=== PATIENT | female | born 1945 | race Caucasian/White ===

== ENCOUNTER 2020-04-07 11:33 | Outpatient (REF) | payer MEDICARE, OTHER, SELFPAY ==
[2020-04-07 11:51] VITALS: BMI 20.1
[2020-04-07 11:52] VITALS: BP 154/67; PULSE 56; RESP 16; TEMP 36.4; O2SAT 97
== END 2020-04-07 11:34 | disposition home or self-care (01) ==
LOC: HO.MS 11:33
PROVIDERS: Visit Provider Ophthalmology
PROC: (CPT 66821; principal; 2020-04-07 12:40)
DX: H26.492 Other secondary cataract, left eye (principal); H35.033 Hypertensive retinopathy, bilateral; Z96.1 Presence of intraocular lens; I10 Essential (primary) hypertension; Z91.040 Latex allergy status; Z79.899 Other long term (current) drug therapy; Z87.891 Personal history of nicotine dependence; Z88.2 Allergy status to sulfonamides; Z88.8 Allergy status to other drugs, medicaments and biological substances; E07.9 Disorder of thyroid, unspecified
CPT/HCPCS: 66821

== ENCOUNTER 2020-05-19 08:02 | Day surgery (SDC) | payer MEDICARE, OTHER, SELFPAY ==
--- NOTE | 2020-04-29 13:24 | MHC.SHP ---
Pre-Procedural Eval Section A The patient is an INPATIENT: No The History & Physical has been completed within 30 days and I have reviewed it.: Yes Section B Chief Complaint: Cataract Right Eye Allergies: Allergies Allergy/AdvReac Type Severity Reaction Status Date / Time Beta-Adrenergic Agents Allergy Intermediate RASH TO A Unverified 02/28/20 16:18 [BETA-ADRENERGIC AGENTS] COUCH AND EDEMA latex [LATEX] Allergy Intermediate RASH Unverified 02/28/20 16:18 amlodipine [AMLODIPINE] Allergy Mild UNKNOWN Unverified 02/28/20 16:18 lisinopril [LISINOPRIL] Allergy Unknown UNKNOWN Unverified 02/28/20 16:18 spironolactone Allergy Unknown UNKNOWN Unverified 02/28/20 16:18 [SPIRONOLACTONE] Qoormrf-Ayw-Bff Reductase Allergy Unknown NAUSEA, Unverified 02/28/20 16:18 Inhibitor LOSS OF [[id number] REDUCTASE APPETITE, INHIBITOR] GENERALIZED ILL FEELING Sulfa (Sulfonamide Allergy Unknown YEARS AGO Unverified 02/28/20 16:18 Antibiotics) [SULFA (SULFONAMIDE ANTIBIOTICS)] lactose [LACTOSE] AdvReac Mild STOMACH Unverified 02/28/20 16:18 UPSET beta blockers Allergy Unknown Uncoded 01/02/20 00:00 Sulfacet-R Allergy Unknown Uncoded 01/02/20 00:00 Plan Diagnosis/Plan: Unchanged Patient has been examined and remains a candidate for the planned procedure
[2020-05-05 14:26] VITALS: BMI 20.1
--- NOTE | 2020-05-05 14:35 | P.CONAN_ITS ---
HPI - Anesthesia Eval Consult details Narrative: 74yo F for Cataract Extraction No previous cataract PCP cleared [facility] Past Medical History Medical History (Updated 05/07/20 @ 13:36 by Dodie Cuevas) CAD (coronary artery disease) COPD (chronic obstructive pulmonary disease) History of postoperative nausea Hx of cardiomyopathy Hx of transfusion of whole blood Hyponatremia syndrome Renal failure Thyroid disease Surgical History Surgical History (Updated 05/05/20 @ 14:33 by Umu Worley) H/O colonoscopy History of nephrectomy Hx of cardiac catheterization Hx of hysterectomy with oophorectomy Hx of left cataract extraction Hx of splenectomy Social History Social History (Updated 05/05/20 @ 14:38 by Umu Worley) Alcohol intake: never Smoking Status: Former smoker Tobacco Type: Cigarette Smoking Quit Date: 2016 Use of substances other than those prescribed or required for medical reasons: No Advance Directives: No Meds Allergies Allergy/AdvReac Type Severity Reaction Status Date / Time Beta-Blockers Allergy Intermediate Swelling Verified 05/05/20 14:20 (Beta-Adrenergic Bloc latex [LATEX] Allergy Intermediate RASH Verified 05/05/20 14:18 lisinopril [LISINOPRIL] Allergy Intermediate Cough Verified 05/05/20 14:18 Jlpvhyy-Tnb-Vfi Reductase Allergy Intermediate NAUSEA, Verified 05/05/20 14:18 Inhibitor LOSS OF [[id number] REDUCTASE APPETITE, INHIBITOR] GENERALIZED ILL FEELING Sulfa (Sulfonamide Allergy Intermediate Rash Verified 05/05/20 14:18 Antibiotics) [SULFA (SULFONAMIDE ANTIBIOTICS)] amlodipine [AMLODIPINE] Allergy Mild Rash Verified 05/05/20 14:18 spironolactone Allergy Unknown UNKNOWN Verified 05/05/20 14:18 [SPIRONOLACTONE] lactose [LACTOSE] AdvReac Mild STOMACH Verified 05/05/20 14:18 UPSET Home Medications Medication Instructions Recorded Confirmed Type albuterol sulfate [ProAir HFA] 2 puff INHALATION Q4-6H PRN 05/05/20 05/05/20 History aspirin [Aspirin Low-Strength] 81 mg PO DAILY 05/05/20 05/05/20 History carvedilol 12.5 mg PO BID 05/05/20 05/05/20 History fluticasone furoate-vilanterol 1 inh INHALATION DAILY 05/05/20 05/05/20 History [Breo Ellipta] levothyroxine 100 mcg PO DAILY 05/05/20 05/05/20 History urea [Ure-Na] 1 packet PO DAILY 05/05/20 05/05/20 History Exam Exam Date and Time: May 05, 2020 1435 Height,Weight and Vital Signs: Height 5 ft 2 in Weight 49.895 kg Narrative Narrative: EKG 12/2019: NSR@73, biatrial enlargement Assessment and Plan Assessment Anesthesia Assessment: Chart Reviewed
--- NOTE | 2020-05-16 12:49 | HO.ANESPROP2 ---
Documented by User: Dodie Cuevas 05/16/20 13:38 HPI - Anesthesia Eval Consult details Narrative: 74yo F for Cataract Extraction PCP cleared [facility] Past Medical History Medical History Anxiety CAD (coronary artery disease) COPD (chronic obstructive pulmonary disease) COPD exacerbation History of postoperative nausea Hx of cardiomyopathy Hx of transfusion of whole blood Hyponatremia syndrome Renal failure Thyroid disease Surgical History Surgical History H/O colonoscopy History of nephrectomy Hx of cardiac catheterization Hx of hysterectomy with oophorectomy Hx of left cataract extraction Hx of splenectomy Social History Social History Alcohol intake: never Smoking Status: Former smoker Tobacco Type: Cigarette Smoked in Last 30 Days: No Smoking Quit Date: 2016 Use of substances other than those prescribed or required for medical reasons: No Advance Directives Information Provided: No Recently lost weight without trying: No Meds Allergies Allergy/AdvReac Type Severity Reaction Status Date / Time Beta-Blockers Allergy Intermediate Swelling Verified 05/14/20 14:52 (Beta-Adrenergic Bloc latex [LATEX] Allergy Intermediate RASH Verified 05/14/20 14:52 lisinopril [LISINOPRIL] Allergy Intermediate Cough Verified 05/14/20 14:52 Fvstoxb-Tdz-Zzt Reductase Allergy Intermediate NAUSEA, Verified 05/14/20 14:52 Inhibitor LOSS OF [[id number] REDUCTASE APPETITE, INHIBITOR] GENERALIZED ILL FEELING Sulfa (Sulfonamide Allergy Intermediate Rash Verified 05/14/20 14:52 Antibiotics) [SULFA (SULFONAMIDE ANTIBIOTICS)] amlodipine [AMLODIPINE] Allergy Mild Rash Verified 05/14/20 14:52 spironolactone Allergy Unknown UNKNOWN Verified 05/14/20 14:52 [SPIRONOLACTONE] lactose [LACTOSE] AdvReac Mild STOMACH Verified 05/14/20 14:52 UPSET Home Medications Medication Instructions Recorded Confirmed Type albuterol sulfate [ProAir HFA] 2 puff INHALATION Q4-6H PRN 05/05/20 05/05/20 History aspirin [Aspirin Low-Strength] 81 mg PO DAILY 05/05/20 05/05/20 History carvedilol 12.5 mg PO BID 05/05/20 05/05/20 History fluticasone furoate-vilanterol 1 inh INHALATION DAILY 05/05/20 05/05/20 History [Breo Ellipta] levothyroxine 100 mcg PO DAILY 05/05/20 05/05/20 History urea [Ure-Na] 1 packet PO DAILY 05/05/20 05/05/20 History Exam Exam Date and Time: May 16, 2020 1249 Height,Weight and Vital Signs: Height 5 ft 2 in Weight 49.895 kg Assessment and Plan Assessment Anesthesia Assessment: Chart Reviewed Documented by User: Netta Pritchard 05/19/20 10:25 [facility] Past Medical History Medical History Anxiety CAD (coronary artery disease) COPD (chronic obstructive pulmonary disease) COPD exacerbation History of postoperative nausea Hx of cardiomyopathy Hx of transfusion of whole blood Hyponatremia syndrome Renal failure Thyroid disease Family History Family history of problems with anesthesia: No Surgical History Surgical History H/O colonoscopy History of nephrectomy Hx of cardiac catheterization Hx of hysterectomy with oophorectomy Hx of left cataract extraction Hx of splenectomy History of Problems with Anesthesia: No Social History Social History Alcohol intake: never Smoking Status: Former smoker Tobacco Type: Cigarette Smoked in Last 30 Days: No Smoking Quit Date: 2016 Use of substances other than those prescribed or required for medical reasons: No Advance Directives Information Provided: No Recently lost weight without trying: No Meds Allergies Allergy/AdvReac Type Severity Reaction Status Date / Time Beta-Blockers Allergy Intermediate Swelling Verified 05/14/20 14:52 (Beta-Adrenergic Bloc latex [LATEX] Allergy Intermediate RASH Verified 05/14/20 14:52 lisinopril [LISINOPRIL] Allergy Intermediate Cough Verified 05/14/20 14:52 Bwkroyn-Zqv-Dzl Reductase Allergy Intermediate NAUSEA, Verified 05/14/20 14:52 Inhibitor LOSS OF [[id number]-[id number] REDUCTASE APPETITE, INHIBITOR] GENERALIZED ILL FEELING Sulfa (Sulfonamide Allergy Intermediate Rash Verified 05/14/20 14:52 Antibiotics) [SULFA (SULFONAMIDE ANTIBIOTICS)] amlodipine [AMLODIPINE] Allergy Mild Rash Verified 05/14/20 14:52 spironolactone Allergy Unknown UNKNOWN Verified 05/14/20 14:52 [SPIRONOLACTONE] lactose [LACTOSE] AdvReac Mild STOMACH Verified 05/14/20 14:52 UPSET Home Medications Medication Instructions Recorded Confirmed Type albuterol sulfate [ProAir HFA] 2 puff INHALATION Q4-6H PRN 05/05/20 05/05/20 History aspirin [Aspirin Low-Strength] 81 mg PO DAILY 05/05/20 05/05/20 History carvedilol 12.5 mg PO BID 05/05/20 05/05/20 History fluticasone furoate-vilanterol 1 inh INHALATION DAILY 05/05/20 05/05/20 History [Breo Ellipta] levothyroxine 100 mcg PO DAILY 05/05/20 05/05/20 History urea [Ure-Na] 1 packet PO DAILY 05/05/20 05/05/20 History Exam Height,Weight and Vital Signs: Vital Signs Temp Pulse Resp BP Pulse Ox 05/19/20 09:22 98.2 F 54 16 173/74 H 98 Airway Mallampati Class: II TM Dist: >3cm Neck ROM: Full Denture: Upper Partial: Lower Heart: RRR Lungs: CTAB Assessment and Plan Assessment Anesthesia Assessment: Anesthesia Plan Discussed and Chart Reviewed Final Anesthetic Review NPO: Yes ASA Class: III Final Preanesthetic Review: No Changes in Pt Med Stat, Meds/Allgs Chart Reviewed, Consent Obtained/Reviewed and Anes Risks/Benef Reviewed Patient Risk: Intermediate Procedure Risk: Low Anesthetic Plan Anesthetic Plan: MAC: Disposition: Standard PACU
--- NOTE | 2020-05-19 08:26 | MHC.SHP ---
Pre-Procedural Eval Section A The patient is an INPATIENT: No The History & Physical has been completed within 30 days and I have reviewed it.: Yes Section B Chief Complaint: Cataract Right Eye Allergies: Allergies Allergy/AdvReac Type Severity Reaction Status Date / Time Beta-Blockers Allergy Intermediate Swelling Verified 05/14/20 14:52 (Beta-Adrenergic Bloc latex [LATEX] Allergy Intermediate RASH Verified 05/14/20 14:52 lisinopril [LISINOPRIL] Allergy Intermediate Cough Verified 05/14/20 14:52 Itlgvna-Tym-Llg Reductase Allergy Intermediate NAUSEA, Verified 05/14/20 14:52 Inhibitor LOSS OF [SEXIPZQ-ALH-BZD REDUCTASE APPETITE, INHIBITOR] GENERALIZED ILL FEELING Sulfa (Sulfonamide Allergy Intermediate Rash Verified 05/14/20 14:52 Antibiotics) [SULFA (SULFONAMIDE ANTIBIOTICS)] amlodipine [AMLODIPINE] Allergy Mild Rash Verified 05/14/20 14:52 spironolactone Allergy Unknown UNKNOWN Verified 05/14/20 14:52 [SPIRONOLACTONE] lactose [LACTOSE] AdvReac Mild STOMACH Verified 05/14/20 14:52 UPSET Plan Diagnosis/Plan: Unchanged Patient has been examined and remains a candidate for the planned procedure
[2020-05-19 09:22] VITALS: BP 173/74; PULSE 54; RESP 16; TEMP 36.8; O2SAT 98
[2020-05-19] MEDS: Lactated Ringers 500 ML 50 ML IV (09:34)
[2020-05-19] MEDS: Tetracaine HCl/PF 0.5% Oph Sol 4 ML DROPS 1 DROP EYE-RIGHT (09:35)
[2020-05-19] MEDS: Tropicamide 1 % Ophth Sol 3 ML BTL 1 DROP EYE-RIGHT ×3 (09:37→09:44)
[2020-05-19 10:50] VITALS: BP 143/66; PULSE 60; RESP 13; TEMP 36.1; O2SAT 99
--- NOTE | 2020-05-19 10:51 | HO.PNOPHT ---
Ophthalmology Procedure Procedure Date of Service: 05/19/20 Ophthalmology Viscoelastic: Amarilis Caseyt Dual Pack Pro Ophthalmology Lenses: TECELAINA [id number] (15) Procedure Notes: PREOPERATIVE DIAGNOSIS: Decreased visual acuity right eye secondary to cataract POSTOPERATIVE DIAGNOSIS: Same PROCEDURE: Right cataract extraction with intraocular lens insertion SURGEON: Sammy Thomas M.D. ANESTHESIA: Topical/MAC ESTIMATED BLOOD LOSS: None COMPLICATIONS: None After obtaining informed consent, the patient was brought to the operating room suite and placed in the supine position. After adequate sedation per anesthesia, topical drops of Tetracaine were given to the right eye. The eye was then prepped and draped in the usual sterile fashion. The operating room microscope was then positioned over the operative eye and a lid speculum placed. A paracentesis was created. Viscoelastic was then instilled into the anterior chamber. A three plane incision was then created temporally, utilizing a 2.85 mm keratome. Capsulotomy forceps were then utilized to create a circular tear capsulotomy. Hydrodissection and hydrodelineation were carried out until adequate mobilization of the nucleus occurred. Phacoemulsification was then utilized to remove the dense central nucleus followed by removal of the cortical material utilizing the automated aspiration irrigation unit. Viscoelastic was instilled into the posterior capsular bag followed by placement of a posterior chamber intraocular lens without difficulty. The residual Viscoelastic was then removed utilizing the automated IA machine. The wound was checked and found to be watertight. The patient tolerated the procedure well and the lid speculum was removed. Intracameral injection of Vigamox 0.1 mL followed by a subtenon injection of Kenalog-40 0.2 mL were administered. The patient will be seen in the a.m.
--- NOTE | 2020-05-19 10:53 | HO.POSTANES ---
Post Anesthesia Evaluation Post Anesthesia Evaluation Vital Signs: Vital Signs Temp Pulse Resp BP Pulse Ox 05/19/20 09:22 98.2 F 54 16 173/74 H 98 Anesthesia: Monitored Mental Status: Awake Pain Control: Satisfactory Nausea/Vomiting: None Hydration: Adequate Anesthesia-Related Issues: No Anes. Related Issues
== END 2020-05-19 11:05 | disposition home or self-care (01) ==
PROVIDERS: Visit Provider Ophthalmology
PROC: (CPT 66985; principal; 2020-05-19 10:10)
DX: H25.11 Age-related nuclear cataract, right eye (principal); Z88.2 Allergy status to sulfonamides; Z88.8 Allergy status to other drugs, medicaments and biological substances
CPT/HCPCS: 66984; J2250; J3010; J3300; V2632

== ENCOUNTER 2020-05-22 09:33 | Outpatient (REF) | payer MEDICARE, OTHER, SELFPAY ==
[2020-05-22 11:55] LABS: Anion Gap 12 (12-20); Blood Urea Nitrogen 65 mg/dL (9-16); Calcium 9.5 mg/dL (8.4-10.2); Carbon Dioxide 28 mmol/L (22-29); Chloride 100 mmol/L (96-108); Estimated Glomerular Filt Rate 57; Potassium 4.7 mmol/l (3.3-5.1); Sodium 135 mmol/L (135-145)
[2020-05-22 12:04] LABS: Thyroid Stimulating Hormone 1.44 uIU/mL (0.32-4.0)
== END 2020-05-22 09:34 | disposition home or self-care (01) ==
LOC: HO.HMGCLDS 09:33
PROVIDERS: Visit Provider Internal Medicine Hypertension Specialist
DX: E22.2 Syndrome of inappropriate secretion of antidiuretic hormone (principal); E87.1 Hypo-osmolality and hyponatremia; I10 Essential (primary) hypertension; E03.9 Hypothyroidism, unspecified
CPT/HCPCS: 80051; 82310; 82565; 84443; 84520

== ENCOUNTER 2020-05-30 07:08 | Outpatient (REF) | payer MEDICARE, OTHER, SELFPAY ==
[2020-05-30 11:13] LABS: MANUAL DIFF FLAG NO
[2020-05-30 11:23] LABS: Basophils Absolute Auto 0.1 X10*3/uL (0.0-0.2); Basophils Percent Auto 1.1 % (0-2); Eosinophils Absolute Auto 0.3 X10*3/uL (0.0-0.4); Eosinophils Percent Auto 3.1 % (0-4); Hemoglobin 14.5 g/dl (12.0-16.0); Imm Gran Abs Auto 0.03 X10*3/uL (0.00-0.03); Imm Gran Pct Auto 0.3 % (0.0-0.4); Lymphocytes Absolute Auto 2.5 X10*3/uL (1.2-4.9); Lymphocytes Percent Auto 24.6 % (20-40); Mean Corpuscular HGB Conc 32.2 g/dl (31.0-35.0); Mean Corpuscular Hemoglobin 32.6 pg (27.0-33.0); Mean Corpuscular Volume 101.1 fL (80-98); Mean Platelet Volume 9.6 fL (9.4-12.3); Monocytes Absolute Auto 0.8 X10*3/uL (0.1-1.2); Monocytes Percent Auto 7.4 % (2-11); Neutrophils Absolute Auto 6.5 X10*3/uL (2.0-8.3); Neutrophils Percent Auto 63.5 % (45-73); Platelet Count 302 X10*3/uL (160-400); Red Blood Count 4.45 X10*6/uL (4.20-5.50); Red Cell Distribution Width 12.9 % (11.0-16.0); White Blood Count 10.3 X10*3/uL (4.8-10.8)
[2020-05-30 11:46] LABS: Alanine Aminotransferase 17 U/L (0-31); Alkaline Phosphatase 58 U/L (39-117); Anion Gap 11 (12-20); Aspartate Amino Transferase 22 U/L (5-31); Bilirubin Direct 0.2 mg/dL (0.0-0.5); Bilirubin Total 0.5 mg/dL (0.0-1.0); Blood Urea Nitrogen 34 mg/dL (9-16); Calcium 9.4 mg/dL (8.4-10.2); Carbon Dioxide 31 mmol/L (22-29); Chloride 102 mmol/L (96-108); Cholesterol 215 mg/dL; Estimated Glomerular Filt Rate 50; Glucose Fasting 99 mg/dL (60-99); HDL Cholesterol 77 mg/dL; LDL Cholesterol Calculated 123 mg/dl; Potassium 4.7 mmol/l (3.3-5.1); Sodium 139 mmol/L (135-145); Total Protein 7.8 g/dL (6.5-8.0); Triglycerides 76 mg/dL
[2020-05-30 11:57] LABS: Free T4 (Free Thyroxine) 1.35 ng/dL (0.71-1.85); Thyroid Stimulating Hormone 0.93 uIU/mL (0.32-4.0); Vitamin D 25-OH Total 27.4 ng/mL (>30)
[2020-05-30 12:27] LABS: Folate > 20.0 ng/mL (> or = 4.0); Vitamin B12 554 pg/mL (200-900)
== END 2020-05-30 07:09 | disposition home or self-care (01) ==
LOC: HO.HMGCLDS 07:08
DX: E22.2 Syndrome of inappropriate secretion of antidiuretic hormone (principal); E87.1 Hypo-osmolality and hyponatremia; E03.9 Hypothyroidism, unspecified; I10 Essential (primary) hypertension; J44.9 Chronic obstructive pulmonary disease, unspecified
CPT/HCPCS: 36415; 80053; 80061; 80076; 82306; 82607; 82746; 84439; 84443; 85025

== ENCOUNTER → 2020-06-03 14:44 | Outpatient (BNVA) | payer MEDICARE, OTHER, SELFPAY | PROVIDERS: Visit Provider Internal Medicine | DX: Z76.89 Persons encountering health services in other specified circumstances (principal) | CPT/HCPCS: Q3014 ==

== ENCOUNTER → 2020-09-02 10:18 | Outpatient (BNVA) | payer MEDICARE, OTHER, SELFPAY | PROVIDERS: PCP Internal Medicine Medical Oncology; Visit Provider Internal Medicine | DX: J44.1 Chronic obstructive pulmonary disease with (acute) exacerbation (principal); F41.9 Anxiety disorder, unspecified; Z87.891 Personal history of nicotine dependence; Z79.899 Other long term (current) drug therapy | CPT/HCPCS: 99212 ==

== ENCOUNTER 2020-10-02 10:17 | Outpatient (REF) | payer MEDICARE, OTHER, SELFPAY ==
[2020-10-02 12:15] LABS: Thyroid Stimulating Hormone 0.55 uIU/mL (0.32-4.0)
== END 2020-10-02 10:18 | disposition home or self-care (01) ==
LOC: HO.HMGCLDS 10:17
PROVIDERS: PCP Internal Medicine Medical Oncology; Visit Provider Internal Medicine Hypertension Specialist
DX: E22.2 Syndrome of inappropriate secretion of antidiuretic hormone (principal); E87.1 Hypo-osmolality and hyponatremia; E03.9 Hypothyroidism, unspecified
CPT/HCPCS: 36415; 84443

== ENCOUNTER 2020-10-09 14:05 | Outpatient (REF) | payer MEDICARE, OTHER, SELFPAY ==
[2020-10-09 16:45] LABS: Anion Gap 13 (12-20); Blood Urea Nitrogen 54 mg/dL (9-16); Calcium 9.2 mg/dL (8.4-10.2); Carbon Dioxide 26 mmol/L (22-29); Chloride 103 mmol/L (96-108); Estimated Glomerular Filt Rate 49; Sodium 137 mmol/L (135-145)
== END 2020-10-09 14:06 | disposition home or self-care (01) ==
LOC: HO.HMGCLDS 14:05
PROVIDERS: PCP Internal Medicine Medical Oncology; Visit Provider Internal Medicine Hypertension Specialist
DX: E87.1 Hypo-osmolality and hyponatremia (principal)
CPT/HCPCS: 36415; 80051; 82310; 82565; 84520

== ENCOUNTER 2020-10-24 10:45 | Outpatient (REF) | payer MEDICARE, OTHER, SELFPAY ==
--- NOTE | ~2020-10-24 | MM_ITS ---
EXAMINATION: BONE DENSITOMETRY CLINICAL INDICATION: Osteoporosis. COMPARISON: This is the patient's baseline examination. TECHNIQUE: Using a [employer] DXA System (software version: 13.1) manufactured by [employer], dual-energy x-ray absorptiometry was performed of the lumbar spine and left hip. The images are of good technical quality. Summary results are attached. FINDINGS: AP SPINE L1-L4: There is scoliosis and degenerative spurring and sclerosis seen involving the lumbar spine which will falsely elevate the bone mineral density. BMD 1.046 g/cm2, Z-score 1.1, T-score -1.1, osteopenia. LEFT FEMUR, NECK: BMD 0.609 g/cm2, Z-score -0.8, T-score -3.1, osteoporosis. LEFT FEMUR, TOTAL: BMD 0.621 g/cm2, Z-score -1.0, T-score -3.1, osteoporosis. IDENTIFIED RISK FACTORS: Menopause, height loss, renal, glucocorticoids (chronic), bilateral oophorectomy. HISTORY OF FRACTURE: None listed. MEDICATIONS: Calcium, vitamin D. MM/XR DEXA axial skeleton IMPRESSION: 1. DIAGNOSIS: Osteoporosis based on the lowest T-score value of -3.1 in the femur neck and total femur applying World Health Organization criteria. 2. 10-YEAR FRACTURE RISK PREDICTION, FRAX: Major osteoporotic fracture (clinical spine, forearm, hip or shoulder) 30.4%. Hip fracture 14.4%. 3. Treatment Recommendations: NOF guidelines recommend consideration for treatment in postmenopausal women and men age 50 and older presenting with the following: -A hip or vertebral (clinical or morphometric) fracture. -T-score less than or equal to -2.5 at the femoral neck or spine after appropriate evaluation to exclude secondary causes. -Low bone mass at the hip or spine and a 10-year fracture probability by FRAX of greater than or equal to 3% for hip fracture or greater than or equal to 20% for major osteoporotic fracture based on the [place] adapted WHO algorithm. 4. Other Recommendations: All treatment decisions require clinical judgment and consideration of individual patient factors, including patient preferences, comorbidities, previous drug use, risk factors not captured in the FRAX model (e.g. frailty, falls, vitamin D deficiency, increased bone turnover, interval significant decline in bone density) and possible under or overestimation of fracture risk by FRAX. Additional medical evaluation for secondary cause of low bone mineral density may be appropriate. FUTURE SCAN RECOMMENDATION: People with diagnosed cases of osteoporosis or at high risk for fracture should have regular bone mineral density tests. For patients eligible for Medicare, routine testing is allowed once every 2 years. The testing frequency can be increased to one year for patients who have rapidly progressing disease, those who are receiving or discontinuing medical therapy to restore bone mass, or have additional risk factors.
== END 2020-10-24 10:46 | disposition home or self-care (01) ==
LOC: HO.MAMMO 10:45
PROVIDERS: Visit Provider Internal Medicine Medical Oncology
DX: M81.0 Age-related osteoporosis without current pathological fracture (principal); Z78.0 Asymptomatic menopausal state; Z79.52 Long term (current) use of systemic steroids; Z90.722 Acquired absence of ovaries, bilateral
CPT/HCPCS: 77080

== ENCOUNTER → 2020-11-27 10:00 | Outpatient (BNVA) | payer MEDICARE, OTHER, SELFPAY | PROVIDERS: PCP Internal Medicine Medical Oncology; Visit Provider Internal Medicine | DX: J44.1 Chronic obstructive pulmonary disease with (acute) exacerbation (principal); F41.9 Anxiety disorder, unspecified; T78.40XA Allergy, unspecified, initial encounter; Z79.899 Other long term (current) drug therapy | CPT/HCPCS: 99212 ==

== ENCOUNTER → 2020-12-23 10:16 | Outpatient (BNVA) | payer MEDICARE, OTHER, SELFPAY | PROVIDERS: PCP Internal Medicine Medical Oncology; Visit Provider Internal Medicine | DX: I51.81 Takotsubo syndrome (principal); I25.10 Atherosclerotic heart disease of native coronary artery without angina pectoris | CPT/HCPCS: 93005; 99212 ==

== ENCOUNTER 2021-01-30 07:06 | Outpatient (REF) | payer MEDICARE, OTHER, SELFPAY ==
[2021-01-30 11:18] LABS: MANUAL DIFF FLAG NO
[2021-01-30 11:39] LABS: Basophils Absolute Auto 0.1 X10*3/uL (0.0-0.2); Basophils Percent Auto 0.9 % (0-2); Eosinophils Absolute Auto 0.3 X10*3/uL (0.0-0.4); Eosinophils Percent Auto 3.4 % (0-4); Hematocrit 42.9 % (37-47); Hemoglobin 13.7 g/dl (12.0-16.0); Imm Gran Abs Auto 0.03 X10*3/uL (0.00-0.03); Imm Gran Pct Auto 0.3 % (0.0-0.4); Lymphocytes Absolute Auto 3.2 X10*3/uL (1.2-4.9); Lymphocytes Percent Auto 37.7 % (20-40); Mean Corpuscular HGB Conc 31.9 g/dl (31.0-35.0); Mean Corpuscular Hemoglobin 32.7 pg (27.0-33.0); Mean Corpuscular Volume 102.4 fL (80-98); Mean Platelet Volume 9.9 fL (9.4-12.3); Monocytes Percent Auto 11.8 % (2-11); Neutrophils Absolute Auto 3.9 X10*3/uL (2.0-8.3); Neutrophils Percent Auto 45.9 % (45-73); Platelet Count 256 X10*3/uL (160-400); Red Blood Count 4.19 X10*6/uL (4.20-5.50); Red Cell Distribution Width 13.2 % (11.0-16.0); White Blood Count 8.6 X10*3/uL (4.8-10.8)
[2021-01-30 11:51] LABS: Estimated Average Glucose 123 mg/dL; Hemoglobin A1C 151.9225 umol/L; Hemoglobin A1c % 5.9 %
[2021-01-30 12:00] LABS: Creatinine Urine 125.51 mg/dL; Microalbum/Creatinine Ratio Ur 112.3 ug/mg cr
[2021-01-30 12:18] LABS: Alanine Aminotransferase 18 U/L (0-31); Albumin Level 3.7 g/dL (3.5-5.0); Alkaline Phosphatase 47 U/L (39-117); Anion Gap 11 (12-20); Aspartate Amino Transferase 23 U/L (5-31); Bilirubin Total 0.4 mg/dL (0.0-1.0); Blood Urea Nitrogen 36 mg/dL (9-16); Carbon Dioxide 28 mmol/L (22-29); Chloride 106 mmol/L (96-108); Cholesterol 181 mg/dL; Estimated Glomerular Filt Rate 48; Glucose Random 87 mg/dL (60-115); HDL Cholesterol 65 mg/dL; LDL Cholesterol Calculated 99 mg/dl; Potassium 4.6 mmol/L (3.3-5.1); Sodium 140 mmol/L (135-145); Total Protein 7.1 g/dL (6.5-8.0); Triglycerides 86 mg/dL; Uric Acid 5.7 mg/dL (2.4-5.7)
[2021-01-30 12:20] LABS: Free T4 (Free Thyroxine) 1.38 ng/dL (0.71-1.85); Thyroid Stimulating Hormone 0.67 uIU/mL (0.32-4.0)
== END 2021-01-30 07:07 | disposition home or self-care (01) ==
LOC: HO.HMGCLDS 07:06
PROVIDERS: PCP Internal Medicine Medical Oncology; Visit Provider Internal Medicine Medical Oncology
DX: J44.9 Chronic obstructive pulmonary disease, unspecified (principal); N18.9 Chronic kidney disease, unspecified; E78.5 Hyperlipidemia, unspecified; D69.2 Other nonthrombocytopenic purpura
CPT/HCPCS: 36415; 80053; 80061; 82043; 83036; 84439; 84443; 84550; 85025

== ENCOUNTER → 2021-02-26 09:58 | Outpatient (BNVA) | payer MEDICARE, OTHER, SELFPAY | PROVIDERS: PCP Internal Medicine Medical Oncology; Visit Provider Internal Medicine | DX: J44.9 Chronic obstructive pulmonary disease, unspecified (principal); F41.9 Anxiety disorder, unspecified; T78.40XA Allergy, unspecified, initial encounter | CPT/HCPCS: 99212 ==

== ENCOUNTER 2021-04-03 12:56 | Outpatient (REF) | payer MEDICARE, OTHER, SELFPAY ==
[2021-04-03 14:10] LABS: MANUAL DIFF FLAG NO
[2021-04-03 14:29] LABS: Basophils Absolute Auto 0.1 X10*3/uL (0.0-0.2); Basophils Percent Auto 0.8 % (0-2); Eosinophils Absolute Auto 0.2 X10*3/uL (0.0-0.4); Eosinophils Percent Auto 2.2 % (0-4); Hemoglobin 13.8 g/dl (12.0-16.0); Imm Gran Abs Auto 0.04 X10*3/uL (0.00-0.03); Imm Gran Pct Auto 0.4 % (0.0-0.4); Lymphocytes Absolute Auto 2.9 X10*3/uL (1.2-4.9); Lymphocytes Percent Auto 29.3 % (20-40); Mean Corpuscular HGB Conc 32.1 g/dl (31.0-35.0); Mean Corpuscular Hemoglobin 32.3 pg (27.0-33.0); Mean Corpuscular Volume 100.7 fL (80-98); Mean Platelet Volume 9.7 fL (9.4-12.3); Monocytes Absolute Auto 1.2 X10*3/uL (0.1-1.2); Monocytes Percent Auto 12.2 % (2-11); Neutrophils Absolute Auto 5.4 X10*3/uL (2.0-8.3); Neutrophils Percent Auto 55.1 % (45-73); Platelet Count 268 X10*3/uL (160-400); Red Blood Count 4.27 X10*6/uL (4.20-5.50); Red Cell Distribution Width 13.5 % (11.0-16.0); White Blood Count 9.8 X10*3/uL (4.8-10.8)
[2021-04-03 14:37] LABS: Anion Gap 9 (12-20); Blood Urea Nitrogen 70 mg/dL (9-16); Calcium 9.4 mg/dL (8.4-10.2); Carbon Dioxide 29 mmol/L (22-29); Chloride 101 mmol/L (96-108); Estimated Glomerular Filt Rate 42; Potassium 4.4 mmol/L (3.3-5.1); Sodium 135 mmol/L (135-145)
== END 2021-04-03 12:57 | disposition home or self-care (01) ==
LOC: HO.HMGCLDS 12:56
PROVIDERS: PCP Internal Medicine Medical Oncology; Visit Provider Internal Medicine Hypertension Specialist
DX: E87.1 Hypo-osmolality and hyponatremia (principal)
CPT/HCPCS: 36415; 80051; 82310; 82565; 84520; 85025

== ENCOUNTER 2021-05-11 10:36 | Outpatient (REF) | payer MEDICARE, OTHER, SELFPAY ==
[2021-05-11 14:13] LABS: Anion Gap 12 (12-20); Blood Urea Nitrogen 61 mg/dL (9-16); Calcium 9.4 mg/dL (8.4-10.2); Carbon Dioxide 27 mmol/L (22-29); Chloride 103 mmol/L (96-108); Estimated Glomerular Filt Rate 42; Phosphorus 3.9 mg/dL (2.7-4.5); Potassium 4.3 mmol/L (3.3-5.1); Sodium 138 mmol/L (135-145)
== END 2021-05-11 10:37 | disposition home or self-care (01) ==
LOC: HO.HMGCLDS 10:36
PROVIDERS: Visit Provider Internal Medicine Hypertension Specialist
DX: E87.1 Hypo-osmolality and hyponatremia (principal)
CPT/HCPCS: 36415; 80051; 82310; 82565; 84100; 84520

== ENCOUNTER → 2021-05-26 10:00 | Outpatient (BNVA) | payer MEDICARE, OTHER, SELFPAY | PROVIDERS: PCP Internal Medicine Medical Oncology; Visit Provider Internal Medicine | DX: J44.9 Chronic obstructive pulmonary disease, unspecified (principal); Z79.52 Long term (current) use of systemic steroids | CPT/HCPCS: 99212 ==

== ENCOUNTER 2021-07-01 06:53 | Outpatient (REF) | payer MEDICARE, OTHER, SELFPAY ==
[2021-07-01 11:22] LABS: MANUAL DIFF FLAG NO
[2021-07-01 11:33] LABS: Basophils Absolute Auto 0.1 X10*3/uL (0.0-0.2); Basophils Percent Auto 0.7 % (0-2); Eosinophils Absolute Auto 0.1 X10*3/uL (0.0-0.4); Hemoglobin 13.7 g/dl (12.0-16.0); Imm Gran Abs Auto 0.03 X10*3/uL (0.00-0.03); Imm Gran Pct Auto 0.3 % (0.0-0.4); Lymphocytes Absolute Auto 2.8 X10*3/uL (1.2-4.9); Lymphocytes Percent Auto 30.8 % (20-40); Mean Corpuscular HGB Conc 31.9 g/dl (31.0-35.0); Mean Corpuscular Hemoglobin 32.9 pg (27.0-33.0); Mean Corpuscular Volume 103.4 fL (80.0-98.0); Mean Platelet Volume 9.8 fL (9.4-12.3); Monocytes Absolute Auto 0.9 X10*3/uL (0.1-1.2); Monocytes Percent Auto 10.1 % (2-11); Neutrophils Absolute Auto 5.2 x10*3/uL (2.0-8.3); Neutrophils Percent Auto 57.1 % (45-73); Platelet Count 269 X10*3/uL (160-400); Red Blood Count 4.16 X10*6/uL (4.20-5.50); Red Cell Distribution Width 13.2 % (11.0-16.0); White Blood Count 9.1 X10*3/uL (4.8-10.8)
[2021-07-01 12:16] LABS: Free T4 (Free Thyroxine) 1.07 ng/dL (0.71-1.85); Thyroid Stimulating Hormone 0.95 uIU/mL (0.32-4.0)
[2021-07-01 12:33] LABS: Alanine Aminotransferase 28 U/L (0-31); Albumin Level 3.6 g/dL (3.5-5.0); Alkaline Phosphatase 58 U/L (39-117); Anion Gap 9 (12-20); Aspartate Amino Transferase 21 U/L (5-31); Bilirubin Total 0.4 mg/dL (0.0-1.0); Blood Urea Nitrogen 40 mg/dL (9-16); Calcium 9.2 mg/dL (8.4-10.2); Carbon Dioxide 31 mmol/L (22-29); Chloride 103 mmol/L (96-108); Cholesterol 169 mg/dL; Estimated Glomerular Filt Rate 49; Glucose Fasting 85 mg/dL (60-99); HDL Cholesterol 62 mg/dL; LDL Cholesterol Calculated 92 mg/dl; Potassium 4.7 mmol/L (3.3-5.1); Sodium 138 mmol/L (135-145); Total Protein 7.4 g/dL (6.5-8.0); Triglycerides 76 mg/dL
== END 2021-07-01 06:54 | disposition home or self-care (01) ==
LOC: HO.HMGCLDS 06:53
PROVIDERS: Visit Provider Internal Medicine Medical Oncology
DX: J44.9 Chronic obstructive pulmonary disease, unspecified (principal); I10 Essential (primary) hypertension; E03.9 Hypothyroidism, unspecified
CPT/HCPCS: 36415; 80053; 80061; 84439; 84443; 85025

== ENCOUNTER 2021-07-21 13:27 | Outpatient (REF) | payer MEDICARE, OTHER, SELFPAY ==
[2021-07-21 16:37] LABS: Appearance Urine CLEAR; Color Urine STRAW; Glucose Urine UA NEG (NEG); Leukocyte Esterase Urine 1+ (NEG); Nitrite Urine NEG (NEG); Urine Blood 1+ (NEG); Urine Ketones NEG (NEG); Urine Protein NEG (NEG-TRACE)
[2021-07-21 17:00] LABS: Anion Gap 9 (12-20); Blood Urea Nitrogen 54 mg/dL (9-16); Calcium 9.1 mg/dL (8.4-10.2); Carbon Dioxide 27 mmol/L (22-29); Chloride 102 mmol/L (96-108); Estimated Glomerular Filt Rate 51; Potassium 4.4 mmol/L (3.3-5.1); Sodium 134 mmol/L (135-145)
[2021-07-21 17:01] LABS: RBC Urine 0 /HPF (0); Squamous Epithelial Cell Urine TRACE /LPF; WBC Urine 0-2 /HPF (0-4)
[2021-07-21 17:30] LABS: Total Protein Urine Random < 7 mg/dL (<12)
== END 2021-07-21 13:28 | disposition home or self-care (01) ==
LOC: HO.HMGCLDS 13:27
PROVIDERS: PCP Internal Medicine Medical Oncology; Visit Provider Internal Medicine Hypertension Specialist
DX: I10 Essential (primary) hypertension (principal); E87.1 Hypo-osmolality and hyponatremia
CPT/HCPCS: 36415; 80051; 81001; 82310; 82565; 84156; 84520

== ENCOUNTER 2021-08-05 10:41 | Outpatient (REF) | payer MEDICARE, OTHER, SELFPAY ==
--- NOTE | ~2021-08-05 | XR_ITS ---
EXAMINATION: XR LUMBAR SPINE XR HIP, RIGHT CLINICAL INFORMATION: Low back and right hip pain. COMPARISON: 08/01/2019 TECHNIQUE: Three-view lumbar spine and 2 views of the right hip. FINDINGS: LUMBAR SPINE: There is scoliosis at the thoracolumbar junction convex right. There has been progression in significant disc space narrowing of T12 through L3 and at the L4-L5 level. No acute fracture is identified. There is facet arthropathy seen on the left at L1 through L3 and on the right L4 through S1. No acute fracture is appreciated. No significant sacroiliac joint abnormalities appreciated. Vascular calcifications are present. RIGHT HIP: Two views of the right hip do not demonstrate any evidence of acute fracture or dislocation. The right hip joint space is maintained. No significant spurring is appreciated. No abnormal lytic or sclerotic lesions are seen and no femoral head collapse is identified. XR/XR hip RT min 2V IMPRESSION: RIGHT HIP: Normal-appearing right hip. LUMBAR SPINE: Scoliosis with severe degenerative change of the lumbar spine.
--- NOTE | ~2021-08-05 | XR_ITS ---
EXAMINATION: XR LUMBAR SPINE XR HIP, RIGHT CLINICAL INFORMATION: Low back and right hip pain. COMPARISON: 08/01/2019 TECHNIQUE: Three-view lumbar spine and 2 views of the right hip. FINDINGS: LUMBAR SPINE: There is scoliosis at the thoracolumbar junction convex right. There has been progression in significant disc space narrowing of T12 through L3 and at the L4-L5 level. No acute fracture is identified. There is facet arthropathy seen on the left at L1 through L3 and on the right L4 through S1. No acute fracture is appreciated. No significant sacroiliac joint abnormalities appreciated. Vascular calcifications are present. RIGHT HIP: Two views of the right hip do not demonstrate any evidence of acute fracture or dislocation. The right hip joint space is maintained. No significant spurring is appreciated. No abnormal lytic or sclerotic lesions are seen and no femoral head collapse is identified. XR/XR lumbar spine 2-3V IMPRESSION: RIGHT HIP: Normal-appearing right hip. LUMBAR SPINE: Scoliosis with severe degenerative change of the lumbar spine.
== END 2021-08-05 10:42 | disposition home or self-care (01) ==
LOC: HO.HMGCX 10:41
PROVIDERS: Visit Provider Internal Medicine Medical Oncology
DX: M54.50 Low back pain, unspecified (principal)
CPT/HCPCS: 72100; 73502

== ENCOUNTER → 2021-09-22 10:28 | Outpatient (BNVA) | payer MEDICARE, OTHER, SELFPAY | PROVIDERS: PCP Internal Medicine Medical Oncology; Visit Provider Internal Medicine | DX: J44.9 Chronic obstructive pulmonary disease, unspecified (principal); F41.9 Anxiety disorder, unspecified; T78.40XA Allergy, unspecified, initial encounter; Z79.52 Long term (current) use of systemic steroids | CPT/HCPCS: 99212 ==

== ENCOUNTER 2021-10-15 12:32 | Outpatient (REF) | payer MEDICARE, OTHER, SELFPAY ==
[2021-10-15 14:04] LABS: Anion Gap 13 (12-20); Blood Urea Nitrogen 57 mg/dL (9-16); Calcium 9.6 mg/dL (8.4-10.2); Carbon Dioxide 25 mmol/L (22-29); Chloride 101 mmol/L (96-108); Estimated Glomerular Filt Rate 50; Potassium 4.2 mmol/L (3.3-5.1); Sodium 135 mmol/L (135-145)
== END 2021-10-15 12:33 | disposition home or self-care (01) ==
LOC: HO.HMGCLDS 12:32
PROVIDERS: PCP Internal Medicine Medical Oncology; Visit Provider Internal Medicine Hypertension Specialist
DX: I12.9 Hypertensive chronic kidney disease with stage 1 through stage 4 chronic kidney disease, or unspecified chronic kidney disease (principal); N18.31 Chronic kidney disease, stage 3a
CPT/HCPCS: 36415; 80051; 82310; 82565; 84520

== ENCOUNTER 2021-10-30 06:36 | Outpatient (REF) | payer MEDICARE, OTHER, SELFPAY ==
[2021-10-30 11:06] LABS: MANUAL DIFF FLAG NO
[2021-10-30 11:15] LABS: Basophils Absolute Auto 0.1 X10*3/uL (0.0-0.2); Basophils Percent Auto 1.2 % (0-2); Eosinophils Absolute Auto 0.4 X10*3/uL (0.0-0.4); Eosinophils Percent Auto 4.2 % (0-4); Hematocrit 41.7 % (37.0-47.0); Hemoglobin 13.3 g/dl (12.0-16.0); Imm Gran Abs Auto 0.03 X10*3/uL (0.00-0.03); Imm Gran Pct Auto 0.3 % (0.0-0.4); Lymphocytes Absolute Auto 3.3 X10*3/uL (1.2-4.9); Lymphocytes Percent Auto 32.3 % (20-40); Mean Corpuscular HGB Conc 31.9 g/dl (31.0-35.0); Mean Corpuscular Hemoglobin 32.8 pg (27.0-33.0); Mean Corpuscular Volume 102.7 fL (80.0-98.0); Mean Platelet Volume 9.6 fL (9.4-12.3); Monocytes Absolute Auto 0.9 X10*3/uL (0.1-1.2); Monocytes Percent Auto 8.5 % (2-11); Neutrophils Absolute Auto 5.4 x10*3/uL (2.0-8.3); Neutrophils Percent Auto 53.5 % (45-73); Platelet Count 270 X10*3/uL (160-400); Red Blood Count 4.06 X10*6/uL (4.20-5.50); Red Cell Distribution Width 13.2 % (11.0-16.0); White Blood Count 10.1 X10*3/uL (4.8-10.8)
[2021-10-30 11:33] LABS: Alanine Aminotransferase 13 U/L (0-31); Albumin Level 3.5 g/dL (3.5-5.0); Alkaline Phosphatase 66 U/L (39-117); Anion Gap 7 (12-20); Aspartate Amino Transferase 17 U/L (5-31); Bilirubin Total 0.4 mg/dL (0.0-1.0); Blood Urea Nitrogen 50 mg/dL (9-16); Carbon Dioxide 31 mmol/L (22-29); Chloride 106 mmol/L (96-108); Cholesterol 164 mg/dL; Estimated Glomerular Filt Rate 45; Glucose Fasting 79 mg/dL (60-99); HDL Cholesterol 51 mg/dL; LDL Cholesterol Calculated 90 mg/dl; Potassium 4.4 mmol/L (3.3-5.1); Sodium 140 mmol/L (135-145); Total Protein 7.2 g/dL (6.5-8.0); Triglycerides 117 mg/dL
[2021-10-30 11:57] LABS: Free T4 (Free Thyroxine) 1.15 ng/dL (0.71-1.85); Thyroid Stimulating Hormone 1.17 uIU/mL (0.32-4.0)
== END 2021-10-30 06:37 | disposition home or self-care (01) ==
LOC: HO.HMGCLDS 06:36
PROVIDERS: PCP Internal Medicine Medical Oncology; Visit Provider Internal Medicine Hypertension Specialist
DX: E03.9 Hypothyroidism, unspecified (principal); E78.5 Hyperlipidemia, unspecified; N18.32 Chronic kidney disease, stage 3b
CPT/HCPCS: 36415; 80053; 80061; 84439; 84443; 85025

== ENCOUNTER 2022-01-25 06:05 | Outpatient (REF) | payer MEDICARE, OTHER, SELFPAY ==
[2022-01-25 11:38] LABS: MANUAL DIFF FLAG NO
[2022-01-25 11:48] LABS: Basophils Absolute Auto 0.1 X10*3/uL (0.0-0.2); Eosinophils Absolute Auto 0.2 X10*3/uL (0.0-0.4); Eosinophils Percent Auto 2.2 % (0-4); Hematocrit 43.7 % (37.0-47.0); Hemoglobin 13.8 g/dl (12.0-16.0); Imm Gran Abs Auto 0.03 X10*3/uL (0.00-0.03); Imm Gran Pct Auto 0.3 % (0.0-0.4); Lymphocytes Absolute Auto 2.8 X10*3/uL (1.2-4.9); Lymphocytes Percent Auto 31.3 % (20-40); Mean Corpuscular HGB Conc 31.6 g/dl (31.0-35.0); Mean Corpuscular Hemoglobin 32.6 pg (27.0-33.0); Mean Corpuscular Volume 103.3 fL (80.0-98.0); Mean Platelet Volume 9.5 fL (9.4-12.3); Monocytes Percent Auto 10.6 % (2-11); Neutrophils Absolute Auto 4.9 x10*3/uL (2.0-8.3); Neutrophils Percent Auto 54.6 % (45-73); Platelet Count 271 X10*3/uL (160-400); Red Blood Count 4.23 X10*6/uL (4.20-5.50); Red Cell Distribution Width 13.7 % (11.0-16.0); White Blood Count 9.1 X10*3/uL (4.8-10.8)
[2022-01-25 12:03] LABS: Alanine Aminotransferase 20 U/L (0-31); Albumin Level 3.9 g/dL (3.5-5.0); Alkaline Phosphatase 48 U/L (39-117); Anion Gap 11 (12-20); Aspartate Amino Transferase 22 U/L (5-31); Bilirubin Total 0.5 mg/dL (0.0-1.0); Blood Urea Nitrogen 47 mg/dL (9-16); Calcium 9.1 mg/dL (8.4-10.2); Carbon Dioxide 31 mmol/L (22-29); Chloride 103 mmol/L (96-108); Cholesterol 188 mg/dL; Estimated Glomerular Filt Rate 43; Glucose Fasting 79 mg/dL (60-99); HDL Cholesterol 64 mg/dL; LDL Cholesterol Calculated 113 mg/dl; Potassium 4.4 mmol/L (3.3-5.1); Sodium 141 mmol/L (135-145); Total Protein 7.7 g/dL (6.5-8.0); Triglycerides 58 mg/dL
[2022-01-25 12:05] LABS: Anion Gap 12 (12-20); Blood Urea Nitrogen 47 mg/dL (9-16); Calcium 9.3 mg/dL (8.4-10.2); Carbon Dioxide 30 mmol/L (22-29); Chloride 103 mmol/L (96-108); Estimated Glomerular Filt Rate 43; Glucose Random 79 mg/dL (60-115); Potassium 4.4 mmol/L (3.3-5.1); Sodium 141 mmol/L (135-145)
[2022-01-25 12:17] LABS: Thyroid Stimulating Hormone 1.87 uIU/mL (0.32-4.0)
== END 2022-01-25 06:06 | disposition home or self-care (01) ==
LOC: HO.HMGCLDS 06:05
PROVIDERS: Absent Provider Internal Medicine Hypertension Specialist; PCP Internal Medicine Medical Oncology; Visit Provider Internal Medicine Medical Oncology
DX: E87.1 Hypo-osmolality and hyponatremia (principal); E03.9 Hypothyroidism, unspecified; J44.9 Chronic obstructive pulmonary disease, unspecified; I12.9 Hypertensive chronic kidney disease with stage 1 through stage 4 chronic kidney disease, or unspecified chronic kidney disease; N18.32 Chronic kidney disease, stage 3b
CPT/HCPCS: 36415; 80048; 80053; 80061; 84443; 85025

== ENCOUNTER → 2022-02-02 10:06 | Outpatient (BNVA) | payer MEDICARE, OTHER, SELFPAY | PROVIDERS: PCP Internal Medicine Medical Oncology; Visit Provider Internal Medicine | DX: J44.9 Chronic obstructive pulmonary disease, unspecified (principal); T78.40XA Allergy, unspecified, initial encounter; F41.9 Anxiety disorder, unspecified; K43.9 Ventral hernia without obstruction or gangrene; Z79.899 Other long term (current) drug therapy; Z79.52 Long term (current) use of systemic steroids | CPT/HCPCS: 99212 ==

== ENCOUNTER 2022-02-04 08:57 | Outpatient (REF) | payer MEDICARE, OTHER, SELFPAY ==
--- NOTE | ~2022-02-04 | CT_ITS ---
EXAMINATION: CT ABDOMEN AND PELVIS WITH CONTRAST CLINICAL INFORMATION: Abdominal hernia COMPARISON: Previous renal ultrasound July 2018 TECHNIQUE: Multidetector volumetric images were obtained from the superior aspect of the liver through the pubic symphysis following administration 85 mL of Omnipaque 350 intravenous contrast. Sagittal and coronal reformatted images were obtained on the technologist's workstation. Oral contrast: Yes This CT examination was performed using dose optimization techniques as appropriate, variously including the following: *Automated exposure control *Adjustment of mA and/or kV according to patient size (this includes techniques or standardized protocols for targeted exams where dose is matched to indication/reason for exam; i.e. extremities or head) *Use of iterative reconstruction technique DLP: 219 mGy-cm FINDINGS: LUNG BASES: There is a 3 mm peripheral or subpleural left lower lobe nodule axial 5 series 3. There is segmental atelectasis at the right lung base. LIVER, GALLBLADDER, AND BILIARY TREE: The liver is normal in size, shape, and attenuation. No focal hepatic lesion or biliary ductal dilatation is present. The gallbladder is unremarkable with no evidence of radiopaque gallstones, gallbladder wall thickening, or obvious pericholecystic inflammatory changes. PANCREAS: Unremarkable. SPLEEN: The spleen is small. No focal splenic lesion. ADRENAL GLANDS: Unremarkable. KIDNEYS AND URETERS: There is a solitary right kidney. There are small right renal cysts largest measuring 8 mm in the upper pole. There is mild right proptosis. This is similar to previous ultrasound July 2018. No renal stone, ureteral dilatation or ureteral. BLADDER: Not optimally distended but appears unremarkable. GASTROINTESTINAL TRACT: There is stool throughout the colon suggestive of constipation. Small and large bowel are otherwise normal. The appendix is normal. The stomach is normal. ABDOMINAL WALL: No significant hernia is appreciated. LYMPH NODES: Normal. VASCULAR: There is evidence of atherosclerotic disease. No aneurysm is seen. PELVIC VISCERA: Unremarkable. OSSEOUS STRUCTURES: There is severe scoliosis of the lower thoracic and upper lumbar spine to the right. There are degenerative changes spine. CT/CT abdomen pelvis w con IMPRESSION: Constipation. No hernia is seen. Solitary right kidney. Mild right hydronephrosis similar to previous renal ultrasound from 2019. Small right renal cysts. Fleischner guidelines were followed.
[2022-02-04] MEDS: iohexoL 350 MG/ML 100 ML INFUS..BTL IV (11:53)
== END 2022-02-04 08:58 | disposition home or self-care (01) ==
LOC: HO.CT 08:57
PROVIDERS: PCP Internal Medicine Medical Oncology; Visit Provider Internal Medicine Medical Oncology
DX: R14.0 Abdominal distension (gaseous) (principal); R63.4 Abnormal weight loss; K46.9 Unspecified abdominal hernia without obstruction or gangrene
CPT/HCPCS: 74177; Q9967

== ENCOUNTER → 2022-02-23 09:48 | Outpatient (BNVA) | payer MEDICARE, OTHER, SELFPAY | PROVIDERS: PCP Internal Medicine Medical Oncology; Referring Provider Internal Medicine Medical Oncology; Visit Provider Internal Medicine | DX: I51.81 Takotsubo syndrome (principal); I25.10 Atherosclerotic heart disease of native coronary artery without angina pectoris | CPT/HCPCS: 93005; 99212 ==

== ENCOUNTER 2022-04-15 10:19 | Outpatient (REF) | payer MEDICARE, OTHER, SELFPAY ==
[2022-04-15 11:27] LABS: Basophils Percent Auto 0.5 % (0-2); Eosinophils Percent Auto 0.2 % (0-4); Hematocrit 42.2 % (37.0-47.0); Hemoglobin 13.8 g/dl (12.0-16.0); Imm Gran Abs Auto 0.02 X10*3/uL (0.00-0.03); Imm Gran Pct Auto 0.3 % (0.0-0.4); Lymphocytes Absolute Auto 1.6 X10*3/uL (1.2-4.9); Lymphocytes Percent Auto 26.4 % (20-40); MANUAL DIFF FLAG NO; Mean Corpuscular HGB Conc 32.7 g/dl (31.0-35.0); Mean Corpuscular Hemoglobin 33.4 pg (27.0-33.0); Mean Corpuscular Volume 102.2 fL (80.0-98.0); Mean Platelet Volume 9.9 fL (9.4-12.3); Monocytes Absolute Auto 0.7 X10*3/uL (0.1-1.2); Monocytes Percent Auto 11.2 % (2-11); Neutrophils Absolute Auto 3.6 x10*3/uL (2.0-8.3); Neutrophils Percent Auto 61.4 % (45-73); Platelet Count 177 X10*3/uL (160-400); Red Blood Count 4.13 X10*6/uL (4.20-5.50); Red Cell Distribution Width 13.3 % (11.0-16.0); White Blood Count 5.9 X10*3/uL (4.8-10.8)
[2022-04-15 14:28] LABS: Anion Gap 17 (12-20); Blood Urea Nitrogen 77 mg/dL (9-16); Calcium 8.7 mg/dL (8.4-10.2); Carbon Dioxide 27 mmol/L (22-29); Chloride 98 mmol/L (96-108); Estimated Glomerular Filt Rate 26; Potassium 4.8 mmol/L (3.3-5.1); Sodium 137 mmol/L (135-145)
[2022-04-15 14:34] LABS: Alanine Aminotransferase 21 U/L (0-31); Albumin Level 3.8 g/dL (3.5-5.0); Alkaline Phosphatase 42 U/L (39-117); Anion Gap 17 (12-20); Aspartate Amino Transferase 34 U/L (5-31); Bilirubin Total 0.3 mg/dL (0.0-1.0); Blood Urea Nitrogen 78 mg/dL (9-16); Calcium 8.6 mg/dL (8.4-10.2); Carbon Dioxide 27 mmol/L (22-29); Chloride 98 mmol/L (96-108); Cholesterol 194 mg/dL; Estimated Glomerular Filt Rate 26; Glucose Fasting 88 mg/dL (60-99); HDL Cholesterol 39 mg/dL; LDL Cholesterol Calculated 122 mg/dl; Potassium 4.8 mmol/L (3.3-5.1); Sodium 137 mmol/L (135-145); Total Protein 7.7 g/dL (6.5-8.0); Triglycerides 166 mg/dL
[2022-04-15 14:58] LABS: Free T4 (Free Thyroxine) 1.49 ng/dL (0.71-1.85)
== END 2022-04-15 10:20 | disposition home or self-care (01) ==
LOC: HO.HMGCLDS 10:19
PROVIDERS: Absent Provider Internal Medicine Hypertension Specialist; PCP Internal Medicine Medical Oncology; Visit Provider Internal Medicine Medical Oncology
DX: E03.9 Hypothyroidism, unspecified (principal); I12.9 Hypertensive chronic kidney disease with stage 1 through stage 4 chronic kidney disease, or unspecified chronic kidney disease; N18.9 Chronic kidney disease, unspecified; E78.5 Hyperlipidemia, unspecified; E87.1 Hypo-osmolality and hyponatremia
CPT/HCPCS: 36415; 80051; 80053; 80061; 82310; 82565; 84439; 84443; 84520; 85025

== ENCOUNTER 2022-07-06 08:02 | Outpatient (REF) | payer MEDICARE, OTHER, SELFPAY ==
--- NOTE | ~2022-07-06 | US_ITS ---
EXAMINATION: US ABDOMEN COMPLETE CLINICAL INFORMATION: Abdominal distention. COMPARISON: CT abdomen and pelvis with contrast 02/04/2022. Renal ultrasound 08/03/2018. TECHNIQUE: Real-time imaging of the abdominal viscera. FINDINGS: PANCREAS: Obscured by overlying bowel gas ABDOMINAL AORTA: Aortic atherosclerotic calcifications are noted. INFERIOR VENA CAVA: Visualized portions are normal. LIVER: Normal. The liver is normal in size. The liver contour is normal. Parenchymal echogenicity is normal. No focal hepatic lesion. There is no intrahepatic biliary duct dilatation seen. GALLBLADDER: Normal. The gallbladder is physiologically distended without evidence of stones, sludge, polyps, wall thickening or pericholecystic fluid. COMMON BILE DUCT: Normal in caliber measuring 0.6 cm in diameter. RIGHT KIDNEY: There is mild right hydroureteronephrosis, however no proximal obstructing lesion is visualized. Benign-appearing 7 mm cyst, Followup imaging is not routinely recommended for benign appearing cysts.. No renal calculi. The kidney measures 11.8 cm in maximum dimension. LEFT KIDNEY: Surgically absent. SPLEEN: Surgically absent. FREE FLUID: None. US/US abdomen complete IMPRESSION: 1. Mild right hydroureteronephrosis, however no proximal obstructing lesion is visualized. Consider dedicated CT to exclude a more distal obstructing lesion. 2. Aortic atherosclerotic calcifications are noted.
== END 2022-07-06 08:03 | disposition home or self-care (01) ==
LOC: HO.HMGCX 08:02
PROVIDERS: PCP Internal Medicine Medical Oncology; Visit Provider Internal Medicine Hypertension Specialist
DX: R14.0 Abdominal distension (gaseous) (principal)
CPT/HCPCS: 76700

== ENCOUNTER 2022-07-29 06:30 | Outpatient (REF) | payer MEDICARE, OTHER, SELFPAY ==
[2022-07-29 11:24] LABS: MANUAL DIFF FLAG NO
[2022-07-29 11:32] LABS: Basophils Absolute Auto 0.1 X10*3/uL (0.0-0.2); Basophils Percent Auto 0.7 % (0-2); Eosinophils Percent Auto 0.3 % (0-4); Hematocrit 42.2 % (37.0-47.0); Hemoglobin 13.6 g/dl (12.0-16.0); Imm Gran Abs Auto 0.05 X10*3/uL (0.00-0.03); Imm Gran Pct Auto 0.5 % (0.0-0.4); Lymphocytes Percent Auto 20.5 % (20-40); Mean Corpuscular HGB Conc 32.2 g/dl (31.0-35.0); Mean Corpuscular Hemoglobin 33.9 pg (27.0-33.0); Mean Corpuscular Volume 105.2 fL (80.0-98.0); Mean Platelet Volume 9.9 fL (9.4-12.3); Monocytes Absolute Auto 1.1 X10*3/uL (0.1-1.2); Monocytes Percent Auto 10.7 % (2-11); Neutrophils Absolute Auto 6.7 x10*3/uL (2.0-8.3); Neutrophils Percent Auto 67.3 % (45-73); Platelet Count 265 X10*3/uL (160-400); Red Blood Count 4.01 X10*6/uL (4.20-5.50); Red Cell Distribution Width 13.5 % (11.0-16.0)
[2022-07-29 11:58] LABS: Anion Gap 12 (12-20); Blood Urea Nitrogen 42 mg/dL (9-16); Calcium 8.8 mg/dL (8.4-10.2); Carbon Dioxide 29 mmol/L (22-29); Chloride 104 mmol/L (96-108); Estimated Glomerular Filt Rate 49; Potassium 4.5 mmol/L (3.3-5.1); Sodium 140 mmol/L (135-145)
[2022-07-29 12:05] LABS: Vitamin D 25-OH Total 33.9 ng/mL (>30)
[2022-07-29 12:07] LABS: Alanine Aminotransferase 18 U/L (0-31); Albumin Level 3.4 g/dL (3.5-5.0); Alkaline Phosphatase 47 U/L (39-117); Anion Gap 12 (12-20); Aspartate Amino Transferase 20 U/L (5-31); Bilirubin Total 0.4 mg/dL (0.0-1.0); Blood Urea Nitrogen 42 mg/dL (9-16); Calcium 8.8 mg/dL (8.4-10.2); Carbon Dioxide 28 mmol/L (22-29); Chloride 105 mmol/L (96-108); Cholesterol 206 mg/dL; Estimated Glomerular Filt Rate 53; Glucose Fasting 71 mg/dL (60-99); HDL Cholesterol 76 mg/dL; LDL Cholesterol Calculated 115 mg/dl; Potassium 4.6 mmol/L (3.3-5.1); Sodium 140 mmol/L (135-145); Total Protein 6.9 g/dL (6.5-8.0); Triglycerides 76 mg/dL
[2022-07-29 12:09] LABS: Free T4 (Free Thyroxine) 1.35 ng/dL (0.71-1.85); Thyroid Stimulating Hormone 0.94 uIU/mL (0.32-4.0)
== END 2022-07-29 06:31 | disposition home or self-care (01) ==
LOC: HO.HMGCLDS 06:30
PROVIDERS: Absent Provider Internal Medicine Hypertension Specialist; PCP Internal Medicine Medical Oncology; Visit Provider Internal Medicine Medical Oncology
DX: J44.9 Chronic obstructive pulmonary disease, unspecified (principal); I10 Essential (primary) hypertension; E03.9 Hypothyroidism, unspecified; E78.5 Hyperlipidemia, unspecified; N18.32 Chronic kidney disease, stage 3b
CPT/HCPCS: 36415; 80051; 80053; 80061; 82306; 82310; 82565; 84439; 84443; 84520; 85025; 87086

== ENCOUNTER → 2022-08-03 11:11 | Outpatient (BNVA) | payer MEDICARE, OTHER, SELFPAY | PROVIDERS: PCP Internal Medicine Medical Oncology; Visit Provider Internal Medicine | DX: J44.9 Chronic obstructive pulmonary disease, unspecified (principal); T78.40XA Allergy, unspecified, initial encounter; F41.9 Anxiety disorder, unspecified | CPT/HCPCS: 99212 ==

== ENCOUNTER 2022-08-06 11:24 | Outpatient (REF) | payer MEDICARE, OTHER, SELFPAY ==
[2022-08-06 14:01] LABS: MANUAL DIFF FLAG NO
[2022-08-06 14:09] LABS: Basophils Absolute Auto 0.1 X10*3/uL (0.0-0.2); Basophils Percent Auto 0.6 % (0-2); Eosinophils Absolute Auto 0.1 X10*3/uL (0.0-0.4); Eosinophils Percent Auto 0.8 % (0-4); Hematocrit 42.1 % (37.0-47.0); Hemoglobin 13.7 g/dl (12.0-16.0); Imm Gran Abs Auto 0.03 X10*3/uL (0.00-0.03); Imm Gran Pct Auto 0.4 % (0.0-0.4); Immature Retic Fraction 9.1 % (3.0-15.9); Lymphocytes Absolute Auto 1.5 X10*3/uL (1.2-4.9); Lymphocytes Percent Auto 17.6 % (20-40); Mean Corpuscular HGB Conc 32.5 g/dl (31.0-35.0); Mean Corpuscular Hemoglobin 33.4 pg (27.0-33.0); Mean Corpuscular Volume 102.7 fL (80.0-98.0); Mean Platelet Volume 9.5 fL (9.4-12.3); Monocytes Absolute Auto 1.1 X10*3/uL (0.1-1.2); Monocytes Percent Auto 13.5 % (2-11); Neutrophils Absolute Auto 5.7 x10*3/uL (2.0-8.3); Neutrophils Percent Auto 67.1 % (45-73); Platelet Count 245 X10*3/uL (160-400); Red Cell Distribution Width 13.2 % (11.0-16.0); Retic HGB Equivalent 38.7 pg (30.0-35.0); Reticulocytes Absolute 0.084 X10*6/uL (0.026-0.095); White Blood Count 8.4 X10*3/uL (4.8-10.8)
[2022-08-06 14:57] LABS: Folate > 20.0 ng/mL (> or = 4.0); Vitamin B12 1075 pg/mL (200-900)
== END 2022-08-06 11:25 | disposition home or self-care (01) ==
LOC: HO.HMGCLDS 11:24
PROVIDERS: PCP Internal Medicine Medical Oncology; Visit Provider Internal Medicine Medical Oncology
DX: N18.32 Chronic kidney disease, stage 3b (principal); D75.89 Other specified diseases of blood and blood-forming organs; K52.9 Noninfective gastroenteritis and colitis, unspecified
CPT/HCPCS: 36415; 82607; 82746; 85025; 85045

== ENCOUNTER 2022-08-11 09:50 | Outpatient (REF) | payer MEDICARE, OTHER, SELFPAY ==
[2022-08-11 11:58] LABS: CDiff Gene PCR NEGATIVE (Negative)
== END 2022-08-11 09:51 | disposition home or self-care (01) ==
LOC: HO.HMGCLNP 09:50
PROVIDERS: PCP Internal Medicine Medical Oncology; Visit Provider Internal Medicine Medical Oncology
DX: K52.9 Noninfective gastroenteritis and colitis, unspecified (principal); D75.89 Other specified diseases of blood and blood-forming organs; N18.32 Chronic kidney disease, stage 3b
CPT/HCPCS: 87493

== ENCOUNTER 2022-10-12 10:44 | Outpatient (REF) | payer MEDICARE, OTHER, SELFPAY ==
[2022-10-12 13:58] LABS: MANUAL DIFF FLAG NO
[2022-10-12 14:02] LABS: Appearance Urine Clear; Color Urine Yellow; Glucose Urine UA Negative (Negative); Leukocyte Esterase Urine Small (1+) (Negative); Nitrite Urine Negative (Negative); UMIC TRIGGER UA YES; Urine Blood Negative (Negative); Urine Ketones Trace mg/dL (Negative); Urine Protein 100 (2+) mg/dL (Neg-Trace)
[2022-10-12 14:14] LABS: Basophils Absolute Auto 0.1 X10*3/uL (0.0-0.2); Basophils Percent Auto 0.6 % (0-2); Eosinophils Absolute Auto 0.1 X10*3/uL (0.0-0.4); Eosinophils Percent Auto 0.9 % (0-4); Hematocrit 43.7 % (37.0-47.0); Hemoglobin 14.1 g/dl (12.0-16.0); Imm Gran Abs Auto 0.04 X10*3/uL (0.00-0.03); Imm Gran Pct Auto 0.4 % (0.0-0.4); Lymphocytes Absolute Auto 2.2 X10*3/uL (1.2-4.9); Lymphocytes Percent Auto 21.7 % (20-40); Mean Corpuscular HGB Conc 32.3 g/dl (31.0-35.0); Mean Corpuscular Hemoglobin 33.4 pg (27.0-33.0); Mean Corpuscular Volume 103.6 fL (80.0-98.0); Mean Platelet Volume 9.5 fL (9.4-12.3); Monocytes Absolute Auto 1.2 X10*3/uL (0.1-1.2); Monocytes Percent Auto 11.6 % (2-11); Neutrophils Absolute Auto 6.6 x10*3/uL (2.0-8.3); Neutrophils Percent Auto 64.8 % (45-73); Platelet Count 267 X10*3/uL (160-400); Red Blood Count 4.22 X10*6/uL (4.20-5.50); Red Cell Distribution Width 13.1 % (11.0-16.0); White Blood Count 10.2 X10*3/uL (4.8-10.8)
[2022-10-12 14:31] LABS: Anion Gap 8 (12-20); Blood Urea Nitrogen 67 mg/dL (9-16); Calcium 9.3 mg/dL (8.4-10.2); Carbon Dioxide 31 mmol/L (22-29); Chloride 103 mmol/L (96-108); Estimated Glomerular Filt Rate 51; Potassium 4.3 mmol/L (3.3-5.1); Sodium 138 mmol/L (135-145)
[2022-10-12 14:39] LABS: Bacteria Urine None Seen (None Seen); Hyaline Casts Urine 0-2 /LPF (0-2); RBC Urine 0-2 /HPF (0-2); Squamous Epithelial Cell Urine 0-2 /HPF (0-2); WBC Urine 0-5 /HPF (0-5)
[2022-10-12 14:48] LABS: Vitamin D 25-OH Total 39.2 ng/mL (>30)
== END 2022-10-12 10:45 | disposition home or self-care (01) ==
LOC: HO.HMGCLDS 10:44
PROVIDERS: PCP Internal Medicine Medical Oncology; Visit Provider Internal Medicine Hypertension Specialist
DX: N18.32 Chronic kidney disease, stage 3b (principal); R82.90 Unspecified abnormal findings in urine
CPT/HCPCS: 36415; 80051; 81001; 82306; 82310; 82565; 84520; 85025; 87086

== ENCOUNTER 2022-10-26 06:19 | Outpatient (REF) | payer MEDICARE, OTHER, SELFPAY ==
[2022-10-26 11:10] LABS: MANUAL DIFF FLAG NO
[2022-10-26 11:34] LABS: Basophils Absolute Auto 0.1 X10*3/uL (0.0-0.2); Basophils Percent Auto 0.7 % (0-2); Eosinophils Absolute Auto 0.1 X10*3/uL (0.0-0.4); Eosinophils Percent Auto 0.8 % (0-4); Hematocrit 41.6 % (37.0-47.0); Hemoglobin 13.4 g/dl (12.0-16.0); Imm Gran Abs Auto 0.04 X10*3/uL (0.00-0.03); Imm Gran Pct Auto 0.4 % (0.0-0.4); Lymphocytes Absolute Auto 2.3 X10*3/uL (1.2-4.9); Lymphocytes Percent Auto 22.1 % (20-40); Mean Corpuscular HGB Conc 32.2 g/dl (31.0-35.0); Mean Corpuscular Hemoglobin 33.3 pg (27.0-33.0); Mean Corpuscular Volume 103.5 fL (80.0-98.0); Mean Platelet Volume 9.5 fL (9.4-12.3); Monocytes Absolute Auto 1.1 X10*3/uL (0.1-1.2); Monocytes Percent Auto 10.7 % (2-11); Neutrophils Absolute Auto 6.8 x10*3/uL (2.0-8.3); Neutrophils Percent Auto 65.3 % (45-73); Platelet Count 267 X10*3/uL (160-400); Red Blood Count 4.02 X10*6/uL (4.20-5.50); Red Cell Distribution Width 13.2 % (11.0-16.0); White Blood Count 10.4 X10*3/uL (4.8-10.8)
[2022-10-26 11:46] LABS: Alanine Aminotransferase 14 U/L (0-31); Albumin Level 3.6 g/dL (3.5-5.0); Alkaline Phosphatase 45 U/L (39-117); Anion Gap 9 (12-20); Aspartate Amino Transferase 18 U/L (5-31); Bilirubin Total 0.6 mg/dL (0.0-1.0); Blood Urea Nitrogen 46 mg/dL (9-16); Calcium 9.2 mg/dL (8.4-10.2); Carbon Dioxide 30 mmol/L (22-29); Chloride 104 mmol/L (96-108); Estimated Glomerular Filt Rate 46; Glucose Fasting 81 mg/dL (60-99); Potassium 4.4 mmol/L (3.3-5.1); Sodium 139 mmol/L (135-145); Total Protein 7.2 g/dL (6.5-8.0)
== END 2022-10-26 06:20 | disposition home or self-care (01) ==
LOC: HO.HMGCLDS 06:19
PROVIDERS: PCP Internal Medicine Medical Oncology; Visit Provider Internal Medicine Medical Oncology
DX: I10 Essential (primary) hypertension (principal); E78.5 Hyperlipidemia, unspecified
CPT/HCPCS: 36415; 80053; 85025

== ENCOUNTER → 2022-11-30 11:01 | Outpatient (BNVA) | payer MEDICARE, OTHER, SELFPAY | PROVIDERS: PCP Internal Medicine Medical Oncology; Visit Provider Internal Medicine | DX: J44.9 Chronic obstructive pulmonary disease, unspecified (principal); T78.40XA Allergy, unspecified, initial encounter; F41.9 Anxiety disorder, unspecified | CPT/HCPCS: 99212 ==

== ENCOUNTER 2023-01-26 06:53 | Outpatient (REF) | payer MEDICARE, OTHER, SELFPAY ==
[2023-01-26 11:19] LABS: MANUAL DIFF FLAG NO
[2023-01-26 11:33] LABS: Basophils Absolute Auto 0.1 X10*3/uL (0.0-0.2); Basophils Percent Auto 0.8 % (0-2); Eosinophils Absolute Auto 0.2 X10*3/uL (0.0-0.4); Hematocrit 41.1 % (37.0-47.0); Hemoglobin 13.2 g/dl (12.0-16.0); Imm Gran Abs Auto 0.03 X10*3/uL (0.00-0.03); Imm Gran Pct Auto 0.4 % (0.0-0.4); Lymphocytes Absolute Auto 2.7 X10*3/uL (1.2-4.9); Lymphocytes Percent Auto 31.9 % (20-40); Mean Corpuscular HGB Conc 32.1 g/dl (31.0-35.0); Mean Corpuscular Hemoglobin 33.5 pg (27.0-33.0); Mean Corpuscular Volume 104.3 fL (80.0-98.0); Mean Platelet Volume 9.2 fL (9.4-12.3); Monocytes Percent Auto 11.4 % (2-11); Neutrophils Absolute Auto 4.4 x10*3/uL (2.0-8.3); Neutrophils Percent Auto 53.5 % (45-73); Platelet Count 253 X10*3/uL (160-400); Red Blood Count 3.94 X10*6/uL (4.20-5.50); Red Cell Distribution Width 12.8 % (11.0-16.0); White Blood Count 8.3 X10*3/uL (4.8-10.8)
[2023-01-26 12:24] LABS: Alanine Aminotransferase 21 U/L (0-31); Albumin Level 3.6 g/dL (3.5-5.0); Alkaline Phosphatase 39 U/L (39-117); Anion Gap 6 (12-20); Aspartate Amino Transferase 23 U/L (5-31); Bilirubin Total 0.4 mg/dL (0.0-1.0); Blood Urea Nitrogen 38 mg/dL (9-16); Calcium 9.1 mg/dL (8.4-10.2); Carbon Dioxide 31 mmol/L (22-29); Chloride 105 mmol/L (96-108); Cholesterol 171 mg/dL; Estimated Glomerular Filt Rate 50; Free T4 (Free Thyroxine) 1.16 ng/dL (0.71-1.85); Glucose Fasting 80 mg/dL (60-99); HDL Cholesterol 66 mg/dL; LDL Cholesterol Calculated 91 mg/dl; Potassium 4.2 mmol/L (3.3-5.1); Sodium 138 mmol/L (135-145); Thyroid Stimulating Hormone 1.31 uIU/mL (0.32-4.0); Total Protein 7.6 g/dL (6.5-8.0); Triglycerides 74 mg/dL
== END 2023-01-26 06:54 | disposition home or self-care (01) ==
LOC: HO.HMGCLDS 06:53
PROVIDERS: PCP Internal Medicine Medical Oncology; Visit Provider Internal Medicine Medical Oncology
DX: Z00.00 Encounter for general adult medical examination without abnormal findings (principal); I10 Essential (primary) hypertension; E03.9 Hypothyroidism, unspecified; E78.5 Hyperlipidemia, unspecified
CPT/HCPCS: 36415; 80053; 80061; 84439; 84443; 85025

== ENCOUNTER 2023-02-07 14:15 | Outpatient (AMB) | payer MEDICARE, OTHER, SELFPAY ==
[2023-02-07 14:22] VITALS: BP 120/62; PULSE 62; O2SAT 92; BMI 17.4
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
== END 2023-02-07 15:02 | disposition home or self-care (01) ==
PROVIDERS: PCP Internal Medicine Medical Oncology; Visit Provider Internal Medicine
DX: J44.9 Chronic obstructive pulmonary disease, unspecified (principal); T78.40XA Allergy, unspecified, initial encounter; F41.9 Anxiety disorder, unspecified; J44.1 Chronic obstructive pulmonary disease with (acute) exacerbation
CPT/HCPCS: 99214

== ENCOUNTER → 2023-02-07 14:15 | Outpatient (BNVA) | payer MEDICARE, OTHER, SELFPAY | PROVIDERS: PCP Internal Medicine Medical Oncology; Visit Provider Internal Medicine | DX: J44.1 Chronic obstructive pulmonary disease with (acute) exacerbation (principal); T78.40XA Allergy, unspecified, initial encounter; F41.9 Anxiety disorder, unspecified; Z79.52 Long term (current) use of systemic steroids | CPT/HCPCS: 94640; 99212 ==

== ENCOUNTER 2023-02-17 14:30 | Outpatient (AMB) | payer MEDICARE, OTHER, SELFPAY ==
[2023-02-17 14:37] VITALS: BP 108/64; PULSE 73; O2SAT 92; BMI 18.1
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
== END 2023-02-17 14:59 | disposition home or self-care (01) ==
PROVIDERS: PCP Internal Medicine Medical Oncology; Visit Provider Internal Medicine
DX: J44.1 Chronic obstructive pulmonary disease with (acute) exacerbation (principal)
CPT/HCPCS: 99213

== ENCOUNTER 2023-02-17 14:30 | Outpatient (REF) | payer MEDICARE, OTHER, SELFPAY ==
--- NOTE | ~2023-02-17 | XR_ITS ---
EXAMINATION: XR CHEST 2 VIEWS CLINICAL INFORMATION: COPD. COMPARISON: Chest radiograph dated 02/10/2020; CT chest dated 06/19/2019.. TECHNIQUE: Frontal and lateral views of the chest were obtained. FINDINGS: The heart, great vessels, pulmonary vasculature and mediastinum are normal. The lungs show no focal infiltrate, effusion or pneumothorax. There is hyperinflation, with diaphragmatic flattening and increase in the retrosternal clear space. There is no acute osseous abnormality. There are marked thoracolumbar scoliotic changes. There are multi-focal right carotid atherosclerotic calcifications. XR/XR chest 2V IMPRESSION: 1. No active cardiopulmonary disease. 2. There is hyperinflation, consistent with the provided history of COPD. 3. There are right carotid atherosclerotic calcifications, which can be more fully evaluated with dedicated carotid ultrasound, if clinically indicated.
[2023-02-17 17:38] LABS: Influenza A PCR NEGATIVE (Negative); Influenza B PCR NEGATIVE (Negative); Resp Syncy Virus RNA Qual PCR NEGATIVE (Negative); SARS COV2 PCR INHOUSE NEGATIVE (Negative)
== END 2023-02-17 14:31 | disposition home or self-care (01) ==
LOC: HO.XRAY 14:30
PROVIDERS: PCP Internal Medicine Medical Oncology; Visit Provider Internal Medicine
DX: Z20.822 Contact with and (suspected) exposure to COVID-19 (principal); J44.1 Chronic obstructive pulmonary disease with (acute) exacerbation; J40 Bronchitis, not specified as acute or chronic
CPT/HCPCS: 0241U; 71046; 99212

== ENCOUNTER 2023-03-01 09:57 | Outpatient (AMB) | payer MEDICARE, OTHER, SELFPAY ==
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
[2023-03-01 10:18] VITALS: BP 164/72; PULSE 56; BMI 18.1
== END 2023-03-01 10:47 | disposition home or self-care (01) ==
PROVIDERS: PCP Internal Medicine Medical Oncology; Visit Provider Internal Medicine
DX: I51.81 Takotsubo syndrome (principal); I25.10 Atherosclerotic heart disease of native coronary artery without angina pectoris
CPT/HCPCS: 93010; 99214

== ENCOUNTER → 2023-03-01 09:57 | Outpatient (BNVA) | payer MEDICARE, OTHER, SELFPAY | PROVIDERS: PCP Internal Medicine Medical Oncology; Visit Provider Internal Medicine | DX: I51.81 Takotsubo syndrome (principal); I25.10 Atherosclerotic heart disease of native coronary artery without angina pectoris | CPT/HCPCS: 93005; 99212 ==

== ENCOUNTER 2023-03-29 10:40 | Outpatient (AMB) | payer MEDICARE, OTHER, SELFPAY ==
[2023-03-29 10:43] VITALS: BP 124/66; PULSE 64; O2SAT 95; BMI 18.1
--- NOTE | 2023-03-29 10:43 | MHC.OFFVIS ---
Intake Vital Signs 03/29/23 10:43 Height 5 ft 2 in Weight 99 lb 3.328 oz BMI 18.1 BP 124/66 Blood Pressure Location Lt brachial Position Sitting Pulse 64 Pulse Source Pulse Oximeter Pulse Oximetry (%) 95 Oxygen Delivery Method Room Air Intake Visit Reasons: COPD follow-up Tobacco [place] Measurer Required: No Environmental Resource Specialist: Environmental Resource Specialist offered & declined Accompanied by: Self / Same As Patient Allergies Beta-Blockers (Beta-Adrenergic Bloc Allergy (Intermediate, Verified 03/29/23 11:08) Swelling latex [LATEX] Allergy (Intermediate, Verified 03/29/23 11:08) RASH lisinopril [LISINOPRIL] Allergy (Intermediate, Verified 03/29/23 11:08) Cough Vdionrx-FWR-PsX Reductase Inhibitor [LHVJOEN-YPV-UQA REDUCTASE INHIBITOR] Allergy (Intermediate, Verified 03/29/23 11:08) NAUSEA, LOSS OF APPETITE, GENERALIZED ILL FEELING Sulfa (Sulfonamide Antibiotics) [SULFA (SULFONAMIDE ANTIBIOTICS)] Allergy (Intermediate, Verified 03/29/23 11:08) Rash amlodipine [AMLODIPINE] Allergy (Mild, Verified 03/29/23 11:08) Rash spironolactone [SPIRONOLACTONE] Allergy (Unknown, Verified 03/29/23 11:08) UNKNOWN lactose [LACTOSE] Adverse Reaction (Mild, Verified 03/29/23 11:08) STOMACH UPSET Medication List - Last Reconciled 03/29/23 by Eliecer Garces MD albuterol sulfate 90 mcg/actuation (ProAir HFA) 2 puffs inhalation Q4-6H PRN albuterol sulfate 2.5 mg (3 mL) inhalation Q4H PRN aspirin 81 mg PO DAILY Breo Ellipta 100-25 mcg/dose (fluticasone furoate-vilanterol) INHALE 1 PUFF DAILY NS carvedilol 12.5 mg PO BID levothyroxine 100 mcg PO DAILY prednisone 5 mg PO DIRECTED urea (Ure-Na) 1 packet PO DAILY Do you need a note to return to daycare/school/sports/work: No HPI COPD follow-up HPI Details This 77 years old very pleasant female. Comes with the good news telling me that she feels fine and she has no residual cough or wheezing. The other good news is that she and her are closing their [employer] shop, and she will not be exposed. to any does smoker fumes Her breathing is very stable at this time. She has no cough or wheezing. 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 Mother No problems noted. Social History Alcohol intake: never Patient Tobacco Use Status: Never used Tobacco Review of Systems Const All systems reviewed & are unremarkable except as noted in HPI and below Eyes Reports no additional complaints ENT Reports no additional complaints Card Denies chest pain, Denies irregular heart rhythm and Denies leg edema Resp Reports as per HPI GI Reports no additional complaints Reports no additional complaints Musc Reports no additional complaints Skin/Breast Reports system reviewed and no additional complaints, except as documented Neuro Reports no additional complaints Psych Reports no additional complaints and Denies anxiety (SINCE HER PULMONARY AND RENAL STATUS HAS BEEN STABLE , ANXIETY IS RESOLVED) Physical Exam Vital Signs: Last Vital Signs Pulse 64 03/29/23 10:43 BP 124/66 03/29/23 10:43 Pulse Ox 95 03/29/23 10:43 Oxygen Delivery Method Room Air 03/29/23 10:43 BMI result Body Mass Index 18.1 Const General: healthy appearing, comfortable, no acute distress, alert and awake Orientation/consciousness: patient oriented x3 HEENT Head: Yes normal to inspection General nose exam: No nasal polyps present and No nasal discharge present Face and sinus: Yes sinuses nontender Mouth: oropharynx normal Throat: Yes posterior oropharynx normal Eyes General: appearance normal, both eyes and all related structures Neck Neck: Yes normal visual inspection, Yes no lymphadenopathy, Yes trachea midline and Yes no JVD Thyroid: Thyroid normal Chest Chest palpation & inspection: normal inspection of the chest, normal palpation of entire chest wall and no tenderness Resp Other: PERCUSSION NOTE HYPER-RESONANT SHE HAS GOOD BREATH SOUNDS ON BOTH SIDES WITH SLIGHTLY PROLONGED EXPIRATORY PHASE. SHE DOES NOT HAVE ANY WHEEZES OR CREPITATIONS TODAY . Cardio Palpation: normal PMI Rate: regular rate Rhythm: regular rhythm Heart sounds: no gallops and no murmurs Peripheral pulses: Peripheral pulses 2+ throughout GI Palpation (GI): Soft to palpation, nontender, No hepatosplenomegaly present, no masses and Other GI palpation findings present (She has bulging of the mid abdomen, due to ventral herniation.) Auscultation: normal bowel sounds Back/Spine/Pelvis Thoracic/Lumbar Spine: thoracic and lumbar spine normal to inspection Skin General skin exam: no rashes or lesions noted Neuro General: patient oriented x3 and no focal motor deficits Cranial nerves: Yes CN's II-XII intact bilaterally Extrem General: Yes normal to inspection, Yes no clubbing, cyanosis or edema and Yes no calf tenderness Psych Appearance: grossly normal and well kempt Speech and movement: Normal speech and movement present Assessment & Plan Assessment & Plan (1) COPD exacerbation: Comment: PATIENT HAS ACUTE EXACERBATION OF COPD AFTER THE SMOKE INHALATION AT HER [employer] . PATIENT IS FEELING MUCH BETTER AND BACK TO HER BASELINE. TX : ADVISED TO USE ALBUTEROL 2.5 MG Q 6 HOURS P.R.N.. * PREDNISONE 5 MG ONLY 1 TABLET A DAY. LOCITUSSIN DM . 2 TSP T.I.D. P.R.N. Code(s): J44.1 - Chronic obstructive pulmonary disease with (acute) exacerbation (2) Anxiety: Comment: SHE HAS ANXIOUS PERSONALITY BUT DOING BETTER , REASSURED . DOES HAVE LORAZEPAM 0.5 MG ON HAND AND WILL TAKE IT ONLY IF TOO ANXIOUS . Code(s): F41.9 - Anxiety disorder, unspecified (3) Hypersensitivity disorder: Comment: SHE HAS HYPERSENSITIVE UPPER AIRWAYS, CONTROLLED WITH TAKING PREDNISONE , 5 mg IN AM , 2.5 mg in PM ( May try to eliminate the evening dose as long as symptoms remain controlled ) NOTED IN PREVIOUS NOTES PATIENT IS PSYCHOLOGICALLY DEPENDENT ON PREDNISONE. Pros and cons of long-term use of prednisone have been discussed with the patient. Code(s): T78.40XA - Allergy, unspecified, initial encounter Coding Level of Care Code Est Pt Level 3 (06615) Diagnoses COPD exacerbation J44.1 Anxiety F41.9 Hypersensitivity disorder T78.40XA
== END 2023-03-29 11:17 | disposition home or self-care (01) ==
PROVIDERS: PCP Internal Medicine Medical Oncology; Visit Provider Internal Medicine
DX: J44.1 Chronic obstructive pulmonary disease with (acute) exacerbation (principal); F41.9 Anxiety disorder, unspecified; T78.40XA Allergy, unspecified, initial encounter
CPT/HCPCS: 99213

== ENCOUNTER → 2023-03-29 10:40 | Outpatient (BNVA) | payer MEDICARE, OTHER, SELFPAY | PROVIDERS: PCP Internal Medicine Medical Oncology; Visit Provider Internal Medicine | DX: J44.1 Chronic obstructive pulmonary disease with (acute) exacerbation (principal); F41.9 Anxiety disorder, unspecified; T78.40XA Allergy, unspecified, initial encounter | CPT/HCPCS: 99212 ==

== ENCOUNTER 2023-04-12 10:25 | Outpatient (REF) | payer MEDICARE, OTHER, SELFPAY ==
[2023-04-12 14:06] LABS: Anion Gap 12 (12-20); Blood Urea Nitrogen 32 mg/dL (9-16); Calcium 9.3 mg/dL (8.4-10.2); Carbon Dioxide 29 mmol/L (22-29); Chloride 100 mmol/L (96-108); Estimated Glomerular Filt Rate 51; Glucose Random 94 mg/dL (60-115); Potassium 4.1 mmol/L (3.3-5.1); Sodium 137 mmol/L (135-145)
== END 2023-04-12 10:26 | disposition home or self-care (01) ==
LOC: HO.HMGCLDS 10:25
PROVIDERS: PCP Internal Medicine Medical Oncology; Visit Provider Internal Medicine Hypertension Specialist
DX: E87.1 Hypo-osmolality and hyponatremia (principal)
CPT/HCPCS: 36415; 80048

== ENCOUNTER 2023-04-19 11:33 | Outpatient (AMB) | payer MEDICARE, OTHER, SELFPAY ==
--- NOTE | 2023-04-19 11:51 | HO.NEPHOV ---
HPI HPI Comments History of Present Illness Details Elderly woman with a history of chronic hyponatremia. She is here for regular follow-up. No new issues today. 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 Mother No problems noted. Social History Alcohol intake: never Patient Tobacco Use Status: Never used Tobacco Vital Signs 04/19/23 11:54 Height 5 ft 2 in Weight 98 lb BMI 17.9 BP 130/68 Blood Pressure Location Rt brachial Position Sitting Pulse 61 Pulse Source Pulse Oximeter Pulse Oximetry (%) 97 Oxygen Delivery Method Room Air Physical Exam Vital Signs: Last Vital Signs Pulse 61 04/19/23 11:54 BP 130/68 04/19/23 11:54 Pulse Ox 97 04/19/23 11:54 Oxygen Delivery Method Room Air 04/19/23 11:54 BMI result Body Mass Index 17.9 Const General: comfortable; No acute distress Orientation/consciousness: patient oriented x3 Eyes General: appearance normal, both eyes and all related structures Visual Leach: normal visual leach by confrontation Neck Neck: Yes supple and Yes no JVD Resp Effort & Inspection: normal respiratory effort and respiratory effort not decreased Auscultation: rhonchi Cardio Palpation: no palpable S3 and no palpable S4 Heart sounds: no rubs GI Inspection: Yes normal to inspection Palpation (GI): Soft to palpation Percussion: Yes normal to percussion Auscultation: normal bowel sounds General: Yes no CVA tenderness Back/Spine/Pelvis Back: no CVA tenderness Skin General skin exam: no petechiae and no purpura Neuro General: patient oriented x3 and no focal motor deficits Extrem General: No clubbing and No edema Results Reviewed Results Reviewed: Results reviewed recent sodium 136 millimoles Renal ultrasonogram from June 2022 showed mild right hydroureteronephrosis. Assessment & Plan Assessment & Plan (1) Hyponatremia: Code(s): E87.1 - Hypo-osmolality and hyponatremia Plan: Chronic asymptomatic hyponatremia. Serum sodium is within normal range at present. Continue with oral free water restriction. Continue with the upper once a day. Watch serum sodium periodically. (2) Hydronephrosis: Code(s): N13.30 - Unspecified hydronephrosis Plan: Follow-up ultrasonogram ordered. Renal function stable. If hydronephrosis persists I will refer to Urology. Orders: Orders US renal BI 2 Months N13.30 - Unspecified hydronephrosis Electrolytes 4 Weeks E87.1 - Hypo-osmolality and hyponatremia Medications: New urea (Ure-Na) 1 packet PO DAILY 30 ea 6RF Coding Level of Care Code Est Pt Level 3 (24926) Diagnoses Hyponatremia E87.1 Hydronephrosis N13.30
[2023-04-19 11:54] VITALS: BP 130/68; PULSE 61; O2SAT 97; BMI 17.9
== END 2023-04-19 12:17 | disposition home or self-care (01) ==
PROVIDERS: PCP Internal Medicine Medical Oncology; Visit Provider Internal Medicine Hypertension Specialist
DX: E87.1 Hypo-osmolality and hyponatremia (principal); N13.30 Unspecified hydronephrosis
CPT/HCPCS: 99213

== ENCOUNTER → 2023-04-19 11:33 | Outpatient (BNVA) | payer MEDICARE, OTHER, SELFPAY | PROVIDERS: PCP Internal Medicine Medical Oncology; Visit Provider Internal Medicine Hypertension Specialist | DX: E87.1 Hypo-osmolality and hyponatremia (principal); N13.30 Unspecified hydronephrosis | CPT/HCPCS: 99212 ==

== ENCOUNTER 2023-05-02 13:02 | Outpatient (REF) | payer MEDICARE, OTHER, SELFPAY ==
[2023-05-02 16:18] LABS: Anion Gap 7 (12-20); Carbon Dioxide 31 mmol/L (22-29); Chloride 103 mmol/L (96-108); Potassium 4.2 mmol/L (3.3-5.1); Sodium 137 mmol/L (135-145)
== END 2023-05-02 13:03 | disposition home or self-care (01) ==
LOC: HO.HMGCLDS 13:02
PROVIDERS: PCP Internal Medicine Medical Oncology; Visit Provider Internal Medicine Hypertension Specialist
DX: E87.1 Hypo-osmolality and hyponatremia (principal)
CPT/HCPCS: 36415; 80051

== ENCOUNTER 2023-06-21 09:54 | Outpatient (REF) | payer MEDICARE, OTHER, SELFPAY ==
--- NOTE | ~2023-06-21 | US_ITS ---
EXAMINATION: US RETROPERITONEAL LIMITED (RENAL ONLY) CLINICAL INFORMATION: Unspecified hydronephrosis. COMPARISON: Ultrasound abdomen complete 07/06/2022. CT abdomen and pelvis 02/04/2022. Renal ultrasound 08/03/2018. TECHNIQUE: Real-time imaging of the kidneys. Limited visualization due to bowel gas. FINDINGS: RIGHT KIDNEY: 10.9 x 4.0 x 5.3 cm (SAG x AP x TRV). Mild hydronephrosis. No renal calculi. Limited visualization. A 0.6 cm alp-qv-narlf pole cyst with benign features. There is no indication for follow-up imaging. LEFT KIDNEY: Surgically absent. US/US renal RT IMPRESSION: 1. Mild right hydronephrosis. No renal calculi. 2. Left kidney surgically absent.
== END 2023-06-21 09:55 | disposition home or self-care (01) ==
LOC: HO.HMGCX 09:54
PROVIDERS: PCP Internal Medicine Medical Oncology; Visit Provider Internal Medicine Hypertension Specialist
DX: N13.30 Unspecified hydronephrosis (principal)
CPT/HCPCS: 76775

== ENCOUNTER → 2023-08-02 10:42 | Outpatient (BNVA) | payer MEDICARE, OTHER, SELFPAY | PROVIDERS: PCP Internal Medicine Medical Oncology; Visit Provider Internal Medicine ==

== ENCOUNTER 2023-08-03 10:45 | Outpatient (AMB) | payer MEDICARE, OTHER, SELFPAY ==
[2023-08-03 11:01] VITALS: BP 102/68; PULSE 56; O2SAT 96; BMI 17.7
--- NOTE | 2023-08-03 11:01 | A.OFFVIS_ITS ---
Intake Vital Signs 08/03/23 11:01 Height 5 ft 2 in Weight 97 lb BMI 17.7 BP 102/68 Blood Pressure Location Lt brachial Position Sitting Pulse 56 Pulse Source Pulse Oximeter Pulse Oximetry (%) 96 Oxygen Delivery Method Room Air Intake Visit Reasons: copd Intake Note: pt is here for follow up and states she is okay but just fatigued. using the oxygen at home when needed. Allergies Beta-Blockers (Beta-Adrenergic Bloc Allergy (Intermediate, Verified 08/03/23 11:28) Swelling latex [LATEX] Allergy (Intermediate, Verified 08/03/23 11:28) RASH lisinopril [LISINOPRIL] Allergy (Intermediate, Verified 08/03/23 11:28) Cough Mqnbgst-WTM-XgT Reductase Inhibitor [RSNRPAY-UJG-XUG REDUCTASE INHIBITOR] Allergy (Intermediate, Verified 08/03/23 11:28) NAUSEA, LOSS OF APPETITE, GENERALIZED ILL FEELING Sulfa (Sulfonamide Antibiotics) [SULFA (SULFONAMIDE ANTIBIOTICS)] Allergy (Intermediate, Verified 08/03/23 11:28) Rash amlodipine [AMLODIPINE] Allergy (Mild, Verified 08/03/23 11:28) Rash spironolactone [SPIRONOLACTONE] Allergy (Unknown, Verified 08/03/23 11:28) UNKNOWN lactose [LACTOSE] Adverse Reaction (Mild, Verified 08/03/23 11:28) STOMACH UPSET Medication List - Last Reconciled 08/03/23 by Eliecer Garces MD albuterol sulfate 90 mcg/actuation (ProAir HFA) 2 puffs inhalation Q4-6H PRN albuterol sulfate 2.5 mg (3 mL) inhalation Q4H PRN aspirin 81 mg PO DAILY Breo Ellipta 100-25 mcg/dose (fluticasone furoate-vilanterol) INHALE 1 PUFF DAILY NS carvedilol 12.5 mg PO BID levothyroxine 100 mcg PO DAILY prednisone 5 mg PO DIRECTED urea (Ure-Na) 1 packet PO DAILY Do you need a note to return to daycare/school/sports/work: No HPI copd HPI Details 77 YEARS OLD VERY PLEASANT SOMEWHAT ANXI OUS LADY, COMES FOR FOLLOW-UP OF HER BRONCHIAL ASTHMA. IN THE LAST 4 MONTHS SHE HAS BEEN FREE OF ANY ACUTE ATTACKS. SHE HAS NOT USED ANY ANXIOLYTIC MED IN THE LAST 4 MONTHS. SHE DOES USE OXYGEN 2 L/MINUTE AT NIGHT AND SLEEPS WELL. SHE HAS HAD NO ACUTE INFECTION. NOW SHE IS SOMEWHAT WORRIED AND ANXIOUS BECAUSE SHE GOT A NOTICE FROM THE INSURANCE COMPANY THAT HER GENERIC BREO WILL NOT BE COVERED ANYMORE. 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 Mother No problems noted. Social History Alcohol intake: never Patient Tobacco Use Status: Never used Tobacco Review of Systems Const All systems reviewed & are unremarkable except as noted in HPI and below Eyes Reports no additional complaints ENT Reports no additional complaints Card Denies chest pain, Denies irregular heart rhythm and Denies leg edema Resp Reports as per HPI GI Reports no additional complaints Reports no additional complaints Musc Reports no additional complaints Skin/Breast Reports system reviewed and no additional complaints, except as documented Neuro Reports no additional complaints Psych Reports no additional complaints and Denies anxiety (SINCE HER PULMONARY AND RENAL STATUS HAS BEEN STABLE , ANXIETY IS RESOLVED) Physical Exam Vital Signs: Last Vital Signs Pulse 56 08/03/23 11:01 BP 102/68 08/03/23 11:01 Pulse Ox 96 08/03/23 11:01 Oxygen Delivery Method Room Air 08/03/23 11:01 BMI result Body Mass Index 17.7 Const General: healthy appearing, comfortable, no acute distress, alert and awake Orientation/consciousness: patient oriented x3 HEENT Head: Yes normal to inspection General nose exam: No nasal polyps present and No nasal discharge present Face and sinus: Yes sinuses nontender Mouth: oropharynx normal Throat: Yes posterior oropharynx normal Eyes General: appearance normal, both eyes and all related structures Neck Neck: Yes normal visual inspection, Yes no lymphadenopathy, Yes trachea midline and Yes no JVD Thyroid: Thyroid normal Chest Chest palpation & inspection: normal inspection of the chest, normal palpation of entire chest wall and no tenderness Resp Other: PERCUSSION NOTE HYPER-RESONANT SHE HAS GOOD BREATH SOUNDS ON BOTH SIDES WITH SLIGHTLY PROLONGED EXPIRATORY PHASE. SHE DOES NOT HAVE ANY WHEEZES OR CREPITATIONS TODAY . Cardio Palpation: normal PMI Rate: regular rate Rhythm: regular rhythm Heart sounds: no gallops and no murmurs Peripheral pulses: Peripheral pulses 2+ throughout GI Palpation (GI): Soft to palpation, nontender, No hepatosplenomegaly present, no masses and Other GI palpation findings present (She has bulging of the mid abdomen, due to ventral herniation.) Auscultation: normal bowel sounds Back/Spine/Pelvis Thoracic/Lumbar Spine: thoracic and lumbar spine normal to inspection Skin General skin exam: no rashes or lesions noted Neuro General: patient oriented x3 and no focal motor deficits Cranial nerves: Yes CN's II-XII intact bilaterally Extrem General: Yes normal to inspection, Yes no clubbing, cyanosis or edema and Yes no calf tenderness Psych Appearance: grossly normal and well kempt Speech and movement: Normal speech and movement present Assessment & Plan Assessment & Plan (1) COPD (chronic obstructive pulmonary disease): Comment: PATIENT HAS MILD TO MODERATE DEGREE OF OBSTRUCTIVE AIRWAY DISORDER WITH REACTIVE AIRWAYS. CONTROLLED WITH THE CURRENT REGIMEN WHICH IS FOLLOWS: Code(s): J44.9 - Chronic obstructive pulmonary disease, unspecified Plan: TX : PREDNISONE 5 MG IN A.M. BREO 100-25 1 INHALATION DAILY.( fLUTICASONEFUROATE -VILENTEROL 100-25 ) THIS PREPARATION IS CONVENIENT FOR HER TO USE , IT IS ONLY ONCE A DAY . VENTOLIN HFA 2 PUFFS Q 4-6 HOURS ONLY P.R.N. ( DOES NOT NEED MUCH ) (2) Hypersensitivity disorder: Comment: SHE HAS HYPERSENSITIVE UPPER AIRWAYS, CONTROLLED WITH TAKING PREDNISONE , 5 mg IN AM , * NOTED IN PREVIOUS NOTES PATIENT IS PSYCHOLOGICALLY DEPENDENT ON PREDNISONE. Pros and cons of long-term use of prednisone have been discussed with the patient. Code(s): T78.40XA - Allergy, unspecified, initial encounter Plan: ABOVE (3) Anxiety: Comment: SHE HAS ANXIOUS PERSONALITY BUT DOING BETTER , REASSURED . DOES HAVE LORAZEPAM 0.5 MG ON HAND AND WILL TAKE IT ONLY IF TOO ANXIOUS . Code(s): F41.9 - Anxiety disorder, unspecified Plan: ABOVE Coding Level of Care Code Est Pt Level 3 (42693) Diagnoses COPD (chronic obstructive pulmonary disease) J44.9 Hypersensitivity disorder T78.40XA Anxiety F41.9
== END 2023-08-03 11:32 | disposition home or self-care (01) ==
PROVIDERS: PCP Internal Medicine Medical Oncology; Visit Provider Internal Medicine
DX: J44.9 Chronic obstructive pulmonary disease, unspecified (principal); T78.40XA Allergy, unspecified, initial encounter; F41.9 Anxiety disorder, unspecified
CPT/HCPCS: 99213

== ENCOUNTER → 2023-08-03 10:45 | Outpatient (BNVA) | payer MEDICARE, OTHER, SELFPAY | PROVIDERS: PCP Internal Medicine Medical Oncology; Visit Provider Internal Medicine | DX: J44.9 Chronic obstructive pulmonary disease, unspecified (principal); F41.9 Anxiety disorder, unspecified; T78.40XD Allergy, unspecified, subsequent encounter; Z79.52 Long term (current) use of systemic steroids | CPT/HCPCS: 99212 ==

== ENCOUNTER 2023-10-12 10:47 | Outpatient (REF) | payer MEDICARE, OTHER, SELFPAY ==
[2023-10-12 13:17] LABS: Anion Gap 9 (12-20); Carbon Dioxide 29 mmol/L (22-29); Chloride 103 mmol/L (96-108); Potassium 4.2 mmol/L (3.3-5.1); Sodium 137 mmol/L (135-145)
== END 2023-10-12 10:48 | disposition home or self-care (01) ==
LOC: HO.HMGCLDS 10:47
PROVIDERS: PCP Internal Medicine Medical Oncology; Visit Provider Internal Medicine Hypertension Specialist
DX: E87.1 Hypo-osmolality and hyponatremia (principal)
CPT/HCPCS: 36415; 80051

== ENCOUNTER 2023-10-17 11:05 | Outpatient (AMB) | payer MEDICARE, OTHER, SELFPAY ==
[2023-10-17 11:07] VITALS: BP 172/78; PULSE 55; O2SAT 98; BMI 17.8
--- NOTE | 2023-10-17 11:07 | HO.NEPHOV ---
Vital Signs 10/17/23 11:07 10/17/23 11:29 Height 5 ft 2 in Weight 97 lb 8 oz BMI 17.8 BP 172/78 H 150/70 H Blood Pressure Location Rt brachial Lt brachial Position Sitting Sitting Pulse 55 Pulse Source Pulse Oximeter Pulse Oximetry (%) 98 Oxygen Delivery Method Room Air Intake Visit Reasons: 6M follow up/ LM Accompanied by: Self / Same As Patient Allergies Beta-Blockers (Beta-Adrenergic Bloc Allergy (Intermediate, Verified 10/17/23 11:10) Swelling latex [LATEX] Allergy (Intermediate, Verified 10/17/23 11:10) RASH lisinopril [LISINOPRIL] Allergy (Intermediate, Verified 10/17/23 11:10) Cough Nnqbnbg-GXX-UzO Reductase Inhibitor [IXBONOX-ELG-CTH REDUCTASE INHIBITOR] Allergy (Intermediate, Verified 10/17/23 11:10) NAUSEA, LOSS OF APPETITE, GENERALIZED ILL FEELING Sulfa (Sulfonamide Antibiotics) [SULFA (SULFONAMIDE ANTIBIOTICS)] Allergy (Intermediate, Verified 10/17/23 11:10) Rash amlodipine [AMLODIPINE] Allergy (Mild, Verified 10/17/23 11:10) Rash spironolactone [SPIRONOLACTONE] Allergy (Unknown, Verified 10/17/23 11:10) UNKNOWN lactose [LACTOSE] Adverse Reaction (Mild, Verified 10/17/23 11:10) STOMACH UPSET HPI Comments Details: Elderly woman with a history of chronic hyponatremia. She is here for regular follow-up. No new issues today. 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 Mother No problems noted. Social History Alcohol intake: never Patient Tobacco Use Status: Never used Tobacco Physical Exam Vital Signs: Last Vital Signs Pulse 55 10/17/23 11:07 BP 172/78 H 10/17/23 11:07 Pulse Ox 98 10/17/23 11:07 Oxygen Delivery Method Room Air 10/17/23 11:07 BMI result Body Mass Index 17.8 Const General: comfortable; No acute distress Orientation/consciousness: patient oriented x3 Eyes General: appearance normal, both eyes and all related structures Visual Leach: normal visual leach by confrontation Neck Neck: Yes supple and Yes no JVD Resp Effort & Inspection: normal respiratory effort and respiratory effort not decreased Auscultation: rhonchi Cardio Palpation: no palpable S3 and no palpable S4 Heart sounds: no rubs GI Inspection: Yes normal to inspection Palpation (GI): Soft to palpation Percussion: Yes normal to percussion Auscultation: normal bowel sounds General: Yes no CVA tenderness Back/Spine/Pelvis Back: no CVA tenderness Skin General skin exam: no petechiae and no purpura Neuro General: patient oriented x3 and no focal motor deficits Extrem General: No clubbing and No edema Results Reviewed Results Reviewed: RIGHT KIDNEY: 10.9 x 4.0 x 5.3 cm (SAG x AP x TRV). Mild hydronephrosis. No renal calculi. Limited visualization. A 0.6 cm tjw-am-mnymk pole cyst with benign features. There is no indication for follow-up imaging. LEFT KIDNEY: Surgically absent. Nephrology Results: Sodium 137 mmol/L (135-145) 10/12/23 Potassium 4.2 mmol/L (3.3-5.1) 10/12/23 Chloride 103 mmol/L (96-108) 10/12/23 Carbon Dioxide 29 mmol/L (22-29) 10/12/23 BUN 32 mg/dL (9-16) H 04/12/23 Creatinine 1.05 mg/dL (0.5-1.4) 04/12/23 Calcium 9.3 mg/dL (8.4-10.2) 04/12/23 Renal US 06/21/23 Assessment & Plan Assessment & Plan (1) Hyponatremia: Code(s): E87.1 - Hypo-osmolality and hyponatremia Category: Medical Plan: Chronic asymptomatic hyponatremia. Serum sodium is within normal range at present. Continue with oral free water restriction. Continue with the upper once a day. Watch serum sodium periodically. (2) Hydronephrosis: Code(s): N13.30 - Unspecified hydronephrosis Category: Medical Plan: Follow-up ultrasonogram shows MILD right [place], unchanged since 2019. Renal function stable. Plan Elevated BP Repeat was lower. Encouraged to monitor BP at home. Coding Level of Care Code Est Pt Level 4 (77698) Diagnoses Hyponatremia E87.1 Hydronephrosis N13.30
[2023-10-17 11:29] VITALS: BP 150/70
== END 2023-10-17 11:34 | disposition home or self-care (01) ==
PROVIDERS: PCP Internal Medicine Medical Oncology; Visit Provider Internal Medicine Hypertension Specialist
DX: E87.1 Hypo-osmolality and hyponatremia (principal); N13.30 Unspecified hydronephrosis
CPT/HCPCS: 99214

== ENCOUNTER → 2023-10-17 11:05 | Outpatient (BNVA) | payer MEDICARE, OTHER, SELFPAY | PROVIDERS: PCP Internal Medicine Medical Oncology; Visit Provider Internal Medicine Hypertension Specialist | DX: E87.1 Hypo-osmolality and hyponatremia (principal); N13.30 Unspecified hydronephrosis | CPT/HCPCS: 99212 ==

== ENCOUNTER 2023-11-01 06:12 | Outpatient (REF) | payer MEDICARE, OTHER, SELFPAY ==
[2023-11-01 10:28] LABS: MANUAL DIFF FLAG NO
[2023-11-01 10:38] LABS: Basophils Absolute Auto 0.1 X10*3/uL (0.0-0.2); Basophils Percent Auto 0.7 % (0-2); Eosinophils Absolute Auto 0.1 X10*3/uL (0.0-0.4); Eosinophils Percent Auto 0.7 % (0-4); Hemoglobin 13.5 g/dl (12.0-16.0); Imm Gran Abs Auto 0.04 X10*3/uL (0.00-0.03); Imm Gran Pct Auto 0.4 % (0.0-0.4); Lymphocytes Absolute Auto 2.4 X10*3/uL (1.2-4.9); Lymphocytes Percent Auto 26.2 % (20-40); Mean Corpuscular HGB Conc 32.9 g/dl (31.0-35.0); Mean Corpuscular Hemoglobin 33.7 pg (27.0-33.0); Mean Corpuscular Volume 102.2 fL (80.0-98.0); Mean Platelet Volume 10.2 fL (9.4-12.3); Monocytes Absolute Auto 0.8 X10*3/uL (0.1-1.2); Monocytes Percent Auto 9.1 % (2-11); Neutrophils Absolute Auto 5.7 x10*3/uL (2.0-8.3); Neutrophils Percent Auto 62.9 % (45-73); Platelet Count 198 X10*3/uL (160-400); Red Blood Count 4.01 X10*6/uL (4.20-5.50); Red Cell Distribution Width 13.3 % (11.0-16.0); White Blood Count 9.1 X10*3/uL (4.8-10.8)
[2023-11-01 11:16] LABS: Alanine Aminotransferase 22 U/L (0-31); Albumin Level 3.5 g/dL (3.5-5.0); Alkaline Phosphatase 50 U/L (39-117); Anion Gap 10 (12-20); Aspartate Amino Transferase 22 U/L (5-31); Bilirubin Total 0.5 mg/dL (0.0-1.0); Blood Urea Nitrogen 41 mg/dL (9-16); Carbon Dioxide 28 mmol/L (22-29); Chloride 105 mmol/L (96-108); Cholesterol 175 mg/dL (<200); Estimated Glomerular Filt Rate 56; Glucose Fasting 87 mg/dL (60-99); HDL Cholesterol 67 mg/dL (>40); LDL Cholesterol Calculated 92 mg/dL (<100); Potassium 4.3 mmol/L (3.3-5.1); Sodium 139 mmol/L (135-145); Triglycerides 84 mg/dL (<150)
[2023-11-01 11:19] LABS: Free T4 (Free Thyroxine) 1.32 ng/dL (0.71-1.85); Thyroid Stimulating Hormone 0.74 uIU/mL (0.32-4.0)
== END 2023-11-01 06:13 | disposition home or self-care (01) ==
LOC: HO.HMGCLDS 06:12
PROVIDERS: PCP Internal Medicine Medical Oncology; Visit Provider Internal Medicine Medical Oncology
DX: E03.9 Hypothyroidism, unspecified (principal); E78.5 Hyperlipidemia, unspecified
CPT/HCPCS: 36415; 80053; 80061; 84439; 84443; 85025

== ENCOUNTER 2023-12-06 10:43 | Outpatient (AMB) | payer MEDICARE, OTHER, SELFPAY ==
[2023-12-06 11:06] VITALS: BP 130/80; PULSE 63; O2SAT 97; BMI 17.9
--- NOTE | 2023-12-06 11:06 | MHC.OFFVIS ---
Vital Signs 12/06/23 11:06 Height 5 ft 2 in Weight 98 lb 1.691 oz BMI 17.9 BP 130/80 Blood Pressure Location Lt brachial Position Sitting Pulse 63 Pulse Source Pulse Oximeter Pulse Oximetry (%) 97 Oxygen Delivery Method Room Air Intake Visit Reasons: COPD Intake Note: pt is not here for follow up and states she has not been feeling well, it started November 19,put on augmentin, and does not feel like she is back to her baseline. 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 Hospice Required: No Allergies Beta-Blockers (Beta-Adrenergic Bloc Allergy (Intermediate, Verified 12/06/23 11:31) Swelling latex [LATEX] Allergy (Intermediate, Verified 12/06/23 11:31) RASH lisinopril [LISINOPRIL] Allergy (Intermediate, Verified 12/06/23 11:31) Cough Pwisajy-IXA-RuB Reductase Inhibitor [BKFGIUU-MOU-QUS REDUCTASE INHIBITOR] Allergy (Intermediate, Verified 12/06/23 11:31) NAUSEA, LOSS OF APPETITE, GENERALIZED ILL FEELING Sulfa (Sulfonamide Antibiotics) [SULFA (SULFONAMIDE ANTIBIOTICS)] Allergy (Intermediate, Verified 12/06/23 11:31) Rash amlodipine [AMLODIPINE] Allergy (Mild, Verified 12/06/23 11:31) Rash spironolactone [SPIRONOLACTONE] Allergy (Unknown, Verified 12/06/23 11:31) UNKNOWN lactose [LACTOSE] Adverse Reaction (Mild, Verified 12/06/23 11:31) STOMACH UPSET Medication List - Last Reconciled 12/06/23 by Eliecer Garces MD albuterol sulfate 90 mcg/actuation (ProAir HFA) 2 puffs inhalation Q4-6H PRN albuterol sulfate 2.5 mg (3 mL) inhalation Q4H PRN Breo Ellipta 100-25 mcg/dose (fluticasone furoate-vilanterol) 1 inh inhalation DAILY 30 days NS carvedilol 12.5 mg PO BID cetirizine 5 mg PO DAILY PRN levothyroxine 100 mcg PO DAILY 90 days prednisone 5 mg PO DIRECTED urea (Ure-Na) 1 packet PO DAILY Do you need a note to return to daycare/school/sports/work: No HPI HPI COPD: Details: Charlie is 78 years old very pleasant female who is here for her routine 4 months follow-up. About 3 weeks ago she did come up with upper respiratory infection, and had nasal congestion with coughing up greenish phlegm. She was prescribed Augmentin to take twice a day for 10 days which she has completed. During this time she also increased her prednisone to 5 mg twice a day. . Now she is back to once a day She still remains somewhat weak and still has some residual cough. No fever or chills. And the mucus is clear when it comes out. 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 Mother No problems noted. Social History Alcohol intake: never Patient Tobacco Use Status: Never used Tobacco Review of Systems Const All systems reviewed & are unremarkable except as noted in HPI and below Eyes Reports no additional complaints ENT Reports no additional complaints Card Denies chest pain, Denies irregular heart rhythm and Denies leg edema Resp Reports as per HPI GI Reports no additional complaints Reports no additional complaints Musc Reports no additional complaints Skin/Breast Reports system reviewed and no additional complaints, except as documented Neuro Reports no additional complaints Psych Reports no additional complaints and Denies anxiety (SINCE HER PULMONARY AND RENAL STATUS HAS BEEN STABLE , ANXIETY IS RESOLVED) Physical Exam Vital Signs: Last Vital Signs Pulse 63 12/06/23 11:06 BP 130/80 12/06/23 11:06 Pulse Ox 97 12/06/23 11:06 Oxygen Delivery Method Room Air 12/06/23 11:06 BMI result Body Mass Index 17.9 Const General: healthy appearing, comfortable, no acute distress, alert and awake Orientation/consciousness: patient oriented x3 HEENT Head: Yes normal to inspection General nose exam: No nasal polyps present and No nasal discharge present Face and sinus: Yes sinuses nontender Mouth: oropharynx normal Throat: Yes posterior oropharynx normal Eyes General: appearance normal, both eyes and all related structures Neck Neck: Yes normal visual inspection, Yes no lymphadenopathy, Yes trachea midline and Yes no JVD Thyroid: Thyroid normal Chest Chest palpation & inspection: normal inspection of the chest, normal palpation of entire chest wall and no tenderness Resp Other: PERCUSSION NOTE HYPER-RESONANT SHE HAS GOOD BREATH SOUNDS ON BOTH SIDES WITH SLIGHTLY PROLONGED EXPIRATORY PHASE. SHE DOES NOT HAVE ANY WHEEZES OR CREPITATIONS TODAY . Cardio Palpation: normal PMI Rate: regular rate Rhythm: regular rhythm Heart sounds: no gallops and no murmurs Peripheral pulses: Peripheral pulses 2+ throughout GI Palpation (GI): Soft to palpation, nontender, No hepatosplenomegaly present, no masses and Other GI palpation findings present (She has bulging of the mid abdomen, due to ventral herniation.) Auscultation: normal bowel sounds Back/Spine/Pelvis Thoracic/Lumbar Spine: thoracic and lumbar spine normal to inspection Skin General skin exam: no rashes or lesions noted Neuro General: patient oriented x3 and no focal motor deficits Cranial nerves: Yes CN's II-XII intact bilaterally Extrem General: Yes normal to inspection, Yes no clubbing, cyanosis or edema and Yes no calf tenderness Psych Appearance: grossly normal and well kempt Speech and movement: Normal speech and movement present Assessment & Plan Assessment & Plan (1) COPD (chronic obstructive pulmonary disease): Comment: PATIENT HAS MILD TO MODERATE DEGREE OF OBSTRUCTIVE AIRWAY DISORDER WITH REACTIVE AIRWAYS. CONTROLLED WITH THE CURRENT REGIMEN. She did have mild acute exacerbation probably due to upper respiratory infection, and has been treated with a course of Augmentin. Now she seems to be back to her baseline. Code(s): J44.9 - Chronic obstructive pulmonary disease, unspecified Category: Medical Plan: LOTUS ELLIPTA 100-251 INHALATION DAILY. PREDNISONE 5 MG DAILY VENTOLIN 2 PUFFS. Q 4-6 HOURS P.R.N. WHEN OUTDOORS AT HOME SHE CAN USE THE NEBULIZER WITH ALBUTEROL SOLUTION Q 6 HOURS P.R.N. (2) Hypersensitivity disorder: Comment: SHE HAS HYPERSENSITIVE UPPER AIRWAYS, CONTROLLED WITH TAKING PREDNISONE , 5 mg IN AM , * NOTED IN PREVIOUS NOTES PATIENT IS PSYCHOLOGICALLY DEPENDENT ON PREDNISONE. Pros and cons of long-term use of prednisone have been discussed with the patient. Code(s): T78.40XA - Allergy, unspecified, initial encounter Category: Medical Plan: OK TO CONTINUE PREDNISONE 5 MG DAILY (3) Anxiety: Comment: SHE HAS ANXIOUS PERSONALITY BUT DOING BETTER , REASSURED . DOES HAVE LORAZEPAM 0.5 MG ON HAND AND WILL TAKE IT ONLY IF TOO ANXIOUS . Code(s): F41.9 - Anxiety disorder, unspecified Category: Medical Plan: CONTINUE TO USE LORAZEPAM 0.5 MG ONCE OR TWICE A DAY P.R.N. FOR ANXIETY (4) Bronchitis: Comment: SHE IS PRONE TO HAVE ACUTE RESPIRATORY INFECTIONS IN THE FORM OF BRONCHITIS. RECENT BOUT OF RESPIRATORY INFECTION HAS BEEN TREATED WITH A COURSE OF AUGMENTIN. Code(s): J40 - Bronchitis, not specified as acute or chronic Category: Medical Plan: EXPLAINED THAT HER ACUTE INFECTION HAS BEEN TREATED WELL. DOES NOT NEED TO TAKE ANY MORE ANTIBIOTIC AT THIS TIME Coding Level of Care Code Est Pt Level 3 (95387) Diagnoses COPD (chronic obstructive pulmonary disease) J44.9 Hypersensitivity disorder T78.40XA Anxiety F41.9 Bronchitis J40
== END 2023-12-06 11:32 | disposition home or self-care (01) ==
PROVIDERS: PCP Internal Medicine Medical Oncology; Visit Provider Internal Medicine
DX: J44.9 Chronic obstructive pulmonary disease, unspecified (principal); T78.40XA Allergy, unspecified, initial encounter; F41.9 Anxiety disorder, unspecified; J40 Bronchitis, not specified as acute or chronic
CPT/HCPCS: 99213

== ENCOUNTER → 2023-12-06 10:43 | Outpatient (BNVA) | payer MEDICARE, OTHER, SELFPAY | PROVIDERS: PCP Internal Medicine Medical Oncology; Visit Provider Internal Medicine | DX: J44.9 Chronic obstructive pulmonary disease, unspecified (principal); T78.40XA Allergy, unspecified, initial encounter; F41.9 Anxiety disorder, unspecified; J40 Bronchitis, not specified as acute or chronic | CPT/HCPCS: 99212 ==

== ENCOUNTER 2024-02-28 06:53 | Outpatient (REF) | payer MEDICARE, OTHER, SELFPAY ==
[2024-02-28 10:14] LABS: MANUAL DIFF FLAG NO
[2024-02-28 10:27] LABS: Basophils Absolute Auto 0.1 X10*3/uL (0.0-0.2); Basophils Percent Auto 0.9 % (0-2); Eosinophils Absolute Auto 0.2 X10*3/uL (0.0-0.4); Eosinophils Percent Auto 2.6 % (0-4); Hemoglobin 13.2 g/dl (12.0-16.0); Imm Gran Abs Auto 0.03 X10*3/uL (0.00-0.03); Imm Gran Pct Auto 0.4 % (0.0-0.4); Lymphocytes Absolute Auto 2.1 X10*3/uL (1.2-4.9); Lymphocytes Percent Auto 27.9 % (20-40); Mean Corpuscular HGB Conc 32.2 g/dl (31.0-35.0); Mean Corpuscular Hemoglobin 33.8 pg (27.0-33.0); Mean Corpuscular Volume 104.9 fL (80.0-98.0); Mean Platelet Volume 9.3 fL (9.4-12.3); Monocytes Absolute Auto 0.9 X10*3/uL (0.1-1.2); Monocytes Percent Auto 11.1 % (2-11); Neutrophils Absolute Auto 4.4 x10*3/uL (2.0-8.3); Neutrophils Percent Auto 57.1 % (45-73); Platelet Count 229 X10*3/uL (160-400); Red Blood Count 3.91 X10*6/uL (4.20-5.50); Red Cell Distribution Width 13.6 % (11.0-16.0); White Blood Count 7.6 X10*3/uL (4.8-10.8)
[2024-02-28 11:18] LABS: Alanine Aminotransferase 16 U/L (0-31); Albumin Level 3.5 g/dL (3.5-5.0); Alkaline Phosphatase 44 U/L (39-117); Anion Gap 9 (12-20); Aspartate Amino Transferase 22 U/L (5-31); Bilirubin Total 0.4 mg/dL (0.0-1.0); Blood Urea Nitrogen 48 mg/dL (9-16); Calcium 9.1 mg/dL (8.4-10.2); Carbon Dioxide 29 mmol/L (22-29); Chloride 106 mmol/L (96-108); Cholesterol 171 mg/dL (<200); Estimated Glomerular Filt Rate 45; Glucose Fasting 87 mg/dL (60-99); HDL Cholesterol 61 mg/dL (>40); LDL Cholesterol Calculated 97 mg/dL (<100); Potassium 4.8 mmol/L (3.3-5.1); Sodium 139 mmol/L (135-145); Total Protein 7.8 g/dL (6.5-8.0); Triglycerides 66 mg/dL (<150)
[2024-02-28 11:20] LABS: Free T4 (Free Thyroxine) 1.18 ng/dL (0.71-1.85); Thyroid Stimulating Hormone 1.43 uIU/mL (0.32-4.0)
== END 2024-02-28 06:54 | disposition home or self-care (01) ==
LOC: HO.HMGCLDS 06:53
PROVIDERS: PCP Internal Medicine Medical Oncology; Visit Provider Internal Medicine Medical Oncology
DX: J44.9 Chronic obstructive pulmonary disease, unspecified (principal); I42.2 Other hypertrophic cardiomyopathy; I10 Essential (primary) hypertension; E03.9 Hypothyroidism, unspecified; E78.5 Hyperlipidemia, unspecified
CPT/HCPCS: 36415; 80053; 80061; 84439; 84443; 85025

== ENCOUNTER 2024-03-01 10:05 | Outpatient (AMB) | payer MEDICARE, OTHER, SELFPAY ==
[2024-03-01 10:20] VITALS: BP 160/74; PULSE 59; BMI 17.9
--- NOTE | 2024-03-01 10:20 | A.OFFVIS_ITS ---
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 Required: No Accompanied by: Self / Same As Patient Allergies Beta-Blockers (Beta-Adrenergic Bloc Allergy (Intermediate, Verified 12/06/23 11:31) Swelling latex [LATEX] Allergy (Intermediate, Verified 12/06/23 11:31) RASH lisinopril [LISINOPRIL] Allergy (Intermediate, Verified 12/06/23 11:31) Cough Eryizba-JTB-VpX Reductase Inhibitor [RJGCZDF-BCZ-UDC REDUCTASE INHIBITOR] Allergy (Intermediate, Verified 12/06/23 11:31) NAUSEA, LOSS OF APPETITE, GENERALIZED ILL FEELING Sulfa (Sulfonamide Antibiotics) [SULFA (SULFONAMIDE ANTIBIOTICS)] Allergy (Intermediate, Verified 12/06/23 11:31) Rash amlodipine [AMLODIPINE] Allergy (Mild, Verified 12/06/23 11:31) Rash spironolactone [SPIRONOLACTONE] Allergy (Unknown, Verified 12/06/23 11:31) UNKNOWN lactose [LACTOSE] Adverse Reaction (Mild, Verified 12/06/23 11:31) STOMACH UPSET Medication List - Last Reconciled 03/01/24 by Conner Mcdaniels MD albuterol sulfate 90 mcg/actuation (ProAir HFA) 2 puffs inhalation Q4-6H PRN albuterol sulfate 2.5 mg (3 mL) inhalation Q4H PRN Breo Ellipta 100-25 mcg/dose (fluticasone furoate-vilanterol) 1 ea PO DAILY NS carvedilol 12.5 mg PO BID cetirizine 5 mg PO DAILY PRN levothyroxine 100 mcg PO DAILY 90 days prednisone 5 mg PO DIRECTED urea (Ure-Na) 1 packet PO DAILY HPI Comments Details: Charlie Martinez returns for follow-up regarding stress-induced cardiomyopathy. To recall, she was admitted in 2018 with symptoms of chest tightness and choking sensation when she had an abnormal EKG and elevated troponins. She underwent diagnostic catheterization that showed nonobstructive diagonal disease, but otherwise unremarkable. Thought to have stress-induced cardiomyopathy. Had one further catheterization for concerning symptoms in 2019, again with similar findings. Overall, generally feels well but she is under lot of stress at home as she takes care of for 90-year-old who has got memory issues. 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 Otherwise, no specific cardiac complaints. 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 Mother No problems noted. Social History Alcohol intake: never Patient Tobacco Use Status: Never used Tobacco Review of Systems Const Denies chills, Denies fatigue, Denies fever(s), Denies frequent falls, Denies weakness, Denies weight gain and Denies weight loss ENT Denies dizziness Card Denies chest pain, Denies leg edema, Denies lightheadedness, Denies palpitations, Denies dyspnea and Denies dyspnea on exertion Resp Denies cough, Denies dyspnea and Denies dyspnea on exertion GI Denies hematochezia Musc Denies abnormal gait, Denies muscle weakness, Denies numbness, Denies radiating pain into limb and Denies tingling Neuro Denies abnormal gait, Denies dizziness, Denies frequent falls, Denies numbness, Denies tingling and Denies weakness Endo Denies fatigue and Denies palpitations Physical Exam Vital Signs: Last Vital Signs Pulse 59 03/01/24 10:20 BP 160/74 H 03/01/24 10:20 BMI result Body Mass Index 17.9 Const General: comfortable and no acute distress Orientation/consciousness: patient oriented x3 HEENT Other: Unremarkable Head: Yes normal to inspection Neck Neck: Yes normal visual inspection Chest Chest palpation & inspection: normal inspection of the chest Resp Auscultation: clear to auscultation bilaterally Cardio Palpation: normal PMI Heart sounds: S1 normal heart sound present, S2 normal heart sound present, no gallops, no murmurs and no rubs GI Palpation (GI): Soft to palpation Back/Spine/Pelvis Other: unremarkable Skin General skin exam: no rashes or lesions noted Neuro General: patient oriented x3 Extrem General: Yes normal to inspection Psych Mental Status: mental status grossly normal Office Procedures EKG Details: EKG with underlying sinus bradycardia, 59/Min; no significant ST-T changes and otherwise unremarkable[place] [id number], Complete Assessment & Plan Assessment & Plan (1) Stress-induced cardiomyopathy: Code(s): I51.81 - Takotsubo syndrome Category: Medical (2) Atherosclerotic cardiovascular disease: Code(s): I25.10 - Atherosclerotic heart disease of [place] coronary artery without angina pectoris Category: Medical (3) Essential hypertension: Code(s): I10 - Essential (primary) hypertension Category: Medical Plan Cardiac studies reviewed. In the last cardiac catheterization, she had 60% ostial diagonal disease but otherwise unremarkable coronaries. Echocardiogram at different times had shown wall motion abnormalities. In June 2018, LVEF 40-45% and LAD wall motion abnormality. In August 2018, LVEF 55-60% and no wall motion abnormalities. In November 2018, LVEF 60-65% and apical akinesis. In March 2019, LVEF 60-65% and no wall motion abnormalities. Overall, wall motion abnormalities at different times that later recovered. Hence suspicion is rather stress-induced cardiomyopathy. She does have some coronary disease but not considered the main culprit. May remain on carvedilol without changes. Listed to have cough with lisinopril. Also listed have rash with amlodipine and unknown side effects from spironolactone. Her blood pressure is on the higher side today but not clear what she can tolerate. Possibly ARB. We will check with Nephrology. May consider 24 hour ambulatory blood pressure monitoring as she has also had low blood pressure different times. Also advised her to do home blood pressures and contact us. With regard to statins, intolerant. Due to low body weight, not on anything else an LDL is reasonable. Follow-up in 1 year. Total time spent including review of data, counseling, documentation, coordination of care-31 minutes. Coding Level of Care Code Est Pt Level 4 (67668) Diagnoses Stress-induced cardiomyopathy I51.81 Atherosclerotic cardiovascular disease I25.10 Essential hypertension I10 CPT Codes EKG - CPT: [id number], Complete ([id number])
== END 2024-03-01 10:44 | disposition home or self-care (01) ==
PROVIDERS: PCP Internal Medicine Medical Oncology; Visit Provider Internal Medicine
DX: I51.81 Takotsubo syndrome (principal); I25.10 Atherosclerotic heart disease of native coronary artery without angina pectoris; I10 Essential (primary) hypertension
CPT/HCPCS: 93010; 99214

== ENCOUNTER → 2024-03-01 10:05 | Outpatient (BNVA) | payer MEDICARE, OTHER, SELFPAY | PROVIDERS: PCP Internal Medicine Medical Oncology; Visit Provider Internal Medicine | DX: I51.81 Takotsubo syndrome (principal); I25.10 Atherosclerotic heart disease of native coronary artery without angina pectoris; I10 Essential (primary) hypertension | CPT/HCPCS: 93005; 99212 ==

== ENCOUNTER 2024-03-29 10:14 | Outpatient (REF) | payer MEDICARE, OTHER, SELFPAY ==
[2024-03-29 14:16] LABS: Anion Gap 10 (12-20); Blood Urea Nitrogen 70 mg/dL (9-16); Calcium 9.5 mg/dL (8.4-10.2); Carbon Dioxide 32 mmol/L (22-29); Chloride 97 mmol/L (96-108); Estimated Glomerular Filt Rate 43; Glucose Random 134 mg/dL (60-115); Potassium 4.1 mmol/L (3.3-5.1); Sodium 135 mmol/L (135-145)
== END 2024-03-29 10:15 | disposition home or self-care (01) ==
LOC: HO.HMGCLDS 10:14
PROVIDERS: PCP Internal Medicine Medical Oncology; Visit Provider Internal Medicine Hypertension Specialist
DX: E87.1 Hypo-osmolality and hyponatremia (principal)
CPT/HCPCS: 36415; 80048; 84443

== ENCOUNTER 2024-04-09 10:56 | Outpatient (AMB) | payer MEDICARE, OTHER, SELFPAY ==
--- NOTE | 2024-04-09 11:09 | HO.NEPHOV ---
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: No Accompanied by: Self / Same As Patient Allergies Beta-Blockers (Beta-Adrenergic Bloc Allergy (Intermediate, Verified 04/09/24 11:12) Swelling latex [LATEX] Allergy (Intermediate, Verified 04/09/24 11:12) RASH lisinopril [LISINOPRIL] Allergy (Intermediate, Verified 04/09/24 11:12) Cough Qsotncl-DKE-RcL Reductase Inhibitor [VCYKZMO-UMX-GIU REDUCTASE INHIBITOR] Allergy (Intermediate, Verified 04/09/24 11:12) NAUSEA, LOSS OF APPETITE, GENERALIZED ILL FEELING Sulfa (Sulfonamide Antibiotics) [SULFA (SULFONAMIDE ANTIBIOTICS)] Allergy (Intermediate, Verified 04/09/24 11:12) Rash amlodipine [AMLODIPINE] Allergy (Mild, Verified 04/09/24 11:12) Rash spironolactone [SPIRONOLACTONE] Allergy (Unknown, Verified 04/09/24 11:12) UNKNOWN lactose [LACTOSE] Adverse Reaction (Mild, Verified 04/09/24 11:12) STOMACH UPSET Medication List - Last Reconciled 04/09/24 by Salvatore Mares MD albuterol sulfate 90 mcg/actuation (ProAir HFA) 2 puffs inhalation Q4-6H PRN albuterol sulfate 2.5 mg (3 mL) inhalation Q4H PRN Breo Ellipta 100-25 mcg/dose (fluticasone furoate-vilanterol) 1 ea PO DAILY NS carvedilol 12.5 mg PO BID cetirizine 5 mg PO DAILY PRN levothyroxine 100 mcg PO DAILY 90 days prednisone 5 mg PO DIRECTED urea (Ure-Na) 1 packet PO DAILY HPI Comments Details: Elderly woman with a history of chronic hyponatremia. She is here for regular follow-up. No new issues today. 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 Mother No problems noted. Social History Alcohol intake: never Patient Tobacco Use Status: Never used Tobacco Physical Exam Vital Signs: Last Vital Signs Pulse 67 04/09/24 11:10 BP 170/70 H 04/09/24 11:10 Pulse Ox 93 04/09/24 11:10 Oxygen Delivery Method Room Air 04/09/24 11:10 BMI result Body Mass Index 17.6 Const General: comfortable; No acute distress Orientation/consciousness: patient oriented x3 Eyes General: appearance normal, both eyes and all related structures Visual Dumont: normal visual dumont by confrontation Neck Neck: Yes supple and Yes no JVD Resp Effort & Inspection: normal respiratory effort and respiratory effort not decreased Auscultation: rhonchi Cardio Palpation: no palpable S3 and no palpable S4 Heart sounds: no rubs GI Inspection: Yes normal to inspection Palpation (GI): Soft to palpation Percussion: Yes normal to percussion Auscultation: normal bowel sounds General: Yes no CVA tenderness Back/Spine/Pelvis Back: no CVA tenderness Skin General skin exam: no petechiae and no purpura Neuro General: patient oriented x3 and no focal motor deficits Extrem General: No clubbing and No edema Results Reviewed Nephrology Results: Hgb 13.2 g/dl (12.0-16.0) 02/28/24 WBC 7.6 X10*3/uL (4.8-10.8) 02/28/24 Plt Count 229 X10*3/uL (160-400) 02/28/24 Sodium 135 mmol/L (135-145) 03/29/24 Potassium 4.1 mmol/L (3.3-5.1) 03/29/24 Chloride 97 mmol/L (96-108) 03/29/24 Carbon Dioxide 32 mmol/L (22-29) H 03/29/24 BUN 70 mg/dL (9-16) H 03/29/24 Creatinine 1.21 mg/dL (0.5-1.4) 03/29/24 Calcium 9.5 mg/dL (8.4-10.2) 03/29/24 Assessment & Plan Assessment & Plan (1) Hyponatremia: Code(s): E87.1 - Hypo-osmolality and hyponatremia Category: Medical Plan: Chronic asymptomatic hyponatremia. Serum sodium is within normal range at present. Continue with oral free water restriction. Continue with the upper once a day. Watch serum sodium periodically. BUN elevated due to Veloz Shall watch (2) Hydronephrosis: Code(s): N13.30 - Unspecified hydronephrosis Category: Medical Plan: Follow-up ultrasonogram shows MILD right [place], unchanged since 2019. Renal function stable. Plan Elevated BP Repeat was lower. Encouraged to monitor BP at home. HOme BP is excellent Probably has white coat effect Orders: Orders Basic Metabolic Panel 3 Months E87.1 - Hypo-osmolality and hyponatremia Coding Level of Care Code Est Pt Level 4 (23233) Diagnoses Hyponatremia E87.1 Hydronephrosis N13.30
[2024-04-09 11:10] VITALS: BP 170/70; PULSE 67; O2SAT 93; BMI 17.6
== END 2024-04-09 11:33 | disposition home or self-care (01) ==
PROVIDERS: PCP Internal Medicine Medical Oncology; Visit Provider Internal Medicine Hypertension Specialist
DX: E87.1 Hypo-osmolality and hyponatremia (principal); N13.30 Unspecified hydronephrosis
CPT/HCPCS: 99214

== ENCOUNTER → 2024-04-09 10:56 | Outpatient (BNVA) | payer MEDICARE, OTHER, SELFPAY | PROVIDERS: PCP Internal Medicine Medical Oncology; Visit Provider Internal Medicine Hypertension Specialist | DX: N13.30 Unspecified hydronephrosis (principal); E87.1 Hypo-osmolality and hyponatremia | CPT/HCPCS: 99212 ==

== ENCOUNTER 2024-04-18 10:36 | Outpatient (AMB) | payer MEDICARE, OTHER, SELFPAY ==
[2024-04-18 10:44] VITALS: BP 114/62; PULSE 78; O2SAT 94; BMI 17.7
--- NOTE | 2024-04-18 10:44 | MHC.OFFVIS ---
Vital Signs 04/18/24 10:44 Height 5 ft 2 in Weight 97 lb 0.054 oz BMI 17.7 BP 114/62 Blood Pressure Location Lt brachial Position Sitting Pulse 78 Pulse Source Pulse Oximeter Pulse Oximetry (%) 94 Oxygen Delivery Method Room Air Intake Visit Reasons: copd Nozzle And Sleeve Worker Required: No Geographic Information System Surveyor: Geographic Information System Surveyor offered & declined Accompanied by: Self / Same As Patient Allergies Beta-Blockers (Beta-Adrenergic Bloc Allergy (Intermediate, Verified 04/18/24 11:06) Swelling latex [LATEX] Allergy (Intermediate, Verified 04/18/24 11:06) RASH lisinopril [LISINOPRIL] Allergy (Intermediate, Verified 04/18/24 11:06) Cough Rnnccbn-PMO-NlT Reductase Inhibitor [DWSLVZR-IRB-VTD REDUCTASE INHIBITOR] Allergy (Intermediate, Verified 04/18/24 11:06) NAUSEA, LOSS OF APPETITE, GENERALIZED ILL FEELING Sulfa (Sulfonamide Antibiotics) [SULFA (SULFONAMIDE ANTIBIOTICS)] Allergy (Intermediate, Verified 04/18/24 11:06) Rash amlodipine [AMLODIPINE] Allergy (Mild, Verified 04/18/24 11:06) Rash spironolactone [SPIRONOLACTONE] Allergy (Unknown, Verified 04/18/24 11:06) UNKNOWN lactose [LACTOSE] Adverse Reaction (Mild, Verified 04/18/24 11:06) STOMACH UPSET Medication List - Last Reconciled 04/18/24 by Eliecer Garces MD albuterol sulfate 90 mcg/actuation (ProAir HFA) 2 puffs inhalation Q4-6H PRN albuterol sulfate 2.5 mg (3 mL) inhalation Q4H PRN Breo Ellipta 100-25 mcg/dose (fluticasone furoate-vilanterol) 1 ea PO DAILY NS carvedilol 12.5 mg PO BID cetirizine 5 mg PO DAILY PRN levothyroxine 100 mcg PO DAILY 90 days prednisone 5 mg PO DIRECTED urea (Ure-Na) 1 packet PO DAILY Do you need a note to return to daycare/school/sports/work: No HPI HPI copd: Details: 78 years old very pleasant, somewhat anxious female, comes after 4 months for her routine follow-up. She is being treated for bronchial asthma which can flare up very quickly off and on. But on her current medical regimen she is staying very stable. She has had no recent respiratory infection, Her anxiety level is much low, she is more focused on taking care of her who has dementia. Still does take prednisone 5 mg daily, uses Breo 1 inhalation daily and also albuterol by nebulizer as needed. 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 Mother No problems noted. Social History Alcohol intake: never Patient Tobacco Use Status: Former Tobacco user Tobacco use type: Cigarette Cigarette Packs Per Day: 0.5 Years Smoked: Quit 20 years ago. Review of Systems Const All systems reviewed & are unremarkable except as noted in HPI and below Eyes Reports no additional complaints ENT Reports no additional complaints Card Denies chest pain, Denies irregular heart rhythm and Denies leg edema Resp Reports as per HPI GI Reports no additional complaints Reports no additional complaints Musc Reports no additional complaints Skin/Breast Reports system reviewed and no additional complaints, except as documented Neuro Reports no additional complaints Psych Reports no additional complaints and Denies anxiety (SINCE HER PULMONARY AND RENAL STATUS HAS BEEN STABLE , ANXIETY IS RESOLVED) Physical Exam Vital Signs: Last Vital Signs Pulse 78 04/18/24 10:44 BP 114/62 04/18/24 10:44 Pulse Ox 94 04/18/24 10:44 Oxygen Delivery Method Room Air 04/18/24 10:44 BMI result Body Mass Index 17.7 Const General: healthy appearing, comfortable, no acute distress, alert and awake Orientation/consciousness: patient oriented x3 HEENT Head: Yes normal to inspection General nose exam: No nasal polyps present and No nasal discharge present Face and sinus: Yes sinuses nontender Mouth: oropharynx normal Throat: Yes posterior oropharynx normal Eyes General: appearance normal, both eyes and all related structures Neck Neck: Yes normal visual inspection, Yes no lymphadenopathy, Yes trachea midline and Yes no JVD Thyroid: Thyroid normal Chest Chest palpation & inspection: normal inspection of the chest, normal palpation of entire chest wall and no tenderness Resp Other: PERCUSSION NOTE HYPER-RESONANT SHE HAS GOOD BREATH SOUNDS ON BOTH SIDES WITH SLIGHTLY PROLONGED EXPIRATORY PHASE. SHE DOES NOT HAVE ANY WHEEZES OR CREPITATIONS TODAY . Cardio Palpation: normal PMI Rate: regular rate Rhythm: regular rhythm Heart sounds: no gallops and no murmurs Peripheral pulses: Peripheral pulses 2+ throughout GI Palpation (GI): Soft to palpation, nontender, No hepatosplenomegaly present, no masses and Other GI palpation findings present (She has bulging of the mid abdomen, due to ventral herniation.) Auscultation: normal bowel sounds Back/Spine/Pelvis Thoracic/Lumbar Spine: thoracic and lumbar spine normal to inspection Skin General skin exam: no rashes or lesions noted Neuro General: patient oriented x3 and no focal motor deficits Cranial nerves: Yes CN's II-XII intact bilaterally Extrem General: Yes normal to inspection, Yes no clubbing, cyanosis or edema and Yes no calf tenderness Psych Appearance: grossly normal and well kempt Speech and movement: Normal speech and movement present Assessment & Plan Assessment & Plan (1) COPD (chronic obstructive pulmonary disease): Comment: PATIENT HAS MILD TO MODERATE DEGREE OF OBSTRUCTIVE AIRWAY DISORDER WITH REACTIVE AIRWAYS. CONTROLLED WITH THE CURRENT REGIMEN. Code(s): J44.9 - Chronic obstructive pulmonary disease, unspecified Category: Medical Plan: Continue Breo 100-25 1 inhalation daily. Albuterol solution in the nebulizer Q 4-6 hours p.r.n. when at home and albuterol HFA 2 puffs Q 4-6 hours p.r.n. when outdoors. Prednisone 5 mg daily. (2) Hypersensitivity disorder: Comment: SHE HAS HYPERSENSITIVE UPPER AIRWAYS, CONTROLLED WITH TAKING PREDNISONE , 5 mg IN AM , * NOTED IN PREVIOUS NOTES PATIENT IS PSYCHOLOGICALLY DEPENDENT ON PREDNISONE. Pros and cons of long-term use of prednisone have been discussed with the patient. Code(s): T78.40XA - Allergy, unspecified, initial encounter Category: Medical Plan: Continue prednisone 5 mg daily. May use cetirizine 10 mg half tablet Q daily as needed (3) Anxiety: Comment: SHE HAS ANXIOUS PERSONALITY BUT DOING BETTER , Code(s): F41.9 - Anxiety disorder, unspecified Category: Medical Plan: REASSURED . DOES HAVE LORAZEPAM 0.5 MG ON HAND AND WILL TAKE IT ONLY IF TOO ANXIOUS . Coding Level of Care Code Est Pt Level 3 (67207) Diagnoses COPD (chronic obstructive pulmonary disease) J44.9 Hypersensitivity disorder T78.40XA Anxiety F41.9
== END 2024-04-18 11:07 | disposition home or self-care (01) ==
LOC: HO.HPS 10:37
PROVIDERS: PCP Internal Medicine Medical Oncology; Visit Provider Internal Medicine
DX: J44.9 Chronic obstructive pulmonary disease, unspecified (principal); T78.40XA Allergy, unspecified, initial encounter; F41.9 Anxiety disorder, unspecified
CPT/HCPCS: 99213

== ENCOUNTER → 2024-04-18 10:36 | Outpatient (BNVA) | payer MEDICARE, OTHER, SELFPAY | PROVIDERS: PCP Internal Medicine Medical Oncology; Visit Provider Internal Medicine | DX: J44.9 Chronic obstructive pulmonary disease, unspecified (principal); F41.9 Anxiety disorder, unspecified; T78.40XA Allergy, unspecified, initial encounter; X58.XXXA Exposure to other specified factors, initial encounter; Y93.9 Activity, unspecified; Y92.9 Unspecified place or not applicable; Y99.9 Unspecified external cause status; Z87.891 Personal history of nicotine dependence | CPT/HCPCS: 99212 ==

== ENCOUNTER 2024-07-14 10:23 | Outpatient (REF) | payer MEDICARE, OTHER, SELFPAY ==
[2024-07-14 12:12] LABS: Anion Gap 10 (12-20); Blood Urea Nitrogen 42 mg/dL (9-16); Calcium 9.1 mg/dL (8.4-10.2); Carbon Dioxide 28 mmol/L (22-29); Chloride 102 mmol/L (96-108); Estimated Glomerular Filt Rate 49; Glucose Random 102 mg/dL (60-115); Potassium 4.1 mmol/L (3.3-5.1); Sodium 136 mmol/L (135-145)
== END 2024-07-14 10:24 | disposition home or self-care (01) ==
LOC: HO.HMGCLDS 10:23
PROVIDERS: PCP Internal Medicine Medical Oncology; Visit Provider Internal Medicine Hypertension Specialist
DX: E87.1 Hypo-osmolality and hyponatremia (principal)
CPT/HCPCS: 36415; 80048

== ENCOUNTER 2024-08-16 07:03 | Outpatient (REF) | payer MEDICARE, OTHER, SELFPAY ==
[2024-08-16 10:37] LABS: MANUAL DIFF FLAG NO
[2024-08-16 10:51] LABS: Basophils Absolute Auto 0.1 X10*3/uL (0.0-0.2); Basophils Percent Auto 0.8 % (0-2); Eosinophils Absolute Auto 0.1 X10*3/uL (0.0-0.4); Eosinophils Percent Auto 0.8 % (0-4); Hemoglobin 13.7 g/dl (12.0-16.0); Imm Gran Abs Auto 0.05 X10*3/uL (0.00-0.03); Imm Gran Pct Auto 0.5 % (0.0-0.4); Lymphocytes Percent Auto 19.9 % (20-40); Mean Corpuscular HGB Conc 32.6 g/dl (31.0-35.0); Mean Corpuscular Hemoglobin 33.7 pg (27.0-33.0); Mean Corpuscular Volume 103.4 fL (80.0-98.0); Mean Platelet Volume 9.4 fL (9.4-12.3); Monocytes Absolute Auto 1.1 X10*3/uL (0.1-1.2); Monocytes Percent Auto 10.9 % (2-11); Neutrophils Absolute Auto 6.9 x10*3/uL (2.0-8.3); Neutrophils Percent Auto 67.1 % (45-73); Platelet Count 287 X10*3/uL (160-400); Red Blood Count 4.06 X10*6/uL (4.20-5.50); Red Cell Distribution Width 12.8 % (11.0-16.0); White Blood Count 10.2 X10*3/uL (4.8-10.8)
[2024-08-16 11:27] LABS: Alanine Aminotransferase 22 U/L (0-31); Albumin Level 3.4 g/dL (3.5-5.0); Alkaline Phosphatase 46 U/L (39-117); Anion Gap 6 (12-20); Aspartate Amino Transferase 28 U/L (5-31); Bilirubin Total 0.4 mg/dL (0.0-1.0); Blood Urea Nitrogen 38 mg/dL (9-16); Calcium 9.1 mg/dL (8.4-10.2); Carbon Dioxide 32 mmol/L (22-29); Chloride 103 mmol/L (96-108); Cholesterol 169 mg/dL (<200); Estimated Glomerular Filt Rate 49; Free T4 (Free Thyroxine) 1.33 ng/dL (0.71-1.85); Glucose Fasting 83 mg/dL (60-99); HDL Cholesterol 59 mg/dL (>40); LDL Cholesterol Calculated 88 mg/dL (<100); Potassium 4.1 mmol/L (3.3-5.1); Sodium 137 mmol/L (135-145); Thyroid Stimulating Hormone 1.25 uIU/mL (0.32-4.0); Total Protein 8.1 g/dL (6.5-8.0); Triglycerides 113 mg/dL (<150)
== END 2024-08-16 07:04 | disposition home or self-care (01) ==
LOC: HO.HMGCLDS 07:03
PROVIDERS: PCP Internal Medicine Medical Oncology; Visit Provider Internal Medicine Medical Oncology
DX: J44.9 Chronic obstructive pulmonary disease, unspecified (principal); E03.9 Hypothyroidism, unspecified; I10 Essential (primary) hypertension; E78.5 Hyperlipidemia, unspecified
CPT/HCPCS: 36415; 80053; 80061; 84439; 84443; 85025

== ENCOUNTER 2024-08-22 10:26 | Outpatient (AMB) | payer MEDICARE, OTHER, SELFPAY ==
[2024-08-22 10:40] VITALS: BP 140/74; PULSE 60; O2SAT 94; BMI 17.3
--- NOTE | 2024-08-22 10:40 | A.OFFVIS_ITS ---
Vital Signs 08/22/24 10:40 Height 5 ft 2 in Weight 94 lb 12.78 oz BMI 17.3 BP 140/74 H Blood Pressure Location Lt brachial Position Sitting Pulse 60 Pulse Source Pulse Oximeter Pulse Oximetry (%) 94 Oxygen Delivery Method Room Air Intake Visit Reasons: COPD Intake Note: pt is here for follow up and states she is stable and is doing well. Plant Safety Leader Required: No Allergies Beta-Blockers (Beta-Adrenergic Bloc Allergy (Intermediate, Verified 08/22/24 11:03) Swelling latex [LATEX] Allergy (Intermediate, Verified 08/22/24 11:03) RASH lisinopril [LISINOPRIL] Allergy (Intermediate, Verified 08/22/24 11:03) Cough Orczkbb-SJX-WsY Reductase Inhibitor [IDTHTSG-LXN-ZQQ REDUCTASE INHIBITOR] Allergy (Intermediate, Verified 08/22/24 11:03) NAUSEA, LOSS OF APPETITE, GENERALIZED ILL FEELING Sulfa (Sulfonamide Antibiotics) [SULFA (SULFONAMIDE ANTIBIOTICS)] Allergy (Intermediate, Verified 08/22/24 11:03) Rash amlodipine [AMLODIPINE] Allergy (Mild, Verified 08/22/24 11:03) Rash spironolactone [SPIRONOLACTONE] Allergy (Unknown, Verified 08/22/24 11:03) UNKNOWN lactose [LACTOSE] Adverse Reaction (Mild, Verified 08/22/24 11:03) STOMACH UPSET Medication List - Last Reconciled 08/22/24 by Eliecer Garces MD albuterol sulfate 90 mcg/actuation (ProAir HFA) 2 puffs inhalation Q4-6H PRN albuterol sulfate 2.5 mg (3 mL) inhalation Q4H PRN Breo Ellipta 100-25 mcg/dose (fluticasone furoate-vilanterol) 1 ea PO DAILY NS carvedilol 12.5 mg PO BID cetirizine 5 mg PO DAILY PRN levothyroxine 100 mcg PO DAILY 90 days prednisone 5 mg PO DIRECTED urea (Ure-Na) 1 packet PO DAILY Do you need a note to return to daycare/school/sports/work: No HPI HPI COPD: Details: THIS 79 YEARS OLD VERY PLEASANT SOMEWHAT ANXIOUS LADY. IS HERE. FOR FOLLOW-UP AFTER 4 MONTHS BREATHING PRITCHARD HAS REMAINED VERY STABLE. SHE DOES GET MILD IRRITATION IN THE THROAT EVERY NOW AND THEN. SHE HAS MILD NASAL. CONGESTION ESPECIALLY AT THE CHANGE OF THE WEATHER BREATHING HAS REMAINED STABLE AND UNDER CONTROL BUT SHE DOES USE HER MAINTENANCE REGIMEN VERY REGULARLY, INCLUDING BREO 100-25 ONCE A DAY, ALBUTEROL SOLUTION IN THE NEBULIZER ALMOST EVERY NIGHT BEFORE. SHE GOES TO SLEEP AND SHE REMAINS ON PREDNISONE 5 MG DAILY. THIS PATIENT IS HIGHLY ALLERGIC TO MANY MEDICATIONS AND NOW SHE IS POINTING TO USE AREA TABLET WHICH SHE HAS USED FOR MANY YEARS TO TREAT HYPONATREMIA, THAT THIS MAY BE CAUSING HER SKIN REACTION OVER THE LEGS. I TOLD HER TO DISCUSS WITH THE LIVESTOCK JUDGING COACH THAT SHE FOLLOWS WITH. 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 Mother No problems noted. Social History Alcohol intake: never Patient Tobacco Use Status: Former Tobacco user Tobacco use type: Cigarette Cigarette Packs Per Day: 0.5 Years Smoked: Quit 20 years ago. Review of Systems Const All systems reviewed & are unremarkable except as noted in HPI and below Eyes Reports no additional complaints ENT Reports no additional complaints Card Denies chest pain, Denies irregular heart rhythm and Denies leg edema Resp Reports as per HPI GI Reports no additional complaints Reports no additional complaints Musc Reports no additional complaints Skin/Breast Reports system reviewed and no additional complaints, except as documented Neuro Reports no additional complaints Psych Reports no additional complaints and Denies anxiety (SINCE HER PULMONARY AND RENAL STATUS HAS BEEN STABLE , ANXIETY IS RESOLVED) Physical Exam Vital Signs: Last Vital Signs Pulse 60 08/22/24 10:40 BP 140/74 H 08/22/24 10:40 Pulse Ox 94 08/22/24 10:40 Oxygen Delivery Method Room Air 08/22/24 10:40 BMI result Body Mass Index 17.3 Const General: healthy appearing, comfortable, no acute distress, alert and awake Orientation/consciousness: patient oriented x3 HEENT Head: Yes normal to inspection General nose exam: No nasal polyps present and No nasal discharge present Face and sinus: Yes sinuses nontender Mouth: oropharynx normal Throat: Yes posterior oropharynx normal Eyes General: appearance normal, both eyes and all related structures Neck Neck: Yes normal visual inspection, Yes no lymphadenopathy, Yes trachea midline and Yes no JVD Thyroid: Thyroid normal Chest Chest palpation & inspection: normal inspection of the chest, normal palpation of entire chest wall and no tenderness Resp Other: PERCUSSION NOTE HYPER-RESONANT SHE HAS GOOD BREATH SOUNDS ON BOTH SIDES WITH SLIGHTLY PROLONGED EXPIRATORY PHASE. SHE DOES have a few very fine expiratory wheezes over the lower lobes. Cardio Palpation: normal PMI Rate: regular rate Rhythm: regular rhythm Heart sounds: no gallops and no murmurs Peripheral pulses: Peripheral pulses 2+ throughout GI Palpation (GI): Soft to palpation, nontender, No hepatosplenomegaly present, no masses and Other GI palpation findings present (She has bulging of the mid abdomen, due to ventral herniation.) Auscultation: normal bowel sounds Back/Spine/Pelvis Thoracic/Lumbar Spine: thoracic and lumbar spine normal to inspection Skin General skin exam: no rashes or lesions noted Neuro General: patient oriented x3 and no focal motor deficits Cranial nerves: Yes CN's II-XII intact bilaterally Extrem General: Yes normal to inspection, Yes no clubbing, cyanosis or edema and Yes no calf tenderness Psych Appearance: grossly normal and well kempt Speech and movement: Normal speech and movement present Assessment & Plan Assessment & Plan (1) COPD (chronic obstructive pulmonary disease): Comment: PATIENT HAS MILD TO MODERATE DEGREE OF OBSTRUCTIVE AIRWAY DISORDER WITH REACTIVE AIRWAYS. CONTROLLED WITH THE CURRENT REGIMEN. Code(s): J44.9 - Chronic obstructive pulmonary disease, unspecified Category: Medical Plan: Advised to continue using Breo 100-251 inhalation daily. Albuterol solution 2.5 mg in the nebulizer Q 4-6 hours p.r.n. and she usually use uses at lease once a day at night. (2) Hypersensitivity disorder: Comment: SHE HAS HYPERSENSITIVE UPPER AIRWAYS, CONTROLLED WITH TAKING PREDNISONE , 5 mg IN AM , * NOTED IN PREVIOUS NOTES PATIENT IS PSYCHOLOGICALLY DEPENDENT ON PREDNISONE. Pros and cons of long-term use of prednisone have been discussed with the patient. Code(s): T78.40XA - Allergy, unspecified, initial encounter Category: Medical Plan: CONTINUE PREDNISONE 5 MG DAILY. USE CETIRIZINE 5 MG ONCE A DAY ONLY P.R.N. (3) Anxiety: Comment: SHE HAS ANXIOUS PERSONALITY BUT DOING BETTER , AND IS NOT REQUIRING ANXIOLYTIC MEDS. Code(s): F41.9 - Anxiety disorder, unspecified Category: Medical Plan: NO NEED TO USE ANXIOLYTIC AGENTS AT THIS TIME Coding Level of Care Code Est Pt Level 3 (16035) Diagnoses COPD (chronic obstructive pulmonary disease) J44.9 Hypersensitivity disorder T78.40XA Anxiety F41.9
--- OUTSIDE RECORDS SUMMARY | 2024-08-22 12:00 | XMS_ITS ---
Author Organization Jose Pozo III, MD Address [address] [place] [address] Care Team Providers Care Vending Attendant Name Role Phone Jose Pozo Primary Care Provider Medications Medication SIG (Take, Route, Frequency, Duration) Notes Start Date End Date Status Albuterol Sulfate HFA 108 (90 Base) MCG/ACT 2 puffs Inhalation every 6 hours for dyspnea for 28 days 05/08/2024 Active Social History Sex Assigned At : Social History Observation Description Sex Assigned At Female Encounters Encounter Location Date Provider Diagnosis Jose Pozo III, MD [address] [place] [address] [place] [address] 05/08/2024 Jose Pozo Plan Of Treatment Medication Medication Name Sig Start Date Stop Date Notes Albuterol Sulfate HFA 108 (9 0 Base) MCG/ACT 2 puffs Inhalation every 6 hours for dyspnea for 28 days 05/08/2024 Next Appt Details Provider Name:Jose Pozo, 08/23/2024 10:45:00 AM, [address] [facility] [place], [address], Provider Name:Jose Pozo, 11/09/2024 02:00:00 PM, [address] [place] [address] [place], [address], Progress Notes * Charlie BAGLEYDOB:[birth year] (78 yo F)Acc No.[id number]:05/08/2024 Patient:?Charlei BAGLEY :1945???Age:78 Y???Sex:Female Address:[address] [place] [address] [address] [place], [address] * Refills? Start Albuterol Sulfate HFA Aerosol Solution, 108 (90 Base) MCG/ACT, Inhalation, 1, 2 puffs, every 6 hours for dyspnea, 28 days, Refills=11 * true * Date:? Generated for Luann garcia/Addie/Jeseniasmitting on:?08/22/2024 12:00 PM EDT
--- OUTSIDE RECORDS SUMMARY | 2024-08-22 12:01 | XMS_ITS ---
Author Organization Jose Pozo III, MD Address [address] [place] [address] Care Team Providers Care Bread Room Hand Name Role Phone Jose Pozo Primary Care Provider Allergies Allergen (clinical drug ingredient) Drug/Non Drug Allergy documented on EMR Reaction Allergy Type Onset Date Status spironolactone Spironolactone Unknown Drug Allergy Active Lisinopril Unknown Drug Allergy Active Lactose Unknown Drug Allergy Active amlodipine Amlodipine Besylate Unknown Drug Allergy Active pseudoephedrine 12 Hour Decongestant Unknown Drug Allergy Active Substance with beta adrenergic receptor antagonist mechanism of action (substance) Beta- Sky (uncoded) Unknown Allergy Active sulfacetamide Sulfacetamide Unknown Drug Allergy Active Latex Latex Unknown Allergy Active Statins Support Unknown Drug Allergy A ctive REASON FOR VISIT Acute on chronic low back pain, COPD, Hypertension, Hypothyroidism, Asthma Medications Medication SIG (Take, Route, Frequency, Duration) Notes Start Date End Date Status Ure-Na 15 GM as directed Orally Active Levothyroxine Sodium 100 MCG 1 tablet in the morning on an empty stomach Orally Once a day Active Albuterol Sulfate HFA 108 (90 Base) MCG/ACT INHALE 2 PUFFS EVERY 6 HOURS NEEDED Active Furosemide 20 MG 1 tablet Orally Once a day 12/22/2022 Active Carvedilol 12.5 MG 1 tablet with food Orally Twice a day Active predniSONE 5 MG 1 tablet Orally Twic e a day Active Breo Ellipta 100-25 MCG/INH 1 puff Inhal ation Once a day Active Ventolin HFA 108 (90 Base) MCG/ACT 1 puff as needed Inhalation every 4 hrs Active Social History Tobacco Use: Social History Observation Description Date Details (start date - stop date) Never Smoker NA - NA Sex Assigned At : Social History Observation Description Sex Assigned At Female Tobacco Use/Smoking Question Answer Notes Patient is a nonsmoker Additional Findings: Tobacco Non-User Aggressive non-smoker Vital Signs Height 61 in 03/21/2024 Weight 97 lbs 03/21/2024 BMI 18.33 kg/m2 03/21/2024 Encounters Encounter Location Date Provider Diagnosis Jose Pozo III, MD [address] [place] [address] [place] [address] 03/21/2024 Jose Pooz Chronic obstructive pulmonary disease, unspecified COPD type J44.9 ; Acute right-sided low back pain without sciatica M54.50 and Acquired hypothyroidism E03.9 Assessments Encounter Date Diagnosis (ICD Code) Assessment Notes Treat ment Notes Treatment Clinical Notes 03/21/2024 Chronic obstructive pulmonary disease, unspecified COPD type (ICD-10 - J44.9) She is breathing comfortably today. She has seen her computer support specialist instructor recently. She has oxygen at home which she rarely uses. She has been compliant with her medication. 03/21/2024 Acute right-sided lo w back pain without sciatica (ICD-10 - M54.50) She will continue heat and rest and ibuprofen. She will avoid heavy lifting. She will have imaging done at this does not improve. We will also have physical therapy. 03/21/2024 Acquired hypothyroidism (ICD-10 - E03.9) She is euthyroid at this time and no change in her medication was needed. Plan Of Treatment Medication Medication Name Sig Start Date Stop Date Notes Ure-Na 15 GM as directed Orally Levothyroxine Sodium 100 MCG 1 tablet in the morning on an empty stomach Orally Once a day Albuterol Sulfate HFA 108 (9 0 Base) MCG/ACT INHALE 2 PUFFS EVERY 6 HOURS NEEDED Furosemide 20 MG 1 tablet Orally Once a day 12/22/2022 Carvedilol 12.5 MG 1 tablet with food O rally Twice a day predniSONE 5 MG 1 tablet Orally Twice a day Breo Ellipta 100-25 MCG/INH 1 puff Inhal ation Once a day Ventolin HFA 108 (90 Base) MCG/ACT 1 puff as needed Inhalation every 4 hrs Next Appt Details Follow Up: As Scheduled, Snow son: OV Provider Name:Jose Pozo, 08/23/2024 10:45:00 AM, [address] [place] [address] [address] [place], [place], [id number], Provider Name:Jose Pozo, 11/09/2024 02:00:00 PM, [address] [place] [address] DR, [address], [place], [address], Progress Notes * YUDICharlie MichelleDOB:[birth year] (78 yo F)Acc No.[id number]:03/21/2024 Patient:?GEORGIAJINA Anel Provider:?Jose Pozo MD :1945???Age:78 Y???Sex:Female D ate:03/21/2024 Address:[address] [place], [place] [id number] Subjective: * Chief Complaints: * ???Acute on chronic low back painCOPDHypertensionHypothyroidismAsthma * HPI: ???:?Telehealth?Location of provider rendering services:?{...} [address] [place] [address] Drive [address] [facility] [address] ?Location of patient:?address listed in demographics for today's visit ?Patient identification confirmed using:?Name, ?Telehealth method:?Telephone only. Patient not visible to care provider. ?Consent:?Patient verbally consented to treatment, Patient verbally consented to billing insurance company, Patient informed of any privacy concerns related to method of visit ?Total time spent with patient (mins)?15 ? This telehealth visit took place over 15 minutes the patient at home and me in my office.? She gave consent for billing.? On her last visit she reported increase in her chronic intermittent low back pain was severe.? He has been using heat and rest and ibuprofen.? She has begun to feel much better.? Continue her regimen.? The pain is localized along lumbar spine in the right muscle column.? She has seen her skid strapper recently have not deteriorated.? Her most recent blood was 120/62. * ROS:?General/Constitutional:?pain?Acute and chronic low back pain on the right.?Chills?denies.?Fatigue?admits.?Fever?denies.?ENT:?Decreased hearing?mild.?Respiratory:?Cough?denies.?Cardiovascular:?Chest pain with exertion?denies.?Dyspnea on exertion?denies.?Shortness of breath?denies.?Gastrointestinal:?Constipation?occasional.?Decreased appetite?denies.?Diarrhea?denies.?Heartburn?denies.?Nausea?denies.?Rectal bleeding?denies.?Vomiting?denies.?Hematology:?bruising?denies.?petechiae?denies.?Swollen glands?none have been noted.?Genitourinary:?Frequent urination?denies.?Musculoskeletal:?Muscle aches?denies.?Painful joints?denies.?Sciatica?denies.?Weakness?denies.?Skin:?Itching?denies.?Rash?denies.?Skin lesion(s)?denies.?Neurologic:?Difficulty speaking?denies.?Dizziness?denies.?Headache?denies.?Low back pain?denies.?Psychiatric:?Depressed mood?denies.? * Medical History:? * Surgical History:?H/O Colono scopy Cardiac Cathererization Oophorectomy Left Cataract Splenectomy Hysterectomy with oophorectomy * Hospitalization/Major Diagno stic Procedure:?Kidney Faliure @ [facility] 2018 * Family History:?Father: dece ased 62 yrs, diagnosed with CVD.?Mother: 100 yrs.?1 son(s) - healthy. .? Her father of coronary artery disease. Her mother lived to be 100 and of old age. She has 1 healthy son and no daughters. She has no siblings. She is not aware of any inherited cancer family syndrome. She is not aware of any history of diabetes. She is not aware of any family history of mental illness or substance abuse disorder, or addictions. * Social History:?Tobacco Use:?Tobacco Use/Smoking?Patient is a?nonsmoker ?Additional Findings: Tobacco Non-User?Aggressive non-smoker ???She lives in [facility]. She has been to her , Tucker, for many years who is also a patient in this practice. They have 1 son who is alive and well and healthy. She is retired. * Medications:?TakingCarvedilo l 12.5 MG Tablet 1 tablet with food Orally Twice a day Furosemide 20 MG Tablet 1 tablet Orally Once a day Albuterol Sulfate HFA 108 (90 Base) MCG/ACT Aerosol Solution INHALE 2 PUFFS EVERY 6 HOURS NEEDED Levothyroxine Sodium 100 MCG Tablet 1 tablet in the morning on an empty stomach Orally Once a day Ure-Na 15 GM Packet as directed Orally Ventolin HFA 108 (90 Base) MCG/ACT Aerosol Solution 1 puff as needed Inhalation every 4 hrs Breo Ellipta 100-25 MCG/INH Aerosol Powder Breath Activated 1 puff Inhalation Once a day predniSONE 5 MG Tablet 1 tablet Orally Twice a day Medication List reviewed and reconciled with the patientTaking Carvedilol 12.5 MG Tablet 1 tablet with food Orally Twice a day Taking Furosemide 20 MG Tablet 1 tablet Orally Once a day Taking Albuterol Sulfate HFA 108 (90 Base) MCG/ACT Aerosol Solution INHALE 2 PUFFS EVERY 6 HOURS NEEDED Taking Levothyroxine Sodium 100 MCG Tablet 1 tablet in the morning on an empty stomach Orally Once a day Taking Ure-Na 15 GM Packet as directed Orally Taking Ventolin HFA 108 (90 Base) MCG/ACT Aerosol Solution 1 puff as needed Inhalation every 4 hrs Taking Breo Ellipta 100-25 MCG/INH Aerosol Powder Breath Activated 1 puff Inhalation Once a day Taking predniSONE 5 MG Tablet 1 tablet Orally Twice a day Medication List reviewed and reconciled with the patient * Allergies:?Beta- BlockerLisi noprilStatins SupportAmlodipine VgtqdgmrBjmqmseogxhzauGroqkra80 Hour DecongestantSulfacetamideLatexno[Allergies Verified] Objective: * Vitals:?Ht: 61, Wt:97, BMI:1 8.33, Ht-cm: 154.94, Wt-k. * ???Past Orders: Lab:Complete Blood Count Aut o Diff * Collection Date 02/28/2024 11/01/2023 01/26/2023 Collection Time 07:15 AM 06:22 AM 06:58 AM Order Date 02/28/2024 11/01/2023 01/26/2023 White Blood Count 7.6 (Ref Range: 4.8-10.8 X10*3/uL) 9.1 (Ref Range: 4.8-10.8 X10*3/uL) 8.3 (Ref Range: 4.8-10.8 X10*3/uL) Red Blood Count 3.91?L (Ref Range: 4.20-5.50 X10*6/uL) 4.01?L (Ref Range: 4.20-5.50 X10*6/uL) 3.94?L (Ref Range: 4.20-5.50 X10*6/uL) Hemoglobin 13.2 (Ref Range: 12.0-16.0 g/dl) 13.5 (Ref Range: 12.0-16.0 g/dl) 13.2 (Ref Range: 12.0-16.0 g/dl) Hematocrit 41.0 (Ref Range: 37.0-47.0 %) 41.0 (Ref Range: 37.0-47.0 %) 41.1 (Ref Range: 37.0-47.0 %) Mean Corpuscular Volume 104.9?H (Ref Range: 80.0-98.0 fL) 102.2?H (Ref Range: 80.0-98.0 fL) 104.3?H (Ref Range: 80.0-98.0 fL) Mean Corpuscular Hemoglobin 33.8?H (Ref Range: 27.0-33.0 pg) 33.7?H (Ref Range: 27.0-33.0 pg) 33.5?H (Ref Range: 27.0-33.0 pg) Mean Corpuscular HGB Conc 32.2 (Ref Range: 31.0-35.0 g/dl) 32.9 (Ref Range: 31.0-35.0 g/dl) 32.1 (Ref Range: 31.0-35.0 g/dl) Red Cell Distribution Width 13.6 (Ref Range: 11.0-16.0 %) 13.3 (Ref Range: 11.0-16.0 %) 12.8 (Ref Range: 11.0-16.0 %) Platelet Count 229 (Ref Range: 160-400 X10*3/uL) 198 (Ref Range: 160-400 X10*3/uL) 253 (Ref Range: 160-400 X10*3/uL) Mean Platelet Volume 9.3?L (Ref Range: 9.4-12.3 fL) 10.2 (Ref Range: 9.4-12.3 fL) 9.2?L (Ref Range: 9.4-12.3 fL) Neutrophils Percent Auto 57.1 (Ref Range: 45-73 %) 62.9 (Ref Range: 45-73 %) 53.5 (Ref Range: 45-73 %) Imm Gran Pct Auto 0.4 (Ref Range: 0.0-0.4 %) 0.4 (Ref Range: 0.0-0.4 %) 0.4 (Ref Range: 0.0-0.4 %) Lymphocytes Percent Auto 27.9 (Ref Range: 20-40 %) 26.2 (Ref Range: 20-40 %) 31.9 (Ref Range: 20-40 %) Monocytes Percent Auto 11.1?H (Ref Range: 2-11 %) 9.1 (Ref Range: 2-11 %) 11.4?H (Ref Range: 2-11 %) Eosinophils Percent Auto 2.6 (Ref Range: 0-4 %) 0.7 (Ref Range: 0-4 %) 2.0 (Ref Range: 0-4 %) Basophils Percent Auto 0.9 (Ref Range: 0-2 %) 0.7 (Ref Range: 0-2 %) 0.8 (Ref Range: 0-2 %) NRBC Pct Auto 0.0 (Ref Range: 0.0-0.2 /100WBC) 0.0 (Ref Range: 0.0-0.2 /100WBC) 0.0 (Ref Range: 0.0-0.2 /100WBC) Neutrophils Absolute Auto 4.4 (Ref Range: 2.0-8.3 x10*3/uL) 5.7 (Ref Range: 2.0-8.3 x10*3/uL) 4.4 (Ref Range: 2.0-8.3 x10*3/uL) Imm Gran Abs Auto 0.03 (Ref Range: 0.00-0.03 X10*3/uL) 0.04?H (Ref Range: 0.00-0.03 X10*3/uL) 0.03 (Ref Range: 0.00-0.03 X10*3/uL) Lymphocytes Absolute Auto 2.1 (Ref Range: 1.2-4.9 X10*3/uL) 2.4 (Ref Range: 1.2-4.9 X10*3/uL) 2.7 (Ref Range: 1.2-4.9 X10*3/uL) Monocytes Absolute Auto 0.9 (Ref Range: 0.1-1.2 X10*3/uL) 0.8 (Ref Range: 0.1-1.2 X10*3/uL) 1.0 (Ref Range: 0.1-1.2 X10*3/uL) Eosinophils Absolute Auto 0.2 (Ref Range: 0.0-0.4 X10*3/uL) 0.1 (Ref Range: 0.0-0.4 X10*3/uL) 0.2 (Ref Range: 0.0-0.4 X10*3/uL) Basophils Absolute Auto 0.1 (Ref Range: 0.0-0.2 X10*3/uL) 0.1 (Ref Range: 0.0-0.2 X10*3/uL) 0.1 (Ref Range: 0.0-0.2 X10*3/uL) NRBC Abs Auto 0.000 (Ref Range: 0.0-0.012 X10*3/uL) 0.000 (Ref Range: 0.0-0.012 X10*3/uL) 0.000 (Ref Range: 0.0-0.012 X10*3/uL) * Lab:Thyroid Stimulating Horm one * Collection Date 02/28/2024 11/01/2023 01/26/2023 Collection Time 07:15 AM 06:22 AM 06:58 AM Order Date 02/28/2024 11/01/2023 01/26/2023 Thyroid Stimulating Hormone 1.43 (Ref Range: 0.32-4.0 uIU/mL) 0.74 (Ref Range: 0.32-4.0 uIU/mL) 1.31 (Ref Range: 0.32-4.0 uIU/mL) * Lab:Free T4 (Free Thyroxine) * Collection Date 02/28/2024 11/01/2023 01/26/2023 Collection Time 07:15 AM 06:22 AM 06:58 AM Order Date 02/28/2024 11/01/2023 01/26/2023 Free T4 (Free Thyroxine) 1.18 (Ref Range: 0.71-1.85 ng/dL) 1.32 (Ref Range: 0.71-1.85 ng/dL) 1.16 (Ref Range: 0.71-1.85 ng/dL) * Lab:Lipid Panel * Collection Date 02/28/2024 11/01/2023 01/26/2023 Collection Time 07:15 AM 06:22 AM 06:58 AM Order Date 02/28/2024 11/01/2023 01/26/2023 Triglycerides 66 (Ref Range: <150 mg/dL) 84 (Ref Range: <150 mg/dL) 74 (Ref Range: mg/dL) Cholesterol 171 (Ref Range: <200 mg/dL) 175 (Ref Range: <200 mg/dL) 171 (Ref Range: mg/dL) LDL Cholesterol Calculated 97 (Ref Range: <100 mg/dL) 92 (Ref Range: <100 mg/dL) 91 (Ref Range: mg/dl) HDL Cholesterol 61 (Ref Range: >40 mg/dL) 67 (Ref Range: >40 mg/dL) 66 (Ref Range: mg/dL) * Lab:Comprehensive [place]. Pane l Fast * Collection Date 02/28/2024 11/01/2023 01/26/2023 Collection Time 07:15 AM 06:22 AM 06:58 AM Order Date 02/28/2024 11/01/2023 01/26/2023 Sodium 139 (Ref Range: 135-145 mmol/L) 139 (Ref Range: 135-145 mmol/L) 138 (Ref Range: 135-145 mmol/L) Bilirubin Total 0.4 (Ref Range: 0.0-1.0 mg/dL) 0.5 (Ref Range: 0.0-1.0 mg/dL) 0.4 (Ref Range: 0.0-1.0 mg/dL) Aspartate Amino Transferase 22 (Ref Range: 5-31 U/L) 22 (Ref Range: 5-31 U/L) 23 (Ref Range: 5-31 U/L) Alanine Aminotransferase 16 (Ref Range: 0-31 U/L) 22 (Ref Range: 0-31 U/L) 21 (Ref Range: 0-31 U/L) Total Protein 7.8 (Ref Range: 6.5-8.0 g/dL) 8.0 (Ref Range: 6.5-8.0 g/dL) 7.6 (Ref Range: 6.5-8.0 g/dL) Albumin Level 3.5 (Ref Range: 3.5-5.0 g/dL) 3.5 (Ref Range: 3.5-5.0 g/dL) 3.6 (Ref Range: 3.5-5.0 g/dL) Alkaline Phosphatase 44 (Ref Range: 39-117 U/L) 50 (Ref Range: 39-117 U/L) 39 (Ref Range: 39-117 U/L) Potassium 4.8 (Ref Range: 3.3-5.1 mmol/L) 4.3 (Ref Range: 3.3-5.1 mmol/L) 4.2 (Ref Range: 3.3-5.1 mmol/L) Chloride 106 (Ref Range: 96-108 mmol/L) 105 (Ref Range: 96-108 mmol/L) 105 (Ref Range: 96-108 mmol/L) Carbon Dioxide 29 (Ref Range: 22-29 mmol/L) 28 (Ref Range: 22-29 mmol/L) 31?H (Ref Range: 22-29 mmol/L) Anion Gap 9?L (Ref Range: 12-20) 10?L (Ref Range: 12-20) 6?L (Ref Range: 12-20) Blood Urea Nitrogen 48?H (Ref Range: 9-16 mg/dL) 41?H (Ref Range: 9-16 mg/dL) 38?H (Ref Range: 9-16 mg/dL) Creatinine 1.17 (Ref Range: 0.5-1.4 mg/dL) 0.97 (Ref Range: 0.5-1.4 mg/dL) 1.07 (Ref Range: 0.5-1.4 mg/dL) Estimated Glomerular Filt Rate 45 56 50 Glucose Fasting 87 (Ref Range: 60-99 mg/dL) 87 (Ref Range: 60-99 mg/dL) 80 (Ref Range: 60-99 mg/dL) Calcium 9.1 (Ref Range: 8.4-10.2 mg/dL) 9.0 (Ref Range: 8.4-10.2 mg/dL) 9.1 (Ref Range: 8.4-10.2 mg/dL) Assessment: * Assessment: 1.?Chronic obstructive pulmo nary disease, unspecified COPD type - J44.9 (Primary)???Notes :She is breathing comfortably today. She has seen her computer support specialist instructor recently. She has oxygen at home which she rarely uses. She has been compliant with her medication.???2.?Acute right-sided low back pain without sciatica - M54.50???Notes :She will continue heat and rest and ibuprofen.? She will avoid heavy lifting.? She will have imaging done at this does not improve.? We will also have physical therapy.???3.?Acquired hypothyroidism - E03.9???Notes :She is euthyroid at this time and no change in her medication was needed.??? Plan: * Treatment: 2.?Others? Continue Carvedilol Tablet, 12.5 MG, 1 tablet with food, Orally, Twice a day;?Continue Furosemide Tablet, 20 MG, 1 tablet, Orally, Once a day;?Continue Albuterol Sulfate HFA Aerosol Solution, 108 (90 Base) MCG/ACT, INHALE 2 PUFFS EVERY 6 HOURS NEEDED;?Continue Levothyroxine Sodium Tablet, 100 MCG, 1 tablet in the morning on an empty stomach, Orally, Once a day;?Continue Ure-Na Packet, 15 GM, as directed, Orally;?Continue Ventolin HFA Aerosol Solution, 108 (90 Base) MCG/ACT, 1 puff as needed, Inhalation, every 4 hrs;?Continue Breo Ellipta Aerosol Powder Breath Activated, 100-25 MCG/INH, 1 puff, Inhalation, Once a day.?? * Procedure Codes:?57015 PHONE E/M BY PHYS 11-20 MIN * Preventive Medicine:? ??Counseling:?Care goal follow-up plan:?Counseling for abnormal BMI given?Yes ?Below Normal BMI Follow-up?Dietary education for weight gain, Dietary management education, guidance, and counseling, Feeding regime, Lifestyle education regarding diet, Nutrition / feeding management, Prescribed diet education, Special diet education, Intervention, Order not done: Medical or Other reason not done ??COPD Care Plan:?Patient Lifestyle Goals?Be able to be more active with friends and family, Reduce number of ED and hospitalizations, Relieve symptoms and improve quality of life.?Treatment Goals?Eat a nutritious diet and increase water consumption to 6-8 glasses a day, Eat 4-5 small meals throughout the day.?Barriers?no barriers.?Self-Managment Goals?Get an air purifier for the rooms you are in the most, Eat a healthy diet.? * Follow Up:?As Scheduled ([place] son: OV) * Images: * Sign off status: Completed true * Provider:?Jose Pozo MD Date:?02/2024 Generated for Luann garcia/Addie/Nilay on:?08/22/2024 12:00 PM EDT History and Physical Notes * HPI (History of Present Illness) Category Sub-Category Detail Notes Telehealth [facility] {...} [address] [facility] [address] Location of patient:: address listed in demographics for today's visit Patient identification confirmed using:: Name, Telehealth method:: Telephone only. Victoria ent not visible to care provider. Consent:: Patient verbally c onsented to treatment, Patient verbally consented to billing insurance company, Patient informed of any privacy concerns related to method of visit Total time spent with patient (mins): 15
--- OUTSIDE RECORDS SUMMARY | 2024-08-22 12:01 | XMS_ITS ---
Author Organization Jose Pozo III, MD Address [address] [place] [address] Care Team Providers Care Metallurgist Helper Name Role Phone Jose Pozo [facility] [...] receptor antagonist mechanism of action (substance) Beta- Ksy (uncoded) Unknown Allergy Active sulfacetamide Sulfacetamide Unknown Drug Allergy Active Latex Latex Unknown Allergy Active Statins Support Unknown Drug Allergy A ctive REASON FOR VISIT Dyspnea with exertion, COPD, Cardiomegaly, Hypertension, Hypothyroidism, Asthma, Chronic kidney disease, Ischemic heart disease Medications Medication SIG (Take, Route, Frequency, Duration) Notes Start Date End Date Status Breo Ellipta 100-25 MCG/INH 1 puff Inhal ation Once a day Active predniSONE 5 MG 1 tablet Orally Twic e a day Active Ure-Na 15 GM as directed Orally Active Ventolin HFA 108 (90 Base) MCG/ACT 1 puff as needed Inhalation every 4 hrs Active Levothyroxine Sodium 100 MCG 1 tablet in the morning on an empty stomach Orally Once a day Active Albuterol Sulfate HFA 108 (90 Base) MCG/ACT INHALE 2 PUFFS EVERY 6 HOURS NEEDED Active Carvedilol 12.5 MG TAKE 1 TABLET BY TWICE DAILY WITH FOOD Active Furosemide 20 MG 1 tablet Orally Once a day 12/22/2022 Active Social History Tobacco Use: Social History Observation Description Date Details (start date - stop date) Never Smoker NA - NA Sex Assigned At : Social History Observation Description Sex Assigned At Female Tobacco Use/Smoking Question Answer Notes Patient is a nonsmoker Additional Findings: Tobacco Non-User Aggressive non-smoker Vital Signs Temperature 98.6 degrees Fahrenheit 05/03/20 24 Blood pressure systolic 137 mm Hg 05/03/20 24 Blood pressure diastolic 56 mm Hg 024 Heart Rate 58, 58.0 /min 05/03/2024 Height 61 in 05/03/2024 Weight 97 lbs 05/03/2024 BMI 18.33 kg/m2 05/03/2024 Encounters Encounter Location Date Provider Diagnosis Jose Pozo III, MD [address] [place] [address] [place] [address] 05/03/2024 Jose Pozo Chronic obstructive pulmonary disease, unspecified COPD type J44.9 ; Acquired hypothyroidism E03.9 ; Essential hypertension I10 ; Hyperlipidemia, unspecified hyperlipidemia type E78.5 ; Hypertrophic nonobstructive cardiomyopathy I42.2 ; Macrocytosis D75.89 ; Chronic kidney disease (CKD) stage G3b/A2, moderately decreased glomerular filtration rate (GFR) between 30-44 mL/min/1.73 square meter and albuminuria creatinine ratio between 30-299 mg/g N18.32 and Ischemic heart disease I25.9 Assessments Encounter Date Diagnosis (ICD Code) Assessment Notes Treat ment Notes Treatment Clinical Notes 05/03/2024 Chronic obstructive pulmonary disease, unspecified COPD type (ICD-10 - J44.9) She had RSV several weeks ago and is still coughing and still has some shortness of breath with exertion. She recently saw her pulmonary physician who gave her no new medication. She was comfortable breathing room air today. She had no difficulty speaking. There were no wheezes on her examination. 05/03/2024 Acquired hypothyroidism (ICD-10 - E03.9) She has been compliant with her levothyroxine supplements. There was no sign of hypothyroidism clinically today. 05/03/2024 Essential hypertension (ICD-10 - I10) Her blood pressure today is 137/56. No change in her regimen was necessary. 05/03/2024 Hyperlipidemia, unspecified hyperlipidemia type (ICD-10 - E78.5) Her lipids have been stable. No change in her medication was made today. 05/03/2024 Hypertrophic nonobstructive cardiomyopathy (ICD-10 - I42.2) She is breathing comfortably and her lungs are clear. 05/03/2024 Macrocytosis (ICD-10 - D75.89) Her mean cell volume has increased to 104.9. This value will be followed. No treatment is necessary at this time. 05/03/2024 Chronic kidney disease (CKD) stage G3b/A2, moderately decreased glomerular filtration rate (GFR) between 30-44 mL/min/1.73 square meter and albuminuria creatinine ratio between 30-299 mg/g (ICD-10 - N18.32) Her BUN has increased to 70 and her creatinine is 1.21. Her GFR has dropped from 51 down to 43. She saw her day care center director recently who discontinued the diuretic. These numbers are going to be repeated in the near future. 05/03/2024 Ischemic heart disease (ICD-10 - I25.9) She is able to conduct all of the activities of daily life without ischemic pain. She has had no palpitations or syncope. Her regimen was continued. Plan Of Treatment Medication Medication Name Sig Start Date Stop Date Notes Breo Ellipta 100-25 MCG/INH 1 puff Inhal ation Once a day predniSONE 5 MG 1 tablet Orally Twice a day Ure-Na 15 GM as directed Orally Ventolin HFA 108 (90 Base) MCG/ACT 1 puff as needed Inhalation every 4 hrs Levothyroxine Sodium 100 MCG 1 tablet in the morning on an empty stomach Orally Once a day Albuterol Sulfate HFA 108 (9 0 Base) MCG/ACT INHALE 2 PUFFS EVERY 6 HOURS NEEDED Carvedilol 12.5 MG TAKE 1 TABLET BY TWICE DAILY WITH FOOD Furosemide 20 MG 1 tablet Orally Once a day 12/22/2022 Pending Test Test Name Order Date PROFILE, FASTING (COMPREHENSIVE METABOLI C) 05/03/2024 TSH (THYROID STIMULATING HORMONE) 2023 CBC w DIFF 05/03/2024 Lipid Panel 05/03/2024 Free T4 (Free Thyroxine) 05/03/2024 Next Appt Details Follow Up: 4 Months, Reason: ov review labs Provider Name:Jose Pozo, 08/23/2024 10:45:00 AM, [address] [place] [address] [address], [place], [address], Provider Name:Jose Pozo, 11/09/2024 02:00:00 PM, [address] [place] [address] [address], [place], [address], Progress Notes * Charlie BAGLEYDOB:[birth year] (78 yo F)Acc No.[id number]:05/03/2024 Progress Notes Patient:?Charlie BAGLEY Provider:?Jose Pozo MD :1945???Age:78 Y???Sex:Female D ate:05/03/2024 Address:[address] [place], [place] [id number] Subjective: * Chief Complaints: * ???Dyspnea with exertionCOPD CardiomegalyHypertensionHypothyroidismAsthmaChronic kidney diseaseIschemic heart disease * HPI: ???COVID-19 Screening:?Questions?Have you experienced fever, chills, cough, sore throat, shortness of breath, difficulty breathing, muscle aches, loss of taste or smell??No ?Have you been exposed to the virus within the last 10 days??No ?Have you travelled internationally in the last 10 days??No ?Have you been exposed to COVID-19 in the past??Yes ???:?The patient is a 78-year-old female who has been experiencing mils dyspnessince she had RSV. She reports that she has not had a good day since then, with some days being better than others. She has been advised by [facility] to continue using her nebulizer, even on good days. She also reports some swelling in her legs, which she attributes to the fluid she retained when she had a high fever of 104 degrees during her RSV infection. The patient's breathing is not worsening, and she has no trouble with her heart or eyesight. * ROS:?General/Constitutional:?pain?only normal aches and pains.?Chills?denies.?Fatigue?admits.?Admits?Fever,?denies.?ENT:?Decreased hearing?denies.?Respiratory:?Cough?denies.?Cardiovascular:?Chest pain with exertion?denies.?Dyspnea on exertion?denies.?Shortness of breath?with exertion.?Gastrointestinal:?Constipation?occasional.?Decreased appetite?denies.?Diarrhea?denies.?Heartburn?denies.?Nausea?denies.?Rectal bleeding?denies.?Vomiting?denies.?Hematology:?bruising?denies.?petechiae?denies.?Swollen glands?none have been noted.?Genitourinary:?Frequent urination?denies.?Musculoskeletal:?Muscle aches?denies.?Painful joints?denies.?Sciatica?denies.?Weakness?denies.?Skin:?Itching?denies.?Rash?denies.?Skin lesion(s)?denies.?Neurologic:?Difficulty speaking?denies.?Dizziness?denies.?Headache?denies.?Low back pain?denies.?Psychiatric:?Depressed mood?denies.? * Medical History:? * Surgical History:?H/O Colono scopy Cardiac Cathererization Oophorectomy Left Cataract Splenectomy Hysterectomy with oophorectomy No history * Hospitalization/Major Diagno stic Procedure:?Kidney Faliure @ [facility] 2018No history * Family History:?Father: dece ased 62 yrs, [...] Findings: Tobacco Non-User?Aggressive non-smoker ???She lives in [facility]. She has been to her , Tucker, for many years who is also a patient in this practice. They have 1 son who is alive and well and healthy. She is retired. * Medications:?TakingFurosemid e 20 MG Tablet 1 tablet Orally Once [...] Tablet 1 tablet Orally Twice a day Carvedilol 12.5 MG Tablet TAKE 1 TABLET BY MOUTH TWICE DAILY WITH FOOD Medication List reviewed and reconciled with the patientTaking Furosemide 20 MG Tablet 1 tablet Orally [...] Tablet 1 tablet Orally Twice a day Taking Carvedilol 12.5 MG Tablet TAKE 1 TABLET BY MOUTH TWICE DAILY WITH FOOD Medication List reviewed and reconciled with the patient * Allergies:?Beta- BlockerLisi noprilStatins SupportAmlodipine BihkgdxjSofhempdfeqvvcBrougto48 Hour DecongestantSulfacetamideLatexno[Allergies Verified] Objective: * Vitals:?Ht: 61, Wt:97, BMI:1 8.33, BP:137/56, HR: 58,58.0, Temp:98.6, Ht-cm: 154.94, Wt-k. * ???Past Orders: Lab:Thyroid Stimulating Horm one * Collection Date [...] mg/dL) 66 (Ref Range: mg/dL) * Lab:[facility] [place]. Alberte l Fast * Collection Date 02/28/2024 11/01/2023 [...] 8.4-10.2 mg/dL) 9.1 (Ref Range: 8.4-10.2 mg/dL) * Lab:Complete Blood Count Aut o Diff * [...] 0.0-0.012 X10*3/uL) 0.000 (Ref Range: 0.0-0.012 X10*3/uL) ???Lab:TSH reflex Free T4 (Order Date - 03/29/2024) (Collection Date & Time - 03/29/2024 10:28 AM)?ValueReference Range?TSH reflex Free T40.80 0.32-4.0 - uIU/mL * Lab:Basic Metabolic Panel * Collection Date 03/29/2024 04/12/2023 01/25/2022 Collection Time 10:28 AM 10:31 AM 06:15 AM Order Date 03/29/2024 04/12/2023 01/25/2022 Sodium 135 (Ref Range: 135-145 mmol/L) 137 (Ref Range: 135-145 mmol/L) 141 (Ref Range: 135-145 mmol/L) Blood Urea Nitrogen 70?H (Ref Range: 9-16 mg/dL) 32?H (Ref Range: 9-16 mg/dL) 47?H (Ref Range: 9-16 mg/dL) Creatinine 1.21 (Ref Range: 0.5-1.4 mg/dL) 1.05 (Ref Range: 0.5-1.4 mg/dL) 1.21 (Ref Range: 0.5-1.4 mg/dL) Glucose Random 134?H (Ref Range: 60-115 mg/dL) 94 (Ref Range: 60-115 mg/dL) 79 (Ref Range: 60-115 mg/dL) Calcium 9.5 (Ref Range: 8.4-10.2 mg/dL) 9.3 (Ref Range: 8.4-10.2 mg/dL) 9.3 (Ref Range: 8.4-10.2 mg/dL) Potassium 4.1 (Ref Range: 3.3-5.1 mmol/L) 4.1 (Ref Range: 3.3-5.1 mmol/L) 4.4 (Ref Range: 3.3-5.1 mmol/L) Chloride 97 (Ref Range: 96-108 mmol/L) 100 (Ref Range: 96-108 mmol/L) 103 (Ref Range: 96-108 mmol/L) Carbon Dioxide 32?H (Ref Range: 22-29 mmol/L) 29 (Ref Range: 22-29 mmol/L) 30?H (Ref Range: 22-29 mmol/L) Anion Gap 10?L (Ref Range: 12-20) 12 (Ref Range: 12-20) 12 (Ref Range: 12-20) Estimated Glomerular Filt Rate 43 51 43 * Examination: ???General Examination: ?GENERAL APPEARANCE:?pleasant, well nourished, well developed, in no acute distress, calm and relaxed, underweight, elderly woman.?HEAD:?atraumatic, normocephalic.?EYES:?eomi, perrla, anicteric, conjugate.?EARS:?normal.?NOSE:?septum intact.?ORAL CAVITY:?normal, unremarkable.?NECK/THYROID:?no jugular venous distention, no carotid bruit, thyroid normal.?LYMPH NODES:?no enlarged lymph nodes,spleen normal.?SKIN:?no suspicious lesions, anicteric, No edema.?HEART:?no clicks, gallops, murmurs, or rubs, regular rhythm, S1, S2 normal, no s3, or vascular bruits.?LUNGS:?clear to auscultation, no wheezes, rales, rhonchi, good air movement, diminished breath sounds throughout.?BREASTS:?Not examined.?ABDOMEN:?bowel sounds normal, no ascites, no organomegaly, no mass.?RECTAL EXAM:?not examined.?MUSCULOSKELETAL:?extremities unremarkable, no clubbing, cyanosis or edema.?PERIPHERAL PULSES:?normal.?NEUROLOGIC:?alert and oriented, cranial nerves 2-12 grossly intact, deep tendon reflexes 2+ symmetrical, motor strength normal upper and lower extremities, sensory exam intact.?PSYCH:?alert, oriented.? Assessment: * Assessment: 1.?Chronic obstructive pulmo nary disease, unspecified COPD type - J44.9 (Primary)???Notes :She had RSV several weeks ago and is still coughing and still has some shortness of breath with exertion.? She recently saw her pulmonary physician who gave her no new medication.? She was comfortable breathing room air today.? She had no difficulty speaking.? There were no wheezes on her examination.???2.?Acquired hypothyroidism - E03.9???Notes :She has been compliant with her levothyroxine supplements.? There was no sign of hypothyroidism clinically today.???3.?Essential hypertension - I10???Notes :Her blood pressure today is 137/56.? No change in her regimen was necessary.???4.?Hyperlipidemia, unspecified hyperlipidemia type - E78.5???Notes :Her lipids have been stable.? No change in her medication was made today.???5.?Hypertrophic nonobstructive cardiomyopathy - I42.2???Notes :She is breathing comfortably and her lungs are clear.???6.?Macrocytosis - D75.89???Notes :Her mean cell volume has increased to 104.9. This value will be followed. No treatment is necessary at this time.???7.?Chronic kidney disease (CKD) stage G3b/A2, moderately decreased glomerular filtration rate (GFR) between 30-44 mL/min/1.73 square meter and albuminuria creatinine ratio between 30-299 mg/g - N18.32???Notes :Her BUN has increased to 70 and her creatinine is 1.21.? Her GFR has dropped from 51 down to 43.? She saw her day care center director recently who discontinued the diuretic.? These numbers are going to be repeated in the near future.???8.?Ischemic heart disease - I25.9???Notes :She is able to conduct all of the activities of daily life without ischemic pain. She has had no palpitations or syncope. Her regimen was continued.??? Plan: * Treatment: 2.?Acquired hypothyroidism?LAB: PROFILE, FASTING (COMPREHENSIVE METABOLIC) ?LAB: TSH (THYROID STIMULATING HORMONE) ?LAB: CBC w DIFF ?LAB: Lipid Panel ?LAB: Free T4 (Free Thyroxine) 3.?Essential hypertension?LAB: PROFILE, FASTING (COMPREHENSIVE METABOLIC) ?LAB: TSH (THYROID STIMULATING HORMONE) ?LAB: CBC w DIFF ?LAB: Lipid Panel ?LAB: Free T4 (Free Thyroxine) 4.?Hyperlipidemia, unspecifi ed hyperlipidemia type?LAB: PROFILE, FASTING (COMPREHENSIVE METABOLIC) ?LAB: TSH (THYROID STIMULATING HORMONE) ?LAB: CBC w DIFF ?LAB: Lipid Panel ?LAB: Free T4 (Free Thyroxine) 5.?Others? Continue Carvedilol Tablet, 12.5 MG, TAKE 1 TABLET BY MOUTH TWICE DAILY WITH FOOD;?Continue Furosemide Tablet, 20 MG, 1 tablet, Orally, [...] puff, Inhalation, Once a day.?? * Procedure Codes:? * Preventive Medicine:? ??Counseling:?Care goal follow-up plan:?Counseling [...] Relieve symptoms and improve quality of life.?Treatment Goals?Exercise to help whole body, including lungs, Eat a nutritious diet and increase water consumption to 6-8 glasses a day.?Barriers?no barriers.?Self-Managment Goals?Get an air purifier for the rooms you are in the most, Eat a healthy diet.? * Follow Up:?4 Months (Reason: ov review labs) * Images: * Sign off status: Completed true * Provider:?Jose Pozo MD Date:?04/14 Generated for Eloi ng/Addie/eTransmitting on:?08/22/2024 12:00 PM EDT History and Physical Notes * HPI (History of Present Illness) Category Sub-Category Detail Notes COVID-19 Screening Questions Have you had any new onset fever, chills, cough, congestion, sore throat, shortness of breath, muscle aches?: No Have you been exposed to the virus withi n the last 10 days?: No Have you travelled internationally in [facility] last 10 days?: No Have you been exposed to COVID-19 in the past?: Yes Examination Category Sub-Category Detail Notes General Examination GENERAL APPEARANCE: pleasant , well nourished, well developed, in no acute distress, calm and relaxed, underweight, elderly woman HEAD: atraumatic, normocep halic EYES: eomi, perrla, anicte rafaela, conjugate EARS: normal NOSE: septum intact NECK/THYROID: no jugular venous di stention, no carotid bruit, thyroid normal HEART: no clicks, gallops, murmurs, or rubs, regular rhythm, S1, S2 normal, no s3, or vascular bruits LUNGS: clear to auscultatio n, no wheezes, rales, rhonchi, good air movement, diminished breath sounds throughout ABDOMEN: bowel sounds normal, no ascites, no organomegaly, no mass NEUROLOGIC: alert and oriented, cranial nerves 2-12 grossly intact, deep tendon reflexes 2+ symmetrical, motor strength normal upper and lower extremities, sensory exam intact SKIN: no suspicious lesion s, anicteric, No edema PERIPHERAL PULSES: normal BREASTS: Not examined MUSCULOSKELETAL: extremities unremark able, no clubbing, cyanosis or edema LYMPH NODES: no enlarged lymph no roverto,spleen normal RECTAL EXAM: not examined PSYCH: alert, oriented ORAL CAVITY: normal, unremarkable
--- OUTSIDE RECORDS SUMMARY | 2024-08-22 12:01 | XMS_ITS | Patient Health Record ---
Author Organization Jose Pozo III, MD Address [address] [place] [address] Care Team Providers Care Produce Weigher Name Role Phone Jose Pozo Primary Care [...] Statins Support Unknown Drug Allergy A ctive Results Component Value Reference Range Notes URINE DIP STICK Reviewed date:11/08/2023 03:00:45 PM Interpretation: Performing Lab: Notes/Report: SG 1.010 1.005 - 1.025 pH 5.0 5.0 - 9.0 PEDRO Negative Negative - NIT Negative Negative - PRO 15 Negative - Trace GLU Negative Negative - KET Negative Negative - UBG 0.2 0.1 - 1.8 AILIN Negative 0.2 - 1.3 BLD 5-10 Negative - Electrolytes Reviewed date:11/05/2023 04:46:24 AM Interpretation: Performing Lab:[facility], [address] [place] [phone] Notes/Report: Sodium 137 135-145 mmol/L Potassium 4.2 3.3-5.1 mmol/L Chloride 103 96-108 mmol/L Carbon Dioxide 29 22-29 mmol/L Anion Gap 9 12-20 Complete Blood Count Auto Di ff Reviewed date:11/05/2023 04:46:24 AM Interpretation: Performing Lab:[facility], [address] [place] [phone] Notes/Report: White Blood Count 9.1 4.8-10.8 X10*3/uL Red Blood Count 4.01 4.20-5.50 X10*6/uL Hemoglobin 13.5 12.0-16.0 g/dl Hematocrit 41.0 37.0-47.0 % Mean Corpuscular Volume 102.2 80.0-98.0 fL Mean Corpuscular Hemoglobin 33.7 27.0-33.0 pg Mean Corpuscular HGB Conc 32.9 31.0-35.0 g/dl Red Cell Distribution Width 13.3 11.0-16.0 % Platelet Count 198 160-400 X10*3/uL Mean Platelet Volume 10.2 9.4-12.3 fL Neutrophils Percent Auto 62.9 45-73 % Imm Gran Pct Auto 0.4 0.0-0.4 % Lymphocytes Percent Auto 26.2 20-40 % Monocytes Percent Auto 9.1 2-11 % Eosinophils Percent Auto 0.7 0-4 % Basophils Percent Auto 0.7 0-2 % NRBC Pct Auto 0.0 0.0-0.2 /100WBC Neutrophils Absolute Auto 5.7 2.0-8.3 x10*3/u L Imm Gran Abs Auto 0.04 0.00-0.03 X10*3/uL Lymphocytes Absolute Auto 2.4 1.2-4.9 X10*3/u L Monocytes Absolute Auto 0.8 0.1-1.2 X10*3/uL Eosinophils Absolute Auto 0.1 0.0-0.4 X10*3/u L Basophils Absolute Auto 0.1 0.0-0.2 X10*3/uL NRBC Abs Auto 0.000 0.0-0.012 X10*3/uL Comprehensive [place]. Panel Fa st Reviewed date:11/05/2023 04:46:24 AM Interpretation: Performing Lab:[facility], [address] [place] [phone] Notes/Report: Sodium 139 135-145 mmol/L Potassium 4.3 3.3-5.1 mmol/L Chloride 105 96-108 mmol/L Carbon Dioxide 28 22-29 mmol/L Anion Gap 10 12-20 Blood Urea Nitrogen 41 9-16 mg/dL Creatinine 0.97 0.5-1.4 mg/dL Estimated Glomerular Filt Rate 56 NOTE: For -[place] individuals, multiply the result by 1.210. Chronic Kidney Disease: Estimated GFR < 60 mL/min/1.73m2 Severe Kidney Disease: Estimated GFR < 15 mL/min/1.73m2 Glucose Fasting 87 60-99 mg/dL Calcium 9.0 8.4-10.2 mg/dL Bilirubin Total 0.5 0.0-1.0 mg/dL Aspartate Amino Transferase 22 5-31 U/L Alanine Aminotransferase 22 0-31 U/L Total Protein 8.0 6.5-8.0 g/dL Albumin Level 3.5 3.5-5.0 g/dL Alkaline Phosphatase 50 39-117 U/L Lipid Panel Reviewed date:11/05/2023 04:46:24 AM Interpretation: Performing Lab:[address] [phone] Notes/Report: Triglycerides 84 <150 mg/dL Desirable Triglyceride: less than 150 mg/dL Borderline High Triglyceride 150-199 mg/dL High Triglyceride: 200-499 mg/dL Very High Triglyceride: greater than or equal to 5OO mg/dL Cholesterol 175 <200 mg/dL Desirable Cholesterol: less than 200 mg/dL Borderline High Cholesterol: 200-239 mg/dL High Cholesterol: greater than 239 mg/dL LDL Cholesterol Calculated 92 <100 mg/dL Desirable LDL: less than 100 mg/dL Near Optimal/Above Optimal LDL: 110-129 mg/dL Borderline High LDL: 130-159 mg/dL High LDL: 160-189 mg/dL Very High LDL: greater than or equal to 190 mg/dL HDL Cholesterol 67 >40 mg/dL Desirable HDL: greater than 40 mg/dL Note: This HDL assay may give artificially low results in patients with liver disease. Free T4 (Free Thyroxine) Reviewed date:11/05/2023 04:46:24 AM Interpretation: Performing Lab:[address] [phone] Notes/Report: Free T4 (Free Thyroxine) 1.32 0.71-1.85 ng/dL Thyroid Stimulating Hormone Reviewed date:11/05/2023 04:46:24 AM Interpretation: Performing Lab:[facility], [address] [place] [address] Notes/Report: Thyroid Stimulating Hormone 0.74 0.32-4.0 uIU/ mL TSH 3rd Generation ([facility]) Complete Blood Count Auto Di ff Reviewed date:02/29/2024 06:51:20 AM Interpretation: Performing Lab:[facility], [address] [place] [phone] Notes/Report: White Blood Count 7.6 4.8-10.8 X10*3/uL Red Blood Count 3.91 4.20-5.50 X10*6/uL Hemoglobin 13.2 12.0-16.0 g/dl Hematocrit 41.0 37.0-47.0 % Mean Corpuscular Volume 104.9 80.0-98.0 fL Mean Corpuscular Hemoglobin 33.8 27.0-33.0 pg Mean Corpuscular HGB Conc 32.2 31.0-35.0 g/dl Red Cell Distribution Width 13.6 11.0-16.0 % Platelet Count 229 160-400 X10*3/uL Mean Platelet Volume 9.3 9.4-12.3 fL Neutrophils Percent Auto 57.1 45-73 % Imm Gran Pct Auto 0.4 0.0-0.4 % Lymphocytes Percent Auto 27.9 20-40 % Monocytes Percent Auto 11.1 2-11 % Eosinophils Percent Auto 2.6 0-4 % Basophils Percent Auto 0.9 0-2 % NRBC Pct Auto 0.0 0.0-0.2 /100WBC Neutrophils Absolute Auto 4.4 2.0-8.3 x10*3/u L Imm Gran Abs Auto 0.03 0.00-0.03 X10*3/uL Lymphocytes Absolute Auto 2.1 1.2-4.9 X10*3/u L Monocytes Absolute Auto 0.9 0.1-1.2 X10*3/uL Eosinophils Absolute Auto 0.2 0.0-0.4 X10*3/u L Basophils Absolute Auto 0.1 0.0-0.2 X10*3/uL NRBC Abs Auto 0.000 0.0-0.012 X10*3/uL Comprehensive [place]. Panel Fa st Reviewed date:02/29/2024 06:51:20 AM Interpretation: Performing Lab:[facility], [address] [place] [phone] Notes/Report: Sodium 139 135-145 mmol/L Potassium 4.8 3.3-5.1 mmol/L Chloride 106 96-108 mmol/L Carbon Dioxide 29 22-29 mmol/L Anion Gap 9 12-20 Blood Urea Nitrogen 48 9-16 mg/dL Creatinine 1.17 0.5-1.4 mg/dL Estimated Glomerular Filt Rate 45 NOTE: For -[place] individuals, multiply the result by 1.210. Chronic Kidney Disease: Estimated GFR < 60 mL/min/1.73m2 Severe Kidney Disease: Estimated GFR < 15 mL/min/1.73m2 Glucose Fasting 87 60-99 mg/dL Calcium 9.1 8.4-10.2 mg/dL Bilirubin Total 0.4 0.0-1.0 mg/dL Aspartate Amino Transferase 22 5-31 U/L Alanine Aminotransferase 16 0-31 U/L Total Protein 7.8 6.5-8.0 g/dL Albumin Level 3.5 3.5-5.0 g/dL Alkaline Phosphatase 44 39-117 U/L Lipid Panel Reviewed date:02/29/2024 06:51:20 AM Interpretation: Performing Lab:[facility], [address] [place] [phone] Notes/Report: Triglycerides 66 <150 mg/dL Desirable Triglyceride: less than 150 mg/dL Borderline High Triglyceride 150-199 mg/dL High Triglyceride: 200-499 mg/dL Very High Triglyceride: greater than or equal to 5OO mg/dL Cholesterol 171 <200 mg/dL Desirable Cholesterol: less than 200 mg/dL Borderline High Cholesterol: 200-239 mg/dL High Cholesterol: greater than 239 mg/dL LDL Cholesterol Calculated 97 <100 mg/dL Desirable LDL: less than 100 mg/dL Near Optimal/Above Optimal LDL: 110-129 mg/dL Borderline High LDL: 130-159 mg/dL High LDL: 160-189 mg/dL Very High LDL: greater than or equal to 190 mg/dL HDL Cholesterol 61 >40 mg/dL Desirable HDL: greater than 40 mg/dL Note: This HDL assay may give artificially low results in patients with liver disease. Free T4 (Free Thyroxine) Reviewed date:02/29/2024 06:51:20 AM Interpretation: Performing Lab:[facility], [address] [place] [phone] Notes/Report: Free T4 (Free Thyroxine) 1.18 0.71-1.85 ng/dL Thyroid Stimulating Hormone Reviewed date:02/29/2024 06:51:20 AM Interpretation: Performing Lab:[facility], [address] [place] [phone] Notes/Report: Thyroid Stimulating Hormone 1.43 0.32-4.0 uIU/ mL TSH 3rd Generation ([facility]) Basic Metabolic Panel Reviewed date:04/01/2024 07:27:53 AM Interpretation: Performing Lab:[facility], [address] [place] [phone] Notes/Report: Sodium 135 135-145 mmol/L Potassium 4.1 3.3-5.1 mmol/L Chloride 97 96-108 mmol/L Carbon Dioxide 32 22-29 mmol/L Anion Gap 10 12-20 Blood Urea Nitrogen 70 9-16 mg/dL Creatinine 1.21 0.5-1.4 mg/dL Estimated Glomerular Filt Rate 43 NOTE: For -[place] individuals, multiply the result by 1.210. Chronic Kidney Disease: Estimated GFR < 60 mL/min/1.73m2 Severe Kidney Disease: Estimated GFR < 15 mL/min/1.73m2 Glucose Random 134 60-115 mg/dL Calcium 9.5 8.4-10.2 mg/dL TSH reflex Free T4 Reviewed date:04/01/2024 07:27:53 AM Interpretation: Performing Lab:[facility], [address] [place] [phone] Notes/Report: TSH reflex Free T4 0.80 0.32-4.0 uIU/mL Basic Metabolic Panel Reviewed date:2024 08:45:16 PM Interpretation: Performing Lab:[facility], [address] [place] [phone] Notes/Report: Sodium 136 135-145 mmol/L Potassium 4.1 3.3-5.1 mmol/L Chloride 102 96-108 mmol/L Carbon Dioxide 28 22-29 mmol/L Anion Gap 10 12-20 Blood Urea Nitrogen 42 9-16 mg/dL Creatinine 1.09 0.5-1.4 mg/dL Estimated Glomerular Filt Rate 49 Chronic Kidney Disease: Estimated GFR < 60 mL/min/1.73m2 Severe Kidney Disease: Estimated GFR < 15 mL/min/1.73m2 Glucose Random 102 60-115 mg/dL Calcium 9.1 8.4-10.2 mg/dL Complete Blood Count Auto Di ff Reviewed date:2024 08:45:16 PM Interpretation: Performing Lab:[facility], [address] [place] [phone] Notes/Report: White Blood Count 10.2 4.8-10.8 X10*3/uL Red Blood Count 4.06 4.20-5.50 X10*6/uL Hemoglobin 13.7 12.0-16.0 g/dl Hematocrit 42.0 37.0-47.0 % Mean Corpuscular Volume 103.4 80.0-98.0 fL Mean Corpuscular Hemoglobin 33.7 27.0-33.0 pg Mean Corpuscular HGB Conc 32.6 31.0-35.0 g/dl Red Cell Distribution Width 12.8 11.0-16.0 % Platelet Count 287 160-400 X10*3/uL Mean Platelet Volume 9.4 9.4-12.3 fL Neutrophils Percent Auto 67.1 45-73 % Imm Gran Pct Auto 0.5 0.0-0.4 % Lymphocytes Percent Auto 19.9 20-40 % Monocytes Percent Auto 10.9 2-11 % Eosinophils Percent Auto 0.8 0-4 % Basophils Percent Auto 0.8 0-2 % NRBC Pct Auto 0.0 0.0-0.2 /100WBC Neutrophils Absolute Auto 6.9 2.0-8.3 x10*3/u L Imm Gran Abs Auto 0.05 0.00-0.03 X10*3/uL Lymphocytes Absolute Auto 2.0 1.2-4.9 X10*3/u L Monocytes Absolute Auto 1.1 0.1-1.2 X10*3/uL Eosinophils Absolute Auto 0.1 0.0-0.4 X10*3/u L Basophils Absolute Auto 0.1 0.0-0.2 X10*3/uL NRBC Abs Auto 0.000 0.0-0.012 X10*3/uL Comprehensive [place]. Panel Fa Reviewed date:2024 08:45:16 PM Interpretation: Performing Lab:[facility], [address] [place] [phone] Notes/Report: Sodium 137 135-145 mmol/L Potassium 4.1 3.3-5.1 mmol/L Chloride 103 96-108 mmol/L Carbon Dioxide 32 22-29 mmol/L Anion Gap 6 12-20 Blood Urea Nitrogen 38 9-16 mg/dL Creatinine 1.08 0.5-1.4 mg/dL Estimated Glomerular Filt Rate 49 Chronic Kidney Disease: Estimated GFR < 60 mL/min/1.73m2 Severe Kidney Disease: Estimated GFR < 15 mL/min/1.73m2 Glucose Fasting 83 60-99 mg/dL Calcium 9.1 8.4-10.2 mg/dL Bilirubin Total 0.4 0.0-1.0 mg/dL Aspartate Amino Transferase 28 5-31 U/L Alanine Aminotransferase 22 0-31 U/L Total Protein 8.1 6.5-8.0 g/dL Albumin Level 3.4 3.5-5.0 g/dL Alkaline Phosphatase 46 39-117 U/L Lipid Panel Reviewed date:2024 08:45:16 PM Interpretation: Performing Lab:[facility], [address] [place] [phone] Notes/Report: Triglycerides 113 <150 mg/dL Desirable Triglyceride: less than 150 mg/dL Borderline High Triglyceride 150-199 mg/dL High Triglyceride: 200-499 mg/dL Very High Triglyceride: greater than or equal to 5OO mg/dL Cholesterol 169 <200 mg/dL Desirable Cholesterol: less than 200 mg/dL Borderline High Cholesterol: 200-239 mg/dL High Cholesterol: greater than 239 mg/dL LDL Cholesterol Calculated 88 <100 mg/dL Desirable LDL: less than 100 mg/dL Near Optimal/Above Optimal LDL: 110-129 mg/dL Borderline High LDL: 130-159 mg/dL High LDL: 160-189 mg/dL Very High LDL: greater than or equal to 190 mg/dL HDL Cholesterol 59 >40 mg/dL Desirable HDL: greater than 40 mg/dL Note: This HDL assay may give artificially low results in patients with liver disease. Free T4 (Free Thyroxine) Reviewed date:2024 08:45:16 PM Interpretation: Performing Lab:[facility], [address] [place] [phone] Notes/Report: Free T4 (Free Thyroxine) 1.33 0.71-1.85 ng/dL Thyroid Stimulating Hormone Reviewed date:2024 08:45:16 PM Interpretation: Performing Lab:[facility], [address] [place] [phone] Notes/Report: Thyroid Stimulating Hormone 1.25 0.32-4.0 uIU/ mL TSH 3rd Generation ([facility]) Reason For Referral No Information Medications Medication SIG (Take, Route, Frequency, Duration) Notes Start Date End Date Status Breo Ellipta 100-25 MCG/INH 1 puff Inhal ation Once a day Active predniSONE 5 MG 1 tablet Orally Twic e a day Active Ure-Na 15 GM as directed Orally Active Ventolin HFA 108 (90 Base) MCG/ACT 1 puff as needed Inhalation every 4 hrs Active Albuterol Sulfate HFA 108 (90 Base) MCG/ACT INHALE 2 PUFFS EVERY 6 HOURS NEEDED Active Levothyroxine Sodium 100 MCG 1 tablet in the morning on an empty stomach Orally Once a day Active Albuterol Sulfate HFA 108 (90 Base) MCG/ACT 2 puffs Inhalation every 6 hours for dyspnea for 28 days 05/08/2024 Active Carvedilol 12.5 MG TAKE 1 TABLET BY FIDEL TH TWICE DAILY WITH FOOD Active Furosemide 20 MG 1 tablet Orally Once a day 12/22/2022 Active Immunizations Vaccine Route Administration Date Status Comme nts COVID PFIZER Unknown 10/28/2020 Administered COVID PFIZER Unknown 10/07/2020 Administered FLuzone HD PF Unknown 04/08/2020 Administered Social History Tobacco Use: Social History Observation Description Date Details (start date - stop date) Never Smoker NA - NA Sex Assigned At : Social History Observation Description Sex Assigned At Female Tobacco Use/Smoking Question Answer Notes Patient is a nonsmoker Additional Findings: Tobacco Non-User Aggressive non-smoker Alcohol Screen Question Answer Notes Did you have a drink containing alcohol in the p ast year? No Points 0 Interpretation Negative Problems Problem Type SNOMED Code ICD Code Onset Dates Problem Status W/U Status Risk Notes Problem 88188757 Chronic obstructive pulmonary disease, unspecified COPD type (J44.9) Active confirmed She had RSV several weeks ago and is still coughing and still has some shortness of breath with exertion. She recently saw her pulmonary physician who gave her no new medication. She was comfortable breathing room air today. She had no difficulty speaking. There were no wheezes on her examination. Problem 699899974 Acquired hypothyroidism (E03.9) Active confirmed She has been compliant with her levothyroxine supplements. There was no sign of hypothyroidism clinically today. Problem 26406597 Essential hypertension (I10) Active confirmed Her blood pressure today is 137/56. No change in her regimen was necessary. Problem 391698208 Macrocytosis (D75.89) Active confirmed Her mean cell volume has increased to 104.9. This value will be followed. No treatment is necessary at this time. Problem 23129117 Hyperlipidemia, unspecified hyperlipidemia type (E78.5) Active confirmed Her lipids have been stable. No change in her medication was made today. Problem 905266795 Asthma due to environmental allergies (J45.909) Active confirmed She is using he r inhalers appropriately and has had little difficulty with asthma this summer. No change in her regimen was needed. 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 Problem 270698573 Ischemic heart disease (I25.9) Active confirmed She is able to conduct all of the activities of daily life without ischemic pain. She has had no palpitations or syncope. Her regimen was continued. 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 Problem 0644921 Hypertensive retinopathy of both eyes (H35.033) Active confirmed She has had no vision changes. She is able to drive and read. Her blood pressure is well controlled today. Problem 295733041 Chronic kidney disease (CKD) stage G3b/A2, moderately decreased glomerular filtration rate (GFR) between 30-44 mL/min/1.73 square meter and albuminuria creatinine ratio between 30-299 mg/g (N18.32) Active confirmed Her BUN has increased to 70 and her creatinine is 1.21. Her GFR has dropped from 51 down to 43. She saw her operations mgr recently who discontinued the diuretic. These numbers are going to be repeated in the near future. Vital Signs Heart Rate 58, 58.0 /min 05/03/2024 Temperature 98.6 degrees Fahrenheit 05/03/2024 Blood pressure diastolic 56 mm Hg 05/03/2024 Height 61 in 05/03/2024 Blood pressure systolic 137 mm Hg 05/03/2024 Weight 97 lbs 05/03/2024 BMI 18.33 kg/m2 05/03/2024 Encounters Encounter Location Date Provider Diagnosis Jose Pozo III, MD [address] [place] [address] [place] [phone] 11/08/2023 Jose Pozo Chronic obstructive pulmonary disease, unspecified COPD type J44.9 ; Hypertrophic nonobstructive cardiomyopathy I42.2 ; Essential hypertension I10 ; Acquired hypothyroidism E03.9 ; Hyperlipidemia, unspecified hyperlipidemia type E78.5 ; History of myocardial infarct at age less than 60 years I25.2 ; Chronic kidney disease (CKD) stage G3b/A2, moderately decreased glomerular filtration rate (GFR) between 30-44 mL/min/1.73 square meter and albuminuria creatinine ratio between 30-299 mg/g N18.32 ; Asthma due to environmental allergies J45.909 ; Macrocytosis D75.89 and Chronic kidney disease, unspecified CKD stage N18.9 Jose Pozo III, MD [address] [place] [address] [place] [phone] 03/07/2024 Jose Pozo Chronic obstructive pulmonary disease, unspecified COPD type J44.9 ; Hypertrophic nonobstructive cardiomyopathy I42.2 ; Essential hypertension I10 ; Acquired hypothyroidism E03.9 ; Asthma due to environmental allergies J45.909 ; Chronic kidney disease (CKD) stage G3b/A2, moderately decreased glomerular filtration rate (GFR) between 30-44 mL/min/1.73 square meter and albuminuria creatinine ratio between 30-299 mg/g N18.32 ; Hyperlipidemia, unspecified hyperlipidemia type E78.5 and Macrocytosis D75.89 Jose Pozo III, MD [address] [place] [address] [place] [address] 03/21/2024 Jose Pozo Chronic obstructive pulmonary disease, unspecified COPD type J44.9 ; Acute right-sided low back pain without sciatica M54.50 and Acquired hypothyroidism E03.9 Jose Pozo III, MD [address] [place] [address] [place] [address] 05/03/2024 Jose Pozo Chronic obstructive pulmonary disease, [...] mg/g N18.32 and Ischemic heart disease I25.9 Jose Pozo III, MD [address] [place] [address] [place] [address] 10/17/2023 Jose Pozo Acquired hypothyroid ism E03.9 and Hyperlipidemia, unspecified hyperlipidemia type E78.5 Jose Pozo III, MD [address] [place] [address] [place] [address] 11/08/2023 Jose Pozo III, MD [address] [place] [address] [place] [address] 11/24/2023 Jose Pozo III, MD [address] [place] [address] [place] [address] 11/24/2023 Jose Pozo III, MD [address] [place] [address] [place] [address] 11/25/2023 Jose Pozo III, MD [address] [place] [address] [place] [address] 05/08/2024 Jose Pozo Assessments Encounter Date Diagnosis (ICD Code) Assessment Notes Treat ment Notes Treatment Clinical Notes 11/08/2023 Chronic obstructive pulmonary disease, unspecified COPD type (ICD-10 - J44.9) She is breathing comfortably today. She has seen her search engine marketing specialist recently. She has oxygen at home which she rarely uses. She has been compliant with her medication. 11/08/2023 Hypertrophic nonobstructive cardiomyopathy (ICD-10 - I42.2) She is breathing comfortably and her lungs are clear. 03/07/2024 Chronic obstructive pulmonary disease, unspecified COPD type (ICD-10 - J44.9) She is breathing comfortably today. She has seen her search engine marketing specialist recently. She has oxygen at home which she rarely uses. She has been compliant with her medication. 03/07/2024 Hypertrophic nonobstructive cardiomyopathy (ICD-10 - I42.2) She is breathing comfortably and her lungs are clear. 03/21/2024 Chronic obstructive pulmonary disease, unspecified COPD type (ICD-10 - J44.9) She is breathing comfortably today. She has seen her search engine marketing specialist recently. She has oxygen at home which she rarely uses. She has been compliant with her medication. 03/21/2024 Acute right-sided low back pain without sciatica (ICD-10 - M54.50) She will continue heat and rest and ibuprofen. She will avoid heavy lifting. She will have imaging done at this does not improve. We will also have physical therapy. 05/03/2024 Chronic obstructive pulmonary disease, unspecified COPD [...] was no sign of hypothyroidism clinically today. 11/08/2023 Essential hypertension (ICD-10 - I10) Her blood pressure is in the normal range. No change in her regimen was needed. 03/07/2024 Essential hypertension (ICD-10 - I10) Her blood pressure is in the normal range. No change in her regimen was needed. 03/21/2024 Acquired hypothyroidism (ICD-10 - E03.9) She is euthyroid at this time and no change in her medication was needed. 05/03/2024 Essential hypertension (ICD-10 - I10) Her blood pressure today is 137/56. No change in her regimen was necessary. 10/17/2023 Acquired hypothyroidism (ICD-10 - E03.9) 11/08/2023 Acquired hypothyroidism (ICD-10 - E03.9) She is euthyroid at this time and no change in her medication was needed. 03/07/2024 Acquired hypothyroidism (ICD-10 - E03.9) She is euthyroid at this time and no change in her medication was needed. 05/03/2024 Hyperlipidemia, unspecified hyperlipidemia type (ICD-10 - E78.5) Her lipids have been stable. No change in her medication was made today. 10/17/2023 Hyperlipidemia, unspecified hyperlipidemia type (ICD-10 - E78.5) 11/08/2023 Hyperlipidemia, unspecified hyperlipidemia type (ICD-10 - E78.5) Her lipids are currently stable. No change in her medication was made. We reviewed her diet. 03/07/2024 Asthma due to environmental allergies (ICD-10 - J45.909) She is using her inhalers appropriately and has had little difficulty with asthma this summer. No change in her regimen was needed. 05/03/2024 Hypertrophic nonobstructive cardiomyopathy (ICD-10 - I42.2) She is breathing comfortably and her lungs are clear. 11/08/2023 History of myocardial infarct at age less than 60 years (ICD-10 - I25.2) Her signal system testing maintainer was satisfied with her level of control. No change in her regimen as needed. 03/07/2024 Chronic kidney disease (CKD) stage G3b/A2, moderately decreased glomerular filtration rate (GFR) between 30-44 mL/min/1.73 square meter and albuminuria creatinine ratio between 30-299 mg/g (ICD-10 - N18.32) Her BUN has improved further. She'll continue on current therapy. She will remain well hydrated. 05/03/2024 Macrocytosis (ICD-10 - D75.89) Her mean cell volume has increased to 104.9. This value will be followed. No treatment is necessary at this time. 11/08/2023 Chronic kidney disease (CKD) stage G3b/A2, moderately decreased glomerular filtration rate (GFR) between 30-44 mL/min/1.73 square meter and albuminuria creatinine ratio between 30-299 mg/g (ICD-10 - N18.32) Her BUN has improved further. She'll continue on current therapy. She will remain well hydrated. 03/07/2024 Hyperlipidemia, unspecified hyperlipidemia type (ICD-10 - E78.5) Her lipids are currently stable. No change in her medication was made. We reviewed her diet. 05/03/2024 Chronic kidney disease (CKD) stage G3b/A2, moderately decreased glomerular filtration rate (GFR) between 30-44 mL/min/1.73 square meter and albuminuria creatinine ratio between 30-299 mg/g (ICD-10 - N18.32) Her BUN has increased to 70 and her creatinine is 1.21. Her GFR has dropped from 51 down to 43. She saw her operations mgr recently who discontinued the diuretic. These numbers are going to be repeated in the near future. 11/08/2023 Asthma due to environmental allergies (ICD-10 - J45.909) She is using her inhalers appropriately and has had little difficulty with asthma this summer. No change in her regimen was needed. 03/07/2024 Macrocytosis (ICD-10 - D75.89) Her mean cell volume has been steadily improving. His is now 102. This value will be followed. No treatment is necessary at this time. 05/03/2024 Ischemic heart disease (ICD-10 - I25.9) She is able to conduct all of the activities of daily life without ischemic pain. She has had no palpitations or syncope. Her regimen was continued. 11/08/2023 Macrocytosis (ICD-10 - D75.89) Her mean cell volume has been steadily improving. His is now 102. This value will be followed. No treatment is necessary at this time. 11/08/2023 Chronic kidney disease, unspecified CKD stage (ICD-10 - N18.9) Her renal function is stable with a BUN of 41. 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
--- OUTSIDE RECORDS SUMMARY | 2024-08-22 12:01 | XMS_ITS | Clinical Summary ---
Author Organization [facility] Address [address] [place] [address] Phone Care Team Providers Care Dental Office Coordinator Name Role Phone Jose Pozo MD Primary Care Provider [phone] Allergies Active Allergy Reactions Criticality Noted Date Comments Amlodipine Other (see comments) 10/09/2020 Beta Adrenergic Blockers Other (see comments) 0 09/08/2021 Carvedilol Other (see comments) 10/09/2020 Lactose Other (see comments) 10/09/2020 Latex Other (see comments) 09/08/2021 Lisinopril Other (see comments) 10/09/2020 Spironolactone Other (see comments) 10/09/2020 Statins Other (see comments) 09/08/2021 Sulfa Antibiotics Other (see comments) 10/10/19 Sulfadiazine Other (see comments) 10/09/2020 Medications carvedilol (COREG) 12.5 MG tablet Take 12.5 mg by mouth in the morning and 12.5 mg in the evening. Take with meals. 1 Active Breo Ellipta 100-25 MCG/INH aerosol powder INHALE 1 PUFF ONCE A DAY 1 Active predniSONE (DELTASONE) 5 MG tablet Take 5 mg by mouth 1 (one) time each day 2.5 mg at night 1 Active albuterol (2.5 MG/3ML) 0.083% nebulizer solution INHALE 1 VIAL VIA NEBULIZER EVERY 4 HOURS NEEDED FOR WHEEZING/SHORT NESS OF BREATH 1 Active Ure-Na 15 g pack DISSOLVE ONE PACKET IN WATER AND DRINK ONCE DAILY 3 Active levothyroxine (SYNTHROID, LEVOTHROID) 100 MCG tablet TAKE 1 TABLET BY MOUTH EVERY DAY 30 tablet 5 3 Active Active Problems Problem Noted Date Diagnosed Date Chronic renal failure 10/14/2022 Chronic obstructive pulmonary disease 10/22/2021 Hyperlipidemia 10/22/2021 Hypertensive retinopathy 10/22/2021 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 10/22/2021 Incipient senile cataract 10/22/2021 Ischemic heart disease 10/22/2021 Old myocardial infarction 10/22/2021 Stage 3b chronic kidney disease 10/22/2021 Asthma 10/02/2020 Essential hypertension 10/02/2020 Hyponatremia 10/02/2020 Hypothyroidism 10/02/2020 Syndrome of inappropriate vasopressin secretion 10/02/2020 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 Family History Medical History Relation Comments Heart disease Father Relation Status Comments Father Social History Tobacco Use Types Packs/Day Years Used Date Smoking Tobacco: Former Cigarettes Q uit: 10/11/2017 Smokeless Tobacco: Never Comments:Smoking History Inf o:Every day Alcohol Use Standard Drinks/Week Comments No 0 (1 standard drink = 0.6 oz pure alcohol) Alcoholic Drinks/day: Occasional social drink Comments Unknown Sex and Gender Information Value Date Recorded Sex Assigned at Not on file Legal Sex Female 4:53 PM EST Gender Identity Not on file Sexual Orientation Not on file Last Filed Vital Signs Vital Sign Reading Time Taken Comments Blood Pressure 130/70 10/14/2022 4:11 PM EDT Pulse 61 10/14/2022 4:11 PM EDT Temperature - - Respiratory Rate - - Oxygen Saturation 97% 10/14/2022 4:11 PM EDT Inhaled Oxygen Concentration - - Weight 45.3 kg (99 lb 12.8 oz) 10/14/2022 4:11 P M EDT Height 157.5 cm (5' 2 ) 10/14/2022 4:11 PM EDT Body Mass Index 18.25 10/14/2022 4:11 PM EDT Plan of Treatment Health Maintenance Due Date Last Done Comments Pneumococcal Vaccine: 65+ Ye ars (1 of 2 - PCV) 08/17/1951 Influenza Vaccine (#1) 2024 Hepatitis B Vaccine Aged Out No longe r eligible based on patient's age to complete this topic Insurance [employer] Care Teams Dental Office Coordinator Relationship Specialty Start Date End Date Jose Pozo MD [address] [place] [address] [phone] [place] PCP - General Medical Oncology 10/09/20
== END 2024-08-22 11:03 | disposition home or self-care (01) ==
LOC: HO.HPS 10:27
PROVIDERS: PCP Internal Medicine Medical Oncology; Visit Provider Internal Medicine
DX: J44.9 Chronic obstructive pulmonary disease, unspecified (principal); T78.40XA Allergy, unspecified, initial encounter; F41.9 Anxiety disorder, unspecified
CPT/HCPCS: 99213

== ENCOUNTER → 2024-08-22 10:26 | Outpatient (BNVA) | payer MEDICARE, OTHER, SELFPAY | PROVIDERS: PCP Internal Medicine Medical Oncology; Visit Provider Internal Medicine | DX: J44.9 Chronic obstructive pulmonary disease, unspecified (principal); F41.9 Anxiety disorder, unspecified; T78.49XD Other allergy, subsequent encounter; Z79.52 Long term (current) use of systemic steroids | CPT/HCPCS: 99212 ==

== ENCOUNTER 2024-09-27 14:39 | Outpatient (REF) | payer MEDICARE, OTHER, SELFPAY ==
--- OUTSIDE RECORDS SUMMARY | 2024-09-27 17:35 | XMS_ITS ---
Author Organization Jose Pozo III, MD Address [address] [place] [address] Care Team Providers Care Clinical Mental Health Counselor Name Role Phone Jose Pozo Primary Care [...] Date Provider Diagnosis Jose Pozo III, MD [address] [place] [address] [place] [address] 05/08/2024 Jose Pozo Plan Of Treatment Medication Medication Name Sig Start Date Stop Date Notes Albuterol Sulfate HFA 108 (9 0 Base) MCG/ACT 2 puffs Inhalation every 6 hours for dyspnea for 28 days 05/08/2024 Next Appt Details Provider Name:Jose Pozo, 12/27/2024 11:15:00 AM, [address] [facility] [place], [address], Provider Name:Jose oPzo, 03/12/2025 11:00:00 AM, [address] [place] [address] [place], [address], Progress Notes * Charlie BAGLEYDOB:[birth year] (78 yo F)Acc No.[id number]:05/08/2024 Patient:?Charlie BAGLEY :1945???Age:78 Y???Sex:Female Address:[address] [place] [address] [address] [place], [address] * Refills? Start Albuterol Sulfate HFA Aerosol Solution, 108 (90 Base) MCG/ACT, Inhalation, 1, 2 puffs, every 6 hours for dyspnea, 28 days, Refills=11 * true * Date:? Generated for Luann garcia/Addie/Ignacioitting on:?09/27/2024 05:35 PM EDT
--- OUTSIDE RECORDS SUMMARY | 2024-09-27 17:35 | XMS_ITS ---
Author Organization Jose Pozo III, MD Address [address] [place] [address] Care Team Providers Care Pie Dough Roller Name Role Phone Jose Pozo Primary Care [...] Date Provider Diagnosis Jose Pozo III, MD [address] [place] [address] [place] [address] 05/03/2024 Jose Pozo Chronic obstructive pulmonary disease, [...] 51 down to 43. She saw her sales ledger clerk recently who discontinued the diuretic. These numbers [...] Reason: ov review labs Provider Name:Jose Pozo, 12/27/2024 11:15:00 AM, [address] [place] [address] [address], [place], [address], Provider Name:Jose Pozo, 03/12/2025 11:00:00 AM, [address] [place] [address] [address], [place], [address], Progress Notes * Charlie BAGLEYDOB:[birth year] (78 yo F)Acc No.[id number]:05/03/2024 Progress Notes Patient:?Charlie BAGLEY Provider:?Jose Pozo MD :1945???Age:78 Y???Sex:Female D ate:05/03/2024 Address:[address] [place], [place] [id number] Subjective: * Chief Complaints: * ???Dyspnea with [...] * Hospitalization/Major Diagno stic Procedure:?Kidney Faliure @ [facility] 2018No history * Family History:?Father: dece ased [...] Findings: Tobacco Non-User?Aggressive non-smoker ???She lives in [facility]. She has been to her , [...] the patient * Allergies:?Beta- BlockerLisi noprilStatins SupportAmlodipine SkfksjmeKcnvxvqroxwjohIyjqxjq86 Hour DecongestantSulfacetamideLatexno[Allergies Verified] Objective: * Vitals:?Ht: 61, [...] mg/dL) 66 (Ref Range: mg/dL) * Lab:[facility] * Collection Date 02/28/2024 [...] 51 down to 43.? She saw her sales ledger clerk recently who discontinued the diuretic.? These numbers [...] Pozo MD Date:?04/14 Generated for Eloi ng/Addie/eTransmitting on:?09/27/2024 05:35 PM EDT History and Physical Notes * HPI (History of Present Illness) Category Sub-Category Detail Notes COVID-19 Screening Questions Have you had any new onset fever, chills, cough, congestion, sore throat, shortness of breath, muscle aches?: No Have you been exposed to the virus withi n the last 10 days?: No Have you travelled internationally in [facility] last 10 days?: No Have you been [...]
--- OUTSIDE RECORDS SUMMARY | 2024-09-27 17:36 | XMS_ITS ---
Author Organization Jose Pozo III, MD Address [address] [address] Care Team Providers Care Wire Harness Assembler Name Role Phone Jose Pozo Primary Care Provider [phone] Allergies Allergen (clinical drug ingredient) Drug/Non Drug [...] Date Provider Diagnosis Jose Pozo III, MD [address] [place] [address] [place] [address] 08/23/2024 Jose Pozo Chronic obstructive pulmonary disease, [...] labs Provider Name:Jose Pozo, 12/27/2024 11:15:00 AM, [address] [place] [address] [address], [place], [address], Provider Name:Jose Pozo, 03/12/2025 11:00:00 AM, [address] [facility] [address], [place], [address], Progress Notes * Charlie BAGLEY MichelleDOB:[birth year] (79 yo F)Acc No.[id number]:08/23/2024 Progress Notes Patient:?Charlie BAGLEY Provider:?Jose Pozo MD :1945???Age:79 Y???Sex:Female D ate:08/23/2024 Address:[address] [place] [address] [place] [id number] Subjective: * Chief Complaints: * ???COPDCardiomyopathyHyperte nsionHypothyroidChronic kidney diseaseAsthmaIschemic heart diseaseMacrocytosis * HPI: ???COVID-19 Screening:? She comes to the office for routine scheduled visit to manage her numerous medical issues.? She says that her breathing has not been a problem lately.? She is taking oral uremia from her facsimile operator which causes some side effects of nausea.? Her blood work is available and was reviewed with her in detail today.? No changes in her medications were needed today.? She is living at home with her with dementia and caring for him.? She reports this causes great fatigue.? She denies any chest pain or vomiting or skin lesions.? Her examination today showed no new findings. ?Questions?Have you had any new onset fever, chills, cough, congestion, sore throat, shortness of breath, muscle aches??No * ROS:?General/Constitutional:?pain?only normal aches and pains.?Chills?denies.?Fatigue?admits.?Fever?denies.?ENT:?Decreased hearing?mild.?Respiratory:?Cough?denies.?Cardiovascular:?Chest pain with exertion?denies.?Dyspnea on exertion?denies.?Shortness of breath?with exertion.?Gastrointestinal:?Constipation?denies.?Decreased appetite?denies.?Diarrhea?denies.?Heartburn?occasional.?Nausea?infrequent.?Recta l bleeding?denies.?Vomiting?denies.?Hematology:?bruising?denies.?petechiae?denies.?Swollen glands?none have been noted.?Genitourinary:?Frequent urination?denies.?Musculoskeletal:?Muscle aches?denies.?Painful joints?denies.?Sciatica?denies.?Weakness?denies.?Skin:?Itching?denies.?Rash?denies.?Skin lesion(s)?denies.?Neurologic:?Difficulty speaking?denies.?Dizziness?denies.?Headache?denies.?Low back pain?denies.?Psychiatric:?Depressed mood?denies.? * Medical History:? * Surgical History:?H/O Colono scopy Cardiac Cathererization Oophorectomy Left Cataract Splenectomy Hysterectomy with oophorectomy No history * Hospitalization/Major Diagno stic Procedure:?Kidney Faliure @ [facility] 2018No history * Family History:?Father: dece [...] Findings: Tobacco Non-User?Aggressive non-smoker ???She lives in [facility]. She has been to her , Tucker, for many years who is also a patient in this practice. They have 1 son who is alive and well and healthy. She is retired. * Medications:?TakingCarvedilo l 12.5 MG Tablet TAKE 1 TABLET BY [...] the patient * Allergies:?Beta- BlockerLisi noprilStatins SupportAmlodipine FwmtutqkNjiouqfrlblfxtGgmxlel23 Hour DecongestantSulfacetamideLatexno[Allergies Verified] Objective: * Vitals:?Ht: 61, Wt:95, BMI:1 7.95, BP:134/77, HR:54, Temp:98.2, Ht-cm: 154.94, Wt-k.09. * ???Past Orders: Lab:Thyroid Stimulating Horm one [...] (Ref Range: 4.8-10.8 X10*3/uL) Red Blood Count 4.06?L (Ref Range: 4.20-5.50 X10*6/uL) 3.91?L (Ref Range: 4.20-5.50 X10*6/uL) 4.01?L (Ref Range: 4.20-5.50 X10*6/uL) Hemoglobin 13.7 (Ref Range: 12.0-16.0 g/dl) 13.2 (Ref Range: 12.0-16.0 g/dl) 13.5 (Ref Range: 12.0-16.0 g/dl) Hematocrit 42.0 (Ref Range: 37.0-47.0 %) 41.0 (Ref Range: 37.0-47.0 %) 41.0 (Ref Range: 37.0-47.0 %) Mean Corpuscular Volume 103.4?H (Ref Range: 80.0-98.0 fL) 104.9?H (Ref Range: 80.0-98.0 fL) 102.2?H (Ref Range: 80.0-98.0 fL) Mean Corpuscular Hemoglobin 33.7?H (Ref Range: 27.0-33.0 pg) 33.8?H (Ref Range: 27.0-33.0 pg) 33.7?H (Ref Range: 27.0-33.0 pg) Mean Corpuscular HGB [...] Platelet Volume 9.4 (Ref Range: 9.4-12.3 fL) 9.3?L (Ref Range: 9.4-12.3 fL) 10.2 (Ref Range: 9.4-12.3 fL) Neutrophils Percent Auto 67.1 (Ref Range: 45-73 %) 57.1 (Ref Range: 45-73 %) 62.9 (Ref Range: 45-73 %) Imm Gran Pct Auto 0.5?H (Ref Range: 0.0-0.4 %) 0.4 (Ref Range: 0.0-0.4 %) 0.4 (Ref Range: 0.0-0.4 %) Lymphocytes Percent Auto 19.9?L (Ref Range: 20-40 %) 27.9 (Ref Range: 20-40 %) 26.2 (Ref Range: 20-40 %) Monocytes Percent Auto 10.9 (Ref Range: 2-11 %) 11.1?H (Ref Range: 2-11 %) 9.1 (Ref [...] Range: 2.0-8.3 x10*3/uL) Imm Gran Abs Auto 0.05?H (Ref Range: 0.00-0.03 X10*3/uL) 0.03 (Ref Range: 0.00-0.03 X10*3/uL) 0.04?H (Ref Range: 0.00-0.03 X10*3/uL) Lymphocytes Absolute Auto [...] 0.000 (Ref Range: 0.0-0.012 X10*3/uL) * Lab:[facility] * Collection Date 2024 02/28/2024 11/01/2023 [...] 22 (Ref Range: 0-31 U/L) Total Protein 8.1?H (Ref Range: 6.5-8.0 g/dL) 7.8 (Ref Range: 6.5-8.0 g/dL) 8.0 (Ref Range: 6.5-8.0 g/dL) Albumin Level 3.4?L (Ref Range: 3.5-5.0 g/dL) 3.5 (Ref Range: [...] 105 (Ref Range: 96-108 mmol/L) Carbon Dioxide 32?H (Ref Range: 22-29 mmol/L) 29 (Ref Range: 22-29 mmol/L) 28 (Ref Range: 22-29 mmol/L) Anion Gap 6?L (Ref Range: 12-20) 9?L (Ref Range: 12-20) 10?L (Ref Range: 12-20) Blood Urea Nitrogen 38?H (Ref Range: 9-16 mg/dL) 48?H (Ref Range: 9-16 mg/dL) 41?H (Ref Range: 9-16 mg/dL) Creatinine 1.08 (Ref [...] (Ref Range: 135-145 mmol/L) Blood Urea Nitrogen 42?H (Ref Range: 9-16 mg/dL) 70?H (Ref Range: 9-16 mg/dL) 32?H (Ref Range: 9-16 mg/dL) Creatinine 1.09 (Ref Range: 0.5-1.4 mg/dL) 1.21 (Ref Range: 0.5-1.4 mg/dL) 1.05 (Ref Range: 0.5-1.4 mg/dL) Glucose Random 102 (Ref Range: 60-115 mg/dL) 134?H (Ref Range: 60-115 mg/dL) 94 (Ref [...] Carbon Dioxide 28 (Ref Range: 22-29 mmol/L) 32?H (Ref Range: 22-29 mmol/L) 29 (Ref Range: 22-29 mmol/L) Anion Gap 10?L (Ref Range: 12-20) 10?L (Ref Range: 12-20) 12 (Ref Range: 12-20) Estimated Glomerular Filt Rate 49 43 51 * Examination: ???General Examination: ?GENERAL APPEARANCE:?pleasant, well nourished, well developed, in no acute distress, calm and relaxed, underweight, elderly woman.?HEAD:?atraumatic, normocephalic.?EYES:?eomi, perrla, anicteric, conjugate.?EARS:?normal.?NOSE:?septum intact.?ORAL CAVITY:?normal, unremarkable.?NECK/THYROID:?no jugular venous distention, no carotid bruit, thyroid normal.?LYMPH NODES:?no enlarged lymph nodes,spleen normal.?SKIN:?no suspicious lesions, anicteric.?HEART:?no clicks, gallops, murmurs, or rubs, regular rhythm, S1, S2 normal, no s3, or vascular bruits.?LUNGS:?clear to auscultation .?BREASTS:?Not examined.?ABDOMEN:?bowel sounds normal, no ascites, no organomegaly, no mass, Underweight.?RECTAL EXAM:?not examined.?MUSCULOSKELETAL:?extremities unremarkable, no clubbing, cyanosis or edema.?PERIPHERAL PULSES:?normal.?NEUROLOGIC:?alert and oriented, cranial nerves 2-12 grossly intact, deep tendon reflexes 2+ symmetrical, motor strength normal upper and lower extremities, sensory exam intact.?PSYCH:?alert, oriented.? Assessment: * Assessment: 1.?Acquired hypothyroidism - E03.9 (Primary)???Notes :The recent thyroid function tests are in range.? No change in her therapy was necessary.???2.?Chronic obstructive pulmonary disease, unspecified COPD type - J44.9???Notes :She had RSV several weeks ago and is still coughing and still has some shortness of breath with exertion. She recently saw her pulmonary physician who gave her no new medication. She was comfortable breathing room air today. She had no difficulty speaking. There were no wheezes on her examination.???3.?Essential hypertension - I10???Notes :Her blood pressure and vital signs are stable today.? No change in her regimen was necessary.???4.?Hyperlipidemia, unspecified hyperlipidemia type - E78.5???Notes :Her lipids are stable.? 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 The creatinine is normal at 1.08.? Her GFR has improved to 49.? She will continue with nephrology.? She is taking Urea.???7.?Ischemic heart disease - I25.9???Notes :She is able to conduct all of the activities of daily life without ischemic pain. She has had no palpitations or syncope. Her regimen was continued.???8.?Macrocytosis - D75.89???Notes :Her mean cell volume is stable at 103.4.This value will be followed. No treatment is necessary at this time.??? Plan: * Treatment: 2.?Chronic obstructive pulmo nary disease, unspecified COPD type? Continue predniSONE Tablet, 5 MG, 1 tablet, Orally, Twice a day.?LAB: PROFILE, FASTING (COMPREHENSIVE METABOLIC) ?LAB: TSH (THYROID [...] ?LAB: Free T4 (Free Thyroxine) 5.?Others? Continue Albuterol Sulfate HFA Aerosol Solution, 108 (90 Base) MCG/ACT, 2 puffs, Inhalation, every 6 hours for dyspnea;?Continue Carvedilol Tablet, 12.5 MG, TAKE 1 TABLET [...] reason not done ??COPD Care Plan:?Patient Lifestyle Goals?Relieve symptoms and improve quality of life, Reduce number of ED and hospitalizations, Be able to be more active with friends and family.?Treatment Goals?Eat a nutritious diet and increase water consumption to 6-8 glasses a day, Exercise to help whole body, including lungs.?Barriers?no barriers.?Self-Managment Goals?Eat a healthy diet, Get an air purifier for the rooms you are in the most.? * Follow Up:?4 Months (Reason: ov review labs) * Images: * Sign off status: Completed true * Provider:?Jose Pozo MD Date:?08/11 Generated for Luann garcia/Addie/eTransmitting on:?09/27/2024 05:35 PM EDT History and Physical [...]
--- OUTSIDE RECORDS SUMMARY | 2024-09-27 17:36 | XMS_ITS | Clinical Summary ---
Author Organization [facility] Address [address] [place] [address] Phone Care Team Providers Care Flight Attendant Name Role Phone Jose Pozo MD Primary Care Provider [phone] Allergies Active Allergy Reactions Criticality Noted Date [...] Due Date Last Done Comments Pneumococcal Vaccine: 50+ Ye ars (1 of 2 - PCV) 1964 Influenza Vaccine (Season Ended) 2025 Hepatitis B Vaccine Aged Out No longe r eligible based on patient's age to complete this topic Insurance [place] [employer] Care Teams Flight Attendant Relationship Specialty Start Date End Date Jose Pozo MD [address] [place] [address] [id number] [place], [place] PCP - General Medical Oncology 10/09/20
--- OUTSIDE RECORDS SUMMARY | 2024-09-27 17:36 | XMS_ITS | Patient Health Record ---
Author Organization Jose Pozo III, MD Address [address] [place] [address] Care Team Providers Care Calender Operator Helper Name Role Phone Jose Pozo Primary [...] Electrolytes Reviewed date:11/05/2023 04:46:24 AM Interpretation: Performing Lab:[facility], [address] [place] [phone] Notes/Report: Sodium 137 135-145 mmol/L Potassium 4.2 3.3-5.1 mmol/L Chloride 103 96-108 mmol/L Carbon Dioxide 29 22-29 mmol/L Anion Gap 9 12-20 Complete Blood Count Auto Di ff Reviewed date:11/05/2023 04:46:24 AM Interpretation: Performing Lab:[facility], [address] [place] [phone] Notes/Report: White Blood Count 9.1 4.8-10.8 X10*3/uL [...] NRBC Abs Auto 0.000 0.0-0.012 X10*3/uL Comprehensive [place]. Panel Fa st Reviewed date:11/05/2023 04:46:24 AM Interpretation: Performing Lab:[facility], [address] [place] [phone] Notes/Report: Sodium 139 135-145 mmol/L Potassium 4.3 3.3-5.1 mmol/L Chloride 105 96-108 mmol/L Carbon Dioxide 28 22-29 mmol/L Anion Gap 10 12-20 Blood Urea Nitrogen 41 9-16 mg/dL Creatinine 0.97 0.5-1.4 mg/dL Estimated Glomerular Filt Rate 56 NOTE: For -Spanish individuals, multiply the result by 1.210. Chronic [...] Panel Reviewed date:11/05/2023 04:46:24 AM Interpretation: Performing Lab:[address] [address] Notes/Report: Triglycerides 84 <150 mg/dL Desirable Triglyceride: [...] Thyroxine) Reviewed date:11/05/2023 04:46:24 AM Interpretation: Performing Lab:[address] [phone] Notes/Report: Free T4 (Free Thyroxine) 1.32 0.71-1.85 ng/dL Thyroid Stimulating Hormone Reviewed date:11/05/2023 04:46:24 AM Interpretation: Performing Lab:[facility], [address] [place] [address] Notes/Report: Thyroid Stimulating Hormone 0.74 0.32-4.0 uIU/ mL TSH 3rd Generation ([facility]) Complete Blood Count Auto Di ff Reviewed date:02/29/2024 06:51:20 AM Interpretation: Performing Lab:[facility], [address] [place] [phone] Notes/Report: White Blood Count 7.6 4.8-10.8 X10*3/uL [...] NRBC Abs Auto 0.000 0.0-0.012 X10*3/uL Comprehensive [place]. Panel Fa st Reviewed date:02/29/2024 06:51:20 AM Interpretation: Performing Lab:[facility], [address] [place] [phone] Notes/Report: Sodium 139 135-145 mmol/L Potassium 4.8 3.3-5.1 mmol/L Chloride 106 96-108 mmol/L Carbon Dioxide 29 22-29 mmol/L Anion Gap 9 12-20 Blood Urea Nitrogen 48 9-16 mg/dL Creatinine 1.17 0.5-1.4 mg/dL Estimated Glomerular Filt Rate 45 NOTE: For -Spanish individuals, multiply the result by 1.210. Chronic [...] Panel Reviewed date:02/29/2024 06:51:20 AM Interpretation: Performing Lab:[facility], [address] [place] [phone] Notes/Report: Triglycerides 66 <150 mg/dL Desirable Triglyceride: [...] Thyroxine) Reviewed date:02/29/2024 06:51:20 AM Interpretation: Performing Lab:[facility], [address] [place] [phone] Notes/Report: Free T4 (Free Thyroxine) 1.18 0.71-1.85 ng/dL Thyroid Stimulating Hormone Reviewed date:02/29/2024 06:51:20 AM Interpretation: Performing Lab:[facility], [address] [place] [phone] Notes/Report: Thyroid Stimulating Hormone 1.43 0.32-4.0 uIU/ mL TSH 3rd Generation ([facility]) Basic Metabolic Panel Reviewed date:04/01/2024 07:27:53 AM Interpretation: Performing Lab:[facility], [address] [place] [phone] Notes/Report: Sodium 135 135-145 mmol/L Potassium 4.1 3.3-5.1 mmol/L Chloride 97 96-108 mmol/L Carbon Dioxide 32 22-29 mmol/L Anion Gap 10 12-20 Blood Urea Nitrogen 70 9-16 mg/dL Creatinine 1.21 0.5-1.4 mg/dL Estimated Glomerular Filt Rate 43 NOTE: For -Spanish individuals, multiply the result by 1.210. Chronic Kidney Disease: Estimated GFR < 60 mL/min/1.73m2 Severe Kidney Disease: Estimated GFR < 15 mL/min/1.73m2 Glucose Random 134 60-115 mg/dL Calcium 9.5 8.4-10.2 mg/dL TSH reflex Free T4 Reviewed date:04/01/2024 07:27:53 AM Interpretation: Performing Lab:[facility], [address] [place] [phone] Notes/Report: TSH reflex Free T4 0.80 0.32-4.0 uIU/mL Basic Metabolic Panel Reviewed date:2024 08:45:16 PM Interpretation: Performing Lab:[facility], [address] [place] [phone] Notes/Report: Sodium 136 135-145 mmol/L Potassium 4.1 [...] ff Reviewed date:2024 08:45:16 PM Interpretation: Performing Lab:[facility], [address] [place] [phone] Notes/Report: White Blood Count 10.2 4.8-10.8 X10*3/uL [...] NRBC Abs Auto 0.000 0.0-0.012 X10*3/uL Comprehensive [place]. Panel Fa Reviewed date:2024 08:45:16 PM Interpretation: Performing Lab:[facility], [address] [place] [phone] Notes/Report: Sodium 137 135-145 mmol/L Potassium 4.1 [...] Panel Reviewed date:2024 08:45:16 PM Interpretation: Performing Lab:[facility], [address] [place] [phone] Notes/Report: Triglycerides 113 <150 mg/dL Desirable Triglyceride: [...] Thyroxine) Reviewed date:2024 08:45:16 PM Interpretation: Performing Lab:[facility], [address] [place] [phone] Notes/Report: Free T4 (Free Thyroxine) 1.33 0.71-1.85 ng/dL Thyroid Stimulating Hormone Reviewed date:2024 08:45:16 PM Interpretation: Performing Lab:[facility], [address] [place] [phone] Notes/Report: Thyroid Stimulating Hormone 1.25 0.32-4.0 uIU/ [...] every 6 hours for dyspnea 05/08/2024 Active predniSONE 5 MG 1 tablet Orally [...] Ure-Na 15 GM as directed Orally Active Immunizations Vaccine Route Administration Date Status [...] Problem Status W/U Status Risk Notes Problem 93687979 Chronic obstructive pulmonary disease, unspecified COPD type (J44.9) Active confirmed She had RSV several weeks ago and is still coughing and still has some shortness of breath with exertion. She recently saw her pulmonary physician who gave her no new medication. She was comfortable breathing room air today. She had no difficulty speaking. There were no wheezes on her examination. Problem 823875895 Acquired hypothyroidism (E03.9) Active confirmed The recent thyroid function tests are in range. No change in her therapy was necessary. Problem 59872783 Essential hypertension (I10) Active confirmed Her blood pressure and vital signs are stable today. No change in her regimen was necessary. Problem 165318161 Macrocytosis (D75.89) Active confirmed Her mean cell volume is stable at 103.4.This value will be followed. No treatment is necessary at this time. Problem 94504776 Hyperlipidemia, unspecified hyperlipidemia type (E78.5) Active confirmed Her lipids are stable. No change in her regimen was necessary. Problem 273186876 Asthma due to environmental allergies (J45.909) Active confirmed She is using he r inhalers appropriately and has had little difficulty with asthma this summer. No change in her regimen was needed. 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 Problem 210768297 Ischemic heart disease (I25.9) Active confirmed She is able to conduct all of the activities of daily life without ischemic pain. She has had no palpitations or syncope. Her regimen was continued. 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 Problem 1788991 Hypertensive retinopathy of both eyes (H35.033) Active confirmed She has had no vision changes. She is able to drive and read. Her blood pressure is well controlled today. Problem 077941766 Chronic kidney disease (CKD) stage G3b/A2, moderately decreased glomerular filtration rate (GFR) between 30-44 mL/min/1.73 square meter and albuminuria creatinine ratio between 30-299 mg/g (N18.32) Active confirmed The BUN has improved to 38. The creatinine is normal at 1.08. Her GFR has improved to 49. She will continue with nephrology. She is taking Urea. Vital Signs Heart Rate 54 /min 08/23/2024 Temperature 98.2 degrees Fahrenheit 08/23/2024 Blood pressure diastolic 77 mm Hg 08/23/2024 Height 61 in 08/23/2024 Blood pressure systolic 134 mm Hg 08/23/2024 Weight 95 lbs 08/23/2024 BMI 17.95 kg/m2 08/23/2024 Encounters Encounter Location Date Provider Diagnosis Jose Pozo III, MD [address] [place] [address] [place] [address] 11/08/2023 Jose Pozo Chronic obstructive pulmonary disease, [...] CKD stage N18.9 Jose Pozo III, MD [address] [place] [address] [place] [address] 03/07/2024 Jose oPzo Chronic obstructive pulmonary disease, unspecified COPD type [...] and Macrocytosis D75.89 Jose Pozo III, MD [address] [place] [address] [place] [address] 03/21/2024 Jose Pozo Chronic obstructive pulmonary disease, unspecified COPD type J44.9 ; Acute right-sided low back pain without sciatica M54.50 and Acquired hypothyroidism E03.9 Jose Pozo III, MD [address] [place] [address] [place] [address] 05/03/2024 Jose Pozo Chronic obstructive pulmonary disease, [...] heart disease I25.9 Jose Pozo III, MD [address] [place] [address] [place] [address] 08/23/2024 Jose Pozo Chronic obstructive pulmonary disease, [...] Ischemic heart disease I25.9 and Macrocytosis D75.89 Jose Pozo III, MD [address] [place] [address] [place] [address] 10/17/2023 Jose Pozo Acquired hypothyroid ism E03.9 and Hyperlipidemia, unspecified hyperlipidemia type E78.5 Jose Pozo III, MD [address] [place] [address] [place] [address] 11/08/2023 Jose Pozo III, MD [address] [place] [address] [place] [address] 11/24/2023 Jose Pozo III, MD [address] [place] [address] [place] [address] 11/24/2023 Jose Pozo III, MD [address] [place] [address] [place] [address] 11/25/2023 Jose Pozo III, MD [address] [place] [address] [place] [address] 05/08/2024 Jose Pozo Assessments Encounter Date Diagnosis (ICD Code) Assessment Notes Treat ment Notes Treatment Clinical Notes 11/08/2023 Chronic obstructive pulmonary disease, unspecified COPD type (ICD-10 - J44.9) She is breathing comfortably today. She has seen her health and safety specialist recently. She has oxygen at home which she rarely uses. She has been compliant with her medication. 11/08/2023 Hypertrophic nonobstructive cardiomyopathy (ICD-10 - I42.2) She is breathing comfortably and her lungs are clear. 03/07/2024 Chronic obstructive pulmonary disease, unspecified COPD type (ICD-10 - J44.9) She is breathing comfortably today. She has seen her health and safety specialist recently. She has oxygen at home which she rarely uses. She has been compliant with her medication. 03/07/2024 Hypertrophic nonobstructive cardiomyopathy (ICD-10 - I42.2) She is breathing comfortably and her lungs are clear. 03/21/2024 Chronic obstructive pulmonary disease, unspecified COPD type (ICD-10 - J44.9) She is breathing comfortably today. She has seen her health and safety specialist recently. She has oxygen at home [...] was no sign of hypothyroidism clinically today. 08/23/2024 Chronic obstructive pulmonary disease, unspecified COPD [...] No change in her therapy was necessary. 11/08/2023 Essential hypertension (ICD-10 - I10) Her [...] change in her regimen was necessary. 08/23/2024 Essential hypertension (ICD-10 - [...] change in her medication was made today. 08/23/2024 Hyperlipidemia, unspecified hyperlipidemia type (ICD-10 - E78.5) Her lipids are stable. No change in her regimen was necessary. 10/17/2023 Hyperlipidemia, unspecified hyperlipidemia type (ICD-10 - [...] comfortably and her lungs are clear. 08/23/2024 Hypertrophic nonobstructive cardiomyopathy (ICD-10 - I42.2) She is breathing comfortably and her lungs are clear. 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 [...] No treatment is necessary at this time. 08/23/2024 Chronic kidney disease (CKD) stage G3b/A2, moderately decreased glomerular filtration rate (GFR) between 30-44 mL/min/1.73 square meter and albuminuria creatinine ratio between 30-299 mg/g (ICD-10 - N18.32) The BUN has improved to 38. The creatinine is normal at 1.08. Her GFR has improved to 49. She will continue with nephrology. She is taking Urea. 11/08/2023 Chronic kidney disease (CKD) stage G3b/A2, [...] 51 down to 43. She saw her aircraft machinist helper recently who discontinued the diuretic. These numbers are going to be repeated in the near future. 08/23/2024 Ischemic heart disease (ICD-10 - I25.9) She is able to conduct all of the activities of daily life without ischemic pain. She has had no palpitations or syncope. Her regimen was continued. 11/08/2023 Asthma due to environmental allergies (ICD-10 [...] treatment is necessary at this time. 11/08/2023 Macrocytosis (ICD-10 - D75.89) Her mean [...] C) 04/28/2022 PROFILE, FASTING (COMPREHENSIVE METABOLI C) 08/23/2024 PROFILE, FASTING (COMPREHENSIVE METABOLI C) 05/03/2024 PROFILE, [...] T4 (FT4) 01/29/2021 TSH (THYROID STIMULATING HORMONE) 2024 TSH (THYROID STIMULATING HORMONE) 2023 TSH (THYROID STIMULATING HORMONE) 2020 TSH (THYROID STIMULATING HORMONE) 2023 TSH (THYROID STIMULATING HORMONE) 2020 TSH (THYROID STIMULATING HORMONE) 2021 TSH (THYROID STIMULATING HORMONE) 2023 TSH (THYROID STIMULATING HORMONE) 2022 TSH (THYROID STIMULATING HORMONE) 2021 TSH (THYROID STIMULATING HORMONE) 2021 B12 08/04/2022 FOLATE 08/04/2022 MICROALBUMIN, RANDOM 01/29/2021 CBC w DIFF 04/08/2022 CBC w DIFF 08/23/2024 CBC w DIFF 08/04/2022 CBC w DIFF 05/03/2024 CBC w DIFF 11/08/2023 CBC w DIFF 03/03/2021 CBC w DIFF 01/29/2021 CBC w DIFF 04/28/2022 CBC w DIFF 11/04/2021 CBC w DIFF 11/01/2022 CBC w DIFF 07/07/2021 CBC w DIFF 08/13/2022 CLOSTRIDIUM DIFF TOXIN A&B (C DIFF) 07/15 MRI LUMBAR SPINE NO CONTRAST 10/22/2021 CBC WITH AUTO DIFF 10/17/2023 Lipid Panel 07/07/2021 Lipid Panel 08/23/2024 Lipid Panel 05/03/2024 Lipid Panel 11/08/2023 Lipid Panel 10/17/2023 Free T4 (Free Thyroxine) 10/17/2023 Free T4 (Free Thyroxine) 08/23/2024 Free T4 (Free Thyroxine) 05/03/2024 Free T4 (Free Thyroxine) 11/08/2023 Free T4 (Free Thyroxine) 10/22/2021 Next Appt Details Provider Name:Jose Pozo, 12/27/2024 11:15:00 AM, [address] [facility] [place], [place], [address], Provider Name:Jose Pozo, 03/12/2025 11:00:00 AM, [address] [facility] [place], [place], [address], Insurance Providers Payer Name Payer Address Payer Phone Subscriber Number Group Number Insured Name Patient Relationship to Insured Coverage Start Date Coverage End Date MEDICARE NGS [address] [place] [phone] [id number] Charlie Rey Self - patient is the insured [facility] [address] [address] [place] [phone] [id number] Charlie Rey Self - patient is the [...] Reason Date(Month/Year) No history Kidney Jeanna @ [facility] 2018
[2024-09-27 17:42] LABS: Alanine Aminotransferase 23 U/L (0-31); Albumin Level 3.7 g/dL (3.5-5.0); Anion Gap 11 (12-20); Aspartate Amino Transferase 29 U/L (5-31); Bilirubin Total 0.4 mg/dL (0.0-1.0); Blood Urea Nitrogen 69 mg/dL (9-16); Calcium 9.4 mg/dL (8.4-10.2); Carbon Dioxide 29 mmol/L (22-29); Chloride 100 mmol/L (96-108); Estimated Glomerular Filt Rate 49; Potassium 4.9 mmol/L (3.3-5.1); Sodium 135 mmol/L (135-145); Total Protein 8.3 g/dL (6.5-8.0)
[2024-09-27 17:52] LABS: Alkaline Phosphatase 47 U/L (39-117); Glucose Random 80 mg/dL (60-115)
[2024-09-27 17:55] LABS: TSH reflex Free T4 0.44 uIU/mL (0.32-4.0)
== END 2024-09-27 14:40 | disposition home or self-care (01) ==
LOC: HO.HMGCLDS 14:39
PROVIDERS: PCP Internal Medicine Medical Oncology; Visit Provider Internal Medicine Hypertension Specialist
DX: E87.1 Hypo-osmolality and hyponatremia (principal)
CPT/HCPCS: 36415; 80053; 84443

== ENCOUNTER 2024-10-04 09:49 | Outpatient (AMB) | payer MEDICARE, OTHER, SELFPAY ==
--- NOTE | 2024-10-04 09:48 | HO.NEPHOV ---
Intake Visit Reasons: Proteinuria/ Conf Allergies Beta-Blockers (Beta-Adrenergic Bloc Allergy (Intermediate, Verified 10/04/24 09:48) Swelling latex [LATEX] Allergy (Intermediate, Verified 10/04/24 09:48) RASH lisinopril [LISINOPRIL] Allergy (Intermediate, Verified 10/04/24 09:48) Cough Pttbexk-WSQ-GxN Reductase Inhibitor [LZVMOLM-PRN-ORR REDUCTASE INHIBITOR] Allergy (Intermediate, Verified 10/04/24 09:48) NAUSEA, LOSS OF APPETITE, GENERALIZED ILL FEELING Sulfa (Sulfonamide Antibiotics) [SULFA (SULFONAMIDE ANTIBIOTICS)] Allergy (Intermediate, Verified 10/04/24 09:48) Rash amlodipine [AMLODIPINE] Allergy (Mild, Verified 10/04/24 09:48) Rash spironolactone [SPIRONOLACTONE] Allergy (Unknown, Verified 10/04/24 09:48) UNKNOWN lactose [LACTOSE] Adverse Reaction (Mild, Verified 10/04/24 09:48) STOMACH UPSET Medication List - Last Reconciled 10/04/24 by Salvatore Mares MD albuterol sulfate 90 mcg/actuation (ProAir HFA) 2 puffs inhalation Q4-6H PRN albuterol sulfate 2.5 mg (3 mL) inhalation Q4H PRN Breo Ellipta 100-25 mcg/dose (fluticasone furoate-vilanterol) 1 ea PO DAILY NS carvedilol 12.5 mg PO BID cetirizine 5 mg PO DAILY PRN levothyroxine 100 mcg PO DAILY 90 days prednisone 5 mg PO DIRECTED urea (Ure-Na) 1 packet PO DAILY HPI Comments Details: Elderly woman with a history of chronic hyponatremia. She is here for regular follow-up. This is a [employer]. She has been having diarrhea. Feels weak today. Blood pressure at home was 90/60. She is on carvedilol 12.5 mg b.i.d.. 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 Mother No problems noted. Social History Alcohol intake: never Patient Tobacco Use Status: Former Tobacco user Tobacco use type: Cigarette Cigarette Packs Per Day: 0.5 Years Smoked: Quit 20 years ago. Telehealth Telehealth Telehealth Platform: Telephone Location of provider rendering services: practice address Location of patient: address on file Patient Identification confirmed using: Name, : Yes Telehealth method: voice only Patient verbally consented to treatment: Yes Patient verbally consented to billing insurance company: Yes Patient informed of any privacy concerns related to visit: Yes Minutes spent on Phone/Video with Pt.: 12 Results Reviewed Nephrology Results: Hgb 13.7 g/dl (12.0-16.0) 08/16/24 WBC 10.2 X10*3/uL (4.8-10.8) 08/16/24 Plt Count 287 X10*3/uL (160-400) 08/16/24 Sodium 135 mmol/L (135-145) 09/27/24 Potassium 4.9 mmol/L (3.3-5.1) 09/27/24 Chloride 100 mmol/L (96-108) 09/27/24 Carbon Dioxide 29 mmol/L (22-29) 09/27/24 BUN 69 mg/dL (9-16) H 09/27/24 Creatinine 1.08 mg/dL (0.5-1.4) 09/27/24 Calcium 9.4 mg/dL (8.4-10.2) 09/27/24 Assessment & Plan Assessment & Plan (1) Hyponatremia: Code(s): E87.1 - Hypo-osmolality and hyponatremia Category: Medical Plan: Chronic asymptomatic hyponatremia. Serum sodium is within normal range at present. Continue with oral free water restriction. Continue with the upper once a day. Watch serum sodium periodically. BUN elevated due to Veloz Shall watch (2) Hydronephrosis: Code(s): N13.30 - Unspecified hydronephrosis Category: Medical Plan: Follow-up ultrasonogram shows MILD right [place], unchanged since 2019. Renal function stable. Plan Encouraged to monitor BP at home. Home BP is excellent Probably has white coat effect Diarrhea for the last day or so. Mild hypotension due to volume depletion. Encouraged her to hold carvedilol until diarrhea resolves. Recheck blood pressure and asked her not to take carvedilol if blood pressure less than 120 mm Hg. She will call back later today to inform us about her blood pressure. If she has persistent diarrhea or low blood pressure she might have to come in to the hospital. Orders: Orders Basic Metabolic Panel 6 Months E87.1 - Hypo-osmolality and hyponatremia Coding Level of Care Code Tele Est Pt Level 2 (37023) Diagnoses Hyponatremia E87.1 Hydronephrosis N13.30
--- OUTSIDE RECORDS SUMMARY | 2024-10-04 10:59 | XMS_ITS ---
Author Organization Jose Pozo III, MD Address [address] [place] [address] Care Team Providers Care Green Chain Puller Name Role Phone Jose Pozo Primary Care [...] Provider Diagnosis Jose Pozo III, MD [address] [place] [address] [place] [address] 05/08/2024 Jose Pozo Plan Of Treatment Medication Medication Name Sig Start Date Stop Date Notes Albuterol Sulfate HFA 108 (9 0 Base) MCG/ACT 2 puffs Inhalation every 6 hours for dyspnea for 28 days 05/08/2024 Next Appt Details Provider Name:Jose Pozo, 12/27/2024 11:15:00 AM, [address] [facility] [place], [address], Provider Name:Jose Pozo, 03/12/2025 11:00:00 AM, [address] [place] [address] [place], [address], Progress Notes * Charlie BAGLEYDOB:[birth year] (78 yo F)Acc No.[id number]:05/08/2024 Patient:?Charlie BAGLEY :1945???Age:78 Y???Sex:Female Address:[address] [place] [address] [address] [place], [address] * Refills? Start Albuterol Sulfate HFA Aerosol Solution, 108 (90 Base) MCG/ACT, Inhalation, 1, 2 puffs, every 6 hours for dyspnea, 28 days, Refills=11 * true * Date:? Generated for Luann garcia/Addie/Jeseniasmitting on:?10/04/2024 10:59 AM EDT
--- OUTSIDE RECORDS SUMMARY | 2024-10-04 10:59 | XMS_ITS ---
Author Organization Jose Pozo III, MD Address [address] [facility] [place] [address] Care Team Providers Care Wood Router Name Role Phone Jose Pozo Primary Care Provider [phone] Allergies Allergen (clinical drug ingredient) Drug/Non Drug [...] Date Provider Diagnosis Jose Pozo III, MD [address] [place] [address] [place] [address] 05/03/2024 Jose Pozo Chronic obstructive pulmonary disease, [...] 51 down to 43. She saw her dairy nutrition consultant recently who discontinued the diuretic. These numbers [...] labs Provider Name:Jose Pozo, 12/27/2024 11:15:00 AM, [address] [place] [address] [place], [place], [address], Provider Name:Jose Pozo, 03/12/2025 11:00:00 AM, [address] [place] [address] [place] [place], [place], [address], Progress Notes * Charlie BAGLEYDOB:[birth year] (78 yo F)Acc No.[id number]:05/03/2024 Progress Notes Patient:?Charlie BAGLEY Provider:?Jose Pozo MD :1945???Age:78 Y???Sex:Female D ate:05/03/2024 Address:[address] [place], [place] [phone] Subjective: * Chief Complaints: * ???Dyspnea with [...] * Hospitalization/Major Diagno stic Procedure:?Kidney Faliure @ [facility] 2018No history * Family History:?Father: dece [...] Findings: Tobacco Non-User?Aggressive non-smoker ???She lives in [facility]. She has been to her , Tucker, [...] the patient * Allergies:?Beta- BlockerLisi noprilStatins SupportAmlodipine FiaiqtaySrnujgmfihpwtvMktbavp04 Hour DecongestantSulfacetamideLatexno[Allergies Verified] Objective: * Vitals:?Ht: 61, [...] mg/dL) 66 (Ref Range: mg/dL) * Lab:Comprehensive [facility] * Collection Date 02/28/2024 [...] 51 down to 43.? She saw her dairy nutrition consultant recently who discontinued the diuretic.? These numbers [...] Pozo MD Date:?04/14 Generated for Eloi ng/Addie/eTransmitting on:?10/04/2024 10:59 AM EDT History and Physical Notes * HPI (History of Present Illness) Category Sub-Category Detail Notes COVID-19 Screening Questions Have you had any new onset fever, chills, cough, congestion, sore throat, shortness of breath, muscle aches?: No Have you been exposed to the virus withi n the last 10 days?: No Have you travelled internationally in [facility] last 10 days?: No Have you [...]
--- OUTSIDE RECORDS SUMMARY | 2024-10-04 11:00 | XMS_ITS | Clinical Summary ---
Author Organization [facility] Address [address] [place] [address] Phone Care Team Providers Care Product Safety Technical Assistant Name Role Phone Jose Pozo MD Primary Care Provider [phone] Allergies Active Allergy Reactions Criticality Noted Date [...] patient's age to complete this topic Insurance [place] [employer] [place] [employer] Care Teams Product Safety Technical Assistant Relationship Specialty Start Date End Date Jose Pozo MD [address] [place] [address] [address] [place], [place] PCP - General Medical Oncology 10/09/20
--- OUTSIDE RECORDS SUMMARY | 2024-10-04 11:00 | XMS_ITS | Patient Health Record ---
Author Organization Jose Pozo III, MD Address [address] [address] Care Team Providers Care Dressing Room Attendant Name Role Phone Jose Pozo Primary [...] Electrolytes Reviewed date:11/05/2023 04:46:24 AM Interpretation: Performing Lab:[facility], [address] [place] [address] Notes/Report: Sodium 137 135-145 mmol/L Potassium 4.2 3.3-5.1 mmol/L Chloride 103 96-108 mmol/L Carbon Dioxide 29 22-29 mmol/L Anion Gap 9 12-20 Complete Blood Count Auto Di ff Reviewed date:11/05/2023 04:46:24 AM Interpretation: Performing Lab:[facility], [address] [place] [phone] Notes/Report: White Blood Count 9.1 4.8-10.8 X10*3/uL [...] NRBC Abs Auto 0.000 0.0-0.012 X10*3/uL Comprehensive [place]. Panel Fa st Reviewed date:11/05/2023 04:46:24 AM Interpretation: Performing Lab:[facility], [address] [place] [address] Notes/Report: Sodium 139 135-145 mmol/L Potassium 4.3 3.3-5.1 mmol/L Chloride 105 96-108 mmol/L Carbon Dioxide 28 22-29 mmol/L Anion Gap 10 12-20 Blood Urea Nitrogen 41 9-16 mg/dL Creatinine 0.97 0.5-1.4 mg/dL Estimated Glomerular Filt Rate 56 NOTE: For -Cambodian individuals, multiply the result by 1.210. Chronic [...] Panel Reviewed date:11/05/2023 04:46:24 AM Interpretation: Performing Lab:[address] [address] Notes/Report: Triglycerides 84 <150 mg/dL Desirable Triglyceride: [...] Thyroxine) Reviewed date:11/05/2023 04:46:24 AM Interpretation: Performing Lab:[address] [address] Notes/Report: Free T4 (Free Thyroxine) 1.32 0.71-1.85 ng/dL Thyroid Stimulating Hormone Reviewed date:11/05/2023 04:46:24 AM Interpretation: Performing Lab:[facility], [address] [place] [address] Notes/Report: Thyroid Stimulating Hormone 0.74 0.32-4.0 uIU/ mL TSH 3rd Generation ([facility]) Complete Blood Count Auto Di ff Reviewed date:02/29/2024 06:51:20 AM Interpretation: Performing Lab:[facility], [address] [place] [phone] Notes/Report: White Blood Count 7.6 4.8-10.8 X10*3/uL [...] NRBC Abs Auto 0.000 0.0-0.012 X10*3/uL Comprehensive [place]. Panel Fa st Reviewed date:02/29/2024 06:51:20 AM Interpretation: Performing Lab:[facility], [address] [place] [phone] Notes/Report: Sodium 139 135-145 mmol/L Potassium 4.8 3.3-5.1 mmol/L Chloride 106 96-108 mmol/L Carbon Dioxide 29 22-29 mmol/L Anion Gap 9 12-20 Blood Urea Nitrogen 48 9-16 mg/dL Creatinine 1.17 0.5-1.4 mg/dL Estimated Glomerular Filt Rate 45 NOTE: For -Cambodian individuals, multiply the result by 1.210. Chronic [...] Panel Reviewed date:02/29/2024 06:51:20 AM Interpretation: Performing Lab:[facility], [address] [place] [phone] Notes/Report: Triglycerides 66 <150 mg/dL Desirable Triglyceride: [...] Thyroxine) Reviewed date:02/29/2024 06:51:20 AM Interpretation: Performing Lab:[facility], [address] [place] [phone] Notes/Report: Free T4 (Free Thyroxine) 1.18 0.71-1.85 ng/dL Thyroid Stimulating Hormone Reviewed date:02/29/2024 06:51:20 AM Interpretation: Performing Lab:[facility], [address] [place] [phone] Notes/Report: Thyroid Stimulating Hormone 1.43 0.32-4.0 uIU/ mL TSH 3rd Generation ([facility]) Basic Metabolic Panel Reviewed date:04/01/2024 07:27:53 AM Interpretation: Performing Lab:[facility], [address] [place] [address] Notes/Report: Sodium 135 135-145 mmol/L Potassium 4.1 3.3-5.1 mmol/L Chloride 97 96-108 mmol/L Carbon Dioxide 32 22-29 mmol/L Anion Gap 10 12-20 Blood Urea Nitrogen 70 9-16 mg/dL Creatinine 1.21 0.5-1.4 mg/dL Estimated Glomerular Filt Rate 43 NOTE: For -Cambodian individuals, multiply the result by 1.210. Chronic Kidney Disease: Estimated GFR < 60 mL/min/1.73m2 Severe Kidney Disease: Estimated GFR < 15 mL/min/1.73m2 Glucose Random 134 60-115 mg/dL Calcium 9.5 8.4-10.2 mg/dL TSH reflex Free T4 Reviewed date:04/01/2024 07:27:53 AM Interpretation: Performing Lab:[facility], [address] [place] [phone] Notes/Report: TSH reflex Free T4 0.80 0.32-4.0 uIU/mL Basic Metabolic Panel Reviewed date:2024 08:45:16 PM Interpretation: Performing Lab:[facility], [address] [place] [phone] Notes/Report: Sodium 136 135-145 mmol/L Potassium 4.1 [...] ff Reviewed date:2024 08:45:16 PM Interpretation: Performing Lab:[facility], [address] [place] [phone] Notes/Report: White Blood Count 10.2 4.8-10.8 X10*3/uL [...] NRBC Abs Auto 0.000 0.0-0.012 X10*3/uL Comprehensive [place]. Panel Fa Reviewed date:2024 08:45:16 PM Interpretation: Performing Lab:[facility], [address] [place] [address] Notes/Report: Sodium 137 135-145 mmol/L Potassium 4.1 [...] Panel Reviewed date:2024 08:45:16 PM Interpretation: Performing Lab:[facility], [address] [place] [address] Notes/Report: Triglycerides 113 <150 mg/dL Desirable Triglyceride: [...] Thyroxine) Reviewed date:2024 08:45:16 PM Interpretation: Performing Lab:[facility], [address] [place] [phone] Notes/Report: Free T4 (Free Thyroxine) 1.33 0.71-1.85 ng/dL Thyroid Stimulating Hormone Reviewed date:2024 08:45:16 PM Interpretation: Performing Lab:[facility], [address] [place] [phone] Notes/Report: Thyroid Stimulating Hormone 1.25 0.32-4.0 uIU/ [...] Problem Status W/U Status Risk Notes Problem 91904943 Chronic obstructive pulmonary disease, unspecified COPD type (J44.9) Active confirmed She had RSV several weeks ago and is still coughing and still has some shortness of breath with exertion. She recently saw her pulmonary physician who gave her no new medication. She was comfortable breathing room air today. She had no difficulty speaking. There were no wheezes on her examination. Problem 940775673 Acquired hypothyroidism (E03.9) Active confirmed The recent thyroid function tests are in range. No change in her therapy was necessary. Problem 06736003 Essential hypertension (I10) Active confirmed Her blood pressure and vital signs are stable today. No change in her regimen was necessary. Problem 490574400 Macrocytosis (D75.89) Active confirmed Her mean cell volume is stable at 103.4.This value will be followed. No treatment is necessary at this time. Problem 91302521 Hyperlipidemia, unspecified hyperlipidemia type (E78.5) Active confirmed Her lipids are stable. No change in her regimen was necessary. Problem 867724382 Asthma due to environmental allergies (J45.909) Active confirmed She is using he r inhalers appropriately and has had little difficulty with asthma this summer. No change in her regimen was needed. 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 Problem 394801705 Ischemic heart disease (I25.9) Active confirmed She is able to conduct all of the activities of daily life without ischemic pain. She has had no palpitations or syncope. Her regimen was continued. 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 Problem 0168978 Hypertensive retinopathy of both eyes (H35.033) Active confirmed She has had no vision changes. She is able to drive and read. Her blood pressure is well controlled today. Problem 499398236 Chronic kidney disease (CKD) stage G3b/A2, moderately [...] Date Provider Diagnosis Jose Pozo III, MD [address] [place] [address] [place] [address] 11/08/2023 Jose Pozo Chronic obstructive pulmonary disease, [...] CKD stage N18.9 Jose Pozo III, MD [address] [place] [address] [place] [address] 03/07/2024 Jose Pozo Chronic obstructive pulmonary disease, [...] and Macrocytosis D75.89 Jose Pozo III, MD [address] [place] [address] [place] [address] 03/21/2024 Jose Pozo Chronic obstructive pulmonary disease, unspecified COPD type J44.9 ; Acute right-sided low back pain without sciatica M54.50 and Acquired hypothyroidism E03.9 Jose Pozo III, MD [address] [place] [address] [place] [address] 05/03/2024 Jose Pozo Chronic obstructive pulmonary disease, [...] heart disease I25.9 Jose Pozo III, MD [address] [place] [address] [place] [address] 08/23/2024 Jose Pozo Chronic obstructive pulmonary disease, [...] and Macrocytosis D75.89 Jose Pozo III, MD [address] [place] [address] [place] [address] 10/17/2023 Jose Pozo Acquired hypothyroid ism E03.9 and Hyperlipidemia, unspecified hyperlipidemia type E78.5 Jose Pozo III, MD [address] [place] [address] [place] [address] 11/08/2023 Jose Pozo III, MD [address] [place] [address] [place] [address] 11/24/2023 Jose Pozo III, MD [address] [place] [address] [place] [address] 11/24/2023 Jose Pozo III, MD [address] [place] [address] [place] [address] 11/25/2023 Jose Pozo III, MD [address] [place] [address] [place] [address] 05/08/2024 Jose Pozo Assessments Encounter Date Diagnosis (ICD Code) Assessment Notes Treat ment Notes Treatment Clinical Notes 11/08/2023 Chronic obstructive pulmonary disease, unspecified COPD type (ICD-10 - J44.9) She is breathing comfortably today. She has seen her beverage specialist recently. She has oxygen at home which she rarely uses. She has been compliant with her medication. 11/08/2023 Hypertrophic nonobstructive cardiomyopathy (ICD-10 - I42.2) She is breathing comfortably and her lungs are clear. 03/07/2024 Chronic obstructive pulmonary disease, unspecified COPD type (ICD-10 - J44.9) She is breathing comfortably today. She has seen her beverage specialist recently. She has oxygen at home which she rarely uses. She has been compliant with her medication. 03/07/2024 Hypertrophic nonobstructive cardiomyopathy (ICD-10 - I42.2) She is breathing comfortably and her lungs are clear. 03/21/2024 Chronic obstructive pulmonary disease, unspecified COPD type (ICD-10 - J44.9) She is breathing comfortably today. She has seen her beverage specialist recently. She has oxygen at home [...] than 60 years (ICD-10 - I25.2) Her delivery analyst was satisfied with her level of control. [...] 51 down to 43. She saw her banquet houseperson recently who discontinued the diuretic. These numbers [...] STIMULATING HORMONE) 2023 TSH (THYROID STIMULATING HORMONE) 2023 TSH (THYROID STIMULATING HORMONE) 2020 TSH (THYROID STIMULATING HORMONE) 2020 TSH (THYROID STIMULATING HORMONE) 2021 TSH (THYROID STIMULATING HORMONE) 2023 TSH (THYROID STIMULATING HORMONE) 2022 TSH (THYROID STIMULATING HORMONE) 2021 TSH (THYROID STIMULATING HORMONE) 2021 B12 08/04/2022 FOLATE 08/04/2022 MICROALBUMIN, RANDOM 01/29/2021 CBC w DIFF 04/08/2022 CBC w DIFF 08/23/2024 CBC w DIFF 05/03/2024 CBC w DIFF 08/04/2022 CBC w DIFF 11/08/2023 CBC w DIFF [...] Provider Name:Jose Pozo, 12/27/2024 11:15:00 AM, [address] [facility] [place], [place], [address], Provider Name:Jose Pozo, 03/12/2025 11:00:00 AM, [address] [facility] [place], [place], [address], Insurance Providers Payer Name Payer Address Payer Phone Subscriber Number Group Number Insured Name Patient Relationship to Insured Coverage Start Date Coverage End Date MEDICARE NGS [address] [place] [phone] [id number] Charlie Rey Self - patient is the insured [facility] [address] [address] [place] [phone] [id number] Charlie Rey Self - patient is the [...] Reason Date(Month/Year) No history Kidney Jeanna @ [facility] 2018
--- OUTSIDE RECORDS SUMMARY | 2024-10-04 11:00 | XMS_ITS ---
Author Organization Jose Pozo III, MD Address [address] [place] [address] Care Team Providers Care Mining Speculator Name Role Phone Jose Pozo Primary Care [...] Date Provider Diagnosis Jose Pozo III, MD [address] [place] [address] [place] [address] 08/23/2024 Jose Pozo Chronic obstructive pulmonary disease, [...] labs Provider Name:Jose Pozo, 12/27/2024 11:15:00 AM, [address] [place] [address] [place] [place], [place], [address], Provider Name:Jose Pozo, 03/12/2025 11:00:00 AM, [address] [facility] [place], [place], [address], Progress Notes * Charlie BAGLEY MichelleDOB:[birth year] (79 yo F)Acc No.[id number]:08/23/2024 Progress Notes Patient:?Charlie BAGLEY Provider:?Jose Pozo MD :1945???Age:79 Y???Sex:Female D ate:08/23/2024 Address:[address] [place] [address] [id number] Subjective: * Chief Complaints: * ???COPDCardiomyopathyHyperte nsionHypothyroidChronic kidney diseaseAsthmaIschemic heart diseaseMacrocytosis * HPI: ???COVID-19 Screening:? She comes to the office for routine scheduled visit to manage her numerous medical issues.? She says that her breathing has not been a problem lately.? She is taking oral uremia from her line haul owner operator which causes some side effects of [...] * Hospitalization/Major Diagno stic Procedure:?Kidney Faliure @ [facility] 2018No history * Family History:?Father: dece [...] Findings: Tobacco Non-User?Aggressive non-smoker ???She lives in [facility]. She has been to her , [...] the patient * Allergies:?Beta- BlockerLisi noprilStatins SupportAmlodipine DamujtswGhfncsvzsqjnptJktzdwn50 Hour DecongestantSulfacetamideLatexno[Allergies Verified] Objective: * Vitals:?Ht: 61, [...] Pozo MD Date:?08/11 Generated for Luann garcia/Addie/eTransmitting on:?10/04/2024 10:59 AM EDT History and Physical [...]
== END 2024-10-04 10:26 | disposition home or self-care (01) ==
PROVIDERS: PCP Internal Medicine Medical Oncology; Visit Provider Internal Medicine Hypertension Specialist
DX: E87.1 Hypo-osmolality and hyponatremia (principal); N13.30 Unspecified hydronephrosis
CPT/HCPCS: 99212

== ENCOUNTER → 2024-10-04 09:49 | Outpatient (BNVA) | payer MEDICARE, OTHER, SELFPAY | PROVIDERS: PCP Internal Medicine Medical Oncology; Visit Provider Internal Medicine Hypertension Specialist | DX: Z13.89 Encounter for screening for other disorder (principal) ==

== ENCOUNTER 2024-12-19 06:23 | Outpatient (REF) | payer MEDICARE, OTHER, SELFPAY ==
--- OUTSIDE RECORDS SUMMARY | 2024-10-26 09:38 | XMS_ITS ---
Author Organization Jose Pozo III, MD Address [address] [place] [address] Care Team Providers Care Recruiter Name Role Phone Jose Pozo Primary Care Provider [phone] Medications Medication SIG (Take, Route, Frequency, Duration) Notes Start Date End Date Status Albuterol Sulfate HFA 108 (90 Base) MCG/ACT 1 puff as needed Inhalation every 4 hrs for 28 days 10/26/2024 Active Social History Sex Assigned At : Social History Observation Description Sex Assigned At Female Encounters Encounter Location Date Provider Diagnosis Jose Pozo III, MD [address] [place] [address] [place] [address] 10/26/2024 Jose Pozo Plan Of Treatment Medication Medication Name Sig Start Date Stop Date Notes Albuterol Sulfate HFA 108 (9 0 Base) MCG/ACT 1 puff as needed Inhalation every 4 hrs for 28 days 10/26/2024 Next Appt Details Provider Name:Jose Pozo, 12/27/2024 11:15:00 AM, [address] [place] [address] [place], [address], Provider Name:Jose Pozo, 03/12/2025 11:00:00 AM, [address] [place] [address] [place], [address], Progress Notes * Charlie BAGLEYDOB:[birth year] (79 yo F)Acc No.[id number]:10/26/2024 Patient: Ozzy ALEXAVALERIA Charlie Martinez :1945 A ge:79 Y S ex:Female Address:[address] [place] [address] [place], [address] * Refills Start Albuterol Sulfate HFA Aerosol Solution, 108 (90 Base) MCG/ACT, Inhalation, 1, 1 puff as needed, every 4 hrs, 28 days, Refills=11 * true * Date: Generated for Luann garcia/Addie/Ignacioitting on: 0 12/19/2024 06:24 AM EDT
--- OUTSIDE RECORDS SUMMARY | 2024-12-19 06:25 | XMS_ITS | Clinical Summary ---
Author Organization [facility] Address [address] [place] [address] Phone Care Team Providers Care Mechanical Spreader Operator Name Role Phone Jose Pozo MD Primary Care Provider [phone] Allergies Active Allergy Reactions Criticality Noted Date [...] of 2 - PCV) 1964 Influenza Vaccine (#1) 2025 Hepatitis B Vaccine Aged Out No longe r eligible based on patient's age to complete this topic Insurance [employer] Care Teams Mechanical Spreader Operator Relationship Specialty Start Date End Date Jose Pozo MD [address] [place] [address] [address] [place], [place] PCP - General Medical Oncology 10/09/20
[2024-12-19 10:26] LABS: MANUAL DIFF FLAG NO
[2024-12-19 10:38] LABS: Hematocrit 41.9 % (37.0-47.0); Hemoglobin 13.4 g/dl (12.0-16.0); Imm Gran Abs Auto 0.02 X10*3/uL (0.00-0.03); Imm Gran Pct Auto 0.2 % (0.0-0.4); Lymphocytes Absolute Auto 1.9 X10*3/uL (1.2-4.9); Mean Corpuscular HGB Conc 32.0 g/dl (31.0-35.0); Mean Corpuscular Hemoglobin 33.0 pg (27.0-33.0); Mean Corpuscular Volume 103.2 fL (80.0-98.0); NRBC Abs Auto 0.000 X10*3/uL (0.0-0.012); NRBC Pct Auto 0.0 /100WBC (0.0-0.2); Platelet Count 244 X10*3/uL (160-400); Red Blood Count 4.06 X10*6/uL (4.20-5.50); White Blood Count 8.1 X10*3/uL (4.8-10.8)
[2024-12-19 11:04] LABS: Alanine Aminotransferase 22 U/L (0-31); Albumin Level 3.6 g/dL (3.5-5.0); Alkaline Phosphatase 50 U/L (39-117); Anion Gap 8 (12-20); Aspartate Amino Transferase 28 U/L (5-31); Blood Urea Nitrogen 45 mg/dL (9-16); Calcium 9.1 mg/dL (8.4-10.2); Carbon Dioxide 31 mmol/L (22-29); Chloride 105 mmol/L (96-108); Cholesterol 169 mg/dL (<200); Estimated Glomerular Filt Rate 47; HDL Cholesterol 65 mg/dL (>40); Potassium 4.6 mmol/L (3.3-5.1); Sodium 139 mmol/L (135-145); Total Protein 7.7 g/dL (6.5-8.0); Triglycerides 73 mg/dL (<150)
[2024-12-19 11:22] LABS: Thyroid Stimulating Hormone 0.81 uIU/mL (0.32-4.0)
[2024-12-19 11:46] LABS: Free T4 (Free Thyroxine) 1.38 ng/dL (0.71-1.85)
== END 2024-12-19 06:24 | disposition home or self-care (01) ==
LOC: HO.HMGCLDS 06:23
PROVIDERS: PCP Internal Medicine Medical Oncology; Visit Provider Internal Medicine Medical Oncology
DX: J44.9 Chronic obstructive pulmonary disease, unspecified (principal); E03.9 Hypothyroidism, unspecified; E78.5 Hyperlipidemia, unspecified; I10 Essential (primary) hypertension
CPT/HCPCS: 36415; 80053; 80061; 84439; 84443; 85025

== ENCOUNTER 2024-12-27 11:09 | Outpatient (REF) | payer MEDICARE, OTHER, SELFPAY ==
--- OUTSIDE RECORDS SUMMARY | 2024-10-26 09:38 | XMS_ITS ---
Author Organization Jose Pozo III, MD Address [address] [facility] [facility] [place] [address] Care Team Providers Care Director Biology Name Role Phone Jose Pozo Primary Care [...] Date Provider Diagnosis Jose Pozo III, MD [address] [place] [address] [place] [address] 10/26/2024 Jose Pozo Plan Of Treatment Medication Medication Name Sig Start Date Stop Date Notes Albuterol Sulfate HFA 108 (9 0 Base) MCG/ACT 1 puff as needed Inhalation every 4 hrs for 28 days 10/26/2024 Next Appt Details Provider Name:Jose Pozo, 03/12/2025 11:00:00 AM, [address] [place] [address] KET[address] [place], [place], [address], Progress Notes * Charlie BAGLEYDOB:[birth year] (79 yo F)Acc No.[id number]:10/26/2024 Patient: Ozzy LAU Charlie Martinez :1945 A ge:79 Y S ex:Female Address:[address] [place] [address], [address] * Refills Start Albuterol Sulfate HFA Aerosol Solution, 108 (90 Base) MCG/ACT, Inhalation, 1, 1 puff as needed, every 4 hrs, 28 days, Refills=11 * true * Date: Generated for Luann garcia/Addie/Ignacioitting on: 0 12/27/2024 11:59 AM EDT
--- NOTE | ~2024-12-27 | US_ITS ---
EXAMINATION: US TRIPLEX LOWER EXTREMITY, RIGHT CLINICAL INFORMATION: Right leg pain and swelling. COMPARISON: No prior. TECHNIQUE: Color-flow triplex imaging with spectral analysis and compression Doppler were performed on the right lower extremity. FINDINGS: Respiratory variation, normal compression and augmented flow are noted throughout the right lower extremity. The visualized common femoral vein, superficial femoral vein, profunda femoral vein, popliteal vein and midcalf peroneal and posterior tibial venous segments show no evidence of deep venous thrombosis. There is no Peña's cyst. US/US venous duplex LE RT IMPRESSION: No evidence of deep venous thrombosis involving the right lower extremity. Electronically signed by: Anirudh Diaz MD 12/27/2024 12:06 PM EDT
--- OUTSIDE RECORDS SUMMARY | 2024-12-27 11:59 | XMS_ITS | Clinical Summary ---
Author Organization [facility] Address [address] [facility] [address] [address] [place] [address] Phone Care Team Providers Care Thread Cutter Tender Name Role Phone Jose Pozo MD Primary Care Provider [phone] Allergies Active Allergy Reactions Criticality Noted Date [...] patient's age to complete this topic Insurance [place] Medicare [place] Medicare Care Teams Thread Cutter Tender Relationship Specialty Start Date End Date Jose Pozo MD [address] [place] [address] [address] [place], [place] PCP - General Medical Oncology 10/09/20
== END 2024-12-27 11:10 | disposition home or self-care (01) ==
LOC: HO.US 11:09
PROVIDERS: PCP Internal Medicine Medical Oncology; Visit Provider Internal Medicine Medical Oncology
DX: M79.604 Pain in right leg (principal); R60.0 Localized edema
CPT/HCPCS: 93971

== ENCOUNTER → 2024-12-27 11:18 | Outpatient (BNV) | payer MEDICARE, OTHER, SELFPAY | PROVIDERS: PCP Internal Medicine Medical Oncology; Visit Provider Radiology Diagnostic Radiology | DX: M79.661 Pain in right lower leg (principal); R22.42 Localized swelling, mass and lump, left lower limb | CPT/HCPCS: 93971 ==

== ENCOUNTER 2025-02-20 09:47 | Outpatient (AMB) | payer MEDICARE, OTHER, SELFPAY ==
--- OUTSIDE RECORDS SUMMARY | 2024-08-23 06:45 | XMS_ITS ---
Author Organization Jose Pozo III, MD Address [address] [place] [address] Care Team Providers Care Ager Tender Name Role Phone Jose Pozo Primary Care [...] Date Provider Diagnosis Jose Pozo III, MD [address] [place] [address] [place] [address] 08/23/2024 Jose Pozo Chronic obstructive pulmonary disease, [...] 12.5 MG TAKE 1 TABLET BY FIDEL TWICE DAILY WITH FOOD Furosemide 20 MG [...] Reason: ov review labs Provider Name:Jose Pozo, 03/12/2025 11:00:00 AM, [address] [place] [address] [address], [place], [address], Progress Notes * Charlie BAGLEYDOB:[birth year] (79 yo F)Acc No.[id number]:08/23/2024 Progress Notes Patient: Charlie MEEKS Provider: Arabella Pozo MD :1945 A ge:79 Y S ex:Female Date:08/23/2024 Address:[address] [place], [place] [address]Yarely CRUZ, [id number] Subjective: * Chief Complaints: * C OPDCardiomyopathyHypertensionHypothyroidChronic kidney diseaseAsthmaIschemic heart diseaseMacrocytosis * HPI: C OVID-19 Screening: She comes to the office for routine scheduled visit to manage her numerous medical issues. She says that her breathing has not been a problem lately. She is taking oral uremia from her spout positioner which causes some side effects of nausea. [...] Hospitalization/Major Diagno stic Procedure: Drake Meeks @ [facility] 2018No history * Family History: F [...] ggressive non-smoker S he lives in [facility]. She has been to her , [...] patient * Allergies: B eta- BlockerLisinoprilStatins SupportAmlodipine OlxpxzewOjrtgaiteisyhiQhogxzg92 Hour DecongestantSulfacetamideLatexno[Allergies Verified] Objective: * Vitals: H [...] 08/23/2024 Generated for Luann garcia/Addie/Ignacioitting on: 0 02/20/2025 11:46 AM EDT History and Physical Notes * [...]
--- OUTSIDE RECORDS SUMMARY | 2024-10-15 06:28 | XMS_ITS ---
Author Organization Jose Pozo III, MD Address [address] [place] [address] Care Team Providers Care 8Th Grade Mathematics Teacher Name Role Phone Jose Pozo Primary Care Provider [phone] REASON FOR VISIT Regarding Vaccine Social History Sex Assigned At : Social History Observation Description Sex Assigned At Female Encounters Encounter Location Date Provider Diagnosis Jose Pozo III, MD [address] [place] [address] [place] [address] 10/15/2024 Jose Pozo Plan Of Treatment Next Appt Details Provider Name:Jose Pozo, 03/12/2025 11:00:00 AM, [address] [place] [address] [place], [place], [address], Progress Notes * Charlie BAGLEYDOB:[birth year] (79 yo F)Acc No.[id number]:10/15/2024 Patient: Charlie MEEKS Ann :1945 A ge:79 Y S ex:Female Address:[address] [place] [address] [place], [address] * true * Date: Generated for Printi ng/Faxing/eTransmitting on: 0 02/20/2025 11:46 AM EDT
--- OUTSIDE RECORDS SUMMARY | 2024-10-26 07:41 | XMS_ITS ---
Author Organization Jose Pozo III, MD Address [address] [facility] [place] [address] Care Team Providers Care Condenser Operator Name Role Phone Jose Pozo Primary Care Provider REASON FOR VISIT Rx Request Social History Sex Assigned At : Social History Observation Description Sex Assigned At Female Encounters Encounter Location Date Provider Diagnosis Jose Pozo III, MD [address] [place] [address] [place] [address] 10/26/2024 Jose Pozo Plan Of Treatment Next Appt Details Provider Name:Jose Pozo, 03/12/2025 11:00:00 AM, [address] [place] [address] [place], [place], [address], Progress Notes * Charlie BAGLEYDOB:[birth year] (79 yo F)Acc No.[id number]:10/26/2024 Patient: Ozzy LAU Charlie Martinez :1945 A ge:79 Y S ex:Female Address:[address] [place] [address] [place], [address] * true * Date: Generated for Printi ng/Faxing/eTransmitting on: 0 02/20/2025 11:47 AM EDT
--- OUTSIDE RECORDS SUMMARY | 2024-10-26 09:38 | XMS_ITS ---
Author Organization Jose Pozo III, MD Address [address] [facility] [facility] [address] Care Team Providers Care Contract Officer Name Role Phone Jose Pozo Primary Care Provider [phone] Medications Medication SIG (Take, Route, Frequency, Duration) Notes Start Date End Date Status Albuterol Sulfate HFA 108 (90 Base) MCG/ACT 1 puff as needed Inhalation every 4 hrs for 28 days 10/26/2024 Active Social History Sex Assigned At : Social History Observation Description Sex Assigned At Female Encounters Encounter Location Date Provider Diagnosis Jose Pozo III, MD [address] [place] [address] [place] [address] 10/26/2024 Jose Pozo Plan Of Treatment Medication Medication Name Sig Start Date Stop Date Notes Albuterol Sulfate HFA 108 (9 0 Base) MCG/ACT 1 puff as needed Inhalation every 4 hrs for 28 days 10/26/2024 Next Appt Details Provider Name:Jose Pozo, 03/12/2025 11:00:00 AM, [address] [place] [address] KET[address] [place], [place], [address], Progress Notes * Charlie BAGLEYDOB:[birth year] (79 yo F)Acc No.[id number]:10/26/2024 Patient: Ozzy LAU Charlie Martinez :1945 A ge:79 Y S ex:Female Address:[address] [place] [address], [address] * Refills Start Albuterol Sulfate HFA Aerosol Solution, 108 (90 Base) MCG/ACT, Inhalation, 1, 1 puff as needed, every 4 hrs, 28 days, Refills=11 * true * Date: Generated for Luann garcia/Adide/Ignacioitting on: 0 02/20/2025 11:46 AM EDT
--- OUTSIDE RECORDS SUMMARY | 2024-12-27 07:15 | XMS_ITS ---
Author Organization Jose Pozo III, MD Address [address] [place] [address] Care Team Providers Care Linseed Oil Refiner Name Role Phone Jose Pozo Primary Care [...] Date Provider Diagnosis Jose Pozo III, MD [address] [place] [address] [place] [address] 12/27/2024 Jose Pozo Chronic obstructive pulmonary disease, [...] eyes (ICD-10 - H25.093) She has an hide buyer and she sees regularly. 12/27/2024 Essential hypertension [...] Scheduled, Snow son: Annual Exam Provider Name:Jose Pozo, 03/12/2025 11:00:00 AM, [address] [place] [address] DR, [address] [address], [place], [address], Progress Notes * Charlie BAGLEY AnnDOB:[birth year] (79 yo F)Acc No.[id number]:12/27/2024 Progress Notes Patient: Charlie MEEKS Provider: Arabella Pozo MD :1945 A ge:79 Y S ex:Female Date:12/27/2024 Address:[address] [place], [place] [id number] Subjective: * Chief Complaints: * C OPDCardiomyopathyHypertensionHypothyroidismRetinopathyAsthmaChronic kidney diseaseHyperlipidemiaPain and swelling right calf * HPI: C OVID-19 Screening: . She returns for a routine scheduled visit for medical management. Her COPD has been in active. She is breathing comfortably on room air today. She saw her hide buyer recently and was given a one-year follow-up [...] Hospitalization/Major Diagno stic Procedure: Drake Meeks @ [facility] 2018No history * Family History: F [...] A ggressive non-smoker S he lives in [facility]. She has been to her , [...] patient * Allergies: B eta- BlockerLisinoprilStatins SupportAmlodipine NmcaispuKwcgipnodbgewfZyprutp43 Hour DecongestantSulfacetamideLatexno[Allergies Verified] Objective: * Vitals: H [...] * Lab:Vince haley Fast * Collection Date 12/19/2024 2024 02/28/2024 [...] cyanosis or edema, Mild edema right leg mcc up to the knee with pain to [...] - H25.093 N otes :She has an hide buyer and she sees regularly. 4 . E [...] 12/27/2024 Generated for Luann garcia/Addie/eTransmitting on: 0 02/20/2025 11:47 AM EDT History and Physical Notes * [...] cyanosis or edema, Mild edema right leg mcc up to the knee with pain to compression of the gastrocnemius muscle. LYMPH NODES: no enlarged lymph no roverto,spleen normal RECTAL EXAM: not examined PSYCH: alert, oriented ORAL CAVITY: normal, unremarkable
[2025-02-20 10:08] VITALS: BP 132/64; PULSE 65; O2SAT 91; BMI 18.1
--- NOTE | 2025-02-20 10:08 | A.OFFVIS_ITS ---
Vital Signs 02/20/25 10:08 Height 5 ft 2 in Weight 99 lb BMI 18.1 BP 132/64 Blood Pressure Location Lt brachial Position Sitting Pulse 65 Pulse Source Pulse Oximeter Pulse Oximetry (%) 91 L Oxygen Delivery Method Room Air Intake Visit Reasons: copd Intake Note: Patient is here for a follow up on COPD, no new symptoms Allergies Beta-Blockers (Beta-Adrenergic Bloc Allergy (Intermediate, Verified 02/20/25 10:27) Swelling latex (LATEX) Allergy (Intermediate, Verified 02/20/25 10:27) RASH lisinopril (LISINOPRIL) Allergy (Intermediate, Verified 02/20/25 10:27) Cough Jxxzrus-AWZ-WyA Reductase Inhibitor (IDXHGGZ-KFF-QXP REDUCTASE INHIBITOR) Allergy (Intermediate, Verified 02/20/25 10:27) NAUSEA, LOSS OF APPETITE, GENERALIZED ILL FEELING Sulfa (Sulfonamide Antibiotics) (SULFA (SULFONAMIDE ANTIBIOTICS)) Allergy (Intermediate, Verified 02/20/25 10:27) Rash amlodipine (AMLODIPINE) Allergy (Mild, Verified 02/20/25 10:27) Rash spironolactone (SPIRONOLACTONE) Allergy (Unknown, Verified 02/20/25 10:27) UNKNOWN lactose (LACTOSE) Adverse Reaction (Mild, Verified 02/20/25 10:27) STOMACH UPSET Medication List - Last Reconciled 02/20/25 by Eliecer Garces MD albuterol sulfate 90 mcg/actuation (ProAir HFA) 2 puffs inhalation Q4-6H PRN albuterol sulfate 2.5 mg (3 mL) inhalation Q4H PRN Breo Ellipta 100-25 mcg/dose (fluticasone furoate-vilanterol) 1 ea PO DAILY NS carvedilol 12.5 mg PO BID cetirizine 5 mg PO DAILY PRN levothyroxine 100 mcg PO DAILY prednisone 5 mg PO DIRECTED urea (Ure-Na) 1 packet PO DAILY Do you need a note to return to daycare/school/sports/work: No HPI HPI copd: Details: Dasha is a very pleasant 79 years old female, with somewhat anxious personality. Has mild to moderate chronic obstructive pulmonary disease, which is now remaining well controlled. Luckily she has had no acute exacerbation in the last 6 months. She attributes this to staying home most of the time and avoiding exposure to smoke dust or fumes. Life at home is somewhat stressful because she has to take care of her who has developed dementia. She continues to use Breo 1 inhalation daily and stays on prednisone 5 mg daily( as has been noted before she insists on taking prednisone ) She is fully aware of side effects from continued use of prednisone. 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 Mother No problems noted. Social History Alcohol intake: never Patient Tobacco Use Status: Former Tobacco user Tobacco use type: Cigarette Cigarette Packs Per Day: 0.5 Years Smoked: Quit 20 years ago. Review of Systems Const All systems reviewed & are unremarkable except as noted in HPI and below Eyes Reports no additional complaints ENT Reports no additional complaints Card Denies chest pain, Denies irregular heart rhythm and Denies leg edema Resp Reports as per HPI GI Reports no additional complaints Reports no additional complaints Musc Reports no additional complaints Skin/Breast Reports system reviewed and no additional complaints, except as documented Neuro Reports no additional complaints Psych Reports no additional complaints and Denies anxiety (SINCE HER PULMONARY AND RENAL STATUS HAS BEEN STABLE , ANXIETY IS RESOLVED) Physical Exam Vital Signs: Last Vital Signs Pulse 65 02/20/25 10:08 BP 132/64 02/20/25 10:08 Pulse Ox 91 L 02/20/25 10:08 Oxygen Delivery Method Room Air 02/20/25 10:08 BMI result Body Mass Index 18.1 Const General: healthy appearing, comfortable, no acute distress, alert and awake Orientation/consciousness: patient oriented x3 HEENT Head: Yes normal to inspection General nose exam: No nasal polyps present and No nasal discharge present Face and sinus: Yes sinuses nontender Mouth: oropharynx normal Throat: Yes posterior oropharynx normal Eyes General: appearance normal, both eyes and all related structures Neck Neck: Yes normal visual inspection, Yes no lymphadenopathy, Yes trachea midline and Yes no JVD Thyroid: Thyroid normal Chest Chest palpation & inspection: normal inspection of the chest, normal palpation of entire chest wall and no tenderness Resp Other: PERCUSSION NOTE HYPER-RESONANT SHE HAS GOOD BREATH SOUNDS ON BOTH SIDES WITH SLIGHTLY PROLONGED EXPIRATORY PHASE. SHE DOES have a few very fine expiratory wheezes over the lower lobes. Cardio Palpation: normal PMI Rate: regular rate Rhythm: regular rhythm Heart sounds: no gallops and no murmurs Peripheral pulses: Peripheral pulses 2+ throughout GI Palpation (GI): Soft to palpation, nontender, No hepatosplenomegaly present, no masses and Other GI palpation findings present (She has bulging of the mid abdomen, due to ventral herniation.) Auscultation: normal bowel sounds Back/Spine/Pelvis Thoracic/Lumbar Spine: thoracic and lumbar spine normal to inspection Skin General skin exam: no rashes or lesions noted Neuro General: patient oriented x3 and no focal motor deficits Cranial nerves: Yes CN's II-XII intact bilaterally Extrem General: Yes normal to inspection, Yes no clubbing, cyanosis or edema and Yes no calf tenderness Psych Appearance: grossly normal and well kempt Speech and movement: Normal speech and movement present Assessment & Plan Assessment & Plan (1) COPD (chronic obstructive pulmonary disease): Comment: PATIENT HAS MILD TO MODERATE DEGREE OF OBSTRUCTIVE AIRWAY DISORDER WITH REACTIVE AIRWAYS. CONTROLLED WITH THE CURRENT REGIMEN. Code(s): J44.9 - Chronic obstructive pulmonary disease, unspecified Category: Medical Plan: Prednisone 5 mg daily Breo 100-251 inhalation daily Albuterol HFA 2 puffs Q 4-6 hours p.r.n. (2) Hypersensitivity disorder: Comment: SHE HAS HYPERSENSITIVE UPPER AIRWAYS, CONTROLLED WITH TAKING PREDNISONE , 5 mg IN AM , * NOTED IN PREVIOUS NOTES PATIENT IS PSYCHOLOGICALLY DEPENDENT ON PREDNISONE. Pros and cons of long-term use of prednisone have been discussed with the patient. Code(s): T78.40XA - Allergy, unspecified, initial encounter Category: Medical Plan: Continue same medications (3) Anxiety: Comment: SHE HAS ANXIOUS PERSONALITY BUT DOING BETTER , AND IS NOT REQUIRING ANXIOLYTIC MEDS. Code(s): F41.9 - Anxiety disorder, unspecified Category: Medical Plan: Had a good positive talk and she is in good spirit . Coding Level of Care Code Est Pt Level 3 (65755) Diagnoses COPD (chronic obstructive pulmonary disease) J44.9 Hypersensitivity disorder T78.40XA Anxiety F41.9
--- OUTSIDE RECORDS SUMMARY | 2025-02-20 11:46 | XMS_ITS | Clinical Summary ---
Author Organization [facility] Address [address] [facility] [address] [facility] [address] [place] [address] Phone Care Team Providers Care High School Social Studies Teacher Name Role Phone Jose Pozo MD Primary Care Provider [phone] Allergies Active Allergy Reactions Criticality Noted Date [...] patient's age to complete this topic Insurance [place] Medicare [place] Medicare Care Teams High School Social Studies Teacher Relationship Specialty Start Date End Date Jose Pozo MD [address] [place] [address] [address] [place], [place] PCP - General Medical Oncology 10/09/20
--- OUTSIDE RECORDS SUMMARY | 2025-02-20 11:47 | XMS_ITS | Patient Health Record ---
Author Organization Jose Pozo III, MD Address [address] [place] [address] Care Team Providers Care Parts Department Supervisor Name Role Phone Jose Pozo Primary Care Provider [phone] Allergies Allergen (clinical drug ingredient) Drug/Non Drug [...] ctive Results Component Value Reference Range Notes Complete Blood Count Auto Di ff Reviewed date:02/29/2024 06:51:20 AM Interpretation: Performing Lab:[facility], [address] [place] [phone] Notes/Report: White Blood Count 7.6 4.8-10.8 X10*3/uL [...] NRBC Abs Auto 0.000 0.0-0.012 X10*3/uL Comprehensive [place]. Panel Fa st Reviewed date:02/29/2024 06:51:20 AM Interpretation: Performing Lab:[facility], [address] [place] [phone] Notes/Report: Sodium 139 135-145 mmol/L Potassium 4.8 3.3-5.1 mmol/L Chloride 106 96-108 mmol/L Carbon Dioxide 29 22-29 mmol/L Anion Gap 9 12-20 Blood Urea Nitrogen 48 9-16 mg/dL Creatinine 1.17 0.5-1.4 mg/dL Estimated Glomerular Filt Rate 45 NOTE: For -Mosotho individuals, multiply the result by 1.210. Chronic [...] Panel Reviewed date:02/29/2024 06:51:20 AM Interpretation: Performing Lab:[facility], [address] [place] [phone] Notes/Report: Triglycerides 66 <150 mg/dL Desirable Triglyceride: [...] Thyroxine) Reviewed date:02/29/2024 06:51:20 AM Interpretation: Performing Lab:[facility], [address] [place] [phone] Notes/Report: Free T4 (Free Thyroxine) 1.18 0.71-1.85 ng/dL Thyroid Stimulating Hormone Reviewed date:02/29/2024 06:51:20 AM Interpretation: Performing Lab:[facility], [address] [place] [phone] Notes/Report: Thyroid Stimulating Hormone 1.43 0.32-4.0 uIU/mL TSH 3rd Generation ([facility]) Basic Metabolic Panel Reviewed date:04/01/2024 07:27:53 AM Interpretation: Performing Lab:[facility], [address] [place] [phone] Notes/Report: Sodium 135 135-145 mmol/L Potassium 4.1 3.3-5.1 mmol/L Chloride 97 96-108 mmol/L Carbon Dioxide 32 22-29 mmol/L Anion Gap 10 12-20 Blood Urea Nitrogen 70 9-16 mg/dL Creatinine 1.21 0.5-1.4 mg/dL Estimated Glomerular Filt Rate 43 NOTE: For -Mosotho individuals, multiply the result by 1.210. Chronic Kidney Disease: Estimated GFR < 60 mL/min/1.73m2 Severe Kidney Disease: Estimated GFR < 15 mL/min/1.73m2 Glucose Random 134 60-115 mg/dL Calcium 9.5 8.4-10.2 mg/dL TSH reflex Free T4 Reviewed date:04/01/2024 07:27:53 AM Interpretation: Performing Lab:[facility], [address] [place] [phone] Notes/Report: TSH reflex Free T4 0.80 0.32-4.0 uIU/mL Basic Metabolic Panel Reviewed date:2024 08:45:16 PM Interpretation: Performing Lab:[facility], [address] [place] [phone] Notes/Report: Sodium 136 135-145 mmol/L Potassium 4.1 [...] ff Reviewed date:2024 08:45:16 PM Interpretation: Performing Lab:[facility], [address] [place] [phone] Notes/Report: White Blood Count 10.2 4.8-10.8 X10*3/uL [...] NRBC Abs Auto 0.000 0.0-0.012 X10*3/uL Comprehensive [place]. Panel Fa st Reviewed date:2024 08:45:16 PM Interpretation: Performing Lab:[facility], [address] [place] [phone] Notes/Report: Sodium 137 135-145 mmol/L Potassium 4.1 [...] Panel Reviewed date:2024 08:45:16 PM Interpretation: Performing Lab:[facility], [address] [place] [phone] Notes/Report: Triglycerides 113 <150 mg/dL Desirable Triglyceride: [...] Thyroxine) Reviewed date:2024 08:45:16 PM Interpretation: Performing Lab:[facility], [address] [place] [phone] Notes/Report: Free T4 (Free Thyroxine) 1.33 0.71-1.85 ng/dL Thyroid Stimulating Hormone Reviewed date:2024 08:45:16 PM Interpretation: Performing Lab:[facility], [address] [place] [phone] Notes/Report: Thyroid Stimulating Hormone 1.25 0.32-4.0 uIU/mL TSH 3rd Generation ([facility]) Comprehensive Met. Panel Reviewed date:12/23/2024 09:40:25 AM Interpretation: Performing Lab:[facility], [address] [place] [phone] Notes/Report: Sodium 135 135-145 mmol/L Potassium 4.9 3.3-5.1 mmol/L Chloride 100 96-108 mmol/L Carbon Dioxide 29 22-29 mmol/L Anion Gap 11 12-20 Blood Urea Nitrogen 69 9-16 mg/dL Creatinine 1.08 0.5-1.4 mg/dL Estimated Glomerular Filt Rate 49 Chronic Kidney Disease: Estimated GFR < 60 mL/min/1.73m2 Severe Kidney Disease: Estimated GFR < 15 mL/min/1.73m2 Glucose Random 80 60-115 mg/dL Calcium 9.4 8.4-10.2 mg/dL Bilirubin Total 0.4 0.0-1.0 mg/dL Aspartate Amino Transferase 29 5-31 U/L Alanine Aminotransferase 23 0-31 U/L Total Protein 8.3 6.5-8.0 g/dL Albumin Level 3.7 3.5-5.0 g/dL Alkaline Phosphatase 47 39-117 U/L TSH reflex Free T4 Reviewed date:12/23/2024 09:40:25 AM Interpretation: Performing Lab:[facility], [address] [place] [phone] Notes/Report: TSH reflex Free T4 0.44 0.32-4.0 uIU/mL Complete Blood Count Auto Di ff Reviewed date:12/23/2024 09:40:24 AM Interpretation: Performing Lab:[facility], [address] [place] [phone] Notes/Report: White Blood Count 8.1 4.8-10.8 X10*3/uL Red Blood Count 4.06 4.20-5.50 X10*6/uL Hemoglobin 13.4 12.0-16.0 g/dl Hematocrit 41.9 37.0-47.0 % Mean Corpuscular Volume 103.2 80.0-98.0 fL Mean Corpuscular Hemoglobin 33.0 27.0-33.0 pg Mean Corpuscular HGB Conc 32.0 31.0-35.0 g/dl Red Cell Distribution Width 13.3 11.0-16.0 % Platelet Count 244 160-400 X10*3/uL Mean Platelet Volume 9.5 9.4-12.3 fL Neutrophils Percent Auto 64.0 45-73 % Imm Gran Pct Auto 0.2 0.0-0.4 % Lymphocytes Percent Auto 23.5 20-40 % Monocytes Percent Auto 11.0 2-11 % Eosinophils Percent Auto 0.4 0-4 % Basophils Percent Auto 0.9 0-2 % NRBC Pct Auto 0.0 0.0-0.2 /100WBC Neutrophils Absolute Auto 5.2 2.0-8.3 x10*3/u L Imm Gran Abs Auto 0.02 0.00-0.03 X10*3/uL Lymphocytes Absolute Auto 1.9 1.2-4.9 X10*3/u L Monocytes Absolute Auto 0.9 0.1-1.2 X10*3/uL Eosinophils Absolute Auto 0.0 0.0-0.4 X10*3/u L Basophils Absolute Auto 0.1 0.0-0.2 X10*3/uL NRBC Abs Auto 0.000 0.0-0.012 X10*3/uL Comprehensive [place]. Panel Fa st Reviewed date:12/23/2024 09:40:24 AM Interpretation: Performing Lab:[facility], [address] [place] [phone] Notes/Report: Sodium 139 135-145 mmol/L Potassium 4.6 3.3-5.1 mmol/L Chloride 105 96-108 mmol/L Carbon Dioxide 31 22-29 mmol/L Anion Gap 8 12-20 Blood Urea Nitrogen 45 9-16 mg/dL Creatinine 1.12 0.5-1.4 mg/dL Estimated Glomerular Filt Rate 47 Chronic Kidney Disease: Estimated GFR < 60 mL/min/1.73m2 Severe Kidney Disease: Estimated GFR < 15 mL/min/1.73m2 Glucose Fasting 84 60-99 mg/dL Calcium 9.1 8.4-10.2 mg/dL Bilirubin Total 0.4 0.0-1.0 mg/dL Aspartate Amino Transferase 28 5-31 U/L Alanine Aminotransferase 22 0-31 U/L Total Protein 7.7 6.5-8.0 g/dL Albumin Level 3.6 3.5-5.0 g/dL Alkaline Phosphatase 50 39-117 U/L Lipid Panel Reviewed date:12/23/2024 09:40:24 AM Interpretation: Performing Lab:[facility], [address] [place] [phone] Notes/Report: Triglycerides 73 <150 mg/dL Desirable Triglyceride: less than 150 mg/dL Borderline High Triglyceride 150-199 mg/dL High Triglyceride: 200-499 mg/dL Very High Triglyceride: greater than or equal to 5OO mg/dL Cholesterol 169 <200 mg/dL Desirable Cholesterol: less than 200 mg/dL Borderline High Cholesterol: 200-239 mg/dL High Cholesterol: greater than 239 mg/dL LDL Cholesterol Calculated 90 <100 mg/dL Desirable LDL: less than 100 mg/dL Near Optimal/Above Optimal LDL: 110-129 mg/dL Borderline High LDL: 130-159 mg/dL High LDL: 160-189 mg/dL Very High LDL: greater than or equal to 190 mg/dL HDL Cholesterol 65 >40 mg/dL Desirable HDL: greater than 40 mg/dL Note: This HDL assay may give artificially low results in patients with liver disease. Free T4 (Free Thyroxine) Reviewed date:12/23/2024 09:40:24 AM Interpretation: Performing Lab:[facility], [address] [place] [phone] Notes/Report: Free T4 (Free Thyroxine) 1.38 0.71-1.85 ng/dL Thyroid Stimulating Hormone Reviewed date:12/23/2024 09:40:24 AM Interpretation: Performing Lab:[facility], [address] [place] [phone] Notes/Report: Thyroid Stimulating Hormone 0.81 0.32-4.0 uIU/mL TSH 3rd Generation ([facility]) US venous duplex LE RT Reviewed date:12/28/2024 11:57:58 AM Interpretation: Performing Lab: Notes/Report: [address] [place] [address] Ultrasound Report Signed Patient: Dasha Rey MR#: [id number] [birth year] : 1945 Acct:[id number] Age/Sex: 79 / F ADM Date: 12/27/24 Loc: .US Attending Dr: Jose Pozo MD Ordering Physician: Jose Pooz MD Date of Service: 12/27/24 Procedure(s): US venous duplex LE RT Accession Number(s): [id number] cc: Jose Pozo MD EXAMINATION: US TRIPLEX LOWER EXTREMITY, RIGHT CLINICAL INFORMATION: Right leg pain and swelling. COMPARISON: No prior. TECHNIQUE: Color-flow triplex imaging with spectral analysis and compression Doppler were performed on the right lower extremity. FINDINGS: Respiratory variation, normal compression and augmented flow are noted throughout the right lower extremity. The visualized common femoral vein, superficial femoral vein, profunda femoral vein, popliteal vein and midcalf peroneal and posterior tibial venous segments show no evidence of deep venous thrombosis. There is no Peña's cyst. US/US venous duplex LE RT IMPRESSION: No evidence of deep venous thrombosis involving the right lower extremity. 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 COMPARISON: No prior. TECHNIQUE: Color-flow triplex imaging with spectral analysis and compression Doppler were perform ed on the right lower extremity. FINDINGS: Respiratory variatio n, normal compression and augmented flow are noted throughout the right lower extremity. The visualized common femoral vein, superficial femoral vein, profunda femoral vein, popliteal vein and midcalf peroneal and posterior tibial venous segments show no evidence of deep francine ous thrombosis. There is no Peña's cyst. US/US venous duplex LE RT IMPRESSION: No evidence of deep venous thrombosis involving the right lower extremity. 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 No Information Medications Medication SIG (Take, Route, Frequency, Duration) Notes Start Date End Date Status Levothyroxine Sodium 100 MCG 1 tablet in the morning on an empty stomach Orally Once a day Active Ventolin HFA 108 (90 Base) MCG/ACT one puff every 4 hours for wheezing Inhalation every 4 hrs for 30 days Active Ure-Na 15 GM as directed Orally Active predniSONE 5 MG 1 tablet Orally Twic e a day Active Breo Ellipta 100-25 MCG/INH 1 puff Inhal ation Once a day Active Albuterol Sulfate HFA 108 (90 Base) MCG/ACT 1 puff as needed Inhalation every 4 hrs 10/26/2024 Active Furosemide 20 MG 1 tablet Orally Once a day 12/22/2022 Active Carvedilol 12.5 MG TAKE 1 TABLET BY TWICE DAILY WITH FOOD Active Immunizations Vaccine Route Administration Date Status [...] Problem Status W/U Status Risk Notes Problem 76075395 Chronic obstructive pulmonary disease, unspecified COPD type (J44.9) Active confirmed Her chronic cou gh from the RSV has resolved and she is breathing comfortably today. Problem 123789466 Acquired hypothyroidism (E03.9) Active confirmed The recent thyroid function tests are in range. No change in her therapy was necessary. Problem 82180904 Essential hypertension (I10) Active confirmed Her blood pressure and vital signs are stable today. No change in her regimen was necessary. Problem 001281037 Macrocytosis (D75.89) Active confirmed Her mean cell volume is stable at 103.4.This value will be followed. No treatment is necessary at this time. Problem 13202289 Hyperlipidemia, unspecified hyperlipidemia type (E78.5) Active confirmed Her lipids are stable. No change in her regimen was necessary. Problem 597573337 Asthma due to environmental allergies (J45.909) Active confirmed She is using he r inhalers appropriately and has had little difficulty with asthma this summer. No change in her regimen was needed. 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 Problem 583904760 Ischemic heart disease (I25.9) Active confirmed She is able to conduct all of the activities of daily life without ischemic pain. She has had no palpitations or syncope. Her regimen was continued. 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 Problem 9061433 Hypertensive retinopathy of both eyes (H35.033) Active confirmed She has had no vision changes. She is able to drive and read. Her blood pressure is well controlled today. Problem 429454869 Chronic kidney disease (CKD) stage G3b/A2, moderately decreased glomerular filtration rate (GFR) between 30-44 mL/min/1.73 square meter and albuminuria creatinine ratio between 30-299 mg/g (N18.32) Active confirmed The BUN is now 69. The creatinine is normal at 1.08. Her GFR has improved to 49. She will continue with nephrology. She is taking Urea. Vital Signs Heart Rate 72 /min 12/27/2024 Temperature 96 degrees Fahrenheit 12/27/2024 Blood pressure diastolic 71 mm Hg 12/27/2024 Height 61 in 12/27/2024 Blood pressure systolic 139 mm Hg 12/27/2024 Weight 96 lbs 12/27/2024 BMI 18.14 kg/m2 12/27/2024 Encounters Encounter Location Date Provider Diagnosis Jose Pozo III, MD [address] [place] [address] [place], [place] [phone] 03/07/2024 Jose Pozo Chronic obstructive pulmonary disease, [...] and Macrocytosis D75.89 Jose Pozo III, MD [address] [place] [address] [place] [address] 03/21/2024 Jose Pozo Chronic obstructive pulmonary disease, unspecified COPD type J44.9 ; Acute right-sided low back pain without sciatica M54.50 and Acquired hypothyroidism E03.9 Jose Pozo III, MD [address] [place] [address] [place] [address] 05/03/2024 Jose Pozo Chronic obstructive pulmonary disease, [...] heart disease I25.9 Jose Pozo III, MD [address] [place] [address] [place] [address] 08/23/2024 Jose Pozo Chronic obstructive pulmonary disease, [...] and Macrocytosis D75.89 Jose Pozo III, MD [address] [place] [address] [place] [phone] 12/27/2024 Jose Pozo Chronic obstructive pulmonary disease, [...] and Macrocytosis D75.89 Jose Pozo III, MD [address] [place] [address] [place] [address] 05/08/2024 Jose Pozo III, MD [address] [place] [address] [place] [address] 10/15/2024 Jose Pozo III, MD [address] [place] [address] [place] [address] 10/26/2024 Jose Pozo III, MD [address] [place] [address] [place] [address] 10/26/2024 Jose Pozo Assessments Encounter Date Diagnosis (ICD Code) Assessment Notes Treat ment Notes Treatment Clinical Notes 03/07/2024 Chronic obstructive pulmonary disease, unspecified COPD type (ICD-10 - J44.9) She is breathing comfortably today. She has seen her child specialist recently. She has oxygen at home which she rarely uses. She has been compliant with her medication. 03/07/2024 Hypertrophic nonobstructive cardiomyopathy (ICD-10 - I42.2) She is breathing comfortably and her lungs are clear. 03/21/2024 Chronic obstructive pulmonary disease, unspecified COPD type (ICD-10 - J44.9) She is breathing comfortably today. She has seen her child specialist recently. She has oxygen at home [...] change in her therapy was necessary. 12/27/2024 Chronic obstructive pulmonary disease, unspecified COPD type (ICD-10 - J44.9) Her chronic cough from the RSV has resolved and she is breathing comfortably today. 12/27/2024 Hypertrophic nonobstructive cardiomyopathy (ICD-10 - I42.2) She is breathing comfortably and her lungs are clear. 03/07/2024 Essential hypertension (ICD-10 - I10) Her [...] change in her regimen was necessary. 12/27/2024 Age-related incipient cataract of both eyes (ICD-10 - H25.093) She has an concrete buster operator and she sees regularly. 03/07/2024 Acquired hypothyroidism (ICD-10 - E03.9) She is euthyroid at this time and no change in her medication was needed. 05/03/2024 Hyperlipidemia, unspecified hyperlipidemia type (ICD-10 - E78.5) Her lipids have been stable. No change in her medication was made today. 08/23/2024 Hyperlipidemia, unspecified hyperlipidemia type (ICD-10 - E78.5) Her lipids are stable. No change in her regimen was necessary. 12/27/2024 Essential hypertension (ICD-10 - I10) Her blood pressure and vital signs are stable today. No change in her regimen was necessary. 03/07/2024 Asthma due to environmental allergies (ICD-10 [...] comfortably and her lungs are clear. 12/27/2024 Acquired hypothyroidism (ICD-10 - E03.9) The recent thyroid function tests are in range. No change in her therapy was necessary. 03/07/2024 Chronic kidney disease (CKD) stage G3b/A2, [...] with nephrology. She is taking Urea. 12/27/2024 Hypertensive retinopathy of both eyes (ICD-10 - H35.033) She has had no vision changes. She is able to drive and read. Her blood pressure is well controlled today. 03/07/2024 Hyperlipidemia, unspecified hyperlipidemia type (ICD-10 - [...] 51 down to 43. She saw her jewelry mechanic recently who discontinued the diuretic. These numbers are going to be repeated in the near future. 08/23/2024 Ischemic heart disease (ICD-10 - I25.9) She is able to conduct all of the activities of daily life without ischemic pain. She has had no palpitations or syncope. Her regimen was continued. 12/27/2024 Asthma due to environmental allergies (ICD-10 [...] No treatment is necessary at this time. 12/27/2024 Chronic kidney disease (CKD) stage G3b/A2, [...] necessary at this time. Plan Of Treatment Pending Test Test Name Order Date PROFILE, FASTING (COMPREHENSIVE METABOLI C) 05/03/2024 PROFILE, FASTING (COMPREHENSIVE METABOLI C) 11/08/2023 PROFILE, FASTING (COMPREHENSIVE METABOLI C) 11/01/2022 PROFILE, FASTING (COMPREHENSIVE METABOLI C) 01/29/2021 PROFILE, FASTING (COMPREHENSIVE METABOLI C) 11/04/2021 PROFILE, FASTING (COMPREHENSIVE METABOLI C) 10/17/2023 PROFILE, FASTING (COMPREHENSIVE METABOLI C) 04/08/2022 PROFILE, FASTING (COMPREHENSIVE METABOLI C) 07/07/2021 PROFILE, FASTING (COMPREHENSIVE METABOLI C) 08/13/2022 PROFILE, FASTING (COMPREHENSIVE METABOLI C) 03/03/2021 PROFILE, FASTING (COMPREHENSIVE METABOLI C) 12/27/2024 PROFILE, FASTING (COMPREHENSIVE METABOLI C) 04/28/2022 PROFILE, FASTING (COMPREHENSIVE METABOLI C) 08/23/2024 PROFILE, RANDOM (COMPREHENSIVE METABOLIC ) 08/04/2022 HEMOGLOBIN A1C (GLYCOHEMOGLOBIN) 021 URIC ACID 01/29/2021 LIPID PANEL 03/03/2021 LIPID PANEL 04/28/2022 LIPID PANEL 11/01/2022 LIPID PANEL 11/04/2021 LIPID PANEL 04/08/2022 LIPID PANEL 01/29/2021 FREE T4 (FT4) 01/29/2021 FREE T4 (FT4) 03/03/2021 FREE T4 (FT4) 04/28/2022 FREE T4 (FT4) 11/01/2022 FREE T4 (FT4) 04/08/2022 TSH (THYROID STIMULATING HORMONE) 2021 TSH (THYROID STIMULATING HORMONE) 2024 TSH (THYROID STIMULATING HORMONE) 2024 TSH (THYROID STIMULATING HORMONE) 2021 TSH (THYROID STIMULATING HORMONE) 2023 TSH (THYROID STIMULATING HORMONE) 2023 TSH (THYROID STIMULATING HORMONE) 2020 TSH (THYROID STIMULATING HORMONE) 2020 TSH (THYROID STIMULATING HORMONE) 2021 TSH (THYROID STIMULATING HORMONE) 2022 TSH (THYROID STIMULATING HORMONE) 2023 B12 08/04/2022 FOLATE 08/04/2022 MICROALBUMIN, RANDOM 01/29/2021 CBC w DIFF 12/27/2024 CBC w DIFF 08/23/2024 CBC w DIFF 04/08/2022 CBC w DIFF 05/03/2024 CBC w DIFF 08/04/2022 CBC w DIFF 11/08/2023 CBC w DIFF 03/03/2021 CBC w DIFF 01/29/2021 CBC w DIFF 04/28/2022 CBC w DIFF 11/04/2021 CBC w DIFF 11/01/2022 CBC w DIFF 07/07/2021 CBC w DIFF 08/13/2022 CLOSTRIDIUM DIFF TOXIN A&B (C DIFF) 07/15 MRI LUMBAR SPINE NO CONTRAST 10/22/2021 US LEG RT VENOUS DOPPLER 12/27/2024 CBC WITH AUTO DIFF 10/17/2023 Lipid Panel 10/17/2023 Lipid Panel 07/07/2021 Lipid Panel 12/27/2024 Lipid Panel 08/23/2024 Lipid Panel 05/03/2024 Lipid Panel 11/08/2023 Free T4 (Free Thyroxine) 10/22/2021 Free T4 (Free Thyroxine) 10/17/2023 Free T4 (Free Thyroxine) 12/27/2024 Free T4 (Free Thyroxine) 08/23/2024 Free T4 (Free Thyroxine) 05/03/2024 Free T4 (Free Thyroxine) 11/08/2023 Next Appt Details Provider Name:Jose Pozo, 03/12/2025 11:00:00 AM, [address] [facility] [address], [place], [address], Insurance Providers Payer Name Payer Address Payer Phone Subscriber Number Group Number Insured Name Patient Relationship to Insured Coverage Start Date Coverage End Date MEDICARE NGS [address] [place] [phone] [id number] Charlie Rey Self - patient is the insured [employer] [address] [address] [place] [address] [id number] Charlie Rey Self - patient is the [...] Reason Date(Month/Year) No history Kidney Jeanna @ [facility] 2018
== END 2025-02-20 10:30 | disposition home or self-care (01) ==
PROVIDERS: PCP Internal Medicine Medical Oncology; Visit Provider Internal Medicine
DX: J44.9 Chronic obstructive pulmonary disease, unspecified (principal); T78.40XA Allergy, unspecified, initial encounter; F41.9 Anxiety disorder, unspecified
CPT/HCPCS: 99213

== ENCOUNTER → 2025-02-20 09:47 | Outpatient (BNVA) | payer MEDICARE, OTHER, SELFPAY | PROVIDERS: PCP Internal Medicine Medical Oncology; Visit Provider Internal Medicine | DX: J44.9 Chronic obstructive pulmonary disease, unspecified (principal); T78.40XA Allergy, unspecified, initial encounter; F41.9 Anxiety disorder, unspecified; Z79.52 Long term (current) use of systemic steroids; Z87.891 Personal history of nicotine dependence | CPT/HCPCS: 99212 ==

== ENCOUNTER 2025-03-06 06:51 | Outpatient (REF) | payer MEDICARE, OTHER, SELFPAY ==
--- OUTSIDE RECORDS SUMMARY | 2024-08-23 06:45 | XMS_ITS ---
Author Organization Jose Pozo III, MD Address [address] [place] [address] Care Team Providers Care Fruit Peeler Name Role Phone Dr. Jose Pozo III [...] Date Provider Diagnosis Jose Pozo III, MD [address] [place] [address] [place] [address] 08/23/2024 Jose Pozo Chronic obstructive pulmonary disease, [...] ov review labs Provider Name:Jose Pozo , 03/12/2025 11:00:00 AM, [address] [place] [address] [address], [place], [address], Progress Notes * Charlie BAGLEYDOB:[birth year] (79 yo F)Acc No.[id number]:08/23/2024 Progress Notes Patient: Charlie MEEKS Provider: Arabella Pozo MD :1945 A ge:79 Y S ex:Female Date:08/23/2024 Address:[address] [place] [address] BERNARDO CRUZ, [id number] Subjective: * Chief Complaints: * C OPDCardiomyopathyHypertensionHypothyroidChronic kidney diseaseAsthmaIschemic heart diseaseMacrocytosis * HPI: C -19 Screening: She comes to the office for routine scheduled visit to manage her numerous medical issues. She says that her breathing has not been a problem lately. She is taking oral uremia from her oven builder which causes some side effects of nausea. [...] history * Hospitalization/Major Diagno stic Procedure: Drake nogueirajen Jeanna @ [facility] 2018No history * Family History: F [...] A ggressive non-smoker S he lives in [facility]. She has been to her , Tucker, [...] patient * Allergies: B eta- BlockerLisinoprilStatins SupportAmlodipine HvsvbuyrMkzhyjpeqjecwmTqpneoy79 Hour DecongestantSulfacetamideLatexno[Allergies Verified] Objective: * Vitals: H [...] 0.000 (Ref Range: 0.0-0.012 X10*3/uL) * Lab:[facility] * Collection Date 2024 02/28/2024 11/01/2023 Collection [...] MD Date: 0 08/23/2024 Generated for Luann garcia/Addie/Ignacioitting on: 0 03/06/2025 06:53 AM EDT History and Physical Notes * HPI [...]
--- OUTSIDE RECORDS SUMMARY | 2024-10-15 06:28 | XMS_ITS ---
Author Organization Jose Pozo III, MD Address [address] [place] [address] [place] [address] Care Team Providers Care Guide Name Role Phone Dr. Jose Pozo III Primary Care Provider REASON FOR VISIT Regarding Vaccine Social History Sex Assigned At : Social History Observation Description Sex Assigned At Female Encounters Encounter Location Date Provider Diagnosis Jose Pozo III, MD [address] [place] [address] [place] [address] 10/15/2024 Jose Pozo Plan Of Treatment Next Appt Details Provider Name:Jose Pozo , 03/12/2025 11:00:00 AM, [address] [place] [address] [place], [place], [address], Progress Notes * Charlie BAGLEYDOB:[birth year] (79 yo F)Acc No.[id number]:10/15/2024 Patient: Ozzy LAU Charlie Martinez :1945 A ge:79 Y S ex:Female Address:[address] [place] [address] [place], [address] * true * Date: Generated for Printi ng/Faxing/eTransmitting on: 0 03/06/2025 06:53 AM EDT
--- OUTSIDE RECORDS SUMMARY | 2024-10-26 07:41 | XMS_ITS ---
Author Organization Jose Pozo III, MD Address [address] [place] [address] [place] [address] Care Team Providers Care Draw Bench Operator Helper Name Role Phone Dr. Jose Pozo III Primary Care Provider REASON FOR VISIT Rx Request Social History Sex Assigned At : Social History Observation Description Sex Assigned At Female Encounters Encounter Location Date Provider Diagnosis Jose Pozo III, MD [address] [place] [address] [place] [address] 10/26/2024 Jose Pozo Plan Of Treatment Next Appt Details Provider Name:Jose Pozo , 03/12/2025 11:00:00 AM, [address] [place] [address] KETUR[address] [place], [place], [address], Progress Notes * Charlie BAGLEYDOB:[birth year] (79 yo F)Acc No.[id number]:10/26/2024 Patient: Ozzy ALEXAVALERIA Charlie Martinez :1945 A ge:79 Y S ex:Female Address:[address] [place] [address] [place], [address] * true * Date: Generated for Printi ng/Faxing/eTransmitting on: 0 03/06/2025 06:54 AM EDT
--- OUTSIDE RECORDS SUMMARY | 2024-10-26 09:38 | XMS_ITS ---
Author Organization Jose Pozo III, MD Address [address] [place] [address] [place] [address] Care Team Providers Care Ballet Master/Mistress Name Role Phone Dr. Jose Pozo III Primary Care Provider [phone] Medications Medication SIG (Take, Route, Frequency, Duration) Notes Start Date End Date Status Albuterol Sulfate HFA 108 (90 Base) MCG/ACT 1 puff as needed Inhalation every 4 hrs for 28 days 10/26/2024 Active Social History Sex Assigned At : Social History Observation Description Sex Assigned At Female Encounters Encounter Location Date Provider Diagnosis Jose Pozo III, MD [address] [place] [address] [place] [address] 10/26/2024 Jose Pozo Plan Of Treatment Medication Medication Name Sig Start Date Stop Date Notes Albuterol Sulfate HFA 108 (9 0 Base) MCG/ACT 1 puff as needed Inhalation every 4 hrs for 28 days 10/26/2024 Next Appt Details Provider Name:Jose Pozo , 03/12/2025 11:00:00 AM, [address] [place] [address] [address]ET[address] [place], [place], [address], Progress Notes * Charlie BAGLEY AnnDOB:[birth year] (79 yo F)Acc No.[id number]:10/26/2024 Patient: Ozzy LAU Charlie Martinez :1945 A ge:79 Y S ex:Female Address:[address] [place] [address], [address] * Refills Start Albuterol Sulfate HFA Aerosol Solution, 108 (90 Base) MCG/ACT, Inhalation, 1, 1 puff as needed, every 4 hrs, 28 days, Refills=11 * true * Date: Generated for Luann garcia/Addie/Ignacioitting on: 0 03/06/2025 06:53 AM EDT
--- OUTSIDE RECORDS SUMMARY | 2024-12-27 07:15 | XMS_ITS ---
Author Organization Jose Pozo III, MD Address [address] [address] Care Team Providers Care Elevator Constructor Helper Name Role Phone Dr. Jose Pozo [...] Provider Diagnosis Jose Pozo III, MD [address] [place] [address] [address], [place] [address] 12/27/2024 Jose Pozo Chronic obstructive pulmonary disease, [...] eyes (ICD-10 - H25.093) She has an panama hat smearer and she sees regularly. 12/27/2024 Essential hypertension [...] Provider Name:Jose Pozo , 03/12/2025 11:00:00 AM, [address] [place] [address] [address] [address], [place], [address], Progress Notes * Charlie BAGLEY AnnDOB:[birth year] (79 yo F)Acc No.[id number]:12/27/2024 Progress Notes Patient: Charlie MEEKS Provider: Arabella Pozo MD :1945 A ge:79 Y S ex:Female Date:12/27/2024 Address:[address] [place] [phone] Subjective: * Chief Complaints: * C OPDCardiomyopathyHypertensionHypothyroidismRetinopathyAsthmaChronic kidney diseaseHyperlipidemiaPain and swelling right calf * HPI: C OVID-19 Screening: . She returns for a routine scheduled visit for medical management. Her COPD has been in active. She is breathing comfortably on room air today. She saw her panama hat smearer recently and was given a one-year follow-up [...] Hospitalization/Major Diagno stic Procedure: Drake Meeks @ [facility] 2018No history * Family History: F [...] A ggressive non-smoker S he lives in [facility]. She has been to her [...] patient * Allergies: B eta- BlockerLisinoprilStatins SupportAmlodipine MghkoceyQmrsnrfvmytynxXpnqwet16 Hour DecongestantSulfacetamideLatexno[Allergies Verified] Objective: * Vitals: H [...] cyanosis or edema, Mild edema right leg chcf up to the knee with pain to [...] - H25.093 N otes :She has an panama hat smearer and she sees regularly. 4 . E [...] 12/27/2024 Generated for Luann garcia/Addie/eTransmitting on: 0 03/06/2025 06:54 AM EDT History and Physical Notes * [...] cyanosis or edema, Mild edema right leg chcf up to the knee with pain to compression of the gastrocnemius muscle. LYMPH NODES: no enlarged lymph no roverto,spleen normal RECTAL EXAM: not examined PSYCH: alert, oriented ORAL CAVITY: normal, unremarkable
--- OUTSIDE RECORDS SUMMARY | 2025-03-06 06:54 | XMS_ITS | Patient Health Record ---
Author Organization Jose Pozo III, MD Address [address] [place] [address] Care Team Providers Care Aircraft Engine Cylinder Mechanic Name Role Phone Dr. Jose Pozo III Primary Care Provider [phone] Allergies Allergen (clinical drug ingredient) Drug/Non Drug [...] ctive Results Component Value Reference Range Notes Basic Metabolic Panel Reviewed date:04/01/2024 07:27:53 AM Interpretation: Performing Lab:[facility], [address] [place] [phone] Notes/Report: Sodium 135 135-145 mmol/L Potassium 4.1 3.3-5.1 mmol/L Chloride 97 96-108 mmol/L Carbon Dioxide 32 22-29 mmol/L Anion Gap 10 12-20 Blood Urea Nitrogen 70 9-16 mg/dL Creatinine 1.21 0.5-1.4 mg/dL Estimated Glomerular Filt Rate 43 NOTE: For -[place] individuals, multiply the result by 1.210. Chronic Kidney Disease: Estimated GFR < 60 mL/min/1.73m2 Severe Kidney Disease: Estimated GFR < 15 mL/min/1.73m2 Glucose Random 134 60-115 mg/dL Calcium 9.5 8.4-10.2 mg/dL TSH reflex Free T4 Reviewed date:04/01/2024 07:27:53 AM Interpretation: Performing Lab:[facility], [address] [place] [phone] Notes/Report: TSH reflex Free T4 0.80 0.32-4.0 uIU/mL Basic Metabolic Panel Reviewed date:2024 08:45:16 PM Interpretation: Performing Lab:[facility], [address] [place] [phone] Notes/Report: Sodium 136 135-145 mmol/L Potassium 4.1 [...] ff Reviewed date:2024 08:45:16 PM Interpretation: Performing Lab:[facility], [address] [place] [phone] Notes/Report: White Blood Count 10.2 4.8-10.8 X10*3/uL [...] NRBC Abs Auto 0.000 0.0-0.012 X10*3/uL Comprehensive [place]. Panel Fa st Reviewed date:2024 08:45:16 PM Interpretation: Performing Lab:[facility], [address] [place] [phone] Notes/Report: Sodium 137 135-145 mmol/L Potassium 4.1 [...] Panel Reviewed date:2024 08:45:16 PM Interpretation: Performing Lab:[facility], [address] [place] [phone] Notes/Report: Triglycerides 113 <150 mg/dL Desirable Triglyceride: [...] Thyroxine) Reviewed date:2024 08:45:16 PM Interpretation: Performing Lab:[facility], [address] [place] [phone] Notes/Report: Free T4 (Free Thyroxine) 1.33 0.71-1.85 ng/dL Thyroid Stimulating Hormone Reviewed date:2024 08:45:16 PM Interpretation: Performing Lab:[facility], [address] [place] [phone] Notes/Report: Thyroid Stimulating Hormone 1.25 0.32-4.0 uIU/mL TSH 3rd Generation ([facility]) Comprehensive Met. Panel Reviewed date:12/23/2024 09:40:25 AM Interpretation: Performing Lab:[facility], [address] [place] [phone] Notes/Report: Sodium 135 135-145 mmol/L Potassium 4.9 [...] T4 Reviewed date:12/23/2024 09:40:25 AM Interpretation: Performing Lab:[facility], [address] [place] [phone] Notes/Report: TSH reflex Free T4 0.44 0.32-4.0 uIU/mL Complete Blood Count Auto Di ff Reviewed date:12/23/2024 09:40:24 AM Interpretation: Performing Lab:[facility], [address] [place] [phone] Notes/Report: White Blood Count 8.1 4.8-10.8 X10*3/uL [...] NRBC Abs Auto 0.000 0.0-0.012 X10*3/uL Comprehensive [place]. Panel Fa st Reviewed date:12/23/2024 09:40:24 AM Interpretation: Performing Lab:[facility], [address] [place] [phone] Notes/Report: Sodium 139 135-145 mmol/L Potassium 4.6 [...] Panel Reviewed date:12/23/2024 09:40:24 AM Interpretation: Performing Lab:[facility], [address] [place] [phone] Notes/Report: Triglycerides 73 <150 mg/dL Desirable Triglyceride: [...] Thyroxine) Reviewed date:12/23/2024 09:40:24 AM Interpretation: Performing Lab:[facility], [address] [place] [phone] Notes/Report: Free T4 (Free Thyroxine) 1.38 0.71-1.85 ng/dL Thyroid Stimulating Hormone Reviewed date:12/23/2024 09:40:24 AM Interpretation: Performing Lab:[facility], [address] [place] [phone] Notes/Report: Thyroid Stimulating Hormone 0.81 0.32-4.0 uIU/mL TSH 3rd Generation ([facility]) US venous duplex LE RT Reviewed date:12/28/2024 11:57:58 AM Interpretation: Performing Lab: Notes/Report: [address] [address] Ultrasound Report Signed Patient: Dasha Rey MR#: [id number] 49 : 1945 Acct:[id number] Age/Sex: 79 / F ADM Date: 12/27/24 Loc: .US Attending Dr: Jose Pozo MD Ordering Physician: Jose Pozo MD Date of Service: 12/27/24 Procedure(s): US venous duplex LE RT Accession Number(s): [id number] cc: Jose Pozo MD EXAMINATION: US TRIPLEX [...] 12/27/24 1206 DD/ 1140 TD/TT: 12/27/24 1150 Boiler/Chiller Technician: [address] [address] Ultrasound Report Signed Patient: Charlie Rey MR#: [id number] [birth year] : 1945 Acct:[id number] Age/Sex: 79 / F ADM Date: 12/27/24 Loc: .US Attending Dr: Jose Pozo MD Ordering Physician: Jose Pozo MD Date of Service: 12/27/24 Procedure(s): US francine ous duplex LE RT Accession Number(s): [id number] cc: Jose Pozo MD EXAMINATION: US TRIPLEX [...] 12/27/24 1206 DD/ 1140 TD/TT: 12/27/24 1150 Boiler/Chiller Technician: Reason For Referral No Information Medications Medication [...] TABLET BY FIDEL TWICE DAILY WITH FOOD Active Immunizations Vaccine [...] Problem Status W/U Status Risk Notes Problem 21857161 Chronic obstructive pulmonary disease, unspecified COPD type (J44.9) Active confirmed Her chronic cou gh from the RSV has resolved and she is breathing comfortably today. Problem 743213986 Acquired hypothyroidism (E03.9) Active confirmed The recent thyroid function tests are in range. No change in her therapy was necessary. Problem 23119821 Essential hypertension (I10) Active confirmed Her blood pressure and vital signs are stable today. No change in her regimen was necessary. Problem 635773849 Macrocytosis (D75.89) Active confirmed Her mean cell volume is stable at 103.4.This value will be followed. No treatment is necessary at this time. Problem 60891331 Hyperlipidemia, unspecified hyperlipidemia type (E78.5) Active confirmed Her lipids are stable. No change in her regimen was necessary. Problem 840562040 Asthma due to environmental allergies (J45.909) Active confirmed She is using he r inhalers appropriately and has had little difficulty with asthma this summer. No change in her regimen was needed. Problem 857671500 Age-related incipient cataract of both eyes (H25.093) Active confirmed She has an electronic component processor and she sees regularly. Problem 011467812 Ischemic heart disease (I25.9) Active confirmed She is able to conduct all of the activities of daily life without ischemic pain. She has had no palpitations or syncope. Her regimen was continued. 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 Problem 2175736 Hypertensive retinopathy of both eyes (H35.033) Active confirmed She has had no vision changes. She is able to drive and read. Her blood pressure is well controlled today. Problem 321576186 Chronic kidney disease (CKD) stage G3b/A2, moderately [...] Encounters Encounter Location Date Provider Diagnosis Jose oPzo III, MD [address] [place] [address] [place] [address] 03/07/2024 Jose Pozo Chronic obstructive pulmonary disease, [...] and Macrocytosis D75.89 Jose Pozo III, MD [address] [place] [address] [place] [address] 03/21/2024 Jose Pozo Chronic obstructive pulmonary disease, unspecified COPD type J44.9 ; Acute right-sided low back pain without sciatica M54.50 and Acquired hypothyroidism E03.9 Jose Pozo III, MD [address] [place] [address] [place] [address] 05/03/2024 Jose Pozo Chronic obstructive pulmonary disease, [...] heart disease I25.9 Jose Pozo III, MD [address] [place] [address] [place] [address] 08/23/2024 Jose Pozo Chronic obstructive pulmonary disease, [...] and Macrocytosis D75.89 Jose Pozo III, MD [address] [place] [address] [place] [address] 12/27/2024 Jose Pozo Chronic obstructive pulmonary disease, [...] and Macrocytosis D75.89 Jose Pozo III, MD [address] [place] [address] [place] [address] 05/08/2024 Jose Pozo III, MD [address] [place] [address] [place] [address] 10/15/2024 Jose Pozo III, MD [address] [place] [address] [place] [address] 10/26/2024 Jose Pozo III, MD [address] [place] [address] [place] [address] 10/26/2024 Jose Pozo Assessments Encounter Date Diagnosis (ICD Code) Assessment Notes Treat ment Notes Treatment Clinical Notes 03/07/2024 Chronic obstructive pulmonary disease, unspecified COPD type (ICD-10 - J44.9) She is breathing comfortably today. She has seen her web content specialist recently. She has oxygen at home which she rarely uses. She has been compliant with her medication. 03/07/2024 Hypertrophic nonobstructive cardiomyopathy (ICD-10 - I42.2) She is breathing comfortably and her lungs are clear. 03/21/2024 Chronic obstructive pulmonary disease, unspecified COPD type (ICD-10 - J44.9) She is breathing comfortably today. She has seen her web content specialist recently. She has oxygen at home [...] eyes (ICD-10 - H25.093) She has an electronic component processor and she sees regularly. 03/07/2024 Acquired hypothyroidism [...] 51 down to 43. She saw her per assessment nurse recently who discontinued the diuretic. These numbers [...] Order Date PROFILE, FASTING (COMPREHENSIVE METABOLI C) 11/08/2023 PROFILE, FASTING (COMPREHENSIVE METABOLI C) 11/01/2022 PROFILE, FASTING (COMPREHENSIVE METABOLI C) 01/29/2021 PROFILE, FASTING (COMPREHENSIVE METABOLI C) 11/04/2021 PROFILE, FASTING (COMPREHENSIVE METABOLI C) 10/17/2023 PROFILE, FASTING (COMPREHENSIVE METABOLI C) 04/08/2022 PROFILE, FASTING (COMPREHENSIVE METABOLI C) 08/13/2022 PROFILE, FASTING (COMPREHENSIVE METABOLI C) 07/07/2021 PROFILE, FASTING (COMPREHENSIVE METABOLI C) 03/03/2021 PROFILE, FASTING (COMPREHENSIVE METABOLI C) 12/27/2024 PROFILE, FASTING (COMPREHENSIVE METABOLI C) 04/28/2022 PROFILE, FASTING (COMPREHENSIVE METABOLI C) 08/23/2024 PROFILE, FASTING (COMPREHENSIVE METABOLI C) 05/03/2024 PROFILE, RANDOM (COMPREHENSIVE METABOLIC ) 08/04/2022 HEMOGLOBIN A1C (GLYCOHEMOGLOBIN) 021 URIC ACID 01/29/2021 LIPID PANEL 04/28/2022 LIPID PANEL 11/01/2022 LIPID PANEL 11/04/2021 LIPID PANEL 04/08/2022 LIPID PANEL 01/29/2021 LIPID PANEL 03/03/2021 FREE T4 (FT4) 01/29/2021 FREE T4 (FT4) 03/03/2021 FREE T4 (FT4) 04/28/2022 FREE T4 (FT4) 11/01/2022 FREE T4 (FT4) 04/08/2022 TSH (THYROID STIMULATING HORMONE) 2024 TSH (THYROID STIMULATING HORMONE) 2024 TSH (THYROID STIMULATING HORMONE) 2021 TSH (THYROID STIMULATING HORMONE) 2023 TSH (THYROID STIMULATING HORMONE) 2023 TSH (THYROID STIMULATING HORMONE) 2020 TSH (THYROID STIMULATING HORMONE) 2020 TSH (THYROID STIMULATING HORMONE) 2021 TSH (THYROID STIMULATING HORMONE) 2022 TSH (THYROID STIMULATING HORMONE) 2023 TSH (THYROID STIMULATING HORMONE) 2021 B12 08/04/2022 FOLATE 08/04/2022 MICROALBUMIN, RANDOM 01/29/2021 CBC w DIFF 12/27/2024 CBC w DIFF 08/23/2024 CBC w DIFF 04/08/2022 CBC w DIFF 08/04/2022 CBC w DIFF 05/03/2024 CBC w DIFF 11/08/2023 CBC w DIFF 03/03/2021 CBC w DIFF 04/28/2022 CBC w DIFF 01/29/2021 CBC w DIFF 11/04/2021 CBC w DIFF 11/01/2022 CBC w DIFF 08/13/2022 CBC w DIFF 07/07/2021 CLOSTRIDIUM DIFF TOXIN A&B (C DIFF) 07/15 [...] Thyroxine) 11/08/2023 Next Appt Details Provider Name:Jose Kcne , 03/12/2025 11:00:00 AM, [address] [place] [address] [address] [place] [address], [place], [address], Insurance Providers Payer Name Payer Address Payer Phone Subscriber Number Group Number Insured Name Patient Relationship to Insured Coverage Start Date Coverage End Date MEDICARE NGS [address] [place] [phone] [id number] Charlie Rey Self - patient is the insured [facility] [address] [address] [place] [phone] [id number] Charlie Rey Self - patient is the [...] Reason Date(Month/Year) No history Kidney Jeanna @ [place] [address]
--- OUTSIDE RECORDS SUMMARY | 2025-03-06 06:54 | XMS_ITS | Clinical Summary ---
Author Organization [facility] Address [address] [place] [address] Phone Care Team Providers Care Wet Washer Machine Name Role Phone Jose Pozo MD Primary Care Provider [phone] Allergies Active Allergy Reactions Criticality Noted Date [...] patient's age to complete this topic Insurance [employer] Care Teams Wet Washer Machine Relationship Specialty Start Date End Date Jose Pozo MD [address] [place] [address] [id number] [place], [place] PCP - General Medical Oncology 10/09/20
[2025-03-06 10:34] LABS: MANUAL DIFF FLAG NO
[2025-03-06 10:39] LABS: Hematocrit 40.4 % (37.0-47.0); Hemoglobin 13.2 g/dl (12.0-16.0); Imm Gran Abs Auto 0.04 X10*3/uL (0.00-0.03); Imm Gran Pct Auto 0.4 % (0.0-0.4); Lymphocytes Absolute Auto 1.8 X10*3/uL (1.2-4.9); Mean Corpuscular HGB Conc 32.7 g/dl (31.0-35.0); Mean Corpuscular Hemoglobin 33.8 pg (27.0-33.0); Mean Corpuscular Volume 103.3 fL (80.0-98.0); NRBC Abs Auto 0.000 X10*3/uL (0.0-0.012); NRBC Pct Auto 0.0 /100WBC (0.0-0.2); Platelet Count 215 X10*3/uL (160-400); Red Blood Count 3.91 X10*6/uL (4.20-5.50); White Blood Count 9.1 X10*3/uL (4.8-10.8)
[2025-03-06 11:33] LABS: Alanine Aminotransferase 22 U/L (0-31); Albumin Level 3.5 g/dL (3.5-5.0); Alkaline Phosphatase 41 U/L (39-117); Anion Gap 8 (12-20); Aspartate Amino Transferase 29 U/L (5-31); Blood Urea Nitrogen 48 mg/dL (9-16); Calcium 9.3 mg/dL (8.4-10.2); Carbon Dioxide 31 mmol/L (22-29); Chloride 105 mmol/L (96-108); Cholesterol 180 mg/dL (<200); Estimated Glomerular Filt Rate 44; HDL Cholesterol 62 mg/dL (>40); Potassium 4.8 mmol/L (3.3-5.1); Sodium 139 mmol/L (135-145); Total Protein 7.7 g/dL (6.5-8.0); Triglycerides 64 mg/dL (<150)
[2025-03-06 11:37] LABS: Free T4 (Free Thyroxine) 1.20 ng/dL (0.71-1.85); Thyroid Stimulating Hormone 1.20 uIU/mL (0.32-4.0)
== END 2025-03-06 06:52 | disposition home or self-care (01) ==
LOC: HO.HMGCLDS 06:51
PROVIDERS: PCP Internal Medicine Medical Oncology; Referring Provider Internal Medicine Hypertension Specialist; Visit Provider Internal Medicine Medical Oncology
DX: E87.1 Hypo-osmolality and hyponatremia (principal); I10 Essential (primary) hypertension; E78.5 Hyperlipidemia, unspecified; E03.9 Hypothyroidism, unspecified
CPT/HCPCS: 36415; 80053; 80061; 84439; 84443; 85025

== ENCOUNTER 2025-03-07 10:25 | Outpatient (AMB) | payer MEDICARE, OTHER, SELFPAY ==
--- OUTSIDE RECORDS SUMMARY | 2024-08-23 06:45 | XMS_ITS ---
Author Organization Jose Pozo III, MD Address [address] [place] [address] Care Team Providers Care Band Straightener Name Role Phone Dr. Jose Pozo III [...] Date Provider Diagnosis Jose Pozo III, MD [address] [place] [address] [place] [address] 08/23/2024 Jose Pozo Chronic obstructive pulmonary disease, [...] Provider Name:Jose Pozo , 03/12/2025 11:00:00 AM, [address] [place] [address] [address], [place], [address], Progress Notes * Charlie BAGLEYDOB:[birth year] (79 yo F)Acc No.[id number]:08/23/2024 Progress Notes Patient: Charlie MEEKS Provider: Arabella Pozo MD :1945 A ge:79 Y S ex:Female Date:08/23/2024 Address:[address] [place] [address] BERNARDO CRUZ, [id number] Subjective: * Chief Complaints: * C OPDCardiomyopathyHypertensionHypothyroidChronic kidney diseaseAsthmaIschemic heart diseaseMacrocytosis * HPI: C -19 Screening: She comes to the office for routine scheduled visit to manage her numerous medical issues. She says that her breathing has not been a problem lately. She is taking oral uremia from her coin machine servicer repairer which causes some side effects of nausea. [...] Diagno stic Procedure: Drake nogueirajen Jeanna @ [facility] 2018No history * Family History: F [...] ggressive non-smoker S he lives in [facility]. She has been to her , [...] patient * Allergies: B eta- BlockerLisinoprilStatins SupportAmlodipine LwwgrixrRoqpyumoxvfkjeFmyfrqt57 Hour DecongestantSulfacetamideLatexno[Allergies Verified] Objective: * Vitals: H [...] 08/23/2024 Generated for Luann garcia/Addie/Ignacioitting on: 0 03/07/2025 01:06 PM EDT History and Physical Notes * [...]
--- OUTSIDE RECORDS SUMMARY | 2024-10-15 06:28 | XMS_ITS ---
Author Organization Jose Pozo III, MD Address [address] [place] [address] [place] [address] Care Team Providers Care Pollution Control Technician Name Role Phone Dr. Jose Pozo III Primary Care Provider REASON FOR VISIT Regarding Vaccine Social History Sex Assigned At : Social History Observation Description Sex Assigned At Female Encounters Encounter Location Date Provider Diagnosis Jose Pozo III, MD [address] [place] [address] [place] [address] 10/15/2024 Jose Pozo Plan Of Treatment Next Appt Details Provider Name:Jose Pozo , 03/12/2025 11:00:00 AM, [address] [place] [address] [place], [place], [address], Progress Notes * Charlie BAGLEYDOB:[birth year] (79 yo F)Acc No.[id number]:10/15/2024 Patient: zOzy LAU Charlie Martinez :1945 A ge:79 Y S ex:Female Address:[address] [place] [address] [place], [address] * true * Date: Generated for Printi ng/Faxing/eTransmitting on: 0 03/07/2025 01:06 PM EDT
--- OUTSIDE RECORDS SUMMARY | 2024-10-26 07:41 | XMS_ITS ---
Author Organization Jose Pozo III, MD Address [address] [place] [address] [place] [address] Care Team Providers Care Global Lead Name Role Phone Dr. Jose Pozo III Primary Care Provider REASON FOR VISIT Rx Request Social History Sex Assigned At : Social History Observation Description Sex Assigned At Female Encounters Encounter Location Date Provider Diagnosis Jose Pozo III, MD [address] [place] [address] [place] [address] 10/26/2024 Jose Pozo Plan Of Treatment Next Appt Details Provider Name:Jose Pozo , 03/12/2025 11:00:00 AM, [address] [place] [address] [address] [place], [place], [address], Progress Notes * Charlie BAGLEYDOB:[birth year] (79 yo F)Acc No.[id number]:10/26/2024 Patient: Ozzy ALEXAVALERIA Charlie Martinez :1945 A ge:79 Y S ex:Female Address:[address] [place] [address] [place], [address] * true * Date: Generated for Printi ng/Faxing/eTransmitting on: 0 03/07/2025 01:07 PM EDT
--- OUTSIDE RECORDS SUMMARY | 2024-10-26 09:38 | XMS_ITS ---
Author Organization Jose Pozo III, MD Address [address] [place] [address] [place] [address] Care Team Providers Care Funeral Home Makeup Artist Name Role Phone Dr. Jose Pozo III [...] Date Provider Diagnosis Jose Pozo III, MD [address] [place] [address] [place] [address] 10/26/2024 Jose Pozo Plan Of Treatment Medication Medication Name Sig Start Date Stop Date Notes Albuterol Sulfate HFA 108 (9 0 Base) MCG/ACT 1 puff as needed Inhalation every 4 hrs for 28 days 10/26/2024 Next Appt Details Provider Name:Jose Pozo , 03/12/2025 11:00:00 AM, [address] [place] [address] KET[address] [place], [place], [address], Progress Notes * Charlie BAGLEY AnnDOB:[birth year] (79 yo F)Acc No.[id number]:10/26/2024 Patient: Ozzy LAU Charlie Martinez :1945 A ge:79 Y S ex:Female Address:[address] [place] [address], [address] * Refills Start Albuterol Sulfate HFA Aerosol Solution, 108 (90 Base) MCG/ACT, Inhalation, 1, 1 puff as needed, every 4 hrs, 28 days, Refills=11 * true * Date: Generated for Luann garcia/Addie/Ignacioitting on: 0 03/07/2025 01:06 PM EDT
--- OUTSIDE RECORDS SUMMARY | 2024-12-27 07:15 | XMS_ITS ---
Author Organization Jose Pozo III, MD Address [address] [address] Care Team Providers Care Mud Jack Nozzle Worker Name Role Phone Dr. 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 12/27/2024 Essential hypertension [...] son: Annual Exam Provider Name:Jose Pozo , 03/12/2025 11:00:00 AM, [address] [place] [address] [address] [address], [place], [address], Progress Notes * Charlie BAGLEY AnnDOB:[birth year] (79 yo F)Acc No.[id number]:12/27/2024 Progress Notes Patient: Charlie MEEKS Provider: Arabella Pozo MD :1945 A ge:79 Y S ex:Female Date:12/27/2024 Address:[address] [place] [id number] Subjective: * Chief Complaints: * C OPDCardiomyopathyHypertensionHypothyroidismRetinopathyAsthmaChronic kidney diseaseHyperlipidemiaPain and swelling right calf * HPI: C OVID-19 Screening: . She returns for a routine scheduled visit for medical management. Her COPD has been in active. She is breathing comfortably on room air today. She saw her fiberglass boat parts finisher recently and was given a one-year follow-up [...] Hospitalization/Major Diagno stic Procedure: Drake Meeks @ [facility] 2018No history * Family History: F ather: [...] A ggressive non-smoker S he lives in [facility]. She has been to her , [...] patient * Allergies: B eta- BlockerLisinoprilStatins SupportAmlodipine IkxhxjghAmgopkjtjhtypjBftfstn70 Hour DecongestantSulfacetamideLatexno[Allergies Verified] Objective: * Vitals: H [...] Cabrera. Cale l Fast * Collection Date 12/19/2024 2024 02/28/2024 Collection [...] cyanosis or edema, Mild edema right leg care home up to the knee with pain to [...] - H25.093 N otes :She has an fiberglass boat parts finisher and she sees regularly. 4 . E [...] MD Date: 0 12/27/2024 Generated for Luann garcia/Addie/eTransmitting on: 0 03/07/2025 01:07 PM EDT History and Physical Notes * [...] cyanosis or edema, Mild edema right leg care home up to the knee with pain to compression of the gastrocnemius muscle. LYMPH NODES: no enlarged lymph no roverto,spleen normal RECTAL EXAM: not examined PSYCH: alert, oriented ORAL CAVITY: normal, unremarkable
[2025-03-07 10:29] VITALS: BP 130/68; PULSE 67; BMI 17.7
--- NOTE | 2025-03-07 10:29 | MHC.OFFVIS ---
Vital Signs 03/07/25 10:29 Height 5 ft 2 in Weight 97 lb 0.054 oz BMI 17.7 BP 130/68 Blood Pressure Location Lt brachial Position Sitting Pulse 67 Pulse Source Monitor Intake Visit Reasons: 1 yr follow up Allergies Beta-Blockers (Beta-Adrenergic Bloc Allergy (Intermediate, Verified 02/20/25 10:27) Swelling latex (LATEX) Allergy (Intermediate, Verified 02/20/25 10:27) RASH lisinopril (LISINOPRIL) Allergy (Intermediate, Verified 02/20/25 10:27) Cough Qdqugsk-JEX-IcZ Reductase Inhibitor (GVCWVQZ-JXD-SDL REDUCTASE INHIBITOR) Allergy (Intermediate, Verified 02/20/25 10:27) NAUSEA, LOSS OF APPETITE, GENERALIZED ILL FEELING Sulfa (Sulfonamide Antibiotics) (SULFA (SULFONAMIDE ANTIBIOTICS)) Allergy (Intermediate, Verified 02/20/25 10:27) Rash amlodipine (AMLODIPINE) Allergy (Mild, Verified 02/20/25 10:27) Rash spironolactone (SPIRONOLACTONE) Allergy (Unknown, Verified 02/20/25 10:) UNKNOWN lactose (LACTOSE) Adverse Reaction (Mild, Verified 02/20/25 10:27) STOMACH UPSET Medication List - Last Reconciled 03/07/25 by Conner Mcdaniels MD albuterol sulfate 90 mcg/actuation (ProAir HFA) 2 puffs inhalation Q4-6H PRN albuterol sulfate 2.5 mg (3 mL) inhalation Q4H PRN Breo Ellipta 100-25 mcg/dose (fluticasone furoate-vilanterol) 1 ea PO DAILY NS carvedilol 12.5 mg PO BID cetirizine 5 mg PO DAILY PRN levothyroxine 100 mcg PO DAILY prednisone 5 mg PO DIRECTED urea (Ure-Na) 1 packet PO DAILY HPI Comments Details: Karlo returns for follow-up regarding stress-induced cardiomyopathy. To recall, she was admitted in 2018 with symptoms of chest tightness and choking sensation when she had an abnormal EKG and elevated troponins. She underwent diagnostic catheterization that showed nonobstructive diagonal disease, but otherwise unremarkable. Thought to have stress-induced cardiomyopathy. Had one further catheterization for concerning symptoms in 2019, again with similar findings. Overall, she states that she actually feels quite well. She does not have any symptoms like exertional angina or in fact any cardiac symptoms. Over the last year, she states she has been stable. 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 Mother No problems noted. Social History Alcohol intake: never Patient Tobacco Use Status: Former Tobacco user Tobacco use type: Cigarette Cigarette Packs Per Day: 0.5 Years Smoked: Quit 20 years ago. Review of Systems Const Denies weakness ENT Denies dizziness Card Denies chest pain, Denies chest pain with activity, Denies syncope, Denies rapid heart rate, Denies pedal edema, Denies edema, Denies leg edema, Denies lightheadedness, Denies palpitations, Denies dyspnea, Denies dyspnea on exertion and Denies orthopnea Resp Denies cough, Denies dyspnea and Denies dyspnea on exertion GI Denies hematochezia and Denies change in stool character Musc Denies abnormal gait, Denies muscle cramps, Denies muscle weakness, Denies numbness, Denies radiating pain into limb and Denies tingling Neuro Denies abnormal gait, Denies dizziness, Denies syncope, Denies numbness, Denies tingling and Denies weakness Endo Denies palpitations Physical Exam Vital Signs: Last Vital Signs Pulse 67 03/07/25 10:29 BP 130/68 03/07/25 10:29 BMI result Body Mass Index 17.7 Const General: comfortable and no acute distress Orientation/consciousness: patient oriented x3 HEENT Other: Unremarkable Head: Yes normal to inspection Neck Neck: Yes normal visual inspection Chest Chest palpation & inspection: normal inspection of the chest Resp Auscultation: clear to auscultation bilaterally Cardio Palpation: normal PMI Heart sounds: S1 normal heart sound present, S2 normal heart sound present, no gallops, no murmurs and no rubs GI Palpation (GI): Soft to palpation Back/Spine/Pelvis Other: unremarkable Skin General skin exam: no rashes or lesions noted Neuro General: patient oriented x3 Extrem General: Yes normal to inspection Psych Mental Status: mental status grossly normal Office Procedures EKG Details: EKG with underlying sinus rhythm at 67/Min; rightward axis; cannot exclude old anterior infarct but could also be from body habitus; downsloping STs in V5/V6; [place] [address]-Fsvtwjijwhtcretit, Complete Assessment & Plan Assessment & Plan (1) Stress-induced cardiomyopathy: Code(s): I51.81 - Takotsubo syndrome Category: Medical (2) Atherosclerotic cardiovascular disease: Code(s): I25.10 - Atherosclerotic heart disease of ho-chunk coronary artery without angina pectoris Category: Medical (3) Essential hypertension: Code(s): I10 - Essential (primary) hypertension Category: Medical Plan Cardiac studies reviewed. In the last cardiac catheterization, she had 60% ostial diagonal disease but otherwise unremarkable coronaries. Echocardiogram at different times had shown wall motion abnormalities. In June 2018, LVEF 40-45% and LAD wall motion abnormality. In August 2018, LVEF 55-60% and no wall motion abnormalities. In November 2018, LVEF 60-65% and apical akinesis. In March 2019, LVEF 60-65% and no wall motion abnormalities. Overall, wall motion abnormalities at different times that later recovered. Hence suspicion is rather stress-induced cardiomyopathy. She does have some coronary disease but not considered the main culprit. EKG findings in the lateral leads could be related to hypertension versus coronary disease but she has got absolutely no angina. With regard to medications, continue carvedilol. Has side effects with various medications in the past including lisinopril, amlodipine, spironolactone. Hence no further changes. Also statin intolerant. Due to very low body weight, no need for any other cholesterol medications. Doubt she will take it either. If any concerning symptoms, she will contact us. Otherwise, she will follow up in one year. Coding Level of Care Code Est Pt Level 4 (30032) Complex EM visit Add On G2211 Diagnoses Stress-induced cardiomyopathy I51.81 Atherosclerotic cardiovascular disease I25.10 Essential hypertension I10 CPT Codes EKG - CPT: 57842-[id number], Complete ([id number])
--- OUTSIDE RECORDS SUMMARY | 2025-03-07 13:06 | XMS_ITS | Clinical Summary ---
Author Organization [facility] Address [address] [place] [address] Phone Care Team Providers Care Chemistry Instructor Name Role Phone Jose Pozo MD Primary Care Provider [phone] Allergies Active Allergy Reactions Criticality Noted Date [...] patient's age to complete this topic Insurance [place] Care Teams Chemistry Instructor Relationship Specialty Start Date End Date Jose Pozo MD [address] [place] [address] [id number] [place], [place] PCP - General Medical Oncology 10/09/20
--- OUTSIDE RECORDS SUMMARY | 2025-03-07 13:07 | XMS_ITS | Patient Health Record ---
Author Organization Jose Pozo III, MD Address [address] [place] [address] [place] [address] Care Team Providers Care Structural Steel Erection Supervisor Name Role Phone Dr. Jose Pozo III [...] Panel Reviewed date:04/01/2024 07:27:53 AM Interpretation: Performing Lab:[facility], [address] [place] [phone] Notes/Report: Sodium 135 135-145 mmol/L Potassium 4.1 3.3-5.1 mmol/L Chloride 97 96-108 mmol/L Carbon Dioxide 32 22-29 mmol/L Anion Gap 10 12-20 Blood Urea Nitrogen 70 9-16 mg/dL Creatinine 1.21 0.5-1.4 mg/dL Estimated Glomerular Filt Rate 43 NOTE: For -[place] individuals, multiply the result by 1.210. Chronic Kidney Disease: Estimated GFR < 60 mL/min/1.73m2 Severe Kidney Disease: Estimated GFR < 15 mL/min/1.73m2 Glucose Random 134 60-115 mg/dL Calcium 9.5 8.4-10.2 mg/dL TSH reflex Free T4 Reviewed date:04/01/2024 07:27:53 AM Interpretation: Performing Lab:[facility], [address] [place] [phone] Notes/Report: TSH reflex Free T4 0.80 0.32-4.0 uIU/mL Basic Metabolic Panel Reviewed date:2024 08:45:16 PM Interpretation: Performing Lab:[facility], [address] [place] [address] Notes/Report: Sodium 136 135-145 mmol/L Potassium 4.1 [...] ff Reviewed date:2024 08:45:16 PM Interpretation: Performing Lab:[facility], [address] [place] [address] Notes/Report: White Blood Count 10.2 4.8-10.8 X10*3/uL [...] NRBC Abs Auto 0.000 0.0-0.012 X10*3/uL Comprehensive [place]. Panel Fa st Reviewed date:2024 08:45:16 PM Interpretation: Performing Lab:[facility], [address] [place] [phone] Notes/Report: Sodium 137 135-145 mmol/L Potassium 4.1 [...] Panel Reviewed date:2024 08:45:16 PM Interpretation: Performing Lab:[facility], [address] [place] [phone] Notes/Report: Triglycerides 113 <150 mg/dL Desirable Triglyceride: [...] Thyroxine) Reviewed date:2024 08:45:16 PM Interpretation: Performing Lab:[facility], [address] [place] [address] Notes/Report: Free T4 (Free Thyroxine) 1.33 0.71-1.85 ng/dL Thyroid Stimulating Hormone Reviewed date:2024 08:45:16 PM Interpretation: Performing Lab:[facility], [address] [place] [phone] Notes/Report: Thyroid Stimulating Hormone 1.25 0.32-4.0 uIU/mL TSH 3rd Generation ([facility]) Comprehensive Met. Panel Reviewed date:12/23/2024 09:40:25 AM Interpretation: Performing Lab:[facility], [address] [place] [phone] Notes/Report: Sodium 135 135-145 mmol/L Potassium 4.9 [...] T4 Reviewed date:12/23/2024 09:40:25 AM Interpretation: Performing Lab:[facility], [address] [place] [phone] Notes/Report: TSH reflex Free T4 0.44 0.32-4.0 uIU/mL Complete Blood Count Auto Di ff Reviewed date:12/23/2024 09:40:24 AM Interpretation: Performing Lab:[facility], [address] [place] [phone] Notes/Report: White Blood Count 8.1 4.8-10.8 X10*3/uL [...] NRBC Abs Auto 0.000 0.0-0.012 X10*3/uL Comprehensive [place]. Panel Fa st Reviewed date:12/23/2024 09:40:24 AM Interpretation: Performing Lab:[facility], [address] [place] [phone] Notes/Report: Sodium 139 135-145 mmol/L Potassium 4.6 [...] Panel Reviewed date:12/23/2024 09:40:24 AM Interpretation: Performing Lab:[facility], [address] [place] [phone] Notes/Report: Triglycerides 73 <150 mg/dL Desirable Triglyceride: [...] Thyroxine) Reviewed date:12/23/2024 09:40:24 AM Interpretation: Performing Lab:[facility], [address] [place] [phone] Notes/Report: Free T4 (Free Thyroxine) 1.38 0.71-1.85 ng/dL Thyroid Stimulating Hormone Reviewed date:12/23/2024 09:40:24 AM Interpretation: Performing Lab:[facility], [address] [place] [phone] Notes/Report: Thyroid Stimulating Hormone 0.81 0.32-4.0 uIU/mL TSH 3rd Generation ([facility]) US venous duplex LE RT Reviewed date:12/28/2024 11:57:58 AM Interpretation: Performing Lab: Notes/Report: [address] [address] Ultrasound Report Signed Patient: Dasha Rey MR#: [id number] [birth year] : 1945 Acct:[id number] Age/Sex: 79 / F ADM Date: 12/27/24 Loc: .US Attending Dr: Jose Pozo MD Ordering Physician: Jose Pozo MD Date of Service: 12/27/24 Procedure(s): US venous duplex LE RT Accession Number(s): [id number] cc: Jose Pozo MD EXAMINATION: US TRIPLEX [...] 12/27/24 1206 DD/ 1140 TD/TT: 12/27/24 1150 Aircraft Design Engineer: [address] [address] Ultrasound Report Signed Patient: Charlie Rey MR#: [id number] [birth year] : 1945 Acct:[id number] Age/Sex: 79 / F ADM Date: 12/27/24 Loc: .[place] Attending Dr: Jose Pozo MD Ordering Physician: Jose Pozo MD Date of Service: 12/27/24 Procedure(s): US francine ous duplex LE RT Accession Number(s): [id number] cc: Jose Pozo MD EXAMINATION: US TRIPLEX [...] 12/27/24 1206 DD/ 1140 TD/TT: 12/27/24 1150 Aircraft Design Engineer: Complete Blood Count Auto Di ff (Not yet reviewed by provider) Interpretation: Performing Lab:[facility], [address] [place] [phone] Notes/Report: White Blood Count 9.1 4.8-10.8 X10*3/uL Red Blood Count 3.91 4.20-5.50 X10*6/uL Hemoglobin 13.2 12.0-16.0 g/dl Hematocrit 40.4 37.0-47.0 % Mean Corpuscular Volume 103.3 80.0-98.0 fL Mean Corpuscular Hemoglobin 33.8 27.0-33.0 pg Mean Corpuscular HGB Conc 32.7 31.0-35.0 g/dl Red Cell Distribution Width 13.3 11.0-16.0 % Platelet Count 215 160-400 X10*3/uL Mean Platelet Volume 9.7 9.4-12.3 fL Neutrophils Percent Auto 67.6 45-73 % Imm Gran Pct Auto 0.4 0.0-0.4 % Lymphocytes Percent Auto 19.7 20-40 % Monocytes Percent Auto 11.3 2-11 % Eosinophils Percent Auto 0.6 0-4 % Basophils Percent Auto 0.4 0-2 % NRBC Pct Auto 0.0 0.0-0.2 /100WBC Neutrophils Absolute Auto 6.1 2.0-8.3 x10*3/u L Imm Gran Abs Auto 0.04 0.00-0.03 X10*3/uL Lymphocytes Absolute Auto 1.8 1.2-4.9 X10*3/u L Monocytes Absolute Auto 1.0 0.1-1.2 X10*3/uL Eosinophils Absolute Auto 0.1 0.0-0.4 X10*3/u L Basophils Absolute Auto 0.0 0.0-0.2 X10*3/uL NRBC Abs Auto 0.000 0.0-0.012 X10*3/uL Comprehensive [place]. Panel Fa st (Not yet reviewed by provider) Interpretation: Performing Lab:[facility], [address] [place] [phone] Notes/Report: Sodium 139 135-145 mmol/L Potassium 4.8 3.3-5.1 mmol/L Chloride 105 96-108 mmol/L Carbon Dioxide 31 22-29 mmol/L Anion Gap 8 12-20 Blood Urea Nitrogen 48 9-16 mg/dL Creatinine 1.18 0.5-1.4 mg/dL Estimated Glomerular Filt Rate 44 Chronic Kidney Disease: Estimated GFR < 60 mL/min/1.73m2 Severe Kidney Disease: Estimated GFR < 15 mL/min/1.73m2 Glucose Fasting 84 60-99 mg/dL Calcium 9.3 8.4-10.2 mg/dL Bilirubin Total 0.4 0.0-1.0 mg/dL Aspartate Amino Transferase 29 5-31 U/L Alanine Aminotransferase 22 0-31 U/L Total Protein 7.7 6.5-8.0 g/dL Albumin Level 3.5 3.5-5.0 g/dL Alkaline Phosphatase 41 39-117 U/L Lipid Panel (Not yet reviewe d by provider) Interpretation: Performing Lab:[address] [address] Notes/Report: Triglycerides 64 <150 mg/dL Desirable Triglyceride: less than 150 mg/dL Borderline High Triglyceride 150-199 mg/dL High Triglyceride: 200-499 mg/dL Very High Triglyceride: greater than or equal to 5OO mg/dL Cholesterol 180 <200 mg/dL Desirable Cholesterol: less than 200 mg/dL Borderline High Cholesterol: 200-239 mg/dL High Cholesterol: greater than 239 mg/dL LDL Cholesterol Calculated 106 <100 mg/dL Desirable LDL: less than 100 mg/dL Near Optimal/Above Optimal LDL: 110-129 mg/dL Borderline High LDL: 130-159 mg/dL High LDL: 160-189 mg/dL Very High LDL: greater than or equal to 190 mg/dL HDL Cholesterol 62 >40 mg/dL Desirable HDL: greater than 40 mg/dL Note: This HDL assay may give artificially low results in patients with liver disease. Free T4 (Free Thyroxine) (No t yet reviewed by provider) Interpretation: Performing Lab:[address] [address] Notes/Report: Free T4 (Free Thyroxine) 1.20 0.71-1.85 ng/dL Thyroid Stimulating Hormone (Not yet reviewed by provider) Interpretation: Performing Lab:[address] [address] Notes/Report: Thyroid Stimulating Hormone 1.20 0.32-4.0 uIU/mL TSH 3rd Generation ([facility]) Reason For [...] Problem Status W/U Status Risk Notes Problem 08477249 Chronic obstructive pulmonary disease, unspecified COPD type (J44.9) Active confirmed Her chronic cou gh from the RSV has resolved and she is breathing comfortably today. Problem 042009246 Acquired hypothyroidism (E03.9) Active confirmed The recent thyroid function tests are in range. No change in her therapy was necessary. Problem 09596359 Essential hypertension (I10) Active confirmed Her blood pressure and vital signs are stable today. No change in her regimen was necessary. Problem 118765489 Macrocytosis (D75.89) Active confirmed Her mean cell volume is stable at 103.4.This value will be followed. No treatment is necessary at this time. Problem 24966213 Hyperlipidemia, unspecified hyperlipidemia type (E78.5) Active confirmed Her lipids are stable. No change in her regimen was necessary. Problem 799851708 Asthma due to environmental allergies (J45.909) Active confirmed She is using he r inhalers appropriately and has had little difficulty with asthma this summer. No change in her regimen was needed. 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 Problem 111618752 Ischemic heart disease (I25.9) Active confirmed She is able to conduct all of the activities of daily life without ischemic pain. She has had no palpitations or syncope. Her regimen was continued. 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 Problem 7570613 Hypertensive retinopathy of both eyes (H35.033) Active confirmed She has had no vision changes. She is able to drive and read. Her blood pressure is well controlled today. Problem 272198295 Chronic kidney disease (CKD) stage G3b/A2, moderately [...] Date Provider Diagnosis Jose Pozo III, MD [address] [place] [address] [place] [address] 03/07/2024 Jose Pozo Chronic obstructive pulmonary disease, [...] and Macrocytosis D75.89 Jose Pozo III, MD [address] [place] [address] [place] [address] 03/21/2024 Jose Pozo Chronic obstructive pulmonary disease, unspecified COPD type J44.9 ; Acute right-sided low back pain without sciatica M54.50 and Acquired hypothyroidism E03.9 Jose Pozo III, MD [address] [place] [address] [place] [address] 05/03/2024 Jose Pozo Chronic obstructive pulmonary disease, [...] heart disease I25.9 Jose Pozo III, MD [address] [place] [address] [place] [address] 08/23/2024 Jose Pozo Chronic obstructive pulmonary disease, [...] and Macrocytosis D75.89 Jose Pozo III, MD [address] [place] [address] [place] [address] 12/27/2024 Jose Pozo Chronic obstructive pulmonary disease, [...] and Macrocytosis D75.89 Jose Pozo III, MD [address] [place] [address] [address] [place] [address] 05/08/2024 Jose Pozo III, MD [address] [place] [address] [address] [place] [address] 10/15/2024 Jose Pozo III, MD [address] [place] [address] [place] [address] 10/26/2024 Jose Pozo III, MD [address] [place] [address] [address] [place] [address] 10/26/2024 Jose Pozo Assessments Encounter Date Diagnosis (ICD Code) Assessment Notes Treat ment Notes Treatment Clinical Notes 03/07/2024 Chronic obstructive pulmonary disease, unspecified COPD type (ICD-10 - J44.9) She is breathing comfortably today. She has seen her medicaid specialist recently. She has oxygen at home which she rarely uses. She has been compliant with her medication. 03/07/2024 Hypertrophic nonobstructive cardiomyopathy (ICD-10 - I42.2) She is breathing comfortably and her lungs are clear. 03/21/2024 Chronic obstructive pulmonary disease, unspecified COPD type (ICD-10 - J44.9) She is breathing comfortably today. She has seen her medicaid specialist recently. She has oxygen at home [...] eyes (ICD-10 - H25.093) She has an aerospace mechanic and she sees regularly. 03/07/2024 Acquired hypothyroidism [...] 51 down to 43. She saw her electrical installer recently who discontinued the diuretic. These numbers [...] HORMONE) 2023 TSH (THYROID STIMULATING HORMONE) 2021 TSH (THYROID STIMULATING HORMONE) 2024 B12 08/04/2022 FOLATE 08/04/2022 MICROALBUMIN, RANDOM 01/29/2021 [...] DOPPLER 12/27/2024 CBC WITH AUTO DIFF 10/17/2023 Complete Blood Count Auto Diff Comprehensive [place]. Panel Fast Lipid Panel 07/07/2021 Lipid Panel 12/27/2024 Lipid Panel 08/23/2024 Lipid Panel 05/03/2024 Lipid Panel 11/08/2023 Lipid Panel 03/06/2025 Lipid Panel 10/17/2023 Free T4 (Free Thyroxine) 10/22/2021 Free T4 (Free Thyroxine) 10/17/2023 Free T4 (Free Thyroxine) 12/27/2024 Free T4 (Free Thyroxine) 08/23/2024 Free T4 (Free Thyroxine) 05/03/2024 Free T4 (Free Thyroxine) 11/08/2023 Free T4 (Free Thyroxine) 03/06/2025 Thyroid Stimulating Hormone 03/06/2025 Next Appt Details Provider Name:Jose Pozo , 03/12/2025 11:00:00 AM, [address]ETUR[address] Carlos, [place], [address], Insurance Providers Payer Name Payer Address Payer Phone Subscriber Number Group Number Insured Name Patient Relationship to Insured Coverage Start Date Coverage End Date MEDICARE NGS [address] [place] [phone] [id number] Charlie Rey Self - patient is the insured [employer] [address] [address] [place] [address] [id number] Charlie Rey Self - patient is the [...] Reason Date(Month/Year) No history Kidney Jeanna @ [facility] 2018
== END 2025-03-07 10:59 | disposition home or self-care (01) ==
LOC: HO.HCS 10:26
PROVIDERS: PCP Internal Medicine Medical Oncology; Visit Provider Internal Medicine
DX: I51.81 Takotsubo syndrome (principal); I25.10 Atherosclerotic heart disease of native coronary artery without angina pectoris; I10 Essential (primary) hypertension
CPT/HCPCS: 93010; 99214; G2211

== ENCOUNTER → 2025-03-07 10:25 | Outpatient (BNVA) | payer MEDICARE, OTHER, SELFPAY | PROVIDERS: PCP Internal Medicine Medical Oncology; Visit Provider Internal Medicine | DX: I51.81 Takotsubo syndrome (principal); I25.10 Atherosclerotic heart disease of native coronary artery without angina pectoris; I10 Essential (primary) hypertension; Z87.891 Personal history of nicotine dependence | CPT/HCPCS: 93005; 99212 ==

== ENCOUNTER 2025-03-14 09:46 | Outpatient (AMB) | payer MEDICARE, OTHER, SELFPAY ==
--- OUTSIDE RECORDS SUMMARY | 2024-10-15 06:28 | XMS_ITS ---
Author Organization Jose Pozo III, MD Address [address] [facility] [address] Care Team Providers Care Presser Automatic Name Role Phone Dr. Jose Pozo III Primary Care Provider REASON FOR VISIT Regarding Vaccine Social History Sex Assigned At : Social History Observation Description Sex Assigned At Female Encounters Encounter Location Date Provider Diagnosis Jose Pozo III, MD [address] [place] [address] [place] [address] 10/15/2024 Jose Pozo Plan Of Treatment Next Appt Details Provider Name:Jose Pozo , 06/14/2025 11:00:00 AM, [address] [place] [address] [place], [address], Provider Name:Jose Pozo , 03/14/2026 11:00:00 AM, [address] [place] [address] [place], [address], Progress Notes * Charlie BAGLEYDOB:[birth year] (79 yo F)Acc No.[id number]:10/15/2024 Patient: Ozzy ALEXAVALERIA Charlie Martinez :1945 A ge:79 Y S ex:Female Address:[address] [place] [address] [place], [address] * true * Date: Generated for Printi ng/Fatelmag/eTransmitting on: 10:56 AM EDT
--- OUTSIDE RECORDS SUMMARY | 2024-10-26 07:41 | XMS_ITS ---
Author Organization Jose Pozo III, MD Address [address] [place] [address] Care Team Providers Care Rn Ent Name Role Phone Dr. Jose Pozo III Primary Care Provider REASON FOR VISIT Rx Request Social History Sex Assigned At : Social History Observation Description Sex Assigned At Female Encounters Encounter Location Date Provider Diagnosis Jose Pozo III, MD [address] [place] [address] [place] [address] 10/26/2024 Jose Pozo Plan Of Treatment Next Appt Details Provider Name:Jose Pozo , 06/14/2025 11:00:00 AM, [address] [place] [address] [place], [address], Provider Name:Jose Pozo , 03/14/2026 11:00:00 AM, [address] [place] [address] [place], [address], Progress Notes * hCarlie BAGLEYDOB:[birth year] (79 yo F)Acc No.[id number]:10/26/2024 Patient: Ozzy ALEXAVALERIACharlie :1945 A ge:79 Y S ex:Female Address:[address] [place] [address] [place], [address] * true * Date: Generated for Printi ng/Faxing/eTransmitting on: 10:57 AM EDT
--- OUTSIDE RECORDS SUMMARY | 2024-10-26 09:38 | XMS_ITS ---
Author Organization Jose Pozo III, MD Address [address] [place] [address] Care Team Providers Care University Registrar Name Role Phone Dr. Jose Pozo III [...] Date Provider Diagnosis Jose Pozo III, MD [address] [place] [address] [place] [address] 10/26/2024 Jose Pozo Plan Of Treatment Medication Medication Name Sig Start Date Stop Date Notes Albuterol Sulfate HFA 108 (9 0 Base) MCG/ACT 1 puff as needed Inhalation every 4 hrs for 28 days 10/26/2024 Next Appt Details Provider Name:Jose Pozo , 06/14/2025 11:00:00 AM, [address] [place] [address] [place], [address], Provider Name:Jose Pozo , 03/14/2026 11:00:00 AM, [address] [place] [address] [place], [address], Progress Notes * Charlie BAGLEYDOB:[birth year] (79 yo F)Acc No.[id number]:10/26/2024 Patient: Ozzy ALEXAVALERIACharlie :1945 A ge:79 Y S ex:Female Address:[address] [place] [address] [place], [address] * Refills Start Albuterol Sulfate HFA Aerosol Solution, 108 (90 Base) MCG/ACT, Inhalation, 1, 1 puff as needed, every 4 hrs, 28 days, Refills=11 * true * Date: Generated for Luann garcia/Addie/Ignacioitting on: 10:56 AM EDT
--- OUTSIDE RECORDS SUMMARY | 2024-12-27 07:15 | XMS_ITS ---
Author Organization Jose Pozo III, MD Address [address] [address] Care Team Providers Care Pantry Goods Worker Name Role Phone Dr. Jose Pozo [...] Provider Diagnosis Jose Pozo III, MD [address] [place] [address] [address], [place] [address] 12/27/2024 Jose Pozo Chronic obstructive pulmonary disease, [...] eyes (ICD-10 - H25.093) She has an hydraulic lift driver and she sees regularly. 12/27/2024 Essential hypertension [...] Provider Name:Jose Pozo , 06/14/2025 11:00:00 AM, [address] [place] [address] [address], [place], [address], Provider Name:Jose Omer Nohelia , 03/14/2026 11:00:00 AM, [address] [place] [address] [address], [place], [address], Progress Notes * YUDI Charlie MartinezDOB:[birth year] (79 yo F)Acc No.[id number]:12/27/2024 Progress Notes Patient: Charlie MEEKS Ann Provider: Arabella Pozo MD :1945 A ge:79 Y S ex:Female Date:12/27/2024 Address:[address] [place] [address] [id number] Subjective: * Chief Complaints: * C OPDCardiomyopathyHypertensionHypothyroidismRetinopathyAsthmaChronic kidney diseaseHyperlipidemiaPain and swelling right calf * HPI: C OVID-19 Screening: . She returns for a routine scheduled visit for medical management. Her COPD has been in active. She is breathing comfortably on room air today. She saw her hydraulic lift driver recently and was given a one-year follow-up [...] Hospitalization/Major Diagno stic Procedure: Drake Meeks @ [facility] 2018No history * Family History: [...] A ggressive non-smoker S he lives in [facility]. She has been to her , [...] patient * Allergies: B eta- BlockerLisinoprilStatins SupportAmlodipine KxkpzxnfXsoxjxzciobiszOystptt40 Hour DecongestantSulfacetamideLatexno[Allergies Verified] Objective: * Vitals: H [...] cyanosis or edema, Mild edema right leg skilled nursing up to the knee with pain to [...] - H25.093 N otes :She has an hydraulic lift driver and she sees regularly. 4 . E [...] 12/27/2024 Generated for Luann garcia/Addie/Jeseniasmitting on: 1 10:56 AM EDT History and Physical Notes * [...] cyanosis or edema, Mild edema right leg skilled nursing up to the knee with pain to compression of the gastrocnemius muscle. LYMPH NODES: no enlarged lymph no roverto,spleen normal RECTAL EXAM: not examined PSYCH: alert, oriented ORAL CAVITY: normal, unremarkable
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
--- NOTE | 2025-03-14 09:57 | HO.NEPHOV ---
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: No Accompanied by: Self / Same As Patient Allergies Beta-Blockers (Beta-Adrenergic Bloc Allergy (Intermediate, Verified 03/14/25 10:01) Swelling latex (LATEX) Allergy (Intermediate, Verified 03/14/25 10:01) RASH lisinopril (LISINOPRIL) Allergy (Intermediate, Verified 03/14/25 10:01) Cough Nfvjeer-FCW-CvQ Reductase Inhibitor (SKRDBQS-GYW-WHF REDUCTASE INHIBITOR) Allergy (Intermediate, Verified 03/14/25 10:01) NAUSEA, LOSS OF APPETITE, GENERALIZED ILL FEELING Sulfa (Sulfonamide Antibiotics) (SULFA (SULFONAMIDE ANTIBIOTICS)) Allergy (Intermediate, Verified 03/14/25 10:01) Rash amlodipine (AMLODIPINE) Allergy (Mild, Verified 03/14/25 10:01) Rash spironolactone (SPIRONOLACTONE) Allergy (Unknown, Verified 03/14/25 10:01) UNKNOWN lactose (LACTOSE) Adverse Reaction (Mild, Verified 03/14/25 10:01) STOMACH UPSET Medication List - Last Reconciled 03/14/25 by Salvatore Mares MD albuterol sulfate 90 mcg/actuation (ProAir HFA) 2 puffs inhalation Q4-6H PRN albuterol sulfate 2.5 mg (3 mL) inhalation Q4H PRN Breo Ellipta 100-25 mcg/dose (fluticasone furoate-vilanterol) 1 ea PO DAILY NS carvedilol 12.5 mg PO BID cetirizine 5 mg PO DAILY PRN levothyroxine 100 mcg PO DAILY prednisone 5 mg PO DIRECTED urea (Ure-Na) 1 packet PO DAILY HPI Comments Details: Elderly woman with a history of chronic hyponatremia. She is here for regular follow-up. This is a [facility]. She has been having diarrhea. Feels weak today. Blood pressure at home was 90/60. She is on carvedilol 12.5 mg b.i.d.. 03/14/25 - The patient is a 79-year-old female presenting with hyponatremia. - Hyponatremia managed with daily urea powder; sodium stable at 139 mmol/L. - Skin tear on leg treated by Dr. Pozo. [facility] Medical History Bronchitis Ventral hernia COPD (chronic obstructive pulmonary disease) 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 Mother No problems noted. Social History Alcohol intake: never Patient Tobacco Use Status: Former Tobacco user Tobacco use type: Cigarette Cigarette Packs Per Day: 0.5 Years Smoked: Quit 20 years ago. Physical Exam Vital Signs: Last Vital Signs Pulse 57 03/14/25 09:59 BP 136/60 03/14/25 09:59 Pulse Ox 98 03/14/25 09:59 Oxygen Delivery Method Room Air 03/14/25 09:59 BMI result Body Mass Index 17.9 Comfortable Neck supple no JVD. Lungs entry equal no rales. Heart S1-S2 heard no gallop or rub. Abdomen soft nontender. Neuro alert awake oriented. No asterixis. Extremities no edema. Results Reviewed Results Reviewed: Jun 2023 USG RIGHT KIDNEY: 10.9 x 4.0 x 5.3 cm (SAG x AP x TRV). Mild hydronephrosis. No renal calculi. Limited visualization. A 0.6 cm lkv-if-trrnl pole cyst with benign features. There is no indication for follow-up imaging. LEFT KIDNEY: Surgically absent. US/US renal RT IMPRESSION: 1. Mild right hydronephrosis. No renal calculi. 2. Left kidney surgically absent. Nephrology Results: Hgb, (12.0-16.0) 13.2 g/dl 03/06/25 WBC, (4.8-10.8) 9.1 X10*3/uL 03/06/25 Plt Count, (160-400) 215 X10*3/uL 03/06/25 Sodium, (135-145) 139 mmol/L 03/06/25 Potassium, (3.3-5.1) 4.8 mmol/L 03/06/25 Chloride, (96-108) 105 mmol/L 03/06/25 Carbon Dioxide, (22-29) 31 mmol/L H 03/06/25 BUN, (9-16) 48 mg/dL H 03/06/25 Creatinine, (0.5-1.4) 1.18 mg/dL 03/06/25 Calcium, (8.4-10.2) 9.3 mg/dL 03/06/25 Renal US 06/21/23 Assessment & Plan Assessment & Plan (1) Hyponatremia: Code(s): E87.1 - Hypo-osmolality and hyponatremia Category: Medical Plan: Chronic asymptomatic hyponatremia. Serum sodium is within normal range at present. Continue with oral free water restriction. DECREASE UREA Powder to QOD Watch serum sodium periodically. (2) Hydronephrosis: Code(s): N13.30 - Unspecified hydronephrosis Category: Medical Plan: Follow-up ultrasonogram shows MILD right Turner, unchanged since 2019. Solitary right kidney Renal function stable. Plan Encouraged to monitor BP at home. Orders: Orders Electrolytes 2 Months E87.1 - Hypo-osmolality and hyponatremia Basic Metabolic Panel 1 Month E87.1 - Hypo-osmolality and hyponatremia Coding Level of Care Code Est Pt Level 4 (31777) Diagnoses Hyponatremia E87.1 Hydronephrosis N13.30
[2025-03-14 09:59] VITALS: BP 136/60; PULSE 57; O2SAT 98; BMI 17.9
--- OUTSIDE RECORDS SUMMARY | 2025-03-14 10:56 | XMS_ITS | Patient Health Record ---
Author Organization Jose Pozo III, MD Address [address] [place] [address] [place] [address] Care Team Providers Care Table Machine Operator Name Role Phone Dr. Jose Pozo III Primary Care Provider [phone] Allergies Allergen (clinical drug ingredient) Drug/Non Drug [...] Panel Reviewed date:04/01/2024 07:27:53 AM Interpretation: Performing Lab:[facility], [address] [place] [phone] Notes/Report: Sodium 135 135-145 mmol/L Potassium 4.1 3.3-5.1 mmol/L Chloride 97 96-108 mmol/L Carbon Dioxide 32 22-29 mmol/L Anion Gap 10 12-20 Blood Urea Nitrogen 70 9-16 mg/dL Creatinine 1.21 0.5-1.4 mg/dL Estimated Glomerular Filt Rate 43 NOTE: For -Ivorian individuals, multiply the result by 1.210. Chronic Kidney Disease: Estimated GFR < 60 mL/min/1.73m2 Severe Kidney Disease: Estimated GFR < 15 mL/min/1.73m2 Glucose Random 134 60-115 mg/dL Calcium 9.5 8.4-10.2 mg/dL TSH reflex Free T4 Reviewed date:04/01/2024 07:27:53 AM Interpretation: Performing Lab:[facility], [address] [place] [phone] Notes/Report: TSH reflex Free T4 0.80 0.32-4.0 uIU/mL Basic Metabolic Panel Reviewed date:2024 08:45:16 PM Interpretation: Performing Lab:[facility], [address] [place] [phone] Notes/Report: Sodium 136 135-145 mmol/L Potassium 4.1 [...] ff Reviewed date:2024 08:45:16 PM Interpretation: Performing Lab:[facility], [address] [place] [phone] Notes/Report: White Blood Count 10.2 4.8-10.8 X10*3/uL [...] NRBC Abs Auto 0.000 0.0-0.012 X10*3/uL Comprehensive Wall. Panel Fa st Reviewed date:2024 08:45:16 PM Interpretation: Performing Lab:[facility], [address] [place] [phone] Notes/Report: Sodium 137 135-145 mmol/L Potassium 4.1 [...] Panel Reviewed date:2024 08:45:16 PM Interpretation: Performing Lab:[facility], [address] [place] [phone] Notes/Report: Triglycerides 113 <150 mg/dL Desirable Triglyceride: [...] Thyroxine) Reviewed date:2024 08:45:16 PM Interpretation: Performing Lab:[facility], [address] [place] [phone] Notes/Report: Free T4 (Free Thyroxine) 1.33 0.71-1.85 ng/dL Thyroid Stimulating Hormone Reviewed date:2024 08:45:16 PM Interpretation: Performing Lab:[facility], [address] [place] [phone] Notes/Report: Thyroid Stimulating Hormone 1.25 0.32-4.0 uIU/mL TSH 3rd Generation ([facility]) Comprehensive Met. Panel Reviewed date:12/23/2024 09:40:25 AM Interpretation: Performing Lab:[facility], [address] [place] [phone] Notes/Report: Sodium 135 135-145 mmol/L Potassium 4.9 [...] T4 Reviewed date:12/23/2024 09:40:25 AM Interpretation: Performing Lab:[facility], [address] [place] [phone] Notes/Report: TSH reflex Free T4 0.44 0.32-4.0 uIU/mL Complete Blood Count Auto Di ff Reviewed date:12/23/2024 09:40:24 AM Interpretation: Performing Lab:[facility], [address] [place] [phone] Notes/Report: White Blood Count 8.1 4.8-10.8 X10*3/uL [...] NRBC Abs Auto 0.000 0.0-0.012 X10*3/uL Comprehensive Wall. Panel Fa Reviewed date:12/23/2024 09:40:24 AM Interpretation: Performing Lab:[facility], [address] [place] [phone] Notes/Report: Sodium 139 135-145 mmol/L Potassium 4.6 [...] Panel Reviewed date:12/23/2024 09:40:24 AM Interpretation: Performing Lab:[facility], [address] [place] [phone] Notes/Report: Triglycerides 73 <150 mg/dL Desirable Triglyceride: [...] Thyroxine) Reviewed date:12/23/2024 09:40:24 AM Interpretation: Performing Lab:[facility], [address] [place] [phone] Notes/Report: Free T4 (Free Thyroxine) 1.38 0.71-1.85 ng/dL Thyroid Stimulating Hormone Reviewed date:12/23/2024 09:40:24 AM Interpretation: Performing Lab:[facility], [address] [place] [phone] Notes/Report: Thyroid Stimulating Hormone 0.81 0.32-4.0 uIU/mL TSH 3rd Generation ([facility]) US venous duplex LE RT Reviewed date:12/28/2024 11:57:58 AM Interpretation: Performing Lab: Notes/Report: [address] [address] Ultrasound Report Signed Patient: Dasha Rey MR#: [id number] 49 : 1945 Acct:[id number] Age/Sex: 79 / F ADM Date: 12/27/24 Loc: .US Attending Dr: Jose Pozo MD Ordering Physician: Jose Pozo MD Date of Service: 12/27/24 Procedure(s): US venous duplex LE RT Accession Number(s): [id number] cc: Jose Pozo MD EXAMINATION: US TRIPLEX [...] OV> 12/27/24 1206 DD/ 1140 TD/TT: 12/27/24 115 White Washer: [address] [address] Ultrasound Report Signed Patient: Charlie Rey MR#: [id number] [birth year] : 1945 Acct:[id number] Age/Sex: 79 / F ADM Date: 12/27/24 Loc: HO.US Attending Dr: Jose Pozo MD Ordering Physician: Jose Pzoo MD Date of Service: 12/27/24 Procedure(s): US francine ous duplex LE RT Accession Number(s): [id number] cc: Jose Pozo MD EXAMINATION: US TRIPLEX [...] 12/27/24 1206 DD/ 1140 TD/TT: 12/27/24 1150 White Washer: Complete Blood Count Auto Di ff Reviewed date:03/09/2025 08:31:30 PM Interpretation: Performing Lab:[facility], [address] [place] [phone] Notes/Report: White Blood Count 9.1 4.8-10.8 X10*3/uL [...] NRBC Abs Auto 0.000 0.0-0.012 X10*3/uL Comprehensive Wall. Panel Fa st Reviewed date:03/09/2025 08:31:30 PM Interpretation: Performing Lab:[facility], [address] [place] [address], [place] [address] Notes/Report: Sodium 139 135-145 mmol/L Potassium 4.8 [...] Alkaline Phosphatase 41 39-117 U/L Lipid Panel Reviewed date:03/09/2025 08:31:30 PM Interpretation: Performing Lab:[address] [address] Notes/Report: Triglycerides 64 <150 mg/dL Desirable Triglyceride: [...] liver disease. Free T4 (Free Thyroxine) Reviewed date:03/09/2025 08:31:30 PM Interpretation: Performing Lab:[facility], [address] [place] [phone] Notes/Report: Free T4 (Free Thyroxine) 1.20 0.71-1.85 ng/dL Thyroid Stimulating Hormone Reviewed date:03/09/2025 08:31:30 PM Interpretation: Performing Lab:[facility], [address] [place] [phone] Notes/Report: Thyroid Stimulating Hormone 1.20 0.32-4.0 uIU/mL [...] empty stomach Orally Once a day Active Carvedilol 12.5 MG TAKE 1 TABLET BY FIDEL TH TWICE DAILY WITH FOOD Active Ventolin HFA 108 (90 Base) MCG/ACT one puff every 4 hours for wheezing Inhalation every 4 hrs Active Breo Ellipta 100-25 MCG/INH 1 puff Inhal ation Once a day Active predniSONE 5 MG 1 tablet Orally Twic e a day Active Albuterol Sulfate HFA 108 (90 Base) MCG/ACT 1 puff as needed Inhalation every 4 hrs 10/26/2024 Active Immunizations Vaccine Route Administration Date Status Comme nts COVID PFIZER Unknown 10/28/2020 Administered COVID PFIZER Unknown 10/07/2020 Administered FLuzone HD PF Unknown 04/08/2020 Administered RSV vaccine, bivalent, prote in subunit RSV prefusion F Unknown 10/16/2024 Administered PCV20 Unknown 05/04/2023 Administered SHINGRIX Unknown 01/20/2023 Administered PCV 21 Unknown 10/16/2024 Administered Social History Tobacco Use: Social History [...] Problem Status W/U Status Risk Notes Problem 99137200 Chronic obstructive pulmonary disease, unspecified COPD type (J44.9) Active confirmed Her chronic cou gh from the RSV has resolved and she is breathing comfortably today. Problem 115892693 Acquired hypothyroidism (E03.9) Active confirmed The recent thyroid function tests are in range. No change in her therapy was necessary. Problem 57377900 Essential hypertension (I10) Active confirmed Her blood pressure and vital signs are stable today. No change in her regimen was necessary. Problem 774250156 Macrocytosis (D75.89) Active confirmed Her mean cell volume is stable at 103.4.This value will be followed. No treatment is necessary at this time. Problem 90448028 Hyperlipidemia, unspecified hyperlipidemia type (E78.5) Active confirmed Her lipids are stable. No change in her regimen was necessary. Problem 621825835 Asthma due to environmental allergies (J45.909) Active confirmed She is using he r inhalers appropriately and has had little difficulty with asthma this summer. No change in her regimen was needed. 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 Problem 250137298 Ischemic heart disease (I25.9) Active confirmed She is able to conduct all of the activities of daily life without ischemic pain. She has had no palpitations or syncope. Her regimen was continued. 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 Problem 3937313 Hypertensive retinopathy of both eyes (H35.033) Active confirmed She has had no vision changes. She is able to drive and read. Her blood pressure is well controlled today. Problem 931554003 Chronic kidney disease (CKD) stage G3b/A2, moderately decreased glomerular filtration rate (GFR) between 30-44 mL/min/1.73 square meter and albuminuria creatinine ratio between 30-299 mg/g (N18.32) Active confirmed The BUN is now 69. The creatinine is normal at 1.08. Her GFR has improved to 49. She will continue with nephrology. She is taking Urea. Vital Signs Heart Rate 51 /min 03/12/2025 Temperature 97.7 degrees Fahrenheit 03/12/2025 Blood pressure diastolic 60 mm Hg 03/12/2025 Height 61 in 03/12/2025 Blood pressure systolic 126 mm Hg 03/12/2025 Weight 98 lbs 03/12/2025 BMI 18.51 kg/m2 03/12/2025 Encounters Encounter Location Date Provider Diagnosis Jose Pozo III, MD [address] [place] [address] DR [place], [place] [phone] 03/12/2025 Jose Pozo Chronic obstructive pulmonary disease, unspecified COPD type J44.9 ; Essential hypertension I10 and Hyperlipidemia, unspecified hyperlipidemia type E78.5 Jose Pozo III, MD [address] [place] [address] [place] [address] 03/21/2024 Jose Rivasrne Chronic obstructive pulmonary disease, unspecified COPD type J44.9 ; Acute right-sided low back pain without sciatica M54.50 and Acquired hypothyroidism E03.9 Jose Pozo III, MD [address] [place] [address] [place] [address] 05/03/2024 Jose Pozo Chronic obstructive pulmonary disease, [...] heart disease I25.9 Jose Pozo III, MD [address] [place] [address] [place] [address] 08/23/2024 Jose Pozo Chronic obstructive pulmonary disease, [...] and Macrocytosis D75.89 Jose Pozo III, MD [address] [place] [address] [place] [address] 12/27/2024 Jose Pozo Chronic obstructive pulmonary disease, [...] and Macrocytosis D75.89 Jose Pozo III, MD [address] [place] [address] [place] [address] 05/08/2024 Jose Pozo III, MD [address] [place] [address] [place] [address] 10/15/2024 Jose Pozo III, MD [address] [place] [address] [place] [address] 10/26/2024 Jose Pozo III, MD [address] [place] [address] [place] [address] 10/26/2024 Jose Pozo Assessments Encounter Date Diagnosis (ICD Code) Assessment Notes Treat ment Notes Treatment Clinical Notes 03/12/2025 Chronic obstructive pulmonary disease, unspecified COPD type (ICD-10 - J44.9) Her chronic cough from the RSV has resolved and she is breathing comfortably today. 03/21/2024 Chronic obstructive pulmonary disease, unspecified COPD type (ICD-10 - J44.9) She is breathing comfortably today. She has seen her agriculture extension specialist recently. She has oxygen at home [...] comfortably and her lungs are clear. 03/12/2025 Essential hypertension (ICD-10 - I10) 03/21/2024 Acquired hypothyroidism (ICD-10 - E03.9) She [...] eyes (ICD-10 - H25.093) She has an manufacturing technician and she sees regularly. 03/12/2025 Hyperlipidemia, unspecified hyperlipidemia type (ICD-10 - E78.5) 05/03/2024 Hyperlipidemia, unspecified hyperlipidemia type (ICD-10 - E78.5) Her lipids have been stable. No change in her medication was made today. 08/23/2024 Hyperlipidemia, unspecified hyperlipidemia type (ICD-10 - E78.5) Her lipids are stable. No change in her regimen was necessary. 12/27/2024 Essential hypertension (ICD-10 - I10) Her blood pressure and vital signs are stable today. No change in her regimen was necessary. 05/03/2024 Hypertrophic nonobstructive cardiomyopathy (ICD-10 - I42.2) She is breathing comfortably and her lungs are clear. 08/23/2024 Hypertrophic nonobstructive cardiomyopathy (ICD-10 - I42.2) She is breathing comfortably and her lungs are clear. 12/27/2024 Acquired hypothyroidism (ICD-10 - E03.9) The recent thyroid function tests are in range. No change in her therapy was necessary. 05/03/2024 Macrocytosis (ICD-10 - D75.89) Her mean [...] Her blood pressure is well controlled today. 05/03/2024 Chronic kidney disease (CKD) stage G3b/A2, moderately decreased glomerular filtration rate (GFR) between 30-44 mL/min/1.73 square meter and albuminuria creatinine ratio between 30-299 mg/g (ICD-10 - N18.32) Her BUN has increased to 70 and her creatinine is 1.21. Her GFR has dropped from 51 down to 43. She saw her machine try out setter recently who discontinued the diuretic. These numbers [...] change in her regimen was needed. 05/03/2024 Ischemic heart disease (ICD-10 - I25.9) [...] Order Date PROFILE, FASTING (COMPREHENSIVE METABOLI C) 10/17/2023 PROFILE, FASTING (COMPREHENSIVE METABOLI C) 04/08/2022 PROFILE, FASTING (COMPREHENSIVE METABOLI C) 08/13/2022 PROFILE, FASTING (COMPREHENSIVE METABOLI C) 03/12/2025 PROFILE, FASTING (COMPREHENSIVE METABOLI C) 07/07/2021 PROFILE, FASTING (COMPREHENSIVE METABOLI C) 03/03/2021 PROFILE, FASTING (COMPREHENSIVE METABOLI C) 04/28/2022 PROFILE, FASTING (COMPREHENSIVE METABOLI C) 12/27/2024 PROFILE, FASTING (COMPREHENSIVE METABOLI C) 08/23/2024 PROFILE, FASTING (COMPREHENSIVE METABOLI C) 05/03/2024 PROFILE, FASTING (COMPREHENSIVE METABOLI C) 11/08/2023 PROFILE, FASTING (COMPREHENSIVE METABOLI C) 11/01/2022 PROFILE, FASTING (COMPREHENSIVE METABOLI C) 01/29/2021 PROFILE, FASTING (COMPREHENSIVE METABOLI C) 11/04/2021 PROFILE, RANDOM (COMPREHENSIVE METABOLIC ) 08/04/2022 HEMOGLOBIN A1C (GLYCOHEMOGLOBIN) 021 URIC ACID 01/29/2021 LIPID PANEL 11/04/2021 LIPID PANEL 04/08/2022 LIPID PANEL 01/29/2021 LIPID PANEL 03/03/2021 LIPID PANEL 04/28/2022 LIPID PANEL 11/01/2022 FREE T4 (FT4) 11/01/2022 FREE T4 (FT4) 04/08/2022 FREE T4 (FT4) 01/29/2021 FREE T4 (FT4) 03/03/2021 FREE T4 (FT4) 04/28/2022 TSH (THYROID STIMULATING HORMONE) 2022 TSH (THYROID STIMULATING HORMONE) 2023 TSH (THYROID STIMULATING HORMONE) 2021 TSH (THYROID STIMULATING HORMONE) 2024 TSH (THYROID STIMULATING HORMONE) 2024 TSH (THYROID STIMULATING HORMONE) 2021 TSH (THYROID STIMULATING HORMONE) 2023 TSH (THYROID STIMULATING HORMONE) 2023 TSH (THYROID STIMULATING HORMONE) 2020 TSH (THYROID STIMULATING HORMONE) 2020 TSH (THYROID STIMULATING HORMONE) 2021 B12 08/04/2022 FOLATE 08/04/2022 MICROALBUMIN, RANDOM 01/29/2021 CBC w DIFF 03/03/2021 CBC w DIFF 04/28/2022 CBC w DIFF 01/29/2021 CBC w DIFF 11/04/2021 CBC w DIFF 11/01/2022 CBC w DIFF 08/13/2022 CBC w DIFF 03/12/2025 CBC w DIFF 07/07/2021 CBC w DIFF 12/27/2024 CBC w DIFF 08/23/2024 CBC w DIFF 04/08/2022 CBC w DIFF 08/04/2022 CBC w DIFF 05/03/2024 CBC w DIFF 11/08/2023 CLOSTRIDIUM DIFF TOXIN A&B (C DIFF) 07/15 MRI LUMBAR SPINE NO CONTRAST 10/22/2021 US LEG RT VENOUS DOPPLER 12/27/2024 CBC WITH AUTO DIFF 10/17/2023 Lipid Panel 08/23/2024 Lipid Panel 05/03/2024 Lipid Panel 11/08/2023 Lipid Panel 10/17/2023 Lipid Panel 03/12/2025 Lipid Panel 07/07/2021 Lipid Panel 12/27/2024 Free T4 (Free Thyroxine) 12/27/2024 Free T4 (Free Thyroxine) 08/23/2024 Free T4 (Free Thyroxine) 05/03/2024 Free T4 (Free Thyroxine) 11/08/2023 Free T4 (Free Thyroxine) 10/22/2021 Free T4 (Free Thyroxine) 10/17/2023 Next Appt Details Provider Name:Jose Pozo , 06/14/2025 11:00:00 AM, [address] [facility] [address], [place], [address], Provider Name:Jose Pozo , 03/14/2026 11:00:00 AM, [address] [place] [address] [address], [place], [address], Insurance Providers Payer Name Payer Address Payer Phone Subscriber Number Group Number Insured Name Patient Relationship to Insured Coverage Start Date Coverage End Date MEDICARE NGS [address] [place] [phone] [id number] Charlie Rey Self - patient is the insured [facility] [address] [address] [place] [phone] [id number] Charlie Rey Self - patient is the [...] Hospitalization History Reason Date(Month/Year) No history [facility] [place] @ [facility] 2018
--- OUTSIDE RECORDS SUMMARY | 2025-03-14 10:56 | XMS_ITS | Clinical Summary ---
Author Organization [facility] Address [address] [place] [address] Phone Care Team Providers Care Inspector Mechanical Name Role Phone Jose Pozo MD Primary Care Provider [phone] Allergies Active Allergy Reactions Criticality Noted Date [...] patient's age to complete this topic Insurance Mc[employer]ky Medicare Mc[employer]ky Medicare Care Teams Inspector Mechanical Relationship Specialty Start Date End Date Jose Pozo MD [address] [place] [address] [address] [place], [place] PCP - General Medical Oncology 10/09/20
== END 2025-03-14 10:15 | disposition home or self-care (01) ==
LOC: HO.HKA 09:47
PROVIDERS: PCP Internal Medicine Medical Oncology; Visit Provider Internal Medicine Hypertension Specialist
DX: E87.1 Hypo-osmolality and hyponatremia (principal); N13.30 Unspecified hydronephrosis
CPT/HCPCS: 99214

== ENCOUNTER → 2025-03-14 09:46 | Outpatient (BNVA) | payer MEDICARE, OTHER, SELFPAY | PROVIDERS: PCP Internal Medicine Medical Oncology; Visit Provider Internal Medicine Hypertension Specialist | DX: E87.1 Hypo-osmolality and hyponatremia (principal); N13.30 Unspecified hydronephrosis | CPT/HCPCS: 99212 ==

== ENCOUNTER 2025-05-14 13:39 | Outpatient (AMB) | payer MEDICARE, OTHER, SELFPAY ==
--- NOTE | 2025-05-14 13:40 | A.OFFVIS_ITS ---
Vital Signs 3 05/14/25 14:10 Height 5 ft Weight 102 lb BMI 19.9 Intake Visit Reasons: varrucous of left forearm Intake Note: Patient is seen in office for evaluation and treatment of verrucous left forearm. Pt c/o: has a lump on the left arm for about 2 months, has been getting bigger, hard to the touch, has other lump that would like to have evaluated, one in the rt thumb, left under eye, and forehead Head Still Operator Required: No Accompanied by: Spouse Allergies Beta-Blockers (Beta-Adrenergic Bloc Allergy (Intermediate, Verified 05/14/25 14:08) Swelling latex (LATEX) Allergy (Intermediate, Verified 05/14/25 14:08) RASH lisinopril (LISINOPRIL) Allergy (Intermediate, Verified 05/14/25 14:08) Cough Gwedvbu-BSG-BvC Reductase Inhibitor (DBYZAXR-TXY-PVX REDUCTASE INHIBITOR) Allergy (Intermediate, Verified 05/14/25 14:08) NAUSEA, LOSS OF APPETITE, GENERALIZED ILL FEELING Sulfa (Sulfonamide Antibiotics) (SULFA (SULFONAMIDE ANTIBIOTICS)) Allergy (Intermediate, Verified 05/14/25 14:08) Rash amlodipine (AMLODIPINE) Allergy (Mild, Verified 05/14/25 14:08) Rash spironolactone (SPIRONOLACTONE) Allergy (Unknown, Verified 05/14/25 14:08) UNKNOWN lactose (LACTOSE) Adverse Reaction (Mild, Verified 05/14/25 14:08) STOMACH UPSET Medication List - Last Reconciled 05/14/25 by Aaron Simon MD albuterol sulfate 90 mcg/actuation (ProAir HFA) 2 puffs inhalation Q4-6H PRN albuterol sulfate 2.5 mg (3 mL) inhalation Q4H PRN Breo Ellipta 100-25 mcg/dose (fluticasone furoate-vilanterol) 1 ea PO DAILY NS carvedilol 12.5 mg PO BID cetirizine 5 mg PO DAILY PRN levothyroxine 100 mcg PO DAILY prednisone 5 mg PO DIRECTED urea (Ure-Na) 1 packet PO DAILY HPI Comments Details: 79-year-old female patient presenting for evaluation of several skin lesions including a hard raised lesion located on her left forearm which developed over the last 6-12 months and has become quite hard. She reports some bleeding from the site and then kept the bandage in place. She denies any injury to the site or any previous surgery. She also reports a hard tiny lesion located on her right forehead which is gradually increasing in size as well. There has been no bleeding or discharge from the site. She is requesting excision of both lesions. 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 Mother No problems noted. Social History Alcohol intake: never Patient Tobacco Use Status: Former Tobacco user Tobacco use type: Cigarette Cigarette Packs Per Day: 0.5 Years Smoked: Quit 20 years ago. Review of Systems Const All systems reviewed & are unremarkable except as noted in HPI and below Physical Exam Vital Signs: BMI result Body Mass Index 19.9 Const General: cooperative and no acute distress Nutritional Appearance: well nourished Orientation/consciousness: patient oriented x3 Limitations: no limitations HEENT Head: Yes normocephalic and Yes atraumatic Head images: 2 1. 3 mm raised hard dermal lesion right forehead just below hairline. Ears: hearing grossly normal bilaterally Resp Effort & Inspection: normal respiratory effort, no audible wheezes, no cough and no respiratory distress Cardio Jugular venous distension: no JVD GI Inspection: Yes normal to inspection Skin Other: Warm, dry, no rash Neuro General: patient oriented x3 Extrem Other: Left forearm with a 1 cm raised hard lesion with a central area of ulceration, nontender to palpation. Non fluctuant to palpation. General: Yes no clubbing, cyanosis or edema Elbow/forearm/wrist images: 2 1. Site of lesion left forearm Assessment & Plan Assessment & Plan (1) Skin lesion of face: Code(s): L98.9 - Disorder of the skin and subcutaneous tissue, unspecified Category: Medical (2) Skin lesion of left arm: Code(s): L98.9 - Disorder of the skin and subcutaneous tissue, unspecified Category: Medical Plan 79-year-old female patient presenting with a enlarging skin lesion of the left forearm and right forehead. The patient has requested excision of both lesions. I recommended an excision as an office based procedure under local anesthesia. After review of the procedure, risks, and alternatives, she consents to the surgery. Coding Level of Care Code New Pt Level 4 (68637) Diagnoses Skin lesion of face L98.9 Skin lesion of left arm L98.9
[2025-05-14 14:10] VITALS: BMI 19.9
--- OUTSIDE RECORDS SUMMARY | 2025-05-14 15:38 | XMS_ITS | Clinical Summary ---
Author Organization [facility] Address [address] [place] [address] Phone Care Team Providers Care Pharmacy Manager Name Role Phone Jose Pozo MD Primary Care Provider [phone] Allergies Active Allergy Reactions Criticality Noted Date [...] Years Used Date Smoking Tobacco: Former Cigarettes 0.3 Q uit: 10/11/2017 Smokeless Tobacco: Never Comments:Smoking [...] patient's age to complete this topic Insurance [place] Care Teams Pharmacy Manager Relationship Specialty Start Date End Date Jose Pozo MD [address] [place] [address] [id number] [place] PCP - General Medical Oncology 10/09/20
== END 2025-05-14 14:30 | disposition home or self-care (01) ==
LOC: HO.HGS 13:40
PROVIDERS: PCP Internal Medicine Medical Oncology; Visit Provider Surgery
DX: L98.9 Disorder of the skin and subcutaneous tissue, unspecified (principal)
CPT/HCPCS: 99204

== ENCOUNTER → 2025-05-14 13:39 | Outpatient (BNVA) | payer MEDICARE, OTHER, SELFPAY | PROVIDERS: PCP Internal Medicine Medical Oncology; Visit Provider Surgery | DX: L98.9 Disorder of the skin and subcutaneous tissue, unspecified (principal) | CPT/HCPCS: 99202 ==

== ENCOUNTER 2025-06-10 12:38 | Outpatient (REF) | payer MEDICARE, OTHER, SELFPAY | END 2025-06-10 12:39 | disposition home or self-care (01) | LOC: HO.LNP 12:38 | PROVIDERS: PCP Internal Medicine Medical Oncology; Visit Provider Surgery | DX: L98.9 Disorder of the skin and subcutaneous tissue, unspecified (principal) | CPT/HCPCS: 11440; 11601; 88305 ==

== ENCOUNTER 2025-06-10 12:38 | Outpatient (AMB) | payer MEDICARE, OTHER, SELFPAY ==
--- OUTSIDE RECORDS SUMMARY | 2024-05-08 14:45 | XMS_ITS ---
Author Organization Jose Pozo III, MD Address [address] [place] [address] Care Team Providers Care Army Senior Officer Name Role Phone Dr. Jose Pozo III Primary Care Provider [phone] Medications Medication SIG (Take, Route, Frequency, Duration) Notes Start Date End Date Status Albuterol Sulfate HFA 108 (90 Base) MCG/ACT 2 puffs Inhalation every 6 hours for dyspnea for 28 days 05/08/2024 Active Social History Sex Assigned At : Social History Observation Description Sex Assigned At Female Encounters Encounter Location Date Provider Diagnosis Jose Pozo III, MD [address] [place] [address] [place] [address] 05/08/2024 Jose Pozo Plan Of Treatment Medication Medication Name Sig Start Date Stop Date Notes Albuterol Sulfate HFA 108 (9 0 Base) MCG/ACT 2 puffs Inhalation every 6 hours for dyspnea for 28 days 05/08/2024 Next Appt Details Provider Name:Jose Pozo , 06/14/2025 11:00:00 AM, [address] [place] [address] [place], [address], Provider Name:Jose Pozo , 03/14/2026 11:00:00 AM, [address] [place] [address] [place], [address], Progress Notes * Charlie BAGLEYDOB:[birth year] (78 yo F)Acc No.[id number]:05/08/2024 Patient: Ozzy ALEXAVALERIA Charlie Martinez :1945 A ge:78 Y S ex:Female Address:[address] [place] [address] [address] [facility] [place], [address] * Refills Start Albuterol Sulfate HFA Aerosol Solution, 108 (90 Base) MCG/ACT, Inhalation, 1, 2 puffs, every 6 hours for dyspnea, 28 days, Refills=11 * true * Date: Generated for Luann garcia/Addie/Ignacioitting on: 02:31 PM EST
--- OUTSIDE RECORDS SUMMARY | 2024-08-23 05:45 | XMS_ITS ---
Author Organization Jose Pozo III, MD Address [address] [place] [address] Care Team Providers Care Mission Commander Name Role Phone Dr. Jose Pozo III [...] Date Provider Diagnosis Jose Pozo III, MD [address] [place] [address] [place] [address] 08/23/2024 Jose Pozo Chronic obstructive pulmonary disease, [...] Provider Name:Jose Pozo , 06/14/2025 11:00:00 AM, [address] [place] [address] [address], [place], [address], Provider Name:Jose Pozo , 03/14/2026 11:00:00 AM, [address] [place] [address] [address], [place], [address], Progress Notes * Charlie BAGLEY MichelleDOB:[birth year] (79 yo F)Acc No.[id number]:08/23/2024 Progress Notes Patient: Charlie MEEKS Provider: Arabella Pozo MD :1945 A ge:79 Y S ex:Female Date:08/23/2024 Address:[address] [place] [address] BERNARDO CRUZ [id number] Subjective: * Chief Complaints: * C OPDCardiomyopathyHypertensionHypothyroidChronic kidney diseaseAsthmaIschemic heart diseaseMacrocytosis * HPI: C - Screening: She comes to the office for routine scheduled visit to manage her numerous medical issues. She says that her breathing has not been a problem lately. She is taking oral uremia from her mud boss which causes some side effects of nausea. [...] Hospitalization/Major Diagno stic Procedure: Drake Meeks @ [facility] 2018No history * Family History: F [...] A ggressive non-smoker S he lives in [facility]. She has been to her , Tucker, [...] patient * Allergies: B eta- BlockerLisinoprilStatins SupportAmlodipine VvopcqvzEkwmzsyzfsxuvwLncjtup62 Hour DecongestantSulfacetamideLatexno[Allergies Verified] Objective: * Vitals: H [...] Sign off status: Completed true * Provider: Arabella Pozo MD Date: 0 08/23/2024 Generated for Luann garcia/Addie/Jeseniasmitting on: 1 02:31 PM EST History and Physical Notes * HPI [...]
--- OUTSIDE RECORDS SUMMARY | 2024-10-15 05:28 | XMS_ITS ---
Author Organization Jose Pozo III, MD Address [address] [facility] [place] [address] Care Team Providers Care Rn Clinician Name Role Phone Dr. Jose Pozo III Primary Care Provider REASON FOR VISIT Regarding Vaccine Social History Sex Assigned At : Social History Observation Description Sex Assigned At Female Encounters Encounter Location Date Provider Diagnosis Jose Pozo III, MD [address] [place] [address] [place] [address] 10/15/2024 Jose Pozo Plan Of Treatment Next Appt Details Provider Name:Jose Pozo , 06/14/2025 11:00:00 AM, [address] [place] [address] [place], [address], Provider Name:Jose Pozo , 03/14/2026 11:00:00 AM, [address] [place] [address] [place], [address], Progress Notes * Charlie BAGLEYDOB:[birth year] (79 yo F)Acc No.[id number]:10/15/2024 Patient: Ozzy ALEXAVALERIA Charlie Martinez :1945 A ge:79 Y S ex:Female Address:[address] [place] [address] [place], [address] * true * Date: Generated for Eloi jose/Fatelmag/eTransmitting on: 02:31 PM EST
--- OUTSIDE RECORDS SUMMARY | 2024-10-26 06:41 | XMS_ITS ---
Author Organization Jose Pozo III, MD Address [address] [facility] [place] [address] Care Team Providers Care Cadastral Engineer Name Role Phone Dr. Jose Pozo III Primary Care Provider REASON FOR VISIT Rx Request Social History Sex Assigned At : Social History Observation Description Sex Assigned At Female Encounters Encounter Location Date Provider Diagnosis Jose Pozo III, MD [address] [place] [address] [place] [address] 10/26/2024 Jose Pozo Plan Of Treatment Next Appt Details Provider Name:Jose Pozo , 06/14/2025 11:00:00 AM, [address] [place] [address] [place], [address], Provider Name:Jose Pozo , 03/14/2026 11:00:00 AM, [address] [place] [address] [place], [address], Progress Notes * Charlie BAGLEYDOB:[birth year] (79 yo F)Acc No.[id number]:10/26/2024 Patient: Ozzy ALEXAVALERIACharlie :1945 A ge:79 Y S ex:Female Address:[address] [place] [address] [place], [address] * true * Date: Generated for Printi ng/Fatelmag/eTransmitting on: 02:32 PM EST
--- OUTSIDE RECORDS SUMMARY | 2024-10-26 08:38 | XMS_ITS ---
Author Organization Jose Pozo III, MD Address [address] [place] [address] Care Team Providers Care Quality Control Industrial Engineer Name Role Phone Dr. Jose Pozo III Primary Care Provider [phone] Medications Medication SIG (Take, Route, Frequency, Duration) Notes Start Date End Date Status Albuterol Sulfate HFA 108 (90 Base) MCG/ACT 1 puff as needed Inhalation every 4 hrs for 28 days 10/26/2024 Active Social History Sex Assigned At : Social History Observation Description Sex Assigned At Female Encounters Encounter Location Date Provider Diagnosis Jose Pozo III, MD [address] [place] [address] [place] [address] 10/26/2024 Jose Pozo Plan Of Treatment Medication Medication Name Sig Start Date Stop Date Notes Albuterol Sulfate HFA 108 (9 0 Base) MCG/ACT 1 puff as needed Inhalation every 4 hrs for 28 days 10/26/2024 Next Appt Details Provider Name:Jose Pozo , 06/14/2025 11:00:00 AM, [address] [place] [address] [place], [address], Provider Name:Jose Pozo , 03/14/2026 11:00:00 AM, [address] [place] [address] [place], [address], Progress Notes * Charlie BAGLEYDOB:[birth year] (79 yo F)Acc No.[id number]:10/26/2024 Patient: Ozzy ALEXAVALERIACharlie :1945 A ge:79 Y S ex:Female Address:[address] [place] [address] [place] [facility], [address] * Refills Start Albuterol Sulfate HFA Aerosol Solution, 108 (90 Base) MCG/ACT, Inhalation, 1, 1 puff as needed, every 4 hrs, 28 days, Refills=11 * true * Date: Generated for Luann garcia/Addie/Ignacioitting on: 02:31 PM EST
--- OUTSIDE RECORDS SUMMARY | 2024-12-27 06:15 | XMS_ITS ---
Author Organization Jose Pozo III, MD Address [address] [place] [address] Care Team Providers Care Information Systems Security Developer Name Role Phone Dr. Jose Pozo III Primary Care Provider [phone] Allergies Allergen (clinical drug ingredient) Drug/Non Drug [...] Provider Diagnosis Jose Pozo III, MD [address] [place] [address] [address] [place], [place] [address] 12/27/2024 Jose Pozo Chronic obstructive pulmonary disease, [...] eyes (ICD-10 - H25.093) She has an breakfast bar attendant and she sees regularly. 12/27/2024 Essential hypertension [...] Name:Jose Pozo , 06/14/2025 11:00:00 AM, [address] [place] [address] [address], [place], [address], Provider Name:Jose Omer Nohelia , 03/14/2026 11:00:00 AM, [address] [place] [address] [address], [place], [address], Progress Notes * YUDI Charlie MartinezDOB:[birth year] (79 yo F)Acc No.[id number]:12/27/2024 Progress Notes Patient: Charlie MEEKS Ann Provider: Arabella Pozo MD :1945 A ge:79 Y S ex:Female Date:12/27/2024 Address:[address] [place] [address] [id number] Subjective: * Chief Complaints: * C OPDCardiomyopathyHypertensionHypothyroidismRetinopathyAsthmaChronic kidney diseaseHyperlipidemiaPain and swelling right calf * HPI: C OVID-19 Screening: . She returns for a routine scheduled visit for medical management. Her COPD has been in active. She is breathing comfortably on room air today. She saw her breakfast bar attendant recently and was given a one-year follow-up [...] Hospitalization/Major Diagno stic Procedure: Drake Meeks @ [facility] 2018No history * Family History: F ather: [...] A ggressive non-smoker S he lives in [facility]. She has been to her , [...] patient * Allergies: B eta- BlockerLisinoprilStatins SupportAmlodipine UmsjpcpgYegiamyqqabfqfMllhomq38 Hour DecongestantSulfacetamideLatexno[Allergies Verified] Objective: * Vitals: H [...] cyanosis or edema, Mild edema right leg long term up to the knee with pain to [...] - H25.093 N otes :She has an breakfast bar attendant and she sees regularly. 4 . E [...] 12/27/2024 Generated for Luann garcia/Addie/Jeseniasmitting on: 1 02:32 PM EST History and Physical Notes * [...] cyanosis or edema, Mild edema right leg long term up to the knee with pain to compression of the gastrocnemius muscle. LYMPH NODES: no enlarged lymph no roverto,spleen normal RECTAL EXAM: not examined PSYCH: alert, oriented ORAL CAVITY: normal, unremarkable
--- OUTSIDE RECORDS SUMMARY | 2025-03-12 06:00 | XMS_ITS ---
Author Organization Jose Pozo III, MD Address [address] [place] [address] Care Team Providers Care Steel Detailer Name Role Phone Dr. Jose Pozo III Primary Care Provider [phone] Allergies Allergen (clinical drug ingredient) Drug/Non Drug [...] Date Provider Diagnosis Jose Pozo III, MD [address] [place] [address] [place] [address] 03/12/2025 Jose Pozo Chronic obstructive pulmonary disease, [...] Provider Name:Jose Pozo , 06/14/2025 11:00:00 AM, [address] [place] [address] [address], [place], [address], Provider Name:Jose Pozo , 03/14/2026 11:00:00 AM, [address] [place] [address] [address], [place], [address], Progress Notes * Charlie BAGLEY MichelleDOB:[birth year] (79 yo F)Acc No.[id number]:03/12/2025 Progress Notes Patient: Charlie MEEKS Provider: Arabella Pozo MD :1945 A ge:79 Y S ex:Female Date:03/12/2025 Address:[address] [place] [address] [place], [id number] Subjective: * Chief Complaints: * A nnual Exam * HPI: D epression Screening: She returns at the age of 79 for her annual visit. She is up-to-date with colonoscopy and mammography. She is taking no new medications and feels generally healthy and well. 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 N o D rug/Alcohol: A ANTASHA-C (Standard) D id you have a drink containing alcohol in the past year? N o P oints 0 I nterpretation N egative S he lives in [facility]. She has been to her , [...] patient * Allergies: B eta- BlockerLisinoprilStatins SupportAmlodipine VdxsqjoiBszajgjymkmydcCudgxgn27 Hour DecongestantSulfacetamideLatexNo Known Food Allergyno[Allergies Verified] Objective: [...] 59 (Ref Range: >40 mg/dL) * Lab:Comprehensive [place]. Pane l Fast * Collection Date 03/06/2025 [...] 0 03/12/2025 Generated for Luann garcia/Addie/Nilay on: 02:32 PM EST History and Physical Notes [...]
--- OUTSIDE RECORDS SUMMARY | 2025-03-20 05:13 | XMS_ITS ---
Author Organization Jose Pozo III, MD Address [address] [place] [address] [place] [address] Care Team Providers Care Operational Risk Consultant Name Role Phone Dr. Jose Pozo III Primary Care Provider REASON FOR VISIT FYI Social History Sex Assigned At : Social History Observation Description Sex Assigned At Female Encounters Encounter Location Date Provider Diagnosis Jose Pozo III, MD [address] [place] [address] [place] [address] 03/20/2025 Jose Pozo Plan Of Treatment Next Appt Details Provider Name:Jose Pozo , 06/14/2025 11:00:00 AM, [address] [place] [address] [place], [address], Provider Name:Jose Pozo , 03/14/2026 11:00:00 AM, [address] [place] [address] [place], [address], Progress Notes * Charlie BAGLEYDOB:[birth year] (79 yo F)Acc No.[id number]:03/20/2025 Patient: Ozzy ALEXAVALERIACharlie :1945 A ge:79 Y S ex:Female Address:[address] [place] [address] [place], [address] * Addendum: * 03/21/2025 1 1:12 AM EDT Loulou Pritchett CMA > * true * Date: Generated for Printi ng/Faxing/eTransmitting on: 02:31 PM EST
--- OUTSIDE RECORDS SUMMARY | 2025-05-06 04:00 | XMS_ITS ---
Author Organization Jose Pozo III, MD Address [address] [place] [address] Care Team Providers Care Dowel Setting Machine Operator Name Role Phone Dr. 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 She did not wish to go to a computational geneticist citing personal reasons. She was referred at her request to her surgeon at [facility]. A follow-up visit was arranged. Problem 808727966 Underweight (R63.6) Active confirmed She has become slightly underweight. We have discussed her diet and nutrition today at length. Problem 1778959 Former smoker (Z87.891) Active confirmed She has [...] Provider Diagnosis Jose Pozo III, MD [address] [place] [address] [address], [place] [address] 05/06/2025 Jose Pozo Chronic obstructive pulmonary disease, [...] did not wish to go to a computational geneticist citing personal reasons. She was referred at her request to her surgeon at [facility]. A follow-up visit was arranged. 05/06/2025 Hypertrophic [...] rapidly growing Neoplasm of left forearm, Aaron Simno Next Appt Details Follow Up: As Scheduled, Snow son: OV Provider Name:Jose Pozo , 06/14/2025 11:00:00 AM, [address] [place] [address] [address], [place], [address], Provider Name:Jose Pozo , 03/14/2026 11:00:00 AM, [address] [place] [address] [address], [place], [address], Progress Notes * GEORGIAJINA Charlie MartinezDOB:[birth year] (79 yo F)Acc No.[id number]:05/06/2025 Progress Notes Patient: Charlie MEEKS Ann Provider: Arabella Pozo MD :1945 A ge:79 Y S ex:Female Date:05/06/2025 Address:[address] [place] [id number] Subjective: * Chief Complaints: * E nlarging [...] referral to her surgeon, Dr. Simon, at [facility]. This was done. She has had no [...] Hospitalization/Major Diagno stic Procedure: Drake Meeks @ [facility] 2018No history * Family History: F [...] E x-cigarette smoker S he lives in [facility]. She has been to her , [...] patient * Allergies: B eta- BlockerLisinoprilStatins SupportAmlodipine IqucfkbmEppmtxfxkilhukVkdbtmx16 Hour DecongestantSulfacetamideLatexNo Known Food Allergyno[Allergies Verified] Objective: [...] did not wish to go to a computational geneticist citing personal reasons. She was referred at her request to her surgeon at [facility]. A follow-up visit was arranged. 2 . [...] Date: 07/06/2024 Generated for Eloi jose/Addie/eTransmitting on: 02:32 PM EST History and Physical Notes * Examination [...]
--- OUTSIDE RECORDS SUMMARY | 2025-05-29 06:34 | XMS_ITS ---
Author Organization Jose Pozo III, MD Address [address] [place] [place] [address] Care Team Providers Care Choir Leader Name Role Phone Dr. Jose Pozo III Primary Care Provider [phone] REASON FOR VISIT Handicap Placard Social History Sex Assigned At : Social History Observation Description Sex Assigned At Female Encounters Encounter Location Date Provider Diagnosis Jose Pozo III, MD [address] [place] [address] [place] [address] 05/29/2025 Jose Pozo Plan Of Treatment Next Appt Details Provider Name:Jose Pozo , 06/14/2025 11:00:00 AM, [address] [place] [address] [address], [place], [address], Provider Name:Jose Pozo , 03/14/2026 11:00:00 AM, [address] [place] [address] [place], [address], Progress Notes * Charlie BAGLEYDOB:[birth year] (79 yo F)Acc No.[id number]:05/29/2025 Patient: Ozzy ALEXAVALERIACharlie :1945 A ge:79 Y S ex:Female Address:[address] [facility] [facility] [place], [address] * true * Date: Generated for Eloi ng/Fatelmag/eTransmitting on: 02:32 PM EST
--- NOTE | 2025-06-10 12:43 | A.OFFVIS_ITS ---
Vital Signs 06/10/25 12:44 Height 5 ft Weight 99 lb BMI 19.3 BP 150/67 H Blood Pressure Location Rt brachial Position Sitting Pulse 71 Intake Visit Reasons: excision of lession of forehead and forearm Intake Note: Patient is seen for office procedure: excision of skin lesion of the left forearm and right forehead. Pt c/o: small lesion on Rt cheek. Would like remoal as well. s/p: 06/17/24 @ 1pm Customer Engagement Specialist Required: No Accompanied by: spouse Horace Allergies Beta-Blockers (Beta-Adrenergic Bloc Allergy (Intermediate, Verified 06/10/25 12:44) Swelling latex (LATEX) Allergy (Intermediate, Verified 06/10/25 12:44) RASH lisinopril (LISINOPRIL) Allergy (Intermediate, Verified 06/10/25 12:44) Cough Miuxvkr-IEG-BrW Reductase Inhibitor (JFFBLBK-JEU-FQF REDUCTASE INHIBITOR) Allergy (Intermediate, Verified 06/10/25 12:44) NAUSEA, LOSS OF APPETITE, GENERALIZED ILL FEELING Sulfa (Sulfonamide Antibiotics) (SULFA (SULFONAMIDE ANTIBIOTICS)) Allergy (Intermediate, Verified 06/10/25 12:44) Rash amlodipine (AMLODIPINE) Allergy (Mild, Verified 06/10/25 12:44) Rash spironolactone (SPIRONOLACTONE) Allergy (Unknown, Verified 06/10/25 12:44) UNKNOWN lactose (LACTOSE) Adverse Reaction (Mild, Verified 06/10/25 12:44) STOMACH UPSET PFSH Medical History Bronchitis Ventral hernia COPD (chronic obstructive pulmonary disease) 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 Mother No problems noted. Social History Alcohol intake: never Patient Tobacco Use Status: Former Tobacco user Tobacco use type: Cigarette Cigarette Packs Per Day: 0.5 Years Smoked: Quit 20 years ago. Office Procedures Excision Details: Preoperative diagnosis: Skin lesion right forehead and left forearm Postoperative diagnosis: Same Procedure: Excision of skin lesion right forehead and left forearm Surgeon: Aaron Simon MD Special Officer Automat: None Anesthesia: Lidocaine 1% with epinephrine Indications for procedure: 1 cm hard lesion of the left forearm, 3 mm right forehead lesion Operative findings: 1 cm hard lesion left forearm, 3 mm right forehead lesion Specimen: Skin lesion right forehead and left forearm Estimated blood loss: 2 mL Complications: None Procedure details: Patient was brought to the procedure room and placed in a supine position. The site of surgery was confirmed by the patient in the right forehead and left forearm. Skin was prepped with Betadine over each area and draped in a sterile fashion. Local anesthesia was then infiltrated beginning in the right forehead. An elliptical incision oriented transversely was then created with a 15 blade and carried out through subcutaneous tissue and around the skin lesion. Skin was then closed using interrupted 5 0 nylon sutures. Sterile dressing was then applied. Attention was then directed to the left forearm. Again skin was prepped and draped in a sterile fashion. Local anesthesia was then infiltrated oriented longitudinally. An elliptical incision was then made with a 15 blade oriented longitudinally and carried down through the subcutaneous tissue and around the skin lesion. The lesion was then passed off the table and sent to pathology for further examination. Hemostasis was assured using a suture LigaSure of 4-0 Polysorb. Skin was then reapproximated using interrupted 4-0 Polysorb suture in dermis. Skin was also closed using interrupted 4-0 nylon sutures. Sterile dressings consisting of 2 x 2 gauze and Tegaderm were then applied. The patient tolerated the procedure well. She was discharged to home in stable condition. 39637-Diduvynx face/ear/eyelid/nose/lip/mucous membrane <0.5cm 57056-qjudk/arms/legs 0.6-1cm Procedure code (CPT) selection complete Assessment & Plan Assessment & Plan (1) Skin lesion of face: Code(s): L98.9 - Disorder of the skin and subcutaneous tissue, unspecified Category: Medical (2) Skin lesion of left arm: Code(s): L98.9 - Disorder of the skin and subcutaneous tissue, unspecified Category: Medical Plan Patient returned today for excision of 2 lesions 1 located in the right forehead in the 2nd located on the left forearm. She tolerated the procedure well and will return in 1 week to review the pathology results and for suture removal. She is welcome to call sooner for any new concerns. Coding Level of Care Code Procedure Only Diagnoses Skin lesion of face L98.9 Skin lesion of left arm L98.9 CPT Codes Trunk/Arms/Legs - CPT: 82208-vthep/arms/legs 0.6-1cm ([id number]) Face/Ear/Eyelid/Nose/Lip/Mucous Membrane - CPT: 96534-Xfscvdlh face/ear/eyelid/nose/lip/mucous membrane <0.5cm ([id number])
[2025-06-10 12:44] VITALS: BP 150/67; PULSE 71; BMI 19.3
--- OUTSIDE RECORDS SUMMARY | 2025-06-10 14:31 | XMS_ITS | Clinical Summary ---
Author Organization [facility] Address [address] [place] [address] Phone Care Team Providers Care Receivables Specialist Name Role Phone Jose Pozo MD Primary Care Provider [phone] Allergies Active Allergy Reactions Criticality Noted Date [...] patient's age to complete this topic Insurance [place] Care Teams Receivables Specialist Relationship Specialty Start Date End Date Jose Pozo MD [address] [place] [address] [address] [employer] [place] PCP - General Medical Oncology 10/09/20
--- OUTSIDE RECORDS SUMMARY | 2025-06-10 14:32 | XMS_ITS | Patient Health Record ---
Author Organization Jose Pozo III, MD Address [address] [place] [address] [place] [address] Care Team Providers Care Custodial Laborer Name Role Phone Dr. Jose Pozo III [...] Reference Range Notes Basic Metabolic Panel Reviewed date:2024 08:45:16 PM Interpretation: Performing Lab:[facility], [address] [place] [phone] Notes/Report: Sodium 136 135-145 mmol/L Potassium 4.1 [...] ff Reviewed date:2024 08:45:16 PM Interpretation: Performing Lab:[facility], [address] [place] [phone] Notes/Report: White Blood Count 10.2 4.8-10.8 X10*3/uL [...] NRBC Abs Auto 0.000 0.0-0.012 X10*3/uL Comprehensive [place]. Panel Fa st Reviewed date:2024 08:45:16 PM Interpretation: Performing Lab:[facility], [address] [place] [address] Notes/Report: Sodium 137 135-145 mmol/L Potassium 4.1 [...] Panel Reviewed date:2024 08:45:16 PM Interpretation: Performing Lab:[address] [address] Notes/Report: Triglycerides 113 <150 mg/dL Desirable Triglyceride: [...] Thyroxine) Reviewed date:2024 08:45:16 PM Interpretation: Performing Lab:[address] [address] Notes/Report: Free T4 (Free Thyroxine) 1.33 0.71-1.85 ng/dL Thyroid Stimulating Hormone Reviewed date:2024 08:45:16 PM Interpretation: Performing Lab:[address] [place] [address] Notes/Report: Thyroid Stimulating Hormone 1.25 0.32-4.0 uIU/mL TSH 3rd Generation ([facility]) Comprehensive Met. Panel Reviewed date:12/23/2024 09:40:25 AM Interpretation: Performing Lab:[facility], [address] [place] [address] Notes/Report: Sodium 135 135-145 mmol/L Potassium 4.9 [...] T4 Reviewed date:12/23/2024 09:40:25 AM Interpretation: Performing Lab:[facility], [address] [place] [address] Notes/Report: TSH reflex Free T4 0.44 0.32-4.0 uIU/mL Complete Blood Count Auto Di ff Reviewed date:12/23/2024 09:40:24 AM Interpretation: Performing Lab:[facility], [address] [place] [phone] Notes/Report: White Blood Count 8.1 4.8-10.8 X10*3/uL [...] NRBC Abs Auto 0.000 0.0-0.012 X10*3/uL Comprehensive [place]. Panel Fa st Reviewed date:12/23/2024 09:40:24 AM Interpretation: Performing Lab:[facility], [address] [place] [address] Notes/Report: Sodium 139 135-145 mmol/L Potassium 4.6 [...] Panel Reviewed date:12/23/2024 09:40:24 AM Interpretation: Performing Lab:[facility], [address] [place] [phone] Notes/Report: Triglycerides 73 <150 mg/dL Desirable Triglyceride: [...] Thyroxine) Reviewed date:12/23/2024 09:40:24 AM Interpretation: Performing Lab:[facility], [address] [place] [address] Notes/Report: Free T4 (Free Thyroxine) 1.38 0.71-1.85 ng/dL Thyroid Stimulating Hormone Reviewed date:12/23/2024 09:40:24 AM Interpretation: Performing Lab:[facility], [address] [place] [address] Notes/Report: Thyroid Stimulating Hormone 0.81 0.32-4.0 uIU/mL TSH 3rd Generation ([facility]) US venous duplex LE RT Reviewed date:12/28/2024 11:57:58 AM Interpretation: Performing Lab: Notes/Report: [address] [address] Ultrasound Report Signed Patient: Dasha Rey MR#: [id number] [birth year] : 1945 Acct:[id number] Age/Sex: 79 / F ADM Date: 12/27/24 Loc: .US Attending Dr: Jose Pozo MD Ordering Physician: Jose Pozo MD Date of Service: 12/27/24 Procedure(s): US venous duplex LE RT Accession Number(s): [id number] cc: Jose Pozo MD EXAMINATION: US TRIPLEX [...] 12/27/24 1206 DD/ 1140 TD/TT: 12/27/24 1150 [address] Sewer Machine: [place] [address] Ultrasound Report Signed Patient: Charlie Rey MR#: [id number] 49 : 1945 Acct:[id number] Age/Sex: 79 / F ADM Date: 12/27/24 Loc: .[place] Attending Dr: Jose Pozo MD Ordering Physician: Jose Pozo MD Date of Service: 12/27/24 Procedure(s): US francine ous duplex LE RT Accession Number(s): [id number] cc: Jose Pozo MD EXAMINATION: US TRIPLEX [...] involving the right lower extremity. Electronically juan idego d by: Anirudh Diaz MD 12/27/2024 12:06 PM EDT Dictated By: Anirudh Diaz MD Signed By: <Electronically signed by Anirudh Diaz MD in [place]> 12/27/24 1206 DD/ 1140 TD/TT: 12/27/24 1150 [address] Sewer Machine: Complete Blood Count Auto Di ff Reviewed date:03/09/2025 08:31:30 PM Interpretation: Performing Lab:[facility], [address] [place] [address] Notes/Report: White Blood Count 9.1 4.8-10.8 X10*3/uL [...] NRBC Abs Auto 0.000 0.0-0.012 X10*3/uL Comprehensive [place]. Panel Fa st Reviewed date:03/09/2025 08:31:30 PM Interpretation: Performing Lab:[facility], [address] [place] [address] Notes/Report: Sodium 139 135-145 mmol/L Potassium 4.8 [...] Panel Reviewed date:03/09/2025 08:31:30 PM Interpretation: Performing Lab:[facility], [address] [place] [phone] Notes/Report: Triglycerides 64 <150 mg/dL Desirable Triglyceride: [...] Thyroxine) Reviewed date:03/09/2025 08:31:30 PM Interpretation: Performing Lab:[facility], [address] [place] [phone] Notes/Report: Free T4 (Free Thyroxine) 1.20 0.71-1.85 ng/dL Thyroid Stimulating Hormone Reviewed date:03/09/2025 08:31:30 PM Interpretation: Performing Lab:[facility], [address] [place] [address] Notes/Report: Thyroid Stimulating Hormone 1.20 0.32-4.0 uIU/mL TSH 3rd Generation ([facility]) Reason For Referral Reason Consult and treat 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 Referral Priority Routine Referral Appointment Date 05/14/2025 Medications Medication SIG (Take, Route, Frequency, Duration) Notes Start Date End Date Status Ventolin HFA 108 (90 Base) MCG/ACT one puff every 4 hours for wheezing Inhalation every 4 hrs Active Breo Ellipta 100-25 MCG/INH 1 puff Inhal ation Once a day Active Furosemide 20 MG 1 [...] FIDEL TH TWICE DAILY WITH FOOD Active predniSONE 5 MG 1 tablet Orally Twic e a day Active Immunizations Vaccine Route Administration Date Status [...] Problem Status W/U Status Risk Notes Problem 0743946 Former smoker (Z87.891) Active confirmed She has a plan to prevent relapse in times of stress or illness. Problem 316558944 Underweight (R63.6) Active confirmed She has become slightly underweight. We have discussed her diet and nutrition today at length. Problem 01496752 Chronic obstructive pulmonary disease, unspecified COPD type (J44.9) Active confirmed Her chronic cou gh from the RSV has resolved and she is breathing comfortably today. Problem 652554566 Acquired hypothyroidism (E03.9) Active confirmed The recent thyroid function tests are in range. No change in her therapy was necessary. Problem 89034339 Essential hypertension (I10) Active confirmed Her blood pressure is currently well controlled and no change in her regimen was needed today. Problem 180236905 Macrocytosis (D75.89) Active confirmed Her mean cell volume is stable at 103.4.This value will be followed. No treatment is necessary at this time. Problem 76329279 Hyperlipidemia, unspecified hyperlipidemia type (E78.5) Active confirmed Her lipids are being checked frequently. The current values are adequately controlled. Problem 698188464 Asthma due to environmental allergies (J45.909) Active confirmed She is using he r inhalers appropriately and has had little difficulty with asthma this summer. No change in her regimen was needed. Problem 099843375 Age-related incipient cataract of both eyes (H25.093) Active confirmed She has an pain management nurse and she sees regularly. Problem 427718586 Ischemic heart disease (I25.9) Active confirmed She is able to conduct all of the activities of daily life without ischemic pain. She has had no palpitations or syncope. Her regimen was continued. 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 Problem 9161675 Hypertensive retinopathy of both eyes (H35.033) Active confirmed She has had no vision changes. She is able to drive and read. Her blood pressure is well controlled today. Problem 501838365 Chronic kidney disease (CKD) stage G3b/A2, moderately decreased glomerular filtration rate (GFR) between 30-44 mL/min/1.73 square meter and albuminuria creatinine ratio between 30-299 mg/g (N18.32) Active confirmed The BUN is now 69. The creatinine is normal at 1.08. Her GFR has improved to 49. She will continue with nephrology. She is taking Urea. 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 She did not wish to go to a immigration consultant citing personal reasons. She was referred at her request to her surgeon at [facility]. A follow-up visit was arranged. Vital Signs Heart Rate 67 /min 05/06/2025 Temperature 98.6 degrees Fahrenheit 05/06/2025 Blood pressure diastolic 71 mm Hg 05/06/2025 Height 61 in 05/06/2025 Blood pressure systolic 143 mm Hg 05/06/2025 Weight 102 lbs 05/06/2025 BMI 19.27 kg/m2 05/06/2025 Encounters Encounter Location Date Provider Diagnosis Jose Pozo III, MD [address] [place] [address] [place] [address] 08/23/2024 Jose Pozo Chronic obstructive pulmonary disease, [...] and Macrocytosis D75.89 Jose Pozo III, MD [address] [place] [address] [place] [address] 12/27/2024 Jose Pozo Chronic obstructive pulmonary disease, [...] and Macrocytosis D75.89 Jose Pozo III, MD [address] [place] [address] [place] [address] 03/12/2025 Jose Pozo Chronic obstructive pulmonary disease, [...] and Macrocytosis D75.89 Jose Pozo III, MD [address] [place] [address] [place] [address] 05/06/2025 Jose Pozo Chronic obstructive pulmonary disease, unspecified COPD type J44.9 ; Neoplasm of skin D49.2 ; Hypertrophic nonobstructive cardiomyopathy I42.2 ; Essential hypertension I10 ; Hyperlipidemia, unspecified hyperlipidemia type E78.5 ; Ischemic heart disease I25.9 ; Former smoker Z87.891 and Underweight R63.6 Jose Pozo III, MD [address] [place] [address] [place] [address] 10/15/2024 Jose Pozo III, MD [address] [place] [address] [address] [place] [address] 10/26/2024 Jose Pozo III, MD [address] [place] [address] [address] [place] [address] 10/26/2024 Jose Pozo III, MD [address] [place] [address] [address] [place] [address] 03/20/2025 Jose Pozo III, MD [address] [place] [address] [address] [place] [address] 05/29/2025 Jose Pozo Assessments Encounter Date Diagnosis (ICD [...] comfortably and her lungs are clear. 03/12/2025 Chronic obstructive pulmonary disease, unspecified COPD type (ICD-10 - J44.9) Her chronic cough from the RSV has resolved and she is breathing comfortably today. 03/12/2025 Essential hypertension (ICD-10 - I10) Her blood pressure is currently well controlled and no change in her regimen was needed today. 05/06/2025 Chronic obstructive pulmonary disease, unspecified COPD type (ICD-10 - J44.9) Her chronic cough from the RSV has resolved and she is breathing comfortably today. 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 She did not wish to go to a immigration consultant citing personal reasons. She was referred at her request to her surgeon at [facility]. A follow-up visit was arranged. 08/23/2024 Essential hypertension (ICD-10 - I10) Her blood pressure and vital signs are stable today. No change in her regimen was necessary. 12/27/2024 Age-related incipient cataract of both eyes (ICD-10 - H25.093) She has an pain management nurse and she sees regularly. 03/12/2025 Hyperlipidemia, unspecified hyperlipidemia type (ICD-10 - E78.5) Her lipids are being checked frequently. The current values are adequately controlled. 05/06/2025 Hypertrophic nonobstructive cardiomyopathy (ICD-10 - I42.2) She is breathing comfortably and her lungs are clear. 08/23/2024 Hyperlipidemia, unspecified hyperlipidemia type (ICD-10 - E78.5) Her lipids are stable. No change in her regimen was necessary. 12/27/2024 Essential hypertension (ICD-10 - I10) Her blood pressure and vital signs are stable today. No change in her regimen was necessary. 03/12/2025 Hypertrophic nonobstructive cardiomyopathy (ICD-10 - I42.2) She is breathing comfortably and her lungs are clear. 05/06/2025 Essential hypertension (ICD-10 - I10) Her blood pressure is currently well controlled and no change in her regimen was needed today. 08/23/2024 Hypertrophic nonobstructive cardiomyopathy (ICD-10 - I42.2) She is breathing comfortably and her lungs are clear. 12/27/2024 Acquired hypothyroidism (ICD-10 - E03.9) The recent thyroid function tests are in range. No change in her therapy was necessary. 03/12/2025 Acquired hypothyroidism (ICD-10 - E03.9) The recent thyroid function tests are in range. No change in her therapy was necessary. 05/06/2025 Hyperlipidemia, unspecified hyperlipidemia type (ICD-10 - E78.5) Her lipids are being checked frequently. The current values are adequately controlled. 08/23/2024 Chronic kidney disease (CKD) stage G3b/A2, [...] Her blood pressure is well controlled today. 03/12/2025 Chronic kidney disease (CKD) stage G3b/A2, moderately decreased glomerular filtration rate (GFR) between 30-44 mL/min/1.73 square meter and albuminuria creatinine ratio between 30-299 mg/g (ICD-10 - N18.32) The BUN is now 69. The creatinine is normal at 1.08. Her GFR has improved to 49. She will continue with nephrology. She is taking Urea. 05/06/2025 Ischemic heart disease (ICD-10 - I25.9) She is able to conduct all of the activities of daily life without ischemic pain. She has had no palpitations or syncope. Her regimen was continued. 08/23/2024 Ischemic heart disease (ICD-10 - I25.9) [...] No change in her regimen was needed. 03/12/2025 Ischemic heart disease (ICD-10 - I25.9) She is able to conduct all of the activities of daily life without ischemic pain. She has had no palpitations or syncope. Her regimen was continued. 05/06/2025 Former smoker (ICD-10 - Z87.891) She has a plan to prevent relapse in times of stress or illness. 08/23/2024 Macrocytosis (ICD-10 - D75.89) Her mean [...] with nephrology. She is taking Urea. 03/12/2025 Macrocytosis (ICD-10 - D75.89) Her mean cell volume is stable at 103.4.This value will be followed. No treatment is necessary at this time. 05/06/2025 Underweight (ICD-10 - R63.6) She has become slightly underweight. We have discussed her diet and nutrition today at length. 12/27/2024 Ischemic heart disease (ICD-10 - I25.9) [...] C) 11/01/2022 PROFILE, FASTING (COMPREHENSIVE METABOLI C) 04/08/2022 PROFILE, FASTING (COMPREHENSIVE METABOLI C) 01/29/2021 PROFILE, FASTING (COMPREHENSIVE METABOLI C) 11/04/2021 PROFILE, FASTING (COMPREHENSIVE METABOLI C) 07/07/2021 PROFILE, FASTING (COMPREHENSIVE METABOLI C) 08/13/2022 PROFILE, FASTING (COMPREHENSIVE METABOLI C) 03/03/2021 PROFILE, FASTING (COMPREHENSIVE METABOLI C) 12/27/2024 PROFILE, FASTING (COMPREHENSIVE METABOLI C) 04/28/2022 PROFILE, FASTING (COMPREHENSIVE METABOLI C) 08/23/2024 PROFILE, FASTING (COMPREHENSIVE METABOLI C) 05/03/2024 PROFILE, FASTING (COMPREHENSIVE METABOLI C) 03/12/2025 PROFILE, FASTING (COMPREHENSIVE METABOLI C) 11/08/2023 PROFILE, FASTING (COMPREHENSIVE METABOLI C) 10/17/2023 PROFILE, RANDOM (COMPREHENSIVE METABOLIC ) 08/04/2022 HEMOGLOBIN A1C (GLYCOHEMOGLOBIN) 021 URIC ACID 01/29/2021 LIPID PANEL 11/01/2022 LIPID PANEL 04/08/2022 LIPID PANEL 11/04/2021 LIPID PANEL 01/29/2021 LIPID PANEL 03/03/2021 LIPID [...] HORMONE) 2021 TSH (THYROID STIMULATING HORMONE) 2021 TSH (THYROID STIMULATING HORMONE) 2022 TSH (THYROID STIMULATING HORMONE) 2021 TSH (THYROID STIMULATING HORMONE) 2024 B12 08/04/2022 FOLATE 08/04/2022 MICROALBUMIN, RANDOM 01/29/2021 CBC w DIFF 03/12/2025 CBC w DIFF 12/27/2024 CBC w DIFF 08/23/2024 CBC w DIFF 05/03/2024 CBC w DIFF 08/04/2022 CBC w DIFF 11/08/2023 CBC w DIFF 03/03/2021 CBC w DIFF 01/29/2021 CBC w DIFF 04/28/2022 CBC w DIFF 11/04/2021 CBC w DIFF 11/01/2022 CBC w DIFF 04/08/2022 CBC w DIFF 07/07/2021 CBC w DIFF 08/13/2022 CLOSTRIDIUM DIFF TOXIN A&B (C DIFF) 07/15 MRI LUMBAR SPINE NO CONTRAST 10/22/2021 US LEG RT VENOUS DOPPLER 12/27/2024 CBC WITH AUTO DIFF 10/17/2023 Lipid Panel 07/07/2021 Lipid Panel 03/12/2025 Lipid Panel 12/27/2024 Lipid Panel 08/23/2024 Lipid Panel 05/03/2024 Lipid Panel 11/08/2023 Lipid Panel 10/17/2023 Free T4 (Free Thyroxine) 12/27/2024 Free T4 (Free Thyroxine) 08/23/2024 Free T4 (Free Thyroxine) 05/03/2024 Free T4 (Free Thyroxine) 10/22/2021 Free T4 (Free Thyroxine) 11/08/2023 Free T4 (Free Thyroxine) 10/17/2023 Next Appt Details Provider Name:Jose Rivasrne , 06/14/2025 11:00:00 AM, [address] [place] [address] [address], [place], [address], Provider Name:Jose Tello Nohelia , 03/14/2026 11:00:00 AM, [address] [place] [address] [address], [place], [address], Insurance Providers Payer Name Payer Address Payer Phone Subscriber Number Group Number Insured Name Patient Relationship to Insured Coverage Start Date Coverage End Date MEDICARE NGS [address] [place] [id number] Charlie Rey Self - patient is the insured [facility] [address] [address] [place] [address] [id number] Charlie Rey Self - patient is the [...] Reason Date(Month/Year) No history Kidney Jeanna @ [facility] 2018
== END 2025-06-10 13:23 | disposition home or self-care (01) ==
LOC: HO.HGS 12:38
PROVIDERS: PCP Internal Medicine Medical Oncology; Visit Provider Surgery
DX: L98.9 Disorder of the skin and subcutaneous tissue, unspecified (principal); C44.621 Squamous cell carcinoma of skin of unspecified upper limb, including shoulder
CPT/HCPCS: 11440; 11601

== ENCOUNTER 2025-06-11 07:05 | Outpatient (REF) | payer MEDICARE, OTHER, SELFPAY ==
--- OUTSIDE RECORDS SUMMARY | 2024-05-08 14:45 | XMS_ITS ---
Author Organization Jose Pozo III, MD Address [address] [place] [address] Care Team Providers Care Owner/Operator Name Role Phone Dr. Jose Pozo III Primary Care Provider Medications Medication SIG (Take, Route, Frequency, Duration) Notes Start Date End Date Status Albuterol Sulfate HFA 108 (90 Base) MCG/ACT 2 puffs Inhalation every 6 hours for dyspnea for 28 days 05/08/2024 Active Social History Sex Assigned At : Social History Observation Description Sex Assigned At Female Encounters Encounter Location Date Provider Diagnosis Jose Pozo III, MD [address] [place] [address] [place] [address] 05/08/2024 Jose Pozo Plan Of Treatment Medication Medication Name Sig Start Date Stop Date Notes Albuterol Sulfate HFA 108 (9 0 Base) MCG/ACT 2 puffs Inhalation every 6 hours for dyspnea for 28 days 05/08/2024 Next Appt Details Provider Name:Jose Pozo , 06/14/2025 11:00:00 AM, [address] [place] [address] [place], [address], Provider Name:Jose Pozo , 03/14/2026 11:00:00 AM, [address] [place] [address] [place], [address], Progress Notes * Charlie BAGLEYDOB:[birth year] (78 yo F)Acc No.[id number]:05/08/2024 Patient: Ozzy ALEXAVALERIA Charlie Martinez :1945 A ge:78 Y S ex:Female Address:[address] [place] [address] [address] [place], [address] * Refills Start Albuterol Sulfate HFA Aerosol Solution, 108 (90 Base) MCG/ACT, Inhalation, 1, 2 puffs, every 6 hours for dyspnea, 28 days, Refills=11 * true * Date: Generated for Luann garcia/Addie/Ignacioitting on: 08:48 AM EST
--- OUTSIDE RECORDS SUMMARY | 2024-08-23 05:45 | XMS_ITS ---
Author Organization Jose Pozo III, MD Address [address] [place] [address] Care Team Providers Care Student Outreach Coordinator Name Role Phone Dr. Jose Pozo III Primary Care Provider Allergies Allergen (clinical drug ingredient) Drug/Non Drug Allergy documented on EMR Reaction Allergy Type Onset Date Status spironolactone Spironolactone Unknown Drug Allergy Active lisinopril Lisinopril Unknown Drug Allergy Activ e Lactose Unknown Drug Allergy Active amlodipine Amlodipine Besylate Unknown Drug Allergy Active pseudoephedrine 12 Hour Decongestant Unknown Drug Allergy Active Substance with beta adrenergic receptor antagonist mechanism of action (substance) Beta- Sky (uncoded) Unknown Allergy Active sulfacetamide Sulfacetamide Unknown Drug Allergy Active Latex Latex Unknown Allergy Active Statins Support Unknown Drug Allergy A ctive REASON FOR VISIT COPD, Cardiomyopathy, Hypertension, Hypothyroid, Chronic kidney disease, Asthma, Ischemic heart disease, Macrocytosis Medications Medication SIG (Take, Route, Frequency, Duration) Notes Start Date End Date Status predniSONE 5 MG 1 tablet Orally Twic e a day Active Ventolin HFA 108 (90 Base) MCG/ACT 1 puff as needed Inhalation every 4 hrs Active Breo Ellipta 100-25 MCG/INH 1 puff Inhal ation Once a day Active Levothyroxine Sodium 100 MCG 1 tablet in the morning on an empty stomach Orally Once a day Active Ure-Na 15 GM as directed Orally Active Albuterol Sulfate HFA 108 (90 Base) MCG/ACT INHALE 2 PUFFS EVERY 6 HOURS NEEDED Active Carvedilol 12.5 MG TAKE 1 TABLET BY TWICE DAILY WITH FOOD Active Furosemide 20 MG 1 tablet Orally Once a day 12/22/2022 Active Albuterol Sulfate HFA 108 (90 Base) MCG/ACT 2 puffs Inhalation every 6 hours for dyspnea 05/08/2024 Active Social History Tobacco Use: Social History Observation Description Date Details (start date - stop date) Never Smoker NA - NA Sex Assigned At : Social History Observation Description Sex Assigned At Female Tobacco Use/Smoking Question Answer Notes Patient is a nonsmoker Additional Findings: Tobacco Non-User Aggressive non-smoker Vital Signs Temperature 98.2 degrees Fahrenheit 08/24/19 25 Blood pressure systolic 134 mm Hg 08/24/19 25 Blood pressure diastolic 77 mm Hg 025 Heart Rate 54 /min 08/23/2024 Height 61 in 08/23/2024 Weight 95 lbs 08/23/2024 BMI 17.95 kg/m2 08/23/2024 Encounters Encounter Location Date Provider Diagnosis Jose Pozo III, MD [address] [place] [address] [place] [address] 08/23/2024 Jose Pozo Chronic obstructive pulmonary disease, unspecified COPD type J44.9 ; Acquired hypothyroidism E03.9 ; Essential hypertension I10 ; Hyperlipidemia, unspecified hyperlipidemia type E78.5 ; Hypertrophic nonobstructive cardiomyopathy I42.2 ; Chronic kidney disease (CKD) stage G3b/A2, moderately decreased glomerular filtration rate (GFR) between 30-44 mL/min/1.73 square meter and albuminuria creatinine ratio between 30-299 mg/g N18.32 ; Ischemic heart disease I25.9 and Macrocytosis D75.89 Assessments Encounter Date Diagnosis (ICD Code) Assessment Notes Treat ment Notes Treatment Clinical Notes 08/23/2024 Chronic obstructive pulmonary disease, unspecified COPD type (ICD-10 - J44.9) She had RSV several weeks ago and is still coughing and still has some shortness of breath with exertion. She recently saw her pulmonary physician who gave her no new medication. She was comfortable breathing room air today. She had no difficulty speaking. There were no wheezes on her examination. 08/23/2024 Acquired hypothyroidism (ICD-10 - E03.9) The recent thyroid function tests are in range. No change in her therapy was necessary. 08/23/2024 Essential hypertension (ICD-10 - I10) Her blood pressure and vital signs are stable today. No change in her regimen was necessary. 08/23/2024 Hyperlipidemia, unspecified hyperlipidemia type (ICD-10 - E78.5) Her lipids are stable. No change in her regimen was necessary. 08/23/2024 Hypertrophic nonobstructive cardiomyopathy (ICD-10 - I42.2) She is breathing comfortably and her lungs are clear. 08/23/2024 Chronic kidney disease (CKD) stage G3b/A2, moderately decreased glomerular filtration rate (GFR) between 30-44 mL/min/1.73 square meter and albuminuria creatinine ratio between 30-299 mg/g (ICD-10 - N18.32) The BUN has improved to 38. The creatinine is normal at 1.08. Her GFR has improved to 49. She will continue with nephrology. She is taking Urea. 08/23/2024 Ischemic heart disease (ICD-10 - I25.9) She is able to conduct all of the activities of daily life without ischemic pain. She has had no palpitations or syncope. Her regimen was continued. 08/23/2024 Macrocytosis (ICD-10 - D75.89) Her mean cell volume is stable at 103.4.This value will be followed. No treatment is necessary at this time. Plan Of Treatment Medication Medication Name Sig Start Date Stop Date Notes predniSONE 5 MG 1 tablet Orally Twice a day Ventolin HFA 108 (90 Base) MCG/ACT 1 puff as needed Inhalation every 4 hrs Breo Ellipta 100-25 MCG/INH 1 puff Inhal ation Once a day Levothyroxine Sodium 100 MCG 1 tablet in the morning on an empty stomach Orally Once a day Ure-Na 15 GM as directed Orally Albuterol Sulfate HFA 108 (9 0 Base) MCG/ACT INHALE 2 PUFFS EVERY 6 HOURS NEEDED Carvedilol 12.5 MG TAKE 1 TABLET BY TWICE DAILY WITH FOOD Furosemide 20 MG 1 tablet Orally Once a day 12/22/2022 Albuterol Sulfate HFA 108 (9 0 Base) MCG/ACT 2 puffs Inhalation every 6 hours for dyspnea 05/08/2024 Pending Test Test Name Order Date PROFILE, FASTING (COMPREHENSIVE METABOLI C) 08/23/2024 TSH (THYROID STIMULATING HORMONE) 2024 CBC w DIFF 08/23/2024 Lipid Panel 08/23/2024 Free T4 (Free Thyroxine) 08/23/2024 Next Appt Details Follow Up: 4 Months, Reason: ov review labs Provider Name:Jose Pozo , 06/14/2025 11:00:00 AM, [address] [place] [address] [address], [place], [phone], Provider Name:Jose Pozo , 03/14/2026 11:00:00 AM, [address] [place] [address] [address], [place], [id number], Progress Notes * Charlie BAGLEY MichelleDOB:[birth year] (79 yo F)Acc No.[id number]:08/23/2024 Progress Notes Patient: Charlie MEEKS Provider: Arabella Pozo MD :1945 A ge:79 Y S ex:Female Date:08/23/2024 Address:[address] [place] [address] [address] [id number] Subjective: * Chief Complaints: * C OPDCardiomyopathyHypertensionHypothyroidChronic kidney diseaseAsthmaIschemic heart diseaseMacrocytosis * HPI: C - Screening: She comes to the office for routine scheduled visit to manage her numerous medical issues. She says that her breathing has not been a problem lately. She is taking oral uremia from her senior process control tech which causes some side effects of nausea. Her blood work is available and was reviewed with her in detail today. No changes in her medications were needed today. She is living at home with her with dementia and caring for him.? She reports this causes great fatigue. She denies any chest pain or vomiting or skin lesions. Her examination today showed no new findings. Questions H ave you had any new onset fever, chills, cough, congestion, sore throat, shortness of breath, muscle aches? N o * ROS: G eneral/Constitutional: pain o nly normal aches and pains. C hills d enies.?Fatigue a dmits. F ever d enies. E NT: Decreased hearing m ild. R espiratory: Cough d enies. C ardiovascular: Chest pain with exertion d enies. D yspnea on exertion?denies. S hortness of breath w ith exertion. G astrointestinal: Constipation d enies. D ecreased appetite d enies.?Diarrhea d enies. H e[place]burn o ccasional. N ausea i nfrequent. R ectal bleeding d enies. V omiting d enies. H ematology: bruising d enies. p etechiae d enies. S wollen glands n one have been noted. G enitourinary: Frequent urination d enies. M usculoskeletal: Muscle aches d enies. P ainful joints d enies. S ciatica d enies. W eakness d enies. S kin: Itching d enies. R jeffery d enies. S kin lesion(s)?denies. N eurologic: Difficulty speaking d enies. D izziness d enies.?Headache d enies. L ow back pain d enies. P sychiatric: Depressed mood d enies. * Medical History: * Surgical History: H /O Colonoscopy Cardiac Cathererization Oophorectomy Left Cataract Splenectomy Hysterectomy with oophorectomy No history * Hospitalization/Major Diagno stic Procedure: Drake Meeks @ [facility] 2018No history * Family History: F ather: 62 yrs, diagnosed with CVD. M other: 100 yrs. 1 son(s) - healthy. . Her father of coronary artery disease. Her [...] substance abuse disorder, or addictions. * Social History: T obacco Use: T obacco Use/Smoking P atient is a n onsmoker A dditional Findings: Tobacco Non-User A ggressive non-smoker S he lives in [facility]. She has been to her , Tucker, for many years who is also a patient in this practice. They have 1 son who is alive and well and healthy. She is retired. * Medications: T akingCarvedilol 12.5 MG Tablet TAKE 1 TABLET BY MOUTH TWICE DAILY WITH FOOD Furosemide 20 MG Tablet 1 tablet Orally [...] Tablet 1 tablet Orally Twice a day Albuterol Sulfate HFA 108 (90 Base) MCG/ACT Aerosol Solution 2 puffs Inhalation every 6 hours for dyspnea Medication List reviewed and reconciled with the patientTaking Carvedilol 12.5 MG Tablet TAKE 1 TABLET BY MOUTH TWICE DAILY WITH FOOD Taking Furosemide 20 MG Tablet 1 tablet [...] 1 tablet Orally Twice a day Taking Albuterol Sulfate HFA 108 (90 Base) MCG/ACT Aerosol Solution 2 puffs Inhalation every 6 hours for dyspnea Medication List reviewed and reconciled with the patient * Allergies: B eta- BlockerLisinoprilStatins SupportAmlodipine ZluxioxyJchekzkkxhsgdnSauxlbw28 Hour DecongestantSulfacetamideLatexno[Allergies Verified] Objective: * Vitals: H t: 61, Wt:95, BMI:17.95, BP:134/77, HR:54, Temp:98.2, Ht-cm: 154.94, Wt-k.09. * P ast Orders: Lab:Thyroid Stimulating Horm one * Collection Date 2024 02/28/2024 11/01/2023 Collection Time 07:10 AM 07:15 AM 06:22 AM Order Date 2024 02/28/2024 11/01/2023 Thyroid Stimulating Hormone 1.25 (Ref Range: 0.32-4.0 uIU/mL) 1.43 (Ref Range: 0.32-4.0 uIU/mL) 0.74 (Ref Range: 0.32-4.0 uIU/mL) * Lab:Complete Blood Count Aut o Diff * Collection Date 2024 02/28/2024 11/01/2023 Collection Time 07:10 AM 07:15 AM 06:22 AM Order Date 2024 02/28/2024 11/01/2023 White Blood Count 10.2 (Ref Range: 4.8-10.8 X10*3/uL) 7.6 (Ref Range: 4.8-10.8 X10*3/uL) 9.1 (Ref Range: 4.8-10.8 X10*3/uL) Red Blood Count 4.06 L (Ref Range: 4.20-5.50 X10*6/uL) 3.91 L (Ref Range: 4.20-5.50 X10*6/uL) 4.01 L (Ref Range: 4.20-5.50 X10*6/uL) Hemoglobin 13.7 (Ref Range: 12.0-16.0 g/dl) 13.2 (Ref Range: 12.0-16.0 g/dl) 13.5 (Ref Range: 12.0-16.0 g/dl) Hematocrit 42.0 (Ref Range: 37.0-47.0 %) 41.0 (Ref Range: 37.0-47.0 %) 41.0 (Ref Range: 37.0-47.0 %) Mean Corpuscular Volume 103.4 H (Ref Range: 80.0-98.0 fL) 104.9 H (Ref Range: 80.0-98.0 fL) 102.2 H (Ref Range: 80.0-98.0 fL) Mean Corpuscular Hemoglobin 33.7 H (Ref Range: 27.0-33.0 pg) 33.8 H (Ref Range: 27.0-33.0 pg) 33.7 H (Ref Range: 27.0-33.0 pg) Mean Corpuscular HGB Conc 32.6 (Ref Range: 31.0-35.0 g/dl) 32.2 (Ref Range: 31.0-35.0 g/dl) 32.9 (Ref Range: 31.0-35.0 g/dl) Red Cell Distribution Width 12.8 (Ref Range: 11.0-16.0 %) 13.6 (Ref Range: 11.0-16.0 %) 13.3 (Ref Range: 11.0-16.0 %) Platelet Count 287 (Ref Range: 160-400 X10*3/uL) 229 (Ref Range: 160-400 X10*3/uL) 198 (Ref Range: 160-400 X10*3/uL) Mean Platelet Volume 9.4 (Ref Range: 9.4-12.3 fL) 9.3 L (Ref Range: 9.4-12.3 fL) 10.2 (Ref Range: 9.4-12.3 fL) Neutrophils Percent Auto 67.1 (Ref Range: 45-73 %) 57.1 (Ref Range: 45-73 %) 62.9 (Ref Range: 45-73 %) Imm Gran Pct Auto 0.5 H (Ref Range: 0.0-0.4 %) 0.4 (Ref Range: 0.0-0.4 %) 0.4 (Ref Range: 0.0-0.4 %) Lymphocytes Percent Auto 19.9 L (Ref Range: 20-40 %) 27.9 (Ref Range: 20-40 %) 26.2 (Ref Range: 20-40 %) Monocytes Percent Auto 10.9 (Ref Range: 2-11 %) 11.1 H (Ref Range: 2-11 %) 9.1 (Ref Range: 2-11 %) Eosinophils Percent Auto 0.8 (Ref Range: 0-4 %) 2.6 (Ref Range: 0-4 %) 0.7 (Ref Range: 0-4 %) Basophils Percent Auto 0.8 (Ref Range: 0-2 %) 0.9 (Ref Range: 0-2 %) 0.7 (Ref Range: 0-2 %) NRBC Pct Auto 0.0 (Ref Range: 0.0-0.2 /100WBC) 0.0 (Ref Range: 0.0-0.2 /100WBC) 0.0 (Ref Range: 0.0-0.2 /100WBC) Neutrophils Absolute Auto 6.9 (Ref Range: 2.0-8.3 x10*3/uL) 4.4 (Ref Range: 2.0-8.3 x10*3/uL) 5.7 (Ref Range: 2.0-8.3 x10*3/uL) Imm Gran Abs Auto 0.05 H (Ref Range: 0.00-0.03 X10*3/uL) 0.03 (Ref Range: 0.00-0.03 X10*3/uL) 0.04 H (Ref Range: 0.00-0.03 X10*3/uL) Lymphocytes Absolute Auto 2.0 (Ref Range: 1.2-4.9 X10*3/uL) 2.1 (Ref Range: 1.2-4.9 X10*3/uL) 2.4 (Ref Range: 1.2-4.9 X10*3/uL) Monocytes Absolute Auto 1.1 (Ref Range: 0.1-1.2 X10*3/uL) 0.9 (Ref Range: 0.1-1.2 X10*3/uL) 0.8 (Ref Range: 0.1-1.2 X10*3/uL) Eosinophils Absolute Auto 0.1 (Ref Range: 0.0-0.4 X10*3/uL) 0.2 (Ref Range: 0.0-0.4 X10*3/uL) 0.1 (Ref Range: 0.0-0.4 X10*3/uL) Basophils Absolute Auto 0.1 (Ref Range: 0.0-0.2 X10*3/uL) 0.1 (Ref Range: 0.0-0.2 X10*3/uL) 0.1 (Ref Range: 0.0-0.2 X10*3/uL) NRBC Abs Auto 0.000 (Ref Range: 0.0-0.012 X10*3/uL) 0.000 (Ref Range: 0.0-0.012 X10*3/uL) 0.000 (Ref Range: 0.0-0.012 X10*3/uL) * Lab:Vince Barba * Collection Date 2024 02/28/2024 11/01/2023 Collection Time 07:10 AM 07:15 AM 06:22 AM Order Date 2024 02/28/2024 11/01/2023 Sodium 137 (Ref Range: 135-145 mmol/L) 139 (Ref Range: 135-145 mmol/L) 139 (Ref Range: 135-145 mmol/L) Bilirubin Total 0.4 (Ref Range: 0.0-1.0 mg/dL) 0.4 (Ref Range: 0.0-1.0 mg/dL) 0.5 (Ref Range: 0.0-1.0 mg/dL) Aspartate Amino Transferase 28 (Ref Range: 5-31 U/L) 22 (Ref Range: 5-31 U/L) 22 (Ref Range: 5-31 U/L) Alanine Aminotransferase 22 (Ref Range: 0-31 U/L) 16 (Ref Range: 0-31 U/L) 22 (Ref Range: 0-31 U/L) Total Protein 8.1 H (Ref Range: 6.5-8.0 g/dL) 7.8 (Ref Range: 6.5-8.0 g/dL) 8.0 (Ref Range: 6.5-8.0 g/dL) Albumin Level 3.4 L (Ref Range: 3.5-5.0 g/dL) 3.5 (Ref Range: 3.5-5.0 g/dL) 3.5 (Ref Range: 3.5-5.0 g/dL) Alkaline Phosphatase 46 (Ref Range: 39-117 U/L) 44 (Ref Range: 39-117 U/L) 50 (Ref Range: 39-117 U/L) Potassium 4.1 (Ref Range: 3.3-5.1 mmol/L) 4.8 (Ref Range: 3.3-5.1 mmol/L) 4.3 (Ref Range: 3.3-5.1 mmol/L) Chloride 103 (Ref Range: 96-108 mmol/L) 106 (Ref Range: 96-108 mmol/L) 105 (Ref Range: 96-108 mmol/L) Carbon Dioxide 32 H (Ref Range: 22-29 mmol/L) 29 (Ref Range: 22-29 mmol/L) 28 (Ref Range: 22-29 mmol/L) Anion Gap 6 L (Ref Range: 12-20) 9 L (Ref Range: 12-20) 10 L (Ref Range: 12-20) Blood Urea Nitrogen 38 H (Ref Range: 9-16 mg/dL) 48 H (Ref Range: 9-16 mg/dL) 41 H (Ref Range: 9-16 mg/dL) Creatinine 1.08 (Ref Range: 0.5-1.4 mg/dL) 1.17 (Ref Range: 0.5-1.4 mg/dL) 0.97 (Ref Range: 0.5-1.4 mg/dL) Estimated Glomerular Filt Rate 49 45 56 Glucose Fasting 83 (Ref Range: 60-99 mg/dL) 87 (Ref Range: 60-99 mg/dL) 87 (Ref Range: 60-99 mg/dL) Calcium 9.1 (Ref Range: 8.4-10.2 mg/dL) 9.1 (Ref Range: 8.4-10.2 mg/dL) 9.0 (Ref Range: 8.4-10.2 mg/dL) * Lab:Lipid Panel * Collection Date 2024 02/28/2024 11/01/2023 Collection Time 07:10 AM 07:15 AM 06:22 AM Order Date 2024 02/28/2024 11/01/2023 Triglycerides 113 (Ref Range: <150 mg/dL) 66 (Ref Range: <150 mg/dL) 84 (Ref Range: <150 mg/dL) Cholesterol 169 (Ref Range: <200 mg/dL) 171 (Ref Range: <200 mg/dL) 175 (Ref Range: <200 mg/dL) LDL Cholesterol Calculated 88 (Ref Range: <100 mg/dL) 97 (Ref Range: <100 mg/dL) 92 (Ref Range: <100 mg/dL) HDL Cholesterol 59 (Ref Range: >40 mg/dL) 61 (Ref Range: >40 mg/dL) 67 (Ref Range: >40 mg/dL) * Lab:Free T4 (Free Thyroxine) * Collection Date 2024 02/28/2024 11/01/2023 Collection Time 07:10 AM 07:15 AM 06:22 AM Order Date 2024 02/28/2024 11/01/2023 Free T4 (Free Thyroxine) 1.33 (Ref Range: 0.71-1.85 ng/dL) 1.18 (Ref Range: 0.71-1.85 ng/dL) 1.32 (Ref Range: 0.71-1.85 ng/dL) * Lab:Basic Metabolic Panel * Collection Date 07/14/2024 03/29/2024 04/12/2023 Collection Time 10:27 AM 10:28 AM 10:31 AM Order Date 07/14/2024 03/29/2024 04/12/2023 Sodium 136 (Ref Range: 135-145 mmol/L) 135 (Ref Range: 135-145 mmol/L) 137 (Ref Range: 135-145 mmol/L) Blood Urea Nitrogen 42 H (Ref Range: 9-16 mg/dL) 70 H (Ref Range: 9-16 mg/dL) 32 H (Ref Range: 9-16 mg/dL) Creatinine 1.09 (Ref Range: 0.5-1.4 mg/dL) 1.21 (Ref Range: 0.5-1.4 mg/dL) 1.05 (Ref Range: 0.5-1.4 mg/dL) Glucose Random 102 (Ref Range: 60-115 mg/dL) 134 H (Ref Range: 60-115 mg/dL) 94 (Ref Range: 60-115 mg/dL) Calcium 9.1 (Ref Range: 8.4-10.2 mg/dL) 9.5 (Ref Range: 8.4-10.2 mg/dL) 9.3 (Ref Range: 8.4-10.2 mg/dL) Potassium 4.1 (Ref Range: 3.3-5.1 mmol/L) 4.1 (Ref Range: 3.3-5.1 mmol/L) 4.1 (Ref Range: 3.3-5.1 mmol/L) Chloride 102 (Ref Range: 96-108 mmol/L) 97 (Ref Range: 96-108 mmol/L) 100 (Ref Range: 96-108 mmol/L) Carbon Dioxide 28 (Ref Range: 22-29 mmol/L) 32 H (Ref Range: 22-29 mmol/L) 29 (Ref Range: 22-29 mmol/L) Anion Gap 10 L (Ref Range: 12-20) 10 L (Ref Range: 12-20) 12 (Ref Range: 12-20) Estimated Glomerular Filt Rate 49 43 51 * Examination: G eneral Examination: GENERAL APPEARANCE: p leasant, well nourished, well developed, in no acute distress, calm and relaxed, underweight, elderly woman. HEAD: a traumatic, normocephalic. EYES: e barbara, perrla, anicteric, conjugate. EARS: n ormal. NOSE: s eptum intact. ORAL CAVITY: n ormal, unremarkable. NECK/THYROID: n o jugular venous distention, no carotid bruit, thyroid normal. LYMPH NODES: n o enlarged lymph nodes,spleen normal. SKIN: n o suspicious lesions, anicteric. HEART: n o clicks, gallops, murmurs, or rubs, regular rhythm, S1, S2 normal, no s3, or vascular bruits. LUNGS: c lear to auscultation . BREASTS: N ot examined. ABDOMEN: b owel sounds normal, no ascites, no organomegaly, no mass, Underweight. RECTAL EXAM: n ot examined. MUSCULOSKELETAL: e xtremities unremarkable, no clubbing, cyanosis or edema. PERIPHERAL PULSES: n ormal. NEUROLOGIC: a lert and oriented, cranial nerves 2-12 grossly intact, deep tendon reflexes 2+ symmetrical, motor strength normal upper and lower extremities, sensory exam intact. PSYCH: a lert, oriented. Assessment: * Assessment: 1. A cquired hypothyroidism - E03.9 (Primary) N otes :The recent thyroid function tests are in range. No change in her therapy was necessary. 2 . C hronic obstructive pulmonary disease, unspecified COPD type - J44.9 N otes :She had RSV several weeks ago and is still coughing and still has some shortness of breath with exertion. She recently saw her pulmonary physician who gave her no new medication. She was comfortable breathing room air today. She had no difficulty speaking. There were no wheezes on her examination. 3 . E ssential hypertension - I10 N otes :Her blood pressure and vital signs are stable today. No change in her regimen was necessary. 4 . H yperlipidemia, unspecified hyperlipidemia type - E78.5 N otes :Her lipids are stable. No change in her regimen was necessary. 5 . H ypertrophic nonobstructive cardiomyopathy - I42.2 N otes :She is breathing comfortably and her lungs are clear. 6 . C hronic kidney disease (CKD) stage G3b/A2, moderately decreased glomerular filtration rate (GFR) between 30-44 mL/min/1.73 square meter and albuminuria creatinine ratio between 30-299 mg/g - N18.32 N otes :The BUN has improved to 38. The creatinine is normal at 1.08. Her GFR has improved to 49. She will continue with nephrology. She is taking Urea. 7 . I schemic heart disease - I25.9 N otes :She is able to conduct all of the activities of daily life without ischemic pain. She has had no palpitations or syncope. Her regimen was continued. 8 . M acrocytosis - D75.89 N otes :Her mean cell volume is stable at 103.4.This value will be followed. No treatment is necessary at this time. Plan: * Treatment: 2. C hronic obstructive pulmonary disease, unspecified COPD type Continue predniSONE Tablet, 5 MG, 1 tablet, Orally, Twice a day. L AB: PROFILE, FASTING (COMPREHENSIVE METABOLIC) L AB: TSH (THYROID STIMULATING HORMONE) L AB: CBC w DIFF L AB: Lipid Panel L AB: Free T4 (Free Thyroxine) 3. E ssential hypertension L AB: PROFILE, FASTING (COMPREHENSIVE METABOLIC) L AB: TSH (THYROID STIMULATING HORMONE) L AB: CBC w DIFF L AB: Lipid Panel L AB: Free T4 (Free Thyroxine) 4. H yperlipidemia, unspecified hyperlipidemia type L AB: PROFILE, FASTING (COMPREHENSIVE METABOLIC) L AB: TSH (THYROID STIMULATING HORMONE) L AB: CBC w DIFF L AB: Lipid Panel L AB: Free T4 (Free Thyroxine) 5. O thers Continue Albuterol Sulfate HFA Aerosol Solution, 108 (90 Base) MCG/ACT, 2 puffs, Inhalation, every 6 hours for dyspnea; C ontinue Carvedilol Tablet, 12.5 MG, TAKE 1 TABLET BY MOUTH TWICE DAILY WITH FOOD; C ontinue Furosemide Tablet, 20 MG, 1 tablet, Orally, Once a day; C ontinue Albuterol Sulfate HFA Aerosol Solution, 108 (90 Base) MCG/ACT, INHALE 2 PUFFS EVERY 6 HOURS NEEDED; C ontinue Levothyroxine Sodium Tablet, 100 MCG, 1 tablet in the morning on an empty stomach, Orally, Once a day; C ontinue Ure-Na Packet, 15 GM, as directed, Orally; C ontinue Ventolin HFA Aerosol Solution, 108 (90 Base) MCG/ACT, 1 puff as needed, Inhalation, every 4 hrs; C ontinue Breo Ellipta Aerosol Powder Breath Activated, 100-25 MCG/INH, 1 puff, Inhalation, Once a day. * Procedure Codes: * Preventive Medicine: Counseling: C are goal follow-up plan: Counseling for abnormal BMI given Y es Below Normal BMI Follow-up D ietary education for weight gain, Dietary management education, guidance, and counseling, Feeding regime, Lifestyle education regarding diet, Nutrition / feeding management, Prescribed diet education, Special diet education, Intervention, Order not done: Medical or Other reason not done COPD Care Plan: P atient Lifestyle Goals R elieve symptoms and improve quality of life, Reduce number of ED and hospitalizations, Be able to be more active with friends and family. T reatment Goals E at a nutritious diet and increase water consumption to 6-8 glasses a day, Exercise to help whole body, including lungs. B arriers n o barriers. S elf-Managment Goals E at a healthy diet, Get an air purifier for the rooms you are in the most. * Follow Up: 4 Months (Reason: ov review labs) * Images: * Sign off status: Completed true * Provider: Araeblla Pozo MD Date: 0 08/23/2024 Generated for Luann garcia/Addie/Jeseniasmitting on: 1 08:48 AM EST History and Physical Notes * HPI (History of Present Illness) Category Sub-Category Detail Notes COVID-19 Screening Questions Have you had any new onset fever, chills, cough, congestion, sore throat, shortness of breath, muscle aches?: No Examination Category Sub-Category Detail Notes General Examination [...] or vascular bruits LUNGS: clear to auscultatio n ABDOMEN: bowel sounds normal, no ascites, no organomegaly, no mass, Underweight NEUROLOGIC: alert and oriented, cranial nerves 2-12 grossly intact, deep tendon reflexes 2+ symmetrical, motor strength normal upper and lower extremities, sensory exam intact SKIN: no suspicious lesion s, anicteric PERIPHERAL PULSES: normal BREASTS: Not examined MUSCULOSKELETAL: extremities unremark able, no clubbing, cyanosis or edema LYMPH NODES: no enlarged lymph no roverto,spleen normal RECTAL EXAM: not examined PSYCH: alert, oriented ORAL CAVITY: normal, unremarkable
--- OUTSIDE RECORDS SUMMARY | 2024-10-15 05:28 | XMS_ITS ---
Author Organization Jose Pozo III, MD Address [address] [address] Care Team Providers Care Customer Retention Representative Name Role Phone Dr. Jose Pozo III Primary Care Provider REASON FOR VISIT Regarding Vaccine Social History Sex Assigned At : Social History Observation Description Sex Assigned At Female Encounters Encounter Location Date Provider Diagnosis Jose Pozo III, MD [address] [place] [address] [place] [address] 10/15/2024 Jose Pozo Plan Of Treatment Next Appt Details Provider Name:Jose Pozo , 06/14/2025 11:00:00 AM, [address] [place] [address] [place], [address], Provider Name:Jose Pozo , 03/14/2026 11:00:00 AM, [address] [place] [address] [place], [address], Progress Notes * Charlie BAGLEYDOB:[birth year] (79 yo F)Acc No.[id number]:10/15/2024 Patient: Ozzy ALEXAVALERIA Charlie Martinez :1945 A ge:79 Y S ex:Female Address:[address] [place] [address] [place], [address] * true * Date: Generated for Printi ng/Fatelmag/eTransmitting on: 08:48 AM EST
--- OUTSIDE RECORDS SUMMARY | 2024-10-26 06:41 | XMS_ITS ---
Author Organization Jose Pozo III, MD Address [address] [facility] [place] [address] Care Team Providers Care Cloth Colors Examiner Name Role Phone Dr. Jose Pozo III Primary Care Provider REASON FOR VISIT Rx Request Social History Sex Assigned At : Social History Observation Description Sex Assigned At Female Encounters Encounter Location Date Provider Diagnosis Jose Pozo III, MD [address] [place] [address] [place] [address] 10/26/2024 Jose Pozo Plan Of Treatment Next Appt Details Provider Name:Jose Pozo , 06/14/2025 11:00:00 AM, [address] [place] [address] [place], [address], Provider Name:Jose Pozo , 03/14/2026 11:00:00 AM, [address] [place] [address] [place], [address], Progress Notes * Charlie BAGLEYDOB:[birth year] (79 yo F)Acc No.[id number]:10/26/2024 Patient: Ozzy ALEXAVALERIACharlie :1945 A ge:79 Y S ex:Female Address:[address] [place] [address] [place], [address] * true * Date: Generated for Printi ng/Fatelmag/eTransmitting on: 08:49 AM EST
--- OUTSIDE RECORDS SUMMARY | 2024-10-26 08:38 | XMS_ITS ---
Author Organization Jose Pozo III, MD Address [address] [facility] [place] [address] Care Team Providers Care Aoc Director Combat Plans Officer Name Role Phone Dr. Jose Pozo III Primary Care Provider [phone] Medications Medication SIG (Take, Route, Frequency, Duration) Notes Start Date End Date Status Albuterol Sulfate HFA 108 (90 Base) MCG/ACT 1 puff as needed Inhalation every 4 hrs for 28 days 10/26/2024 Active Social History Sex Assigned At : Social History Observation Description Sex Assigned At Female Encounters Encounter Location Date Provider Diagnosis Jose Pozo III, MD [address] [place] [address] [place] [address] 10/26/2024 Jose Pozo Plan Of Treatment Medication Medication Name Sig Start Date Stop Date Notes Albuterol Sulfate HFA 108 (9 0 Base) MCG/ACT 1 puff as needed Inhalation every 4 hrs for 28 days 10/26/2024 Next Appt Details Provider Name:Jose Pozo , 06/14/2025 11:00:00 AM, [address] [place] [address] [place], [address], Provider Name:Jose Pozo , 03/14/2026 11:00:00 AM, [address] [place] [address] [place], [address], Progress Notes * Charlie BAGLEYDOB:[birth year] (79 yo F)Acc No.[id number]:10/26/2024 Patient: Ozzy ALEXAVALERIACharlie :1945 A ge:79 Y S ex:Female Address:[address] [place] [address] [facility] [place], [address] * Refills Start Albuterol Sulfate HFA Aerosol Solution, 108 (90 Base) MCG/ACT, Inhalation, 1, 1 puff as needed, every 4 hrs, 28 days, Refills=11 * true * Date: Generated for Luann garcia/Addie/Ignacioitting on: 08:48 AM EST
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
--- OUTSIDE RECORDS SUMMARY | 2025-03-12 06:00 | XMS_ITS ---
Author Organization Jose Pozo III, MD Address [address] [place] [address] Care Team Providers Care City Designer Name Role Phone Dr. Jose Pozo III [...] Active sulfacetamide Sulfacetamide Unknown Drug Allergy Active No Known Food Allergy Unknown Drug Allergy Active Latex Latex Unknown Allergy Active Statins Support Unknown Drug Allergy A ctive REASON FOR VISIT Annual Exam Medications Medication SIG (Take, Route, Frequency, Duration) Notes Start Date End Date Status Carvedilol 12.5 MG TAKE 1 TABLET BY TWICE DAILY WITH FOOD Active Ventolin HFA 108 (90 Base) MCG/ACT one puff every 4 hours for wheezing Inhalation every 4 hrs Active Breo Ellipta 100-25 MCG/INH 1 puff Inhal ation Once a day Active predniSONE 5 MG 1 tablet Orally Twic e a day Active Albuterol Sulfate HFA 108 (90 Base) MCG/ACT 1 puff as needed Inhalation every 4 hrs 10/26/2024 Active Ure-Na 15 GM as directed Orally Active Furosemide 20 MG 1 tablet Orally Once a day 12/22/2022 Active Levothyroxine Sodium 100 MCG 1 tablet in the morning on an empty stomach Orally Once a day Active Social History Tobacco Use: Social History Observation Description Date Details (start date - stop date) Former Smoker NA - NA Sex Assigned At : Social History Observation Description Sex Assigned At Female Tobacco Control (Standard) Question Answer Notes Tobacco use: Former smoker How long has it been since you last smoked? Grea ter than 10 years Additional Findings: Tobacco non-user Ex-cigaret te smoker AUDIT-C (Standard) Question Answer Notes Did you have a drink containing alcohol in the p ast year? 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 03/12/2025 Essential hypertension (ICD-10 - I10) Her blood pressure is currently well controlled and no change in her regimen was needed today. 03/12/2025 Hyperlipidemia, unspecified hyperlipidemia type (ICD-10 - E78.5) Her lipids are being checked frequently. The current values are adequately controlled. 03/12/2025 Hypertrophic nonobstructive cardiomyopathy (ICD-10 - I42.2) She is breathing comfortably and her lungs are clear. 03/12/2025 Acquired hypothyroidism (ICD-10 - E03.9) The recent thyroid function tests are in range. No change in her therapy was necessary. 03/12/2025 Chronic kidney disease (CKD) stage G3b/A2, moderately decreased glomerular filtration rate (GFR) between 30-44 mL/min/1.73 square meter and albuminuria creatinine ratio between 30-299 mg/g (ICD-10 - N18.32) The BUN is now 69. The creatinine is normal at 1.08. Her GFR has improved to 49. She will continue with nephrology. She is taking Urea. 03/12/2025 Ischemic heart disease (ICD-10 - I25.9) She is able to conduct all of the activities of daily life without ischemic pain. She has had no palpitations or syncope. Her regimen was continued. 03/12/2025 Macrocytosis (ICD-10 - D75.89) Her mean cell volume is stable at 103.4.This value will be followed. No treatment is necessary at this time. Plan Of Treatment Medication Medication Name Sig Start Date Stop Date Notes Carvedilol 12.5 MG TAKE 1 TABLET BY FIDEL TWICE DAILY WITH FOOD Ventolin HFA 108 (90 Base) MCG/ACT one puff every 4 hours for wheezing Inhalation every 4 hrs Breo Ellipta 100-25 MCG/INH 1 puff Inhal ation Once a day predniSONE 5 MG 1 tablet Orally Twice a day Albuterol Sulfate HFA 108 (9 0 Base) MCG/ACT 1 puff as needed Inhalation every 4 hrs 10/26/2024 Ure-Na 15 GM as directed Orally Furosemide 20 MG 1 tablet Orally Once a day 12/22/2022 Levothyroxine Sodium 100 MCG 1 tablet in the morning on an empty stomach Orally Once a day Pending Test Test Name Order Date PROFILE, FASTING (COMPREHENSIVE METABOLI C) 03/12/2025 CBC w DIFF 03/12/2025 Lipid Panel 03/12/2025 Next Appt Details Follow Up: 3 Months,follow u p, Reason: COPD Provider Name:Jose Pozo , 06/14/2025 11:00:00 AM, [address] [place] [address] [address], [place], [address], Provider Name:Jose Pozo , 03/14/2026 11:00:00 AM, [address] [place] [address] [address], [place], [address], Progress Notes * Charlie BAGLEY MichelleDOB:[birth year] (79 yo F)Acc No.[id number]:03/12/2025 Progress Notes Patient: Charlie MEEKS Provider: Arabella Pozo MD :1945 A ge:79 Y S ex:Female Date:03/12/2025 Address:[address] [place] [address] [place], [id number] Subjective: * Chief Complaints: * A nnual Exam * HPI: D epression Screening: She returns at the age of 79 for her annual visit. She is up-to-date with colonoscopy and mammography. She is taking no new medications and feels generally healthy and well. 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 She recently had a skin tear in the ennis of the left leg which is now bandaged. The bandage was removed and the area was dressed. There was no infection. She was given instructions on management of the wound.She had many questions about her cardiac diagnoses and the results of her most recent echocardiogram and the meaning of Dr. Dina Mcdaniels's note.These were answered to the best of my ability. No new problems were found today. No changes were necessary in her regimen. Her accompanied her today and he was seen as well. PHQ-9 L ittle interest or pleasure in doing things?Not at all F eeling down, depressed, or hopeless N ot at all T rouble falling or staying asleep, or sleeping too much N ot at all F eeling tired or having little energy N ot at all P oor appetite or overeating N ot at all F eeling bad about yourself or that you are a failure, or have let yourself or your family down N ot at all T rouble concentrating on things, such as reading the newspaper or watching television N ot at all M oving or speaking so slowly that other people could have noticed; or the opposite, being so fidgety or restless that you have been moving around a lot more than usual N ot at all T houghts that you would be better off or of hurting yourself in some way N ot at all T otal Score 0 C OVID-19 Screening: Questions H ave you had any new onset fever, chills, cough, congestion, sore throat, shortness of breath, muscle aches? N o S CHUCHO Questions: SDOH Questions I n the past year have you been worried about losing your housing? N o I n the past year have you or any family members you live with been unable to get any of the following when it was really needed? Check all that apply: N one F all Risk Screening: Fall History H ave you had any falls with injury in the past year? N o H ave you had two or more falls in the past year? N o F all Risk Assessment: N o falls in the past year * ROS: G eneral/Constitutional: pain o nly normal aches and pains. C hills d enies.?Fatigue a dmits. F ever d enies. E NT: Decreased hearing d enies. R espiratory: Cough d enies. C ardiovascular: Chest pain with exertion d enies. D yspnea on exertion?with prolonged activity. S hortness of breath w ith exertion. G astrointestinal: Constipation o ccasional. D ecreased [...] Hospitalization/Major Diagno stic Procedure: Drake Meeks @ [facility] 2018No history * Family History: F [...] Social History: T obacco Use: T obacco Control (Standard) T obacco use: F ormer smoker H ow long has it been since you last smoked??Greater than 10 years A dditional Findings: Tobacco non-user E x-cigarette smoker D rugs/Alcohol: D rugs H ave you used drugs other than those for medical reasons in the past 12 months? N o D rug/Alcohol: A NATASHA-C (Standard) D id you have a drink containing alcohol in the past year? N o P oints 0 I nterpretation N egative S he lives in [facility]. She has been to her , Tucker, for many years who is also a patient in this practice. They have 1 son who is alive and well and healthy. She is retired. * Medications: T akingCarvedilol 12.5 MG Tablet TAKE 1 TABLET BY MOUTH TWICE DAILY WITH FOOD Furosemide 20 MG Tablet 1 tablet Orally Once a day Levothyroxine Sodium 100 MCG Tablet 1 tablet in the morning on an empty stomach Orally Once a day Ure-Na 15 GM Packet as directed Orally Ventolin HFA 108 (90 Base) MCG/ACT Aerosol Solution one puff every 4 hours for wheezing Inhalation every 4 hrs Breo Ellipta 100-25 MCG/INH Aerosol Powder Breath Activated 1 puff Inhalation Once a day predniSONE 5 MG Tablet 1 tablet Orally Twice a day Albuterol Sulfate HFA 108 (90 Base) MCG/ACT Aerosol Solution 1 puff as needed Inhalation every 4 hrs Medication List reviewed and reconciled with the patientTaking Carvedilol 12.5 MG Tablet TAKE 1 TABLET BY MOUTH TWICE DAILY WITH FOOD Taking Furosemide 20 MG Tablet 1 tablet Orally Once a day Taking Levothyroxine Sodium 100 MCG Tablet 1 tablet in the morning on an empty stomach Orally Once a day Taking Ure-Na 15 GM Packet as directed Orally Taking Ventolin HFA 108 (90 Base) MCG/ACT Aerosol Solution one puff every 4 hours for wheezing Inhalation every 4 hrs Taking Breo Ellipta 100-25 MCG/INH Aerosol Powder Breath Activated 1 puff Inhalation Once a day Taking predniSONE 5 MG Tablet 1 tablet Orally Twice a day Taking Albuterol Sulfate HFA 108 (90 Base) MCG/ACT Aerosol Solution 1 puff as needed Inhalation every 4 hrs Medication List reviewed and reconciled with the patient * Allergies: B eta- BlockerLisinoprilStatins SupportAmlodipine OxjloxfsXsxuiiqyuvtfgpCqpyagi51 Hour DecongestantSulfacetamideLatexNo Known Food Allergyno[Allergies Verified] Objective: * Vitals: H t: 61, Wt:98, BMI:18.51, BP:126/60, HR:51, Temp:97.7, Ht-cm: 154.94, Wt-k.45. * P ast Orders: I maging:US venous duplex LE RT (Order Date - 12/27/2024) (Performed Date - 12/27/2024) Lab:Lipid Panel * Collection Date 03/06/2025 12/19/2024 2024 Collection Time 07:29 AM 06:32 AM 07:10 AM Order Date 03/06/2025 12/19/2024 2024 Triglycerides 64 (Ref Range: <150 mg/dL) 73 (Ref Range: <150 mg/dL) 113 (Ref Range: <150 mg/dL) Cholesterol 180 (Ref Range: <200 mg/dL) 169 (Ref Range: <200 mg/dL) 169 (Ref Range: <200 mg/dL) LDL Cholesterol Calculated 106 H (Ref Range: <100 mg/dL) 90 (Ref Range: <100 mg/dL) 88 (Ref Range: <100 mg/dL) HDL Cholesterol 62 (Ref Range: >40 mg/dL) 65 (Ref Range: >40 mg/dL) 59 (Ref Range: >40 mg/dL) * Lab:Comprehensive [place]. Pane l Fast * Collection Date 03/06/2025 12/19/2024 2024 Collection Time 07:29 AM 06:32 AM 07:10 AM Order Date 03/06/2025 12/19/2024 2024 Sodium 139 (Ref Range: 135-145 mmol/L) 139 (Ref Range: 135-145 mmol/L) 137 (Ref Range: 135-145 mmol/L) Bilirubin Total 0.4 (Ref Range: 0.0-1.0 mg/dL) 0.4 (Ref Range: 0.0-1.0 mg/dL) 0.4 (Ref Range: 0.0-1.0 mg/dL) Aspartate Amino Transferase 29 (Ref Range: 5-31 U/L) 28 (Ref Range: 5-31 U/L) 28 (Ref Range: 5-31 U/L) Alanine Aminotransferase 22 (Ref Range: 0-31 U/L) 22 (Ref Range: 0-31 U/L) 22 (Ref Range: 0-31 U/L) Total Protein 7.7 (Ref Range: 6.5-8.0 g/dL) 7.7 (Ref Range: 6.5-8.0 g/dL) 8.1 H (Ref Range: 6.5-8.0 g/dL) Albumin Level 3.5 (Ref Range: 3.5-5.0 g/dL) 3.6 (Ref Range: 3.5-5.0 g/dL) 3.4 L (Ref Range: 3.5-5.0 g/dL) Alkaline Phosphatase 41 (Ref Range: 39-117 U/L) 50 (Ref Range: 39-117 U/L) 46 (Ref Range: 39-117 U/L) Potassium 4.8 (Ref Range: 3.3-5.1 mmol/L) 4.6 (Ref Range: 3.3-5.1 mmol/L) 4.1 (Ref Range: 3.3-5.1 mmol/L) Chloride 105 (Ref Range: 96-108 mmol/L) 105 (Ref Range: 96-108 mmol/L) 103 (Ref Range: 96-108 mmol/L) Carbon Dioxide 31 H (Ref Range: 22-29 mmol/L) 31 H (Ref Range: 22-29 mmol/L) 32 H (Ref Range: 22-29 mmol/L) Anion Gap 8 L (Ref Range: 12-20) 8 L (Ref Range: 12-20) 6 L (Ref Range: 12-20) Blood Urea Nitrogen 48 H (Ref Range: 9-16 mg/dL) 45 H (Ref Range: 9-16 mg/dL) 38 H (Ref Range: 9-16 mg/dL) Creatinine 1.18 (Ref Range: 0.5-1.4 mg/dL) 1.12 (Ref Range: 0.5-1.4 mg/dL) 1.08 (Ref Range: 0.5-1.4 mg/dL) Estimated Glomerular Filt Rate 44 47 49 Glucose Fasting 84 (Ref Range: 60-99 mg/dL) 84 (Ref Range: 60-99 mg/dL) 83 (Ref Range: 60-99 mg/dL) Calcium 9.3 (Ref Range: 8.4-10.2 mg/dL) 9.1 (Ref Range: 8.4-10.2 mg/dL) 9.1 (Ref Range: 8.4-10.2 mg/dL) * Lab:Complete Blood Count Aut o Diff * Collection Date 03/06/2025 12/19/2024 2024 Collection Time 07:29 AM 06:32 AM 07:10 AM Order Date 03/06/2025 12/19/2024 2024 White Blood Count 9.1 (Ref Range: 4.8-10.8 X10*3/uL) 8.1 (Ref Range: 4.8-10.8 X10*3/uL) 10.2 (Ref Range: 4.8-10.8 X10*3/uL) Red Blood Count 3.91 L (Ref Range: 4.20-5.50 X10*6/uL) 4.06 L (Ref Range: 4.20-5.50 X10*6/uL) 4.06 L (Ref Range: 4.20-5.50 X10*6/uL) Hemoglobin 13.2 (Ref Range: 12.0-16.0 g/dl) 13.4 (Ref Range: 12.0-16.0 g/dl) 13.7 (Ref Range: 12.0-16.0 g/dl) Hematocrit 40.4 (Ref Range: 37.0-47.0 %) 41.9 (Ref Range: 37.0-47.0 %) 42.0 (Ref Range: 37.0-47.0 %) Mean Corpuscular Volume 103.3 H (Ref Range: 80.0-98.0 fL) 103.2 H (Ref Range: 80.0-98.0 fL) 103.4 H (Ref Range: 80.0-98.0 fL) Mean Corpuscular Hemoglobin 33.8 H (Ref Range: 27.0-33.0 pg) 33.0 (Ref Range: 27.0-33.0 pg) 33.7 H (Ref Range: 27.0-33.0 pg) Mean Corpuscular HGB Conc 32.7 (Ref Range: 31.0-35.0 g/dl) 32.0 (Ref Range: 31.0-35.0 g/dl) 32.6 (Ref Range: 31.0-35.0 g/dl) Red Cell Distribution Width 13.3 (Ref Range: 11.0-16.0 %) 13.3 (Ref Range: 11.0-16.0 %) 12.8 (Ref Range: 11.0-16.0 %) Platelet Count 215 (Ref Range: 160-400 X10*3/uL) 244 (Ref Range: 160-400 X10*3/uL) 287 (Ref Range: 160-400 X10*3/uL) Mean Platelet Volume 9.7 (Ref Range: 9.4-12.3 fL) 9.5 (Ref Range: 9.4-12.3 fL) 9.4 (Ref Range: 9.4-12.3 fL) Neutrophils Percent Auto 67.6 (Ref Range: 45-73 %) 64.0 (Ref Range: 45-73 %) 67.1 (Ref Range: 45-73 %) Imm Gran Pct Auto 0.4 (Ref Range: 0.0-0.4 %) 0.2 (Ref Range: 0.0-0.4 %) 0.5 H (Ref Range: 0.0-0.4 %) Lymphocytes Percent Auto 19.7 L (Ref Range: 20-40 %) 23.5 (Ref Range: 20-40 %) 19.9 L (Ref Range: 20-40 %) Monocytes Percent Auto 11.3 H (Ref Range: 2-11 %) 11.0 (Ref Range: 2-11 %) 10.9 (Ref Range: 2-11 %) Eosinophils Percent Auto 0.6 (Ref Range: 0-4 %) 0.4 (Ref Range: 0-4 %) 0.8 (Ref Range: 0-4 %) Basophils Percent Auto 0.4 (Ref Range: 0-2 %) 0.9 (Ref Range: 0-2 %) 0.8 (Ref Range: 0-2 %) NRBC Pct Auto 0.0 (Ref Range: 0.0-0.2 /100WBC) 0.0 (Ref Range: 0.0-0.2 /100WBC) 0.0 (Ref Range: 0.0-0.2 /100WBC) Neutrophils Absolute Auto 6.1 (Ref Range: 2.0-8.3 x10*3/uL) 5.2 (Ref Range: 2.0-8.3 x10*3/uL) 6.9 (Ref Range: 2.0-8.3 x10*3/uL) Imm Gran Abs Auto 0.04 H (Ref Range: 0.00-0.03 X10*3/uL) 0.02 (Ref Range: 0.00-0.03 X10*3/uL) 0.05 H (Ref Range: 0.00-0.03 X10*3/uL) Lymphocytes Absolute Auto 1.8 (Ref Range: 1.2-4.9 X10*3/uL) 1.9 (Ref Range: 1.2-4.9 X10*3/uL) 2.0 (Ref Range: 1.2-4.9 X10*3/uL) Monocytes Absolute Auto 1.0 (Ref Range: 0.1-1.2 X10*3/uL) 0.9 (Ref Range: 0.1-1.2 X10*3/uL) 1.1 (Ref Range: 0.1-1.2 X10*3/uL) Eosinophils Absolute Auto 0.1 (Ref Range: 0.0-0.4 X10*3/uL) 0.0 (Ref Range: 0.0-0.4 X10*3/uL) 0.1 (Ref Range: 0.0-0.4 X10*3/uL) Basophils Absolute Auto 0.0 (Ref Range: 0.0-0.2 X10*3/uL) 0.1 (Ref Range: 0.0-0.2 X10*3/uL) 0.1 (Ref Range: 0.0-0.2 X10*3/uL) NRBC Abs Auto 0.000 (Ref Range: 0.0-0.012 X10*3/uL) 0.000 (Ref Range: 0.0-0.012 X10*3/uL) 0.000 (Ref Range: 0.0-0.012 X10*3/uL) * Lab:Thyroid Stimulating Horm one * Collection Date 03/06/2025 12/19/2024 2024 Collection Time 07:29 AM 06:32 AM 07:10 AM Order Date 03/06/2025 12/19/2024 2024 Thyroid Stimulating Hormone 1.20 (Ref Range: 0.32-4.0 uIU/mL) 0.81 (Ref Range: 0.32-4.0 uIU/mL) 1.25 (Ref Range: 0.32-4.0 uIU/mL) * Lab:Free T4 (Free Thyroxine) * Collection Date 03/06/2025 12/19/2024 2024 Collection Time 07:29 AM 06:32 AM 07:10 AM Order Date 03/06/2025 12/19/2024 2024 Free T4 (Free Thyroxine) 1.20 (Ref Range: 0.71-1.85 ng/dL) 1.38 (Ref Range: 0.71-1.85 ng/dL) 1.33 (Ref Range: 0.71-1.85 ng/dL) * Examination: G eneral Examination: GENERAL APPEARANCE: p leasant, well nourished, well developed, in no acute distress, calm and relaxed: underweight: elderly woman. HEAD: a traumatic, normocephalic. EYES: [...] or vascular bruits. LUNGS: c lear to auscultation: no wheezes, rales, rhonchi: good air movement. BREASTS: N ot examined. ABDOMEN: b owel [...] she is breathing comfortably today. 2 . E ssential hypertension - I10 N otes :Her blood pressure is currently well controlled and no change in her regimen was needed today. 3 . H yperlipidemia, unspecified hyperlipidemia type - E78.5 N otes :Her lipids are being checked frequently. The current values are adequately controlled. 4 . H ypertrophic nonobstructive cardiomyopathy - I42.2 N otes :She is breathing comfortably and her lungs are clear. 5 . A cquired hypothyroidism - E03.9 N otes :The recent thyroid function tests are in range. No change in her therapy was necessary. 6 . C hronic kidney disease (CKD) [...] at this time. Plan: * Treatment: 2. E ssential hypertension L AB: PROFILE, FASTING (COMPREHENSIVE METABOLIC) L AB: CBC w DIFF L AB: Lipid Panel 3. H yperlipidemia, unspecified hyperlipidemia type L AB: PROFILE, FASTING (COMPREHENSIVE METABOLIC) L AB: CBC w DIFF L AB: Lipid Panel 4. O thers Continue Carvedilol Tablet, 12.5 MG, [...] 4 hours for wheezing, Inhalation, every 4 hrs; C ontinue Breo Ellipta Aerosol Powder Breath Activated, 100-25 MCG/INH, 1 puff, Inhalation, Once a day. * Procedure Codes: * Preventive Medicine: COPD Care Plan: P atient Lifestyle Goals R elieve symptoms and improve quality of life, Reduce number of ED and hospitalizations, Be able to be more active with friends and family. T reatment Goals E xercise to help whole body, including lungs, Eat a nutritious diet and increase water consumption to 6-8 glasses a day. B arriers n o barriers. S elf-Managment Goals G et an air purifier for the rooms you are in the most, Eat a healthy diet. * Follow Up: 3 Months,follow up (Reason: COPD) * Images: * Sign off status: Completed true * Provider: Arabella Pozo MD Date: 0 03/12/2025 Generated for Luann garcia/Addie/Nilay on: 08:49 AM EST History and Physical Notes * HPI (History of Present Illness) Category Sub-Category Detail Notes Depression Screening PHQ-9 Little inte rest or pleasure in doing things: Not at all Feeling down, depressed, or hopeless: No t at all Trouble falling or staying asleep, or sl eeping too much: Not at all Feeling tired or having little energy: N ot at all Poor appetite or overeating: Not at all Feeling bad about yourself o r that you are a failure, or have let yourself or your family down: Not at all Trouble concentrating on thi ngs, such as reading the newspaper or watching television: Not at all Moving or speaking so slowly that other people could have noticed; or the opposite, being so fidgety or restless that you have been moving around a lot more than usual: Not at all Thoughts that you would be b john off or of hurting yourself in some way: Not at all Total Score: 0 Fall Risk Screening Fall History Have you had any falls with injury in the past year?: No Have you had two or more falls in the year?: No Fall Risk Assessment:: No falls in the year COVID-19 Screening Questions Have you had any new onset fever, chills, cough, congestion, sore throat, shortness of breath, muscle aches?: No SDOH Questions SDOH Questions In the past year have you been worried about losing your housing?: No In the past year have you or any family members you live with been unable to get any of the following when it was really needed? Check all that apply:: None Examination Category Sub-Category Detail Notes General Examination GENERAL APPEARANCE: pleasant , well nourished, well developed, in no acute distress, calm and relaxed: underweight: elderly woman HEAD: atraumatic, normocep halic EYES: eomi, perrla, anicte rafaela, conjugate EARS: normal NOSE: septum intact NECK/THYROID: no jugular venous di stention, no carotid bruit, thyroid normal HEART: no clicks, gallops, murmurs, or rubs, regular rhythm, S1, S2 normal, no s3, or vascular bruits LUNGS: clear to auscultatio n: no wheezes, rales, rhonchi: good air movement ABDOMEN: bowel sounds normal, no ascites, no organomegaly, no mass, Underweight NEUROLOGIC: alert and oriented, cranial nerves 2-12 grossly intact, deep tendon reflexes 2+ symmetrical, motor strength normal upper and lower extremities, sensory exam intact SKIN: no suspicious lesion s, anicteric PERIPHERAL PULSES: normal BREASTS: Not examined MUSCULOSKELETAL: extremities unremark able, no clubbing, cyanosis or edema LYMPH NODES: no enlarged lymph no roevrto,spleen normal RECTAL EXAM: not examined PSYCH: alert, oriented ORAL CAVITY: normal, unremarkable
--- OUTSIDE RECORDS SUMMARY | 2025-03-20 05:13 | XMS_ITS ---
Author Organization Jose Pozo III, MD Address [address] [place] [address] [place] [address] Care Team Providers Care Carbonizer Name Role Phone Dr. Jose Pozo III Primary Care Provider REASON FOR VISIT FYI Social History Sex Assigned At : Social History Observation Description Sex Assigned At Female Encounters Encounter Location Date Provider Diagnosis Jose Pozo III, MD [address] [place] [address] [place] [address] 03/20/2025 Jose Pozo Plan Of Treatment Next Appt Details Provider Name:Jose Pozo , 06/14/2025 11:00:00 AM, [address] [place] [address] [place], [address], Provider Name:Jose Pozo , 03/14/2026 11:00:00 AM, [address] [place] [address] [place], [address], Progress Notes * Charlie BAGLEYDOB:[birth year] (79 yo F)Acc No.[id number]:03/20/2025 Patient: Ozzy ALEXAVALERIACharlie :1945 A ge:79 Y S ex:Female Address:[address] [place] [address] [facility] [place], [address] * Addendum: * 03/21/2025 1 1:12 AM EDT Loulou Pritchett CMA > * true * Date: Generated for Printi ng/Faxing/eTransmitting on: 08:48 AM EST
--- OUTSIDE RECORDS SUMMARY | 2025-05-06 04:00 | XMS_ITS ---
Author Organization Jose Pozo III, MD Address [address] [place] [address] Care Team Providers Care Early Learning Teacher Name Role Phone Dr. 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 Referral Priority Routine Referral Appointment Date 05/14/2025 REASON FOR VISIT Enlarging skin lesion left forearm, COPD, Cardiomyopathy, Hypertension, Hypothyroid, Chronic renal disease, Ischemic heart disease Medications Medication SIG [...] needed Inhalation every 4 hrs 10/26/2024 Active Carvedilol 12.5 MG TAKE 1 TABLET BY TWICE DAILY WITH FOOD Active predniSONE 5 MG 1 tablet Orally Twic e a day Active Furosemide 20 MG 1 tablet Orally Once a day 12/22/2022 Active Levothyroxine Sodium 100 MCG 1 tablet in the morning on an empty stomach Orally Once a day Active Ure-Na 15 GM as directed Orally Active Social History Tobacco Use: Social History [...] Additional Findings: Tobacco non-user Ex-cigaret te smoker Problems Problem Type SNOMED Code ICD Code Onset Dates Problem Status W/U Status Risk Notes Problem 136717495 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 She did not wish to go to a exceptional children teacher citing personal reasons. She was referred at her request to her surgeon at [facility]. A follow-up visit was arranged. Problem 881094084 Underweight (R63.6) Active confirmed She has become slightly underweight. We have discussed her diet and nutrition today at length. Problem 0984395 Former smoker (Z87.891) Active confirmed She has a plan to prevent relapse in times of stress or illness. 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 She did not wish to go to a exceptional children teacher citing personal reasons. She was referred at her request to her surgeon at [facility]. A follow-up visit was arranged. 05/06/2025 Hypertrophic nonobstructive cardiomyopathy (ICD-10 - I42.2) She is breathing comfortably and her lungs are clear. 05/06/2025 Essential hypertension (ICD-10 - I10) Her blood pressure is currently well controlled and no change in her regimen was needed today. 05/06/2025 Hyperlipidemia, unspecified hyperlipidemia type (ICD-10 - E78.5) Her lipids are being checked frequently. The current values are adequately controlled. 05/06/2025 Ischemic heart disease (ICD-10 - I25.9) She is able to conduct all of the activities of daily life without ischemic pain. She has had no palpitations or syncope. Her regimen was continued. 05/06/2025 Former smoker (ICD-1 0 - Z87.891) She has a plan to prevent relapse in times of stress or illness. 05/06/2025 Underweight (ICD-10 - R63.6) She has become slightly underweight. We have discussed her diet and nutrition today at length. Plan Of Treatment Medication Medication Name Sig Start Date Stop Date Notes Ventolin HFA 108 (90 Base) MCG/ACT one puff every 4 hours for wheezing Inhalation every 4 hrs Breo Ellipta 100-25 MCG/INH 1 puff Inhal ation Once a day Albuterol Sulfate HFA 108 (9 0 Base) MCG/ACT 1 puff as needed Inhalation every 4 hrs 10/26/2024 Carvedilol 12.5 MG TAKE 1 TABLET BY FIDEL TWICE DAILY WITH FOOD predniSONE 5 MG 1 tablet Orally Twice a day Furosemide 20 MG 1 tablet Orally Once a day 12/22/2022 Levothyroxine Sodium 100 MCG 1 tablet in the morning on an empty stomach Orally Once a day Ure-Na 15 GM as directed Orally Referrals Referral Date Details 05/06/2025 05/06/2025, Consult and treat 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, Aaron Simon Next Appt Details Follow Up: As Scheduled, Snow son: OV Provider Name:Jose Pozo , 06/14/2025 11:00:00 AM, [address] [place] [address] [address], [place], [address], Provider Name:Jose Pozo , 03/14/2026 11:00:00 AM, [address] [place] [address] [address], [place], [address], Progress Notes * GEORGIAJINA Charlie MartinezDOB:[birth year] (79 yo F)Acc No.[id number]:05/06/2025 Progress Notes Patient: Charlie MEEKS Ann Provider: Arabella Pozo MD :1945 A ge:79 Y S ex:Female Date:05/06/2025 Address:[address] [place] [id number] Subjective: * Chief Complaints: * E nlarging skin lesion left forearmCOPDCardiomyopathyHypertensionHypothyroidChronic renal diseaseIschemic heart disease * HPI: v : She has noted a verrucous lesion on the dorsal left forearm rapidly expanding in size. It is light brown and does not bleed and is not ulcerated. It is freely mobile with the skin. She declined a referral to dermatology. Instead, she requested a referral to her surgeon, Dr. Simon, at [facility]. This was done. She has had no recent chest pain. Her vital signs and blood pressure were stable. She was breathing comfortably. Examination of her skin showed no additional lesions. Her oxygen saturation was in the normal range. * ROS: G eneral/Constitutional: pain o nly normal aches and pains. C hills d enies.?Fatigue a dmits. F ever d enies. E NT: Decreased hearing m ild. R espiratory: Cough d enies. C ardiovascular: Chest pain with exertion d enies. D yspnea on exertion?with moderate activity. S hortness of breath w ith [...] enies. R jeffery d enies. S kin lesion(s)?6 mm verrucous lesion left forearm. N eurologic: Difficulty speaking d enies. D izziness d enies.?Headache d enies. L ow back pain d enies. P sychiatric: Depressed mood d enies. * Medical History: * Surgical History: H /O Colonoscopy Cardiac Cathererization Oophorectomy Left Cataract Splenectomy Hysterectomy with oophorectomy No history * Hospitalization/Major Diagno stic Procedure: Drake Meeks @ [facility] 2018No history * Family History: [...] dditional Findings: Tobacco non-user E x-cigarette smoker S he lives in [facility]. She has been to her , Tcuker, for many years who is also a patient in this practice. They have 1 son who is alive and well and healthy. She is retired. * Medications: T akingFurosemide 20 MG Tablet 1 tablet Orally Once [...] puff as needed Inhalation every 4 hrs Carvedilol 12.5 MG Tablet TAKE 1 TABLET [...] patient * Allergies: B eta- BlockerLisinoprilStatins SupportAmlodipine AwewvpruUbduebpygvpaeuIwlkpfd02 Hour DecongestantSulfacetamideLatexNo Known Food Allergyno[Allergies Verified] Objective: * Vitals: H t: 61, Wt:102, BMI:19.27, BP:143/71, HR:67, Temp:98.6, Ht-cm: 154.94, Wt-k.27. * Examination: G eneral Examination: GENERAL APPEARANCE: [...] n o enlarged lymph nodes,spleen normal. SKIN: 6 mm freely mobile hard cutaneous lesion of the left forearm elevated above skin not ulcerated nonbleeding neoplastic in appearance. HEART: n o clicks, gallops, murmurs, or rubs, regular rhythm, S1, S2 normal, no s3, or vascular bruits. LUNGS: : diminished breath sounds throughout: good air movement: no wheezes, rales, rhonchi. BREASTS: no masses palpable bilaterally. ABDOMEN: b owel sounds normal, no ascites, no organomegaly, no mass, underweight. RECTAL EXAM: n ot examined. MUSCULOSKELETAL: e xtremities unremarkable, no clubbing, cyanosis or edema. PERIPHERAL PULSES: n ormal. NEUROLOGIC: a lert and oriented, cranial nerves 2-12 grossly intact, deep tendon reflexes 2+ symmetrical, motor strength normal upper and lower extremities, sensory exam intact. PSYCH: a lert, oriented. Assessment: * Assessment: 1. 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 She did not wish to go to a exceptional children teacher citing personal reasons. She was referred at her request to her surgeon at [facility]. A follow-up visit was arranged. 2 . C hronic obstructive pulmonary disease, unspecified COPD type - J44.9 N otes :Her chronic cough from the RSV has resolved and she is breathing comfortably today. 3 . H ypertrophic nonobstructive cardiomyopathy - I42.2 N otes :She is breathing comfortably and her lungs are clear. 4 . E ssential hypertension - I10 N otes :Her blood pressure is currently well controlled and no change in her regimen was needed today. 5 . H yperlipidemia, unspecified hyperlipidemia type - E78.5 N otes :Her lipids are being checked frequently. The current values are adequately controlled. 6 . I schemic heart disease - I25.9 N otes :She is able to conduct all of the activities of daily life without ischemic pain. She has had no palpitations or syncope. Her regimen was continued. 7 . F ormer smoker - Z87.891 N otes :She has a plan to prevent relapse in times of stress or illness. 8 . U nderweight - R63.6 N otes :She has become slightly underweight. We have discussed her diet and nutrition today at length. Plan: * Treatment: 2. O thers Continue Furosemide Tablet, 20 MG, 1 tablet, Orally, [...] 100-25 MCG/INH, 1 puff, Inhalation, Once a day; C ontinue Carvedilol Tablet, 12.5 MG, TAKE 1 TABLET BY MOUTH TWICE DAILY WITH FOOD. 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 1 07/06/2024 COPD Care Plan: P atient Lifestyle Goals [...] Eat a healthy diet. * Follow Up: A s Scheduled (Reason: OV) * Images: * Sign off status: Completed true * Provider: Arabella Pozo MD Date: 07/06/2024 Generated for Eloi jose/Addie/eTransmitting on: 08:49 AM EST History and Physical Notes * Examination Category Sub-Category Detail Notes General Examination [...] normal, no s3, or vascular bruits LUNGS: : diminished breath sounds throughout: good air movement: no wheezes, rales, rhonchi ABDOMEN: bowel sounds normal, no ascites, no organomegaly, no mass, underweight NEUROLOGIC: alert and oriented, cranial nerves 2-12 grossly intact, deep tendon reflexes 2+ symmetrical, motor strength normal upper and lower extremities, sensory exam intact SKIN: 6 mm freely mobile h citlaly cutaneous lesion of the left forearm elevated above skin not ulcerated nonbleeding neoplastic in appearance PERIPHERAL PULSES: normal BREASTS: no masses palpable b ilaterally MUSCULOSKELETAL: extremities unremark able, no clubbing, cyanosis or edema LYMPH NODES: no enlarged lymph no roverto,spleen normal RECTAL EXAM: not examined PSYCH: alert, oriented ORAL CAVITY: normal, unremarkable Consultation Request Notes Referral Date Referring Provider Referred Provider Not meredith 05/06/2025 Jose Pozo John Consult and treat 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
--- OUTSIDE RECORDS SUMMARY | 2025-05-29 06:34 | XMS_ITS ---
Author Organization Jose Pozo III, MD Address [address] [place] [address] Care Team Providers Care Ios Programmer Name Role Phone Dr. Jose Pozo III Primary Care Provider REASON FOR VISIT Handicap Placard Social History Sex Assigned At : Social History Observation Description Sex Assigned At Female Encounters Encounter Location Date Provider Diagnosis Jose Pozo III, MD [address] [place] [address] [place] [address] 05/29/2025 Jose Pozo Plan Of Treatment Next Appt Details Provider Name:Joes Pozo , 06/14/2025 11:00:00 AM, [address] [place] [address] [address], [place], [address], Provider Name:Jose Pozo , 03/14/2026 11:00:00 AM, [address] [place] [address] [place], [address], Progress Notes * Charlie BAGLEYDOB:[birth year] (79 yo F)Acc No.[id number]:05/29/2025 Patient: Ozzy ALEXAVALERIACharlie :1945 A ge:79 Y S ex:Female Address:[address] [facility] [place], [address] * true * Date: Generated for Eloi ng/Fatelmag/eTransmitting on: 08:49 AM EST
--- OUTSIDE RECORDS SUMMARY | 2025-06-11 08:48 | XMS_ITS | Clinical Summary ---
Author Organization [facility] Address [address] [place] [address] Phone Care Team Providers Care Orchestra Musician Name Role Phone Jose Pozo MD Primary Care Provider [phone] Allergies Active Allergy Reactions Criticality Noted Date [...] patient's age to complete this topic Insurance [place] Medicare Care Teams Orchestra Musician Relationship Specialty Start Date End Date Jose Pozo MD [address] [place] [address] [address] [place] PCP - General Medical Oncology 10/09/20
--- OUTSIDE RECORDS SUMMARY | 2025-06-11 08:49 | XMS_ITS | Patient Health Record ---
Author Organization Jose Pozo III, MD Address [address] [place] [address] [place] [address] Care Team Providers Care Office Messenger Helper Name Role Phone Dr. Jose Pozo [...] Panel Reviewed date:2024 08:45:16 PM Interpretation: Performing Lab:[facility], [address] [place] [phone] Notes/Report: Sodium 136 135-145 mmol/L Potassium 4.1 [...] ff Reviewed date:2024 08:45:16 PM Interpretation: Performing Lab:[facility], [address] [place] [address] Notes/Report: White Blood Count 10.2 4.8-10.8 X10*3/uL [...] NRBC Abs Auto 0.000 0.0-0.012 X10*3/uL Comprehensive [place]. Panel Fa st Reviewed date:2024 08:45:16 PM Interpretation: Performing Lab:[facility], [address] [place] [address] Notes/Report: Sodium 137 135-145 mmol/L Potassium 4.1 [...] Panel Reviewed date:2024 08:45:16 PM Interpretation: Performing Lab:[address] [address] Notes/Report: Triglycerides 113 <150 mg/dL Desirable Triglyceride: [...] Thyroxine) Reviewed date:2024 08:45:16 PM Interpretation: Performing Lab:[address] [address] Notes/Report: Free T4 (Free Thyroxine) 1.33 0.71-1.85 ng/dL Thyroid Stimulating Hormone Reviewed date:2024 08:45:16 PM Interpretation: Performing Lab:[address] [place] [address] Notes/Report: Thyroid Stimulating Hormone 1.25 0.32-4.0 uIU/mL TSH 3rd Generation ([facility]) Comprehensive Met. Panel Reviewed date:12/23/2024 09:40:25 AM Interpretation: Performing Lab:[facility], [address] [place] [phone] Notes/Report: Sodium 135 135-145 mmol/L Potassium 4.9 [...] T4 Reviewed date:12/23/2024 09:40:25 AM Interpretation: Performing Lab:[facility], [address] [place] [address] Notes/Report: TSH reflex Free T4 0.44 0.32-4.0 uIU/mL Complete Blood Count Auto Di ff Reviewed date:12/23/2024 09:40:24 AM Interpretation: Performing Lab:[facility], [address] [place] [address] Notes/Report: White Blood Count 8.1 4.8-10.8 X10*3/uL [...] NRBC Abs Auto 0.000 0.0-0.012 X10*3/uL Comprehensive [place]. Panel Fa st Reviewed date:12/23/2024 09:40:24 AM Interpretation: Performing Lab:[facility], [address] [place] [phone] Notes/Report: Sodium 139 135-145 mmol/L Potassium 4.6 [...] Panel Reviewed date:12/23/2024 09:40:24 AM Interpretation: Performing Lab:[facility], [address] [place] [phone] Notes/Report: Triglycerides 73 <150 mg/dL Desirable Triglyceride: [...] Thyroxine) Reviewed date:12/23/2024 09:40:24 AM Interpretation: Performing Lab:[facility], [address] [place] [phone] Notes/Report: Free T4 (Free Thyroxine) 1.38 0.71-1.85 ng/dL Thyroid Stimulating Hormone Reviewed date:12/23/2024 09:40:24 AM Interpretation: Performing Lab:[facility], [address] [place] [address] Notes/Report: Thyroid Stimulating Hormone 0.81 0.32-4.0 uIU/mL TSH 3rd Generation ([facility]) US venous duplex LE RT Reviewed date:12/28/2024 11:57:58 AM Interpretation: Performing Lab: Notes/Report: [address] [address] Ultrasound Report Signed Patient: Dasha Rey MR#: [id number] 49 : 1945 Acct:[id number] Age/Sex: 79 / F ADM Date: 12/27/24 Loc: .US Attending Dr: Jose Pozo MD Ordering Physician: Jose Pozo MD Date of Service: 12/27/24 Procedure(s): US venous duplex LE RT Accession Number(s): [id number] cc: Jose Pozo MD EXAMINATION: US TRIPLEX [...] 12/27/24 1206 DD/ 1140 TD/TT: 12/27/24 1150 Manager Technical Training: [place] [address] Ultrasound Report Signed Patient: Charlie Rey MR#: [id number] [birth year] : 1945 Acct:[id number] Age/Sex: 79 / F ADM Date: 12/27/24 Loc: .US Attending Dr: Jose Pozo MD Ordering Physician: Jose Pozo MD Date of Service: 12/27/24 Procedure(s): US francine ous duplex LE RT Accession Number(s): [id number] cc: Jose Pozo MD EXAMINATION: US TRIPLEX [...] 12/27/24 1206 DD/ 1140 TD/TT: 12/27/24 1150 Manager Technical Training: Complete Blood Count Auto Di ff Reviewed date:03/09/2025 08:31:30 PM Interpretation: Performing Lab:[facility], [address] [place] [phone] Notes/Report: White Blood Count 9.1 4.8-10.8 X10*3/uL [...] NRBC Abs Auto 0.000 0.0-0.012 X10*3/uL Comprehensive [place]. Panel Fa st Reviewed date:03/09/2025 08:31:30 PM Interpretation: Performing Lab:[facility], [address] [place] [phone] Notes/Report: Sodium 139 135-145 mmol/L Potassium 4.8 [...] Panel Reviewed date:03/09/2025 08:31:30 PM Interpretation: Performing Lab:[facility], [address] [place] [phone] Notes/Report: Triglycerides 64 <150 mg/dL Desirable Triglyceride: [...] Thyroxine) Reviewed date:03/09/2025 08:31:30 PM Interpretation: Performing Lab:[facility], [address] [place] [phone] Notes/Report: Free T4 (Free Thyroxine) 1.20 0.71-1.85 ng/dL Thyroid Stimulating Hormone Reviewed date:03/09/2025 08:31:30 PM Interpretation: Performing Lab:[facility], [address] [place] [address] Notes/Report: Thyroid Stimulating Hormone 1.20 0.32-4.0 uIU/mL [...] Problem Status W/U Status Risk Notes Problem 8139850 Former smoker (Z87.891) Active confirmed She has a plan to prevent relapse in times of stress or illness. Problem 266391496 Underweight (R63.6) Active confirmed She has become slightly underweight. We have discussed her diet and nutrition today at length. Problem 15084662 Chronic obstructive pulmonary disease, unspecified COPD type (J44.9) Active confirmed Her chronic cou gh from the RSV has resolved and she is breathing comfortably today. Problem 009784379 Acquired hypothyroidism (E03.9) Active confirmed The recent thyroid function tests are in range. No change in her therapy was necessary. Problem 84146108 Essential hypertension (I10) Active confirmed Her blood pressure is currently well controlled and no change in her regimen was needed today. Problem 198223200 Macrocytosis (D75.89) Active confirmed Her mean cell volume is stable at 103.4.This value will be followed. No treatment is necessary at this time. Problem 85550285 Hyperlipidemia, unspecified hyperlipidemia type (E78.5) Active confirmed Her lipids are being checked frequently. The current values are adequately controlled. Problem 726084328 Asthma due to environmental allergies (J45.909) Active confirmed She is using he r inhalers appropriately and has had little difficulty with asthma this summer. No change in her regimen was needed. 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 Problem 457488174 Ischemic heart disease (I25.9) Active confirmed She is able to conduct all of the activities of daily life without ischemic pain. She has had no palpitations or syncope. Her regimen was continued. 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 Problem 4494437 Hypertensive retinopathy of both eyes (H35.033) Active confirmed She has had no vision changes. She is able to drive and read. Her blood pressure is well controlled today. Problem 749770750 Chronic kidney disease (CKD) stage G3b/A2, moderately decreased glomerular filtration rate (GFR) between 30-44 mL/min/1.73 square meter and albuminuria creatinine ratio between 30-299 mg/g (N18.32) Active confirmed The BUN is now 69. The creatinine is normal at 1.08. Her GFR has improved to 49. She will continue with nephrology. She is taking Urea. 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 She did not wish to go to a dishcloth folder citing personal reasons. She was referred at her request to her surgeon at [facility]. A follow-up visit was arranged. Vital Signs Heart Rate 67 /min 05/06/2025 Temperature 98.6 degrees Fahrenheit 05/06/2025 Blood pressure diastolic 71 mm Hg 05/06/2025 Height 61 in 05/06/2025 Blood pressure systolic 143 mm Hg 05/06/2025 Weight 102 lbs 05/06/2025 BMI 19.27 kg/m2 05/06/2025 Encounters Encounter Location Date Provider Diagnosis Jose Pozo III, MD [address] [place] [address] [place] [address] 08/23/2024 Jose Pozo Chronic obstructive pulmonary disease, [...] and Macrocytosis D75.89 Jose Pozo III, MD [address] [place] [address] [place] [address] 12/27/2024 Jose Pozo Chronic obstructive pulmonary disease, [...] and Macrocytosis D75.89 Jose Pozo III, MD [address] [place] [address] [place] [address] 03/12/2025 Jose Pozo Chronic obstructive pulmonary disease, [...] and Macrocytosis D75.89 Jose Pozo III, MD [address] [place] [address] [place] [address] 05/06/2025 Jose Pozo Chronic obstructive pulmonary disease, unspecified COPD type J44.9 ; Neoplasm of skin D49.2 ; Hypertrophic nonobstructive cardiomyopathy I42.2 ; Essential hypertension I10 ; Hyperlipidemia, unspecified hyperlipidemia type E78.5 ; Ischemic heart disease I25.9 ; Former smoker Z87.891 and Underweight R63.6 Jose Pozo III, MD [address] [place] [address] [place] [address] 10/15/2024 Jose Pozo III, MD [address] [place] [address] [address] [place] [address] 10/26/2024 Jose Pozo III, MD [address] [place] [address] [address] [place] [address] 10/26/2024 Jose Pozo III, MD [address] [place] [address] [address] [place] [address] 03/20/2025 Jose Pozo III, MD [address] [place] [address] [address] [place] [address] 05/29/2025 Jose Pozo Assessments Encounter Date Diagnosis [...] did not wish to go to a dishcloth folder citing personal reasons. She was referred at her request to her surgeon at [facility]. A follow-up visit was arranged. 08/23/2024 Essential hypertension (ICD-10 - I10) Her blood pressure and vital signs are stable today. No change in her regimen was necessary. 12/27/2024 Age-related incipient cataract of both eyes (ICD-10 - H25.093) She has an manager life insurance and she sees regularly. 03/12/2025 Hyperlipidemia, unspecified [...] Provider Name:Jose Rivasrne , 06/14/2025 11:00:00 AM, [address] [place] [address] [address], [place], [address], Provider Name:Jose Tello Nohelia , 03/14/2026 11:00:00 AM, [address] [place] [address] [address], [place], [address], Insurance Providers Payer Name Payer Address Payer Phone Subscriber Number Group Number Insured Name Patient Relationship to Insured Coverage Start Date Coverage End Date MEDICARE NGS [address] [place] [id number] Charlie Rey Self - patient is the insured [facility] [address] [address] [place] [address] [id number] Charlie Rey Self - patient is the [...] Reason Date(Month/Year) No history Kidney Jeanna @ [facility] 2018
[2025-06-11 10:31] LABS: MANUAL DIFF FLAG NO
[2025-06-11 10:43] LABS: Hematocrit 40.6 % (37.0-47.0); Hemoglobin 13.0 g/dl (12.0-16.0); Imm Gran Abs Auto 0.03 X10*3/uL (0.00-0.03); Imm Gran Pct Auto 0.3 % (0.0-0.4); Lymphocytes Absolute Auto 1.7 X10*3/uL (1.2-4.9); Mean Corpuscular HGB Conc 32.0 g/dl (31.0-35.0); Mean Corpuscular Hemoglobin 33.2 pg (27.0-33.0); Mean Corpuscular Volume 103.8 fL (80.0-98.0); NRBC Abs Auto 0.000 X10*3/uL (0.0-0.012); NRBC Pct Auto 0.0 /100WBC (0.0-0.2); Platelet Count 201 X10*3/uL (160-400); Red Blood Count 3.91 X10*6/uL (4.20-5.50); White Blood Count 8.7 X10*3/uL (4.8-10.8)
[2025-06-11 11:13] LABS: Alanine Aminotransferase 19 U/L (0-31); Albumin Level 3.7 g/dL (3.5-5.0); Alkaline Phosphatase 40 U/L (39-117); Anion Gap 10 (12-20); Aspartate Amino Transferase 28 U/L (5-31); Blood Urea Nitrogen 49 mg/dL (9-16); Calcium 9.1 mg/dL (8.4-10.2); Carbon Dioxide 31 mmol/L (22-29); Chloride 102 mmol/L (96-108); Cholesterol 203 mg/dL (<200); Estimated Glomerular Filt Rate 46; HDL Cholesterol 66 mg/dL (>40); Potassium 4.3 mmol/L (3.3-5.1); Sodium 139 mmol/L (135-145); Total Protein 7.9 g/dL (6.5-8.0); Triglycerides 108 mg/dL (<150)
== END 2025-06-11 07:06 | disposition home or self-care (01) ==
LOC: HO.HMGCLDS 07:05
PROVIDERS: PCP Internal Medicine Medical Oncology; Visit Provider Internal Medicine Medical Oncology
DX: I10 Essential (primary) hypertension (principal); J44.9 Chronic obstructive pulmonary disease, unspecified; E78.5 Hyperlipidemia, unspecified
CPT/HCPCS: 36415; 80053; 80061; 85025